=== PATIENT | male | born 1940 | race Native Hawaiian/Other Pacific Islander ===

== ENCOUNTER → 2020-02-16 10:03 | Outpatient (BNVA) | payer MEDICARE, SELFPAY | PROVIDERS: PCP Internal Medicine; Referring Provider Internal Medicine; Visit Provider Nurse Practitioner Gerontology | DX: E11.65 Type 2 diabetes mellitus with hyperglycemia (principal); E11.319 Type 2 diabetes mellitus with unspecified diabetic retinopathy without macular edema; E78.5 Hyperlipidemia, unspecified; I10 Essential (primary) hypertension; Z79.4 Long term (current) use of insulin | CPT/HCPCS: 82947; 95250; 99213 ==

== ENCOUNTER 2020-02-27 09:19 | Outpatient (REF) | payer MEDICARE, SELFPAY ==
[2020-02-27 10:11] LABS: MANUAL DIFF FLAG NO
[2020-02-27 10:26] LABS: Basophils Absolute Auto 0.1 X10*3/uL (0.0-0.2); Basophils Percent Auto 0.9 % (0-2); Eosinophils Absolute Auto 0.3 X10*3/uL (0.0-0.4); Eosinophils Percent Auto 4.8 % (0-4); Imm Gran Abs Auto 0.01 X10*3/uL (0.00-0.03); Imm Gran Pct Auto 0.1 % (0.0-0.4); Lymphocytes Absolute Auto 1.5 X10*3/uL (1.2-4.9); Lymphocytes Percent Auto 21.3 % (20-40); Mean Corpuscular HGB Conc 33.3 g/dl (31.0-36.0); Mean Corpuscular Hemoglobin 29.2 pg (27.0-33.0); Mean Corpuscular Volume 87.6 fL (80-98); Mean Platelet Volume 10.9 fL (9.4-12.4); Monocytes Absolute Auto 0.5 X10*3/uL (0.1-1.2); Monocytes Percent Auto 7.5 % (2-11); Neutrophils Absolute Auto 4.6 X10*3/uL (2.0-8.3); Neutrophils Percent Auto 65.4 % (45-73); Platelet Count 141 X10*3/uL (160-400); Red Blood Count 4.45 X10*6/uL (4.60-5.80); Red Cell Distribution Width 12.5 % (11.0-16.0)
[2020-02-27 10:53] LABS: TSH reflex Free T4 2.33 mIU/mL (0.32-4.0)
[2020-02-27 11:26] LABS: Alanine Aminotransferase 16 U/L (0-40); Albumin Level 4.3 g/dL (3.5-5.0); Alkaline Phosphatase 77 U/L (39-117); Anion Gap 12 (12-20); Aspartate Amino Transferase 16 U/L (5-37); Bilirubin Total 1.3 mg/dL (0.0-1.0); Blood Urea Nitrogen 17 mg/dL (9-16); C Reactive Protein 0.08 mg/dL (< or = 0.50); Calcium 9.6 mg/dL (8.4-10.2); Carbon Dioxide 30 mmol/L (22-29); Chloride 102 mmol/L (96-108); Cholesterol 135 mg/dL; Estimated Glomerular Filt Rate > 60; Glucose Fasting 138 mg/dL (60-99); HDL Cholesterol 36 mg/dL; LDL Cholesterol Calculated 66 mg/dl; Potassium 4.3 mmol/l (3.3-5.1); Sodium 140 mmol/L (135-145); Total Protein 6.9 g/dL (6.5-8.0); Triglycerides 166 mg/dL
[2020-02-27 11:37] LABS: Erythrocyte Sedimentation Rate 9 MM/HR (0-15)
== END 2020-02-27 09:20 | disposition home or self-care (01) ==
LOC: HO.10HDL 09:19
PROVIDERS: Visit Provider Internal Medicine
DX: M35.3 Polymyalgia rheumatica (principal); E78.00 Pure hypercholesterolemia, unspecified; E11.8 Type 2 diabetes mellitus with unspecified complications; R53.82 Chronic fatigue, unspecified
CPT/HCPCS: 36415; 80053; 80061; 84443; 85025; 85652; 86140

== ENCOUNTER → 2020-03-01 10:55 | Outpatient (BNVA) | payer MEDICARE, SELFPAY | PROVIDERS: PCP Internal Medicine; Referring Provider Internal Medicine; Visit Provider Nurse Practitioner Gerontology | DX: E11.29 Type 2 diabetes mellitus with other diabetic kidney complication (principal); Z79.84 Long term (current) use of oral hypoglycemic drugs; E78.5 Hyperlipidemia, unspecified; I10 Essential (primary) hypertension; R80.9 Proteinuria, unspecified | CPT/HCPCS: 82947; 99214 ==

== ENCOUNTER → 2020-07-26 10:54 | Outpatient (BNVA) | payer MEDICARE, SELFPAY | PROVIDERS: PCP Internal Medicine; Visit Provider Nurse Practitioner Gerontology | DX: I10 Essential (primary) hypertension (principal); E11.29 Type 2 diabetes mellitus with other diabetic kidney complication; R80.9 Proteinuria, unspecified; E78.5 Hyperlipidemia, unspecified; Z79.84 Long term (current) use of oral hypoglycemic drugs; Z71.3 Dietary counseling and surveillance | CPT/HCPCS: 82947; 99212 ==

== ENCOUNTER → 2020-11-01 10:33 | Outpatient (BNVA) | payer MEDICARE, SELFPAY | PROVIDERS: PCP Internal Medicine; Visit Provider Nurse Practitioner Gerontology | DX: E11.29 Type 2 diabetes mellitus with other diabetic kidney complication (principal); E78.5 Hyperlipidemia, unspecified; I10 Essential (primary) hypertension; R80.9 Proteinuria, unspecified | CPT/HCPCS: 82947; 99212 ==

== ENCOUNTER 2021-01-27 08:25 | Outpatient (REF) | payer MEDICARE, SELFPAY ==
[2021-01-27 10:42] LABS: Alanine Aminotransferase 25 U/L (0-40); Albumin Level 4.3 g/dL (3.5-5.0); Alkaline Phosphatase 66 U/L (39-117); Anion Gap 12 (12-20); Aspartate Amino Transferase 21 U/L (5-37); Bilirubin Total 1.5 mg/dL (0.0-1.0); Blood Urea Nitrogen 26 mg/dL (9-16); Calcium 9.5 mg/dL (8.4-10.2); Carbon Dioxide 28 mmol/L (22-29); Chloride 104 mmol/L (96-108); Cholesterol 127 mg/dL; Estimated Glomerular Filt Rate > 60; Glucose Fasting 117 mg/dL (60-99); HDL Cholesterol 36 mg/dL; LDL Cholesterol Calculated 62 mg/dl; Potassium 4.4 mmol/L (3.3-5.1); Sodium 140 mmol/L (135-145); Total Protein 6.5 g/dL (6.5-8.0); Triglycerides 148 mg/dL
[2021-01-27 14:22] LABS: Creatinine Urine 122.17 mg/dL; Microalbum/Creatinine Ratio Ur 20.4 ug/mg cr
[2021-01-28 13:05] LABS: LDL Cholesterol Direct 66 mg/dL (<100)
== END 2021-01-27 08:26 | disposition home or self-care (01) ==
LOC: HO.10HDL 08:25
PROVIDERS: Visit Provider Nurse Practitioner Gerontology
DX: E11.65 Type 2 diabetes mellitus with hyperglycemia (principal)
CPT/HCPCS: 36415; 80053; 80061; 82043; 83721

== ENCOUNTER → 2021-02-01 11:22 | Outpatient (BNVA) | payer MEDICARE, SELFPAY | PROVIDERS: PCP Internal Medicine; Visit Provider Nurse Practitioner Gerontology | DX: E11.29 Type 2 diabetes mellitus with other diabetic kidney complication (principal); E78.5 Hyperlipidemia, unspecified; I10 Essential (primary) hypertension; R80.9 Proteinuria, unspecified | CPT/HCPCS: 82947; 83036; 99212 ==

== ENCOUNTER 2021-02-23 09:00 | Outpatient (REF) | payer MEDICARE, SELFPAY ==
[2021-02-23 10:44] LABS: Prostate Specific Antigen 0.45 ng/mL (<0.05-4.0)
== END 2021-02-23 09:01 | disposition home or self-care (01) ==
LOC: HO.10HDL 09:00
PROVIDERS: Visit Provider Urology
DX: Z12.5 Encounter for screening for malignant neoplasm of prostate (principal); C61 Malignant neoplasm of prostate
CPT/HCPCS: 36415; 84153

== ENCOUNTER 2021-02-25 11:13 | Outpatient (REF) | payer MEDICARE, SELFPAY | END 2021-02-25 11:14 | disposition home or self-care (01) | LOC: HO.10HDLNP 11:13 | PROVIDERS: Visit Provider Physician Assistant | DX: K21.9 Gastro-esophageal reflux disease without esophagitis (principal) | CPT/HCPCS: 87338 ==

== ENCOUNTER → 2021-04-18 14:45 | Outpatient (BNVA) | payer MEDICARE, SELFPAY | PROVIDERS: PCP Internal Medicine; Referring Provider Internal Medicine; Visit Provider Nurse Practitioner | DX: K59.04 Chronic idiopathic constipation (principal); K30 Functional dyspepsia; R17 Unspecified jaundice | CPT/HCPCS: 99202 ==

== ENCOUNTER → 2021-04-19 10:58 | Outpatient (BNVA) | payer MEDICARE, SELFPAY | PROVIDERS: PCP Internal Medicine; Referring Provider Internal Medicine; Visit Provider Internal Medicine | DX: I25.10 Atherosclerotic heart disease of native coronary artery without angina pectoris (principal); I10 Essential (primary) hypertension; E11.8 Type 2 diabetes mellitus with unspecified complications | CPT/HCPCS: 93005; 99212 ==

== ENCOUNTER 2021-04-20 07:59 | Outpatient (REF) | payer MEDICARE, SELFPAY ==
[2021-04-20 10:10] LABS: Estimated Average Glucose 174 mg/dL; Hemoglobin A1c % 7.7 %
[2021-04-20 10:29] LABS: Alanine Aminotransferase 14 U/L (0-40); Albumin Level 4.2 g/dL (3.5-5.0); Alkaline Phosphatase 71 U/L (39-117); Anion Gap 14 (12-20); Aspartate Amino Transferase 14 U/L (5-37); Bilirubin Direct 0.5 mg/dL (0.0-0.5); Bilirubin Total 1.3 mg/dL (0.0-1.0); Blood Urea Nitrogen 19 mg/dL (9-16); Calcium 10.3 mg/dL (8.4-10.2); Carbon Dioxide 30 mmol/L (22-29); Chloride 105 mmol/L (96-108); Cholesterol 129 mg/dL; Estimated Glomerular Filt Rate > 60; Glucose Fasting 148 mg/dL (60-99); HDL Cholesterol 40 mg/dL; LDL Cholesterol Calculated 68 mg/dl; Potassium 4.9 mmol/L (3.3-5.1); Sodium 144 mmol/L (135-145); Total Protein 6.7 g/dL (6.5-8.0); Triglycerides 105 mg/dL
[2021-04-20 10:31] LABS: Bilirubin Direct 0.5 mg/dL (0.0-0.5); Creatinine Urine 106.06 mg/dL; Microalbum/Creatinine Ratio Ur 27.3 ug/mg cr
[2021-04-20 10:51] LABS: TSH reflex Free T4 3.24 uIU/mL (0.32-4.0)
[2021-04-24 15:06] LABS: Vitamin D 25-OH, D2 <4 ng/mL; Vitamin D 25-OH, D3 43 ng/mL; Vitamin D 25-OH, Total 43 ng/mL (30-100)
== END 2021-04-20 08:00 | disposition home or self-care (01) ==
LOC: HO.10HDL 07:59
PROVIDERS: Absent Provider Nurse Practitioner Gerontology; PCP Internal Medicine; Referring Provider Internal Medicine Hypertension Specialist; Visit Provider Nurse Practitioner
DX: E11.29 Type 2 diabetes mellitus with other diabetic kidney complication (principal); I10 Essential (primary) hypertension; K59.04 Chronic idiopathic constipation; R17 Unspecified jaundice; R10.13 Epigastric pain; E55.9 Vitamin D deficiency, unspecified; R80.9 Proteinuria, unspecified
CPT/HCPCS: 36415; 80053; 80061; 80076; 82043; 82248; 82306; 83036; 84443

== ENCOUNTER 2021-06-03 08:10 | Outpatient (REF) | payer MEDICARE, SELFPAY ==
--- NOTE | ~2021-06-03 | US_ITS ---
EXAMINATION: US ABDOMEN COMPLETE CLINICAL INFORMATION: Chronic idiopathic constipation. COMPARISON: CT abdomen and pelvis 07/14/2017. Ultrasound abdomen complete 05/29/2017. X-ray abdomen 11/13/2014. TECHNIQUE: Real-time imaging of the abdominal viscera. Technically limited study secondary to bowel gas. FINDINGS: PANCREAS: The pancreas is obscured by gas. ABDOMINAL AORTA: The proximal, mid, and distal segments are normal in caliber. INFERIOR VENA CAVA: Visualized portions are normal. LIVER: The liver is normal in size. The liver contour is normal. There is increased liver echogenicity. No focal hepatic lesion. There is no intrahepatic biliary duct dilatation seen. GALLBLADDER: Normal. The gallbladder is physiologically distended without evidence of stones, sludge, polyps, wall thickening or pericholecystic fluid. COMMON BILE DUCT: Normal in caliber measuring 0.5 cm in diameter. RIGHT KIDNEY: There is an anechoic cyst in the lateral/mid pole measuring 1.8 x 1.3 x 1.4 cm. No hydronephrosis or renal calculi. The kidney measures 9.8 cm in maximum dimension. LEFT KIDNEY: There is an anechoic cyst in the mid pole measuring 2.1 x 2.4 x 2.1 cm. No hydronephrosis or renal calculi. The kidney measures 12.0 cm in maximum dimension. SPLEEN: Normal. The spleen measures 8.0 cm in maximum dimension. FREE FLUID: None. US/US abdomen complete IMPRESSION: Bilateral renal cysts. The rest of the abdominal ultrasound is unremarkable.
== END 2021-06-03 08:11 | disposition home or self-care (01) ==
LOC: HO.US 08:10
PROVIDERS: PCP Internal Medicine; Visit Provider Nurse Practitioner
DX: R10.13 Epigastric pain (principal); K59.04 Chronic idiopathic constipation; R17 Unspecified jaundice
CPT/HCPCS: 76700

== ENCOUNTER → 2021-06-10 12:20 | Outpatient (BNVA) | payer MEDICARE, SELFPAY | PROVIDERS: PCP Internal Medicine; Visit Provider Nurse Practitioner Gerontology | DX: E11.29 Type 2 diabetes mellitus with other diabetic kidney complication (principal); E78.5 Hyperlipidemia, unspecified; I10 Essential (primary) hypertension; Z79.84 Long term (current) use of oral hypoglycemic drugs | CPT/HCPCS: 82947; 99212 ==

== ENCOUNTER → 2021-09-06 12:37 | Outpatient (BNVA) | payer MEDICARE, SELFPAY | PROVIDERS: PCP Internal Medicine; Visit Provider Nurse Practitioner Gerontology | DX: E11.29 Type 2 diabetes mellitus with other diabetic kidney complication (principal); E11.42 Type 2 diabetes mellitus with diabetic polyneuropathy; E78.5 Hyperlipidemia, unspecified; I10 Essential (primary) hypertension; Z79.84 Long term (current) use of oral hypoglycemic drugs; Z79.899 Other long term (current) drug therapy | CPT/HCPCS: 82947; 83036; 99212 ==

== ENCOUNTER 2022-04-12 09:09 | Outpatient (REF) | payer MEDICARE, SELFPAY ==
[2022-04-12 10:53] LABS: Anion Gap 15 (12-20); Blood Urea Nitrogen 19 mg/dL (9-16); Calcium 9.8 mg/dL (8.4-10.2); Carbon Dioxide 30 mmol/L (22-29); Chloride 102 mmol/L (96-108); Estimated Glomerular Filt Rate > 60; Glucose Random 146 mg/dL (60-115); Potassium 4.3 mmol/L (3.3-5.1); Sodium 143 mmol/L (135-145)
[2022-04-12 11:08] LABS: Creatinine Urine 116.93 mg/dL; Protein/Creatinine Ratio, Ur 0.16 (<0.2); Total Protein Urine Random 19 mg/dL (<12)
== END 2022-04-12 09:10 | disposition home or self-care (01) ==
LOC: HO.10HDL 09:09
PROVIDERS: Visit Provider Internal Medicine Hypertension Specialist
DX: I10 Essential (primary) hypertension (principal)
CPT/HCPCS: 36415; 80048; 84156

== ENCOUNTER → 2022-04-13 12:28 | Outpatient (BNVA) | payer MEDICARE, SELFPAY | PROVIDERS: PCP Internal Medicine; Referring Provider Internal Medicine; Visit Provider Internal Medicine | DX: I25.10 Atherosclerotic heart disease of native coronary artery without angina pectoris (principal); I10 Essential (primary) hypertension; E11.8 Type 2 diabetes mellitus with unspecified complications | CPT/HCPCS: 93005; 99212 ==

== ENCOUNTER → 2022-08-02 08:14 | Outpatient (BNVA) | payer MEDICARE, SELFPAY | PROVIDERS: PCP Internal Medicine; Visit Provider Nurse Practitioner | DX: K59.04 Chronic idiopathic constipation (principal); R17 Unspecified jaundice; K21.9 Gastro-esophageal reflux disease without esophagitis | CPT/HCPCS: 99212 ==

== ENCOUNTER → 2022-08-23 08:31 | Outpatient (BNVA) | payer MEDICARE, SELFPAY | PROVIDERS: PCP Internal Medicine; Visit Provider Nurse Practitioner | DX: K59.04 Chronic idiopathic constipation (principal); K30 Functional dyspepsia | CPT/HCPCS: 99212 ==

== ENCOUNTER 2022-11-09 08:05 | Day surgery (SDC) | payer OTHER, SELFPAY ==
[2022-11-07 09:41] VITALS: BMI 23.9
--- NOTE | 2022-11-07 15:03 | P.CONAN_ITS ---
Documented by User: Flores Robison NP 11/07/22 15:05 HPI - Anesthesia Eval Consult details Narrative: 82yo M for Upper Endoscopy Stable/asymptomatic at yearly cardiology office visit 04/2022 [facility] Active Problems Active Problems: All Active Problems (Updated 11/07/22 @ 09:38 by Amanda Kan RN) Elevated bilirubin (Acute) Chronic idiopathic constipation (Acute) Epigastric pain (Acute) Delayed gastric emptying (Acute) Atherosclerotic cardiovascular disease (Acute) Type 2 diabetes mellitus with unspecified complications (Acute) Tremor (Acute) Hyperlipidemia LDL goal <70 (Acute) Type 2 diabetes mellitus with diabetic polyneuropathy (Acute) Malignant neoplasm of prostate (Acute) GERD (gastroesophageal reflux disease) (Acute) Type 2 diabetes mellitus with proteinuria (Acute) Type 2 diabetes mellitus with hyperglycemia (Acute) Essential hypertension (Acute) Allergic rhinitis (Acute) Stented coronary artery (Acute) Microalbuminuria (Acute) Insomnia (Acute) Past Medical History Medical History Allergic rhinitis Coronary artery disease Essential hypertension GERD (gastroesophageal reflux disease) History of Helicobacter infection History of prostate cancer Hyperlipidemia LDL goal <100 Insomnia Malignant neoplasm of prostate Microalbuminuria Type 2 diabetes mellitus with diabetic polyneuropathy Type 2 diabetes mellitus with hyperglycemia Type 2 diabetes mellitus with proteinuria Vitamin D deficiency Family History Family History Father Medical history unknown Mother Medical history unknown Sister Diabetes Daughter Breast cancer Surgical History Surgical History History of cardiac cath Hx of colonoscopy Hx of esophagogastroduodenoscopy Hx of prostate biopsy Stented coronary artery Social History Social History Household Members: None Housing: Apartment Housing Other:: [employer] Alcohol intake: never Patient Tobacco Use Status: Former Tobacco user Quit Date: > 10 yrs ago Tobacco use type: Cigarette e-Cigarette/Vaping Use: Never Used Second Hand Smoke Exposure: No Use of substances other than those prescribed or required for medical reasons: No Are you DNR?: No Advance Directives: No Advance Directives Information Provided: Yes service: No Current occupational status: retired Cognitive needs: Yes Hearing needs: No Vision needs: Yes Meds Allergies Allergy/AdvReac Type Severity Reaction Status Date / Time No Known Allergies Allergy Verified 11/09/22 08:49 [No Known Allergies*] Home Medications Medication Instructions Recorded Confirmed Last Taken Type docusate sodium 100 mg capsule 100 mg PO DAILY PRN Constipation 02/14/20 11/09/22 Unknown History (Colace) furosemide 20 mg tablet 20 mg PO DAILY PRN leg swelling 02/14/20 11/09/22 Unknown History nitroglycerin 0.4 mg sublingual 0.4 mg sublingual Q5M PRN Chest 02/14/20 11/09/22 Unknown History tablet Pain blood-glucose meter #1 ea 04/01/20 11/09/22 Unknown History lancets 28 gauge #100 ea 04/01/20 11/09/22 Unknown History glucose 4 gram chewable tablet 4 g PO ONCE PRN Hypoglycemia 07/26/20 11/09/22 Unknown History plecanatide 3 mg tablet (Trulance) 3 mg PO DAILY PRN Abdominal Pain 11/09/22 11/09/22 Unknown History sennosides 8.6 mg capsule (senna) 17.2 mg PO BEDTIME PRN Constipation 11/09/22 11/09/22 Unknown History Exam Exam Date and Time: November 07, 2022 1503 Height,Weight and Vital Signs: Height 5 ft 3 in Weight 61.235 kg Pertinent Lab Results Pertinent Lab Results: Laboratory Tests 04/12/22 08:30 Sodium 143 Potassium 4.3 Chloride 102 Carbon Dioxide 30 H BUN 19 H Creatinine 0.92 Narrative Narrative: EKG 04/2022 sinus rhythm, sinus arrhythmia versus PACs.? Rightward axis.? Normal AK and cor rected QT. Assessment and Plan Assessment Anesthesia Assessment: Chart Reviewed Documented by User: Cecily Yoo MD 11/09/22 09:10 PMFSH Past Medical History Medical History Allergic rhinitis Coronary artery disease Essential hypertension GERD (gastroesophageal reflux disease) History of Helicobacter infection History of prostate cancer Hyperlipidemia LDL goal <100 Insomnia Malignant neoplasm of prostate Microalbuminuria Type 2 diabetes mellitus with diabetic polyneuropathy Type 2 diabetes mellitus with hyperglycemia Type 2 diabetes mellitus with proteinuria Vitamin D deficiency Family History Family History Father Medical history unknown Mother Medical history unknown Sister Diabetes Daughter Breast cancer Family history of problems with anesthesia: No Surgical History Surgical History History of cardiac cath Hx of colonoscopy Hx of esophagogastroduodenoscopy Hx of prostate biopsy Stented coronary artery History of Problems with Anesthesia: No Social History Social History Household Members: None Housing: Apartment Housing Other:: [employer] Alcohol intake: never Patient Tobacco Use Status: Former Tobacco user Quit Date: > 10 yrs ago Tobacco use type: Cigarette e-Cigarette/Vaping Use: Never Used Second Hand Smoke Exposure: No Use of substances other than those prescribed or required for medical reasons: No Are you DNR?: No Advance Directives: No Advance Directives Information Provided: Yes service: No Current occupational status: retired Cognitive needs: Yes Hearing needs: No Vision needs: Yes Meds Allergies Allergy/AdvReac Type Severity Reaction Status Date / Time No Known Allergies Allergy Verified 11/09/22 08:49 [No Known Allergies*] Home Medications Medication Instructions Recorded Confirmed Last Taken Type docusate sodium 100 mg capsule 100 mg PO DAILY PRN Constipation 02/14/20 11/09/22 Unknown History (Colace) furosemide 20 mg tablet 20 mg PO DAILY PRN leg swelling 02/14/20 11/09/22 Unknown History nitroglycerin 0.4 mg sublingual 0.4 mg sublingual Q5M PRN Chest 02/14/20 11/09/22 Unknown History tablet Pain blood-glucose meter #1 ea 04/01/20 11/09/22 Unknown History lancets 28 gauge #100 ea 04/01/20 11/09/22 Unknown History glucose 4 gram chewable tablet 4 g PO ONCE PRN Hypoglycemia 07/26/20 11/09/22 Unknown History plecanatide 3 mg tablet (Trulance) 3 mg PO DAILY PRN Abdominal Pain 11/09/22 11/09/22 Unknown History sennosides 8.6 mg capsule (senna) 17.2 mg PO BEDTIME PRN Constipation 11/09/22 11/09/22 Unknown History Exam Airway Mallampati Class: II TM Dist: >3cm Neck ROM: Full Partial: Upper and Lower Heart: rrr Lungs: cta Assessment and Plan Assessment Anesthesia Assessment: Anesthesia Plan Discussed Final Anesthetic Review Family History of Problems with Anesthesia: No History of Problems with Anesthesia: No NPO: Yes ASA Class: III Final Preanesthetic Review: No Changes in Pt Med Stat, Meds/Allgs Chart Reviewed, Consent Obtained/Reviewed and Anes Risks/Benef Reviewed Patient Risk: Low Procedure Risk: Low Anesthetic Plan Anesthetic Plan: MAC: Disposition: Standard PACU
[2022-11-09] MEDS: Lactated Ringers 1,000 ML 100 ML IVCONT (08:48)
[2022-11-09 09:13] LABS: Glucose, Whole Blood 134 mg/dL (60-115)
--- NOTE | 2022-11-09 09:20 | MHC.SHP ---
Pre-Procedural Eval Section A Date of Service: 11/09/22 Section B Chief Complaint: Functional dyspepsia,epigastric pain, Relevant Family History (Specify if Yes): No Relevant Social History: None Present Medications: see Short Stay Collaborative assessment Medical History: Significant History (Allergic rhinitis Colon cancer Coronary artery disease Essential hypertension GERD (gastroesophageal reflux disease) History of Helicobacter infection History of prostate cancer Hyperlipidemia LDL goal <100 Insomnia Malignant neoplasm of prostate Microalbuminuria Type 2 diabetes mellitus with diabet) History of Previous Operations: Relevant previous surgery/procedure and date(s) (History of cardiac cath Hx of colonoscopy Hx of esophagogastroduodenoscopy Hx of prostate biopsy Stented coronary artery) Allergies: Allergies Allergy/AdvReac Type Severity Reaction Status Date / Time No Known Allergies Allergy Verified 11/09/22 08:49 [No Known Allergies*] Review of Systems Sugical H&P ROS: Negative: Constitution, Cardiovascular, Respiratory, Neurological, Psychiatric, Hem-Onc, Allergic/Immunologic, Gastrointestinal, Genitourinary, Musculoskeletal, Integumentary, Endocrine and Eyes/Ears/Nose/Throat Exam Surgical H&P Exam: Normal: HEENT, Normal: Heart, Normal: Lungs, Normal: Extremities, Normal: Abdomen, Normal: Skin and Normal: Neurological Plan Diagnosis/Plan: Unchanged I have reviewed the history and physical and performed a pertinent physical examination on my patient. No changes have occurred unless specified. Time Spent With Patient Time: Total time managing care of this patient today ____ minutes.
--- NOTE | 2022-11-09 09:34 | W.PM.OPN ---
Operative Note Operative Note Date of Service: 11/09/22 Narrative: Procedure Description: EGD Indication: epigastric pain Anesthesia: MAC FLEXIBLE TRANSORAL UPPER GASTROINTESTINAL ENDOSCOPY UPPER ENDOSCOPY Consent: Indications for the procedure and potential complications of bleeding, perforation, reaction to medications and missed diagnosis were discussed with the patient and informed consent was obtained. Instrument: Olympus GIF H 190 J mid size upper endoscope Monitoring: Vital signs and clinical assessment, continuous EKG monitoring, Pulse oximetry, Carbon Dioxide monitoring and blood pressure monitoring were done throughout the procedure. Procedure: The patient was placed in the left lateral decubitis position and pre-procedure medications were administered and a bite block was placed. The endoscope was inserted into the mouth and advanced under direct vision to the third part of duodenum. A careful inspection was made as the upper endoscope was withdrawn including a retroflexed examination of the proximal stomach; Findings and interventions are described below. Findings: Larynx:normal Esophagus: GE junction at 34 cm, diaphragm hiatus at 36 cm, consistent with 2 cm sliding hiatal hernia, mild esophagitis, bx taken Stomach: Patchy gastric erythema with atrophy. Biopsies were obtained. Grade 2 flap valve on retroflexed examination of the cardia. Duodenum: Normal bulb and descending duodenum, bx taken Intervention: Biopsies as noted above Impression/Findings: atrophic gastritis esophagitis PLAN: check complaince with PPI, can give trial of carafate if h pylori pos then treat
[2022-11-09 09:40] VITALS: BP 152/77; PULSE 99; RESP 16; TEMP 36.7; O2SAT 98
[2022-11-09 09:55] VITALS: BP 171/78; PULSE 98; RESP 16; TEMP 36.7; O2SAT 99
== END 2022-11-09 10:09 | disposition home or self-care (01) ==
PROVIDERS: PCP Internal Medicine; Visit Provider Internal Medicine Gastroenterology
PROC: 0DJ08ZZ Inspection of Upper Intestinal Tract, Via Natural or Artificial Opening Endoscopic (ICD-10-PCS; CPT 43235; principal; 2022-11-09 08:10)
DX: R10.13 Epigastric pain (principal); K30 Functional dyspepsia; K29.40 Chronic atrophic gastritis without bleeding; K21.00 Gastro-esophageal reflux disease with esophagitis, without bleeding; K44.9 Diaphragmatic hernia without obstruction or gangrene; I10 Essential (primary) hypertension; E11.9 Type 2 diabetes mellitus without complications
CPT/HCPCS: 43239; 82947; 88305; 88342

== ENCOUNTER 2022-11-15 09:02 | Outpatient (REF) | payer OTHER, SELFPAY | END 2022-11-15 09:03 | disposition home or self-care (01) | LOC: HO.XRAY 09:02 | PROVIDERS: PCP Internal Medicine; Visit Provider Nurse Practitioner | DX: R10.13 Epigastric pain (principal) | CPT/HCPCS: 74220 ==

== ENCOUNTER 2022-11-21 08:52 | Outpatient (AMB) | payer MEDICARE, SELFPAY ==
--- NOTE | 2022-11-21 09:06 | A.OFFVIS_ITS ---
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 He has had help with the epigastric pain and the acid brash with the reglan w/o s/e. He is also using the simethicone. However, he still will have CIC, but the Trulance gives him diarrhea. We will stop this and try senna - may need to buy OTC. He still has pain in the xyphoid area with laying down, touching it and bending to tie his shoes. Will get EGD and bariums swallow, unsure if this is pain from the distal esophagus or some other internal organ whether this is musculoskeletal.? The examination is quite mix with pain also pressing on (gently) the lower ribs and xiphoid area.? She also, the pain is not worsened with eating or swallowing so it is puzzling. Next avail for eval of senna (2) Chronic idiopathic constipation: ?Code(s): K59.04 - Chronic idiopathic constipation (3) Delayed gastric emptying: ?Code(s): K30 - Functional dyspepsia ? ? ? Orders: Orders FL barium swallowA Today R10.13 - Epigastri c pain ? Medications: New sennosides (senna) 17.2 mg (2 x 8.6 m g) PO BEDTIME 30 d ays 60 caps 3RF co nstipation K59.04 - Chronic i diopathic constipa tion ?Patient Instructions: Bassam Kurtz Please stop the Trulance and start a medicine called senna for his constipation as needed. I have tried sending this to the pharmacy, but you may need to buy this over the counter ? it should be inexpensive. Store brands are okay! Continue the metoclopramide and the simethicone. I? also am ordering and upper endoscopy and a barium swallow for him, we will be calling to schedule this. I want to see him in a few weeks to see how the senna is working. BARIUM SWALLOW 11/15/22 FINDINGS: Following intravenous administration of thick barium and barium-coated turkey in upright view there is normal? propagation of bolus from the oral cavity through the esophagus into stomach without any obstruction, narrowing or stricture. There is normal oral mastication of turkey with normal propagation of bolus from the oral cavity through the pharynx, esophagus into stomach. On placing patient prone lying, an oral administration thin barium, there is good distention of the entire esophagus without any evidence of obstruction, narrowing or stricture. In supine view, there is a small hiatal hernia but no reflux visualized. There are tertiary peristalsis visualized in the distal esophagus in supine view. FL/FL barium swallow IMPRESSION: 1. No obstructive or constrictive lesion seen in the esophagus. ? 2. There is a small hiatal hernia without reflux. ? 3. Tertiary peristalsis seen in the distal esophagus in supine lying view. ? EGD 11/09/22 Findings: Larynx:normal Esophagus: GE junction at 34? cm, diaphragm hiatus at 36 cm, consistent with 2 cm sliding hiatal hernia, mild esophagitis, bx taken Stomach: Patchy gastric erythema with atrophy. Biopsies were obtained. Grade 2 flap valve on retroflexed examination of the cardia. Duodenum: Normal bulb and descending duodenum, bx taken Intervention: Biopsies as noted above Impression/Findings: atrophic gastritis esophagitis PLAN: check complaince with PPI, can give trial of carafate if h pylori pos then treat Received: 11/09/22 Diagnosis A.? Duodenum, biopsy:? Duodenal mucosa with preserved villi and no specific change. B.? Stomach, biopsy:? Gastric body mucosa with mild reactive changes and minimal chronic inactive gastritis; no atrophy seen; negative for intestinal metaplasia and dysplasia (see comment).? C.? Gastroesophageal junction, biopsy:? Squamocolumnar mucosa with mild to moderate chronic inactive inflammation; negative for intestinal metaplasia and dysplasia. D.? Esophagus, distal, biopsy:? Squamocolumnar mucosa with minimal chronic inactive inflammation; negative for intestinal metaplasia and dysplasia.? Comment:? (B):? Immunostain for H. pylori is pending; addendum to follow. Addendum #1 (B): Immunostain for H. pylori is negative with appropriate control. Electronically Signed By: Adela Barroso ? 11/16/22 [id number] TODAY'S VISIT [place] #Nneka Wang HE is here today with his daughter who is supportive. He tolerated the procedure well. He had one episode of sudden onset of vomiting Sunday, he can not ID any medications changed or other sx accompanying this. He did not have this sx prior to this. He has not seen any improvement with the sucralfate and it is constipating him so we will stop this and try advancing the omeprazole to lansoprazole. HE continues his Trulance, senna, reglan 5mg qidachs and simethicone. ROV 4 weeks. [facility] Medical History Allergic rhinitis Coronary artery disease Essential hypertension GERD (gastroesophageal reflux disease) History of Helicobacter infection History of prostate cancer Hyperlipidemia LDL goal <100 Insomnia Malignant neoplasm of prostate Microalbuminuria Type 2 diabetes mellitus with diabetic polyneuropathy Type 2 diabetes mellitus with hyperglycemia Type 2 diabetes mellitus with proteinuria Vitamin D deficiency Surgical History History of cardiac cath Hx of colonoscopy Hx of esophagogastroduodenoscopy Hx of prostate biopsy Stented coronary artery Family History Father Medical history unknown Mother Medical history unknown Sister Diabetes Daughter Breast cancer Social History Household Members: None Housing: Apartment Housing Other:: [employer] Alcohol intake: never Patient Tobacco Use Status: Former Tobacco user Quit Date: > 10 yrs ago Tobacco use type: Cigarette e-Cigarette/Vaping Use: Never Used Second Hand Smoke Exposure: No service: No Current occupational status: retired Cognitive needs: Yes Hearing needs: No Vision needs: Yes Review of Systems Const Denies fatigue, Denies fever(s), Denies night sweats, Denies poor appetite and Denies weight loss Eyes Details: glasses Reports requires corrective lenses ENT Reports Normal hearing present, Denies dental pain, Denies dysphagia, Denies hearing loss, Denies mouth pain, Denies odynophagia, Denies throat swelling, Denies tongue swelling and Reports other (Dentition adequate) Card Reports no additional complaints Resp Reports no additional complaints GI Denies abdominal pain, Denies melena, Denies bloating, Denies hematochezia, Reports constipation, Denies GI cramping, Denies dysphagia, Denies excessive flatus, Denies early satiety, Reports heartburn, Denies diarrhea, Reports nausea, Denies odynophagia, Reports vomiting and Denies hematemesis Skin/Breast Denies pruritus, Denies lesions, Denies rash and Denies jaundice Neuro Reports Normal hearing present and Denies Abnormal speech present Endo Denies fatigue Aller/Immun Denies throat swelling and Denies tongue swelling Physical Exam Vital Signs: Last Vital Signs Pulse 78 11/21/22 09:08 BP 138/76 11/21/22 09:08 BMI result Body Mass Index 23.7 Const General: cooperative, no acute distress, well developed and well groomed Nutritional Appearance: average body habitus and well nourished Orientation/consciousness: oriented to person, oriented to place and oriented to time Limitations: language barrier HEENT Head: Yes normocephalic and Yes atraumatic Eyes General: appearance normal, both eyes and all related structures Pupils: Equal, round and reactive pupils present Neck Neck: Yes normal visual inspection and Yes no lymphadenopathy Thyroid: Thyroid normal Resp Effort & Inspection: normal respiratory effort and able to speak in complete sentences Auscultation: clear to auscultation bilaterally Cardio Rate: regular rate Rhythm: regular rhythm Heart sounds: Normal, physiologic split S2 sound present Peripheral pulses: radial pulses present and posterior tibial pulses present GI Inspection: No distended and No Abdominal panniculus present Palpation (GI): Soft to palpation, Tenderness to palpation present (GI) in the epigastrum, no guarding, not rigid and No hepatosplenomegaly present Percussion: Yes normal to percussion Auscultation: normal bowel sounds Rectal Exam - Male: Yes deferred Skin General skin exam: no rashes or lesions noted, turgor normal, skin not dry, no jaundice, No spider nevi and no striae Rashes: no rashes Nails: normal Neuro General: oriented to person, oriented to place and oriented to time Cranial nerves: Yes Equal, round and reactive pupils present and Yes Normal hearing present Speech: No Abnormal speech present Extrem General: Yes normal to inspection, No clubbing, No cyanosis and No edema Psych Appearance: grossly normal and well kempt Mental Status: mental status grossly normal Speech and movement: Normal speech and movement present Affect: normal affect Attitude: cooperative Thought process: Normal thought process present and not confabulating Thought content: Normal thought content present Insight: Limited insight present (Psych) Judgement: Limited judgement present (Psych) Assessment & Plan Assessment & Plan (1) Epigastric pain: Code(s): R10.13 - Epigastric pain Plan: .[place] #Nneka Live HE is here today with his daughter who is supportive. He tolerated the procedure well. He had one episode of sudden onset of vomiting Sunday, he can not ID any medications changed or other sx accompanying this. He did not have this sx prior to this. He has not seen any improvement with the sucralfate and it is constipating him so we will stop this and try advancing the omeprazole to lansoprazole. HE continues his Trulance, senna, reglan 5mg qidachs and simethicone. ROV 4 weeks. (2) GERD (gastroesophageal reflux disease): Code(s): K21.9 - Gastro-esophageal reflux disease without esophagitis Qualifiers: Esophagitis presence: esophagitis presence not specified Qualified Code(s): K21.9 - Gastro-esophageal reflux disease without esophagitis (3) Chronic idiopathic constipation: Code(s): K59.04 - Chronic idiopathic constipation (4) Delayed gastric emptying: Code(s): K30 - Functional dyspepsia Medications: New lansoprazole 30 mg PO .qamac 30 caps 6RF R10.13 - Epigastric pain, K21.9 - Gastro-esophageal reflux disease without esophagitis Discontinued omeprazole needs an appointment for refills Discontinued Reason: Doctor's Order 40 mg PO DAILY 30 caps 6RF K21.9 - Gastro-esophageal reflux disease without esophagitis plecanatide 3 mg PO DAILY 30 days 30 tabs 6RF K59.04 - Chronic idiopathic constipation sennosides 17.2 mg (2 x 8.6 mg) PO BEDTIME 30 days 60 caps 3RF constipation K59.04 - Chronic idiopathic constipation On Hold sucralfate (Carafate) Hold Comment: Doctor's Order 10 mL PO BID 400 mL 2RF Coding Level of Care Code Est Pt Level 3 (84136) Diagnoses Epigastric pain R10.13 GERD (gastroesophageal reflux disease) K21.9 Esophagitis presence: esophagitis presence not specified Chronic idiopathic constipation K59.04 Delayed gastric emptying K30
[2022-11-21 09:08] VITALS: BP 138/76; PULSE 78; BMI 23.7
== END 2022-11-21 09:49 | disposition home or self-care (01) ==
PROVIDERS: Visit Provider Nurse Practitioner
DX: R10.13 Epigastric pain (principal); K21.9 Gastro-esophageal reflux disease without esophagitis; K59.04 Chronic idiopathic constipation; K30 Functional dyspepsia
CPT/HCPCS: 99213

== ENCOUNTER → 2022-11-21 08:52 | Outpatient (BNVA) | payer MEDICARE, SELFPAY | PROVIDERS: Visit Provider Nurse Practitioner | DX: R10.13 Epigastric pain (principal); K21.9 Gastro-esophageal reflux disease without esophagitis; K59.04 Chronic idiopathic constipation | CPT/HCPCS: 99212 ==

== ENCOUNTER 2022-12-05 08:50 | Outpatient (REF) | payer MEDICARE, SELFPAY ==
[2022-12-05 11:05] LABS: Alanine Aminotransferase 14 U/L (0-40); Albumin Level 4.2 g/dL (3.5-5.0); Alkaline Phosphatase 73 U/L (39-117); Anion Gap 13 (12-20); Aspartate Amino Transferase 14 U/L (5-37); Bilirubin Total 0.9 mg/dL (0.0-1.0); Blood Urea Nitrogen 24 mg/dL (9-16); Calcium 10.3 mg/dL (8.4-10.2); Carbon Dioxide 29 mmol/L (22-29); Chloride 103 mmol/L (96-108); Cholesterol 137 mg/dL; Estimated Glomerular Filt Rate > 60; Glucose Fasting 120 mg/dL (60-99); HDL Cholesterol 32 mg/dL; LDL Cholesterol Calculated 69 mg/dl; Potassium 4.5 mmol/L (3.3-5.1); Sodium 140 mmol/L (135-145); Total Protein 7.2 g/dL (6.5-8.0); Triglycerides 182 mg/dL
[2022-12-05 11:17] LABS: Estimated Average Glucose 146 mg/dL; Hemoglobin A1c % 6.7 %
[2022-12-05 11:38] LABS: Creatinine Urine 175.91 mg/dL; Microalbum/Creatinine Ratio Ur 48.8 ug/mg cr
== END 2022-12-05 08:51 | disposition home or self-care (01) ==
LOC: HO.10HDL 08:50
PROVIDERS: Visit Provider Internal Medicine
DX: E78.5 Hyperlipidemia, unspecified (principal); E11.40 Type 2 diabetes mellitus with diabetic neuropathy, unspecified
CPT/HCPCS: 36415; 80053; 80061; 82043; 83036

== ENCOUNTER 2022-12-07 10:44 | Outpatient (AMB) | payer MEDICARE, SELFPAY ==
--- NOTE | 2022-12-07 10:45 | A.OFFPC_ITS ---
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 Accompanied by: Daughter Allergies No Known Allergies [No Known Allergies*] Allergy (Verified 12/07/22 10:58) Medication List - Last Reconciled 12/07/22 by Margaret Mcguire MD amlodipine 5 mg PO DAILY 30 days aspirin (Enteric Coated Aspirin) 81 mg PO DAILY 3 months atorvastatin 40 mg PO DAILY blood pressure monitor (Blood Pressure Kit) As directed blood sugar diagnostic (FreeStyle Lite Strips) 1 strip miscellaneous TID blood-glucose meter As directed carvedilol 12.5 mg PO BID cholecalciferol (vitamin D3) 25 mcg PO DAILY 3 months docusate sodium (Colace) 100 mg PO DAILY PRN dulaglutide (Trulicity) 1.5 mg (0.5 mL) subcut QWEEK 90 days fluticasone propionate 50 mcg/actuation (Allergy Relief (fluticasone)) 1 spray intranasal DAILY 30 days furosemide 20 mg PO DAILY PRN gabapentin 100 mg PO TID 30 days glucose 4 grams PO ONCE PRN lancets As directed lansoprazole 30 mg PO .qamac losartan 100 mg PO DAILY metformin 1,000 mg PO BID 90 days metoclopramide HCl (Reglan) 5 mg PO QIDACHS 30 days mometasone 0.1% 1 appl topical DAILY 30 days mupirocin 2% 1 appl topical BID 30 days nitroglycerin 0.4 mg sublingual Q5M PRN plecanatide (Trulance) 3 mg PO DAILY PRN repaglinide 0.5 mg PO DAILY sennosides (senna) 17.2 mg PO BEDTIME PRN simethicone 180 mg PO QID 30 days sucralfate (Carafate) 10 mL PO BID temazepam 30 mg PO BEDTIME PRN 30 days Tobacco use date assessed: 07/31/22 Fall risk assessment: No Falls in past year Last assessed Fall Risk: 12/07/22 Dental Screening Dental Screen Date: 12/07/22 Did you have a dental visit in the last 12 months?: No Did you have a dental problem in the last 6 months where you did not have access to dental care?: No Was dental information given to patient?: Patient has dentist HPI HPI Comments History of Present Illness Details This is an 82-year-old male with diabetes mellitus type 2, hypertension, hyperlipidemia and GERD that comes today accompanied by daughter for follow-up on his conditions. A1c within goal. Blood pressure stable. LDL within goal. GERD still present and this is follow by Gastroenterology. He does complains abdominal discomfort for and frequent nausea and vomiting. He has been using Trulicity for about 2 years and these symptoms were present before. I also told him that metformin also can cause abdominal discomfort for. Denies any chest pain or shortness of breath. No fever or cough. [facility] Medical History (Updated 12/07/22 @ 11:09 by Margaret Mcguire MD) Allergic rhinitis Coronary artery disease Essential hypertension GERD (gastroesophageal reflux disease) History of Helicobacter infection History of prostate cancer Hyperlipidemia LDL goal <100 Insomnia Malignant neoplasm of prostate Microalbuminuria Type 2 diabetes mellitus with diabetic polyneuropathy Type 2 diabetes mellitus with hyperglycemia Type 2 diabetes mellitus with proteinuria Vitamin D deficiency Surgical History History of cardiac cath Hx of colonoscopy Hx of esophagogastroduodenoscopy Hx of prostate biopsy Stented coronary artery Family History Father Medical history unknown Mother Medical history unknown Sister Diabetes Daughter Breast cancer Social History Household Members: None Housing: Apartment Housing Other:: [employer] Alcohol intake: never Patient Tobacco Use Status: Former Tobacco user Quit Date: > 10 yrs ago Tobacco use type: Cigarette e-Cigarette/Vaping Use: Never Used Second Hand Smoke Exposure: No service: No Current occupational status: retired Cognitive needs: Yes Hearing needs: No Vision needs: Yes Questionnaire Thrive Questionnaire Date Thrive assessed: 07/31/22 KULWINDER-7 AMB Questionnaire KULWINDER-7 Date KULWINDER - 7 assessed: 07/31/22 Source: Developed by Drs. Sammy Ellis, Pippa Orellana, Bebeto Gagnon and colleagues, with an educational vipin from [employer] Review of Systems Const All systems reviewed & are unremarkable except as noted in HPI and below Eyes Reports no additional complaints, Denies change in vision and Denies other visual disturbances Card Denies chest pain at rest, Denies chest pain with activity, Denies edema, Denies irregular heart rhythm, Denies claudication, Denies dyspnea, Denies dyspnea on exertion, Denies orthopnea, Denies paroxysmal nocturnal dyspnea and Denies slow heart rate Resp Denies cough, Denies dyspnea and Denies dyspnea on exertion GI Reports abdominal pain, Denies change in bowel habits, Denies excessive flatus, Reports heartburn, Reports nausea and Reports vomiting Denies urinary hesitancy, Denies urinary incontinence and Denies urinary urgency Musc Denies abnormal gait, Denies atrophy, Denies deformity and Denies limited range of motion Skin/Breast Denies bleeding lesions, Denies changing lesions and Denies rash Neuro Denies abnormal gait and Denies lack of coordination Physical exam (Primary Care) Vital Signs: Last Vital Signs BP 118/70 12/07/22 10:46 BMI result Body Mass Index 23.2 Tobacco/Smoking Status: Tobacco use Status Tobacco use date assessed 07/31/22 12/07/22 10:54 Patient Tobacco Use Status Former Tobacco user 12/07/22 10:54 Tobacco use type Cigarette 12/07/22 10:54 e-Cigarette/Vaping Use Never Used 12/07/22 10:54 Thrive Assessment: Date of Thrive Assessment Date Thrive assessed 07/31/22 12/07/22 10:54 Eyes General: appearance normal, both eyes and all related structures Eyelids: Yes eyelids normal Conjunctivae: conjunctivae normal Neck Neck: Yes normal visual inspection and Yes supple Resp Effort & Inspection: normal respiratory effort Auscultation: clear to auscultation bilaterally Cardio Jugular venous distension: no JVD Rate: regular rate Rhythm: regular rhythm Heart sounds: S1 normal heart sound present and S2 normal heart sound present Extrem General: Yes full ROM Assessment and Plan Assessment & Plan (1) Type 2 diabetes mellitus with unspecified complications: Code(s): E11.8 - Type 2 diabetes mellitus with unspecified complications Plan: Continue metformin and Trulicity. A1c goal is equal or less than 7%. (2) Hyperlipidemia LDL goal <70: Code(s): E78.5 - Hyperlipidemia, unspecified Plan: Continue statins. LDL goal is less than 70. (3) GERD (gastroesophageal reflux disease): Code(s): K21.9 - Gastro-esophageal reflux disease without esophagitis Qualifiers: Esophagitis presence: esophagitis presence not specified Qualified Code(s): K21.9 - Gastro-esophageal reflux disease without esophagitis Plan: Continue PPIs. Follow up with Gastroenterology. (4) Essential hypertension: Code(s): I10 - Essential (primary) hypertension Plan: Continue losartan. Blood pressure goal is equal or less than 130/80. Orders: Orders XR knee LT 2V Today M25.562 - Pain in left knee XR knee RT 2V Today M25.561 - Pain in right knee Comprehensive [place]. Panel Fast 4 Months E11.42 - Type 2 diabetes mellitus with diabetic polyneuropathy Lipid Panel 4 Months E78.5 - Hyperlipidemia, unspecified Microalbumin, Random (w Creat) 4 Months E11.9 - Type 2 diabetes mellitus without complications Referrals Orthopedics Referral M25.561 - Pain in right knee, M25.562 - Pain in left knee Medications: Discontinued plecanatide 3 mg PO DAILY 30 days 30 tabs 6RF K59.04 - Chronic idiopathic constipation sennosides 17.2 mg (2 x 8.6 mg) PO BEDTIME 30 days 60 caps 3RF constipation K59.04 - Chronic idiopathic constipation Coding Level of Care Code Est Pt Level 4 (75662) Diagnoses Type 2 diabetes mellitus with unspecified complications E11.8 Hyperlipidemia LDL goal <70 E78.5 GERD (gastroesophageal reflux disease) K21.9 Esophagitis presence: esophagitis presence not specified Essential hypertension I10 Time Spent (min) 22
[2022-12-07 10:46] VITALS: BP 118/70; BMI 23.2
== END 2022-12-07 11:09 | disposition home or self-care (01) ==
PROVIDERS: Visit Provider Internal Medicine
DX: E11.8 Type 2 diabetes mellitus with unspecified complications (principal); E78.5 Hyperlipidemia, unspecified; K21.9 Gastro-esophageal reflux disease without esophagitis; I10 Essential (primary) hypertension
CPT/HCPCS: 99214

== ENCOUNTER 2022-12-07 11:18 | Outpatient (REF) | payer OTHER, SELFPAY ==
--- NOTE | ~2022-12-07 | XR_ITS ---
EXAMINATION: XR KNEE, LEFT XR KNEE, RIGHT CLINICAL INFORMATION: Pain. COMPARISON: 11/12/2014 of the left knee. TECHNIQUE: AP and lateral views of each knee. FINDINGS: RIGHT KNEE: There is no evidence of acute fracture or dislocation of the right knee. Right knee joint spaces are maintained. No right knee effusion is seen. Prominent vascular calcifications are noted. LEFT KNEE: There is no evidence of acute fracture or dislocation of the left knee. No left knee effusion is seen. There is minimal spurring of the patellofemoral joint. Prominent vascular calcifications are present. XR/XR knee LT 2V IMPRESSION: No significant bony abnormality or effusions of the right or left knee. Mild patellofemoral degenerative change of the left knee.
--- NOTE | ~2022-12-07 | XR_ITS ---
EXAMINATION: XR KNEE, LEFT XR KNEE, RIGHT CLINICAL INFORMATION: Pain. COMPARISON: 11/12/2014 of the left knee. TECHNIQUE: AP and lateral views of each knee. FINDINGS: RIGHT KNEE: There is no evidence of acute fracture or dislocation of the right knee. Right knee joint spaces are maintained. No right knee effusion is seen. Prominent vascular calcifications are noted. LEFT KNEE: There is no evidence of acute fracture or dislocation of the left knee. No left knee effusion is seen. There is minimal spurring of the patellofemoral joint. Prominent vascular calcifications are present. XR/XR knee RT 2V IMPRESSION: No significant bony abnormality or effusions of the right or left knee. Mild patellofemoral degenerative change of the left knee.
== END 2022-12-07 11:19 | disposition home or self-care (01) ==
LOC: HO.XRAY 11:18
PROVIDERS: PCP Internal Medicine; Visit Provider Internal Medicine
DX: M25.561 Pain in right knee (principal); M25.562 Pain in left knee
CPT/HCPCS: 73560

== ENCOUNTER 2022-12-19 09:08 | Outpatient (AMB) | payer MEDICARE, SELFPAY ==
--- NOTE | 2022-12-19 09:13 | MHC.OFFVIS ---
Intake Vital Signs 12/19/22 09:14 Height 5 ft 3 in Weight 128 lb 11.999 oz BMI 22.8 BP 142/59 H Blood Pressure Location Rt brachial Position Sitting Pulse 95 Intake Visit Reasons: 4 week follow up Intake Note: Patient presents to in office visit today in follow up of diarrhea. CC: Patient c/o diarrhea for about 5 days, bloating, abdominal pain, burning sensation, and reports 2 episodes of black vomit . Patient's daughter reports that she feels omeprazole worked better for PT than lansoprazole. Denies other GI symptoms. 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 Accompanied by: Daughter Allergies No Known Allergies [No Known Allergies*] Allergy (Verified 12/19/22 09:18) Medication List - Last Reconciled 12/19/22 by CLARA Jenkins amlodipine 5 mg PO DAILY 30 days aspirin (Enteric Coated Aspirin) 81 mg PO DAILY 3 months atorvastatin 40 mg PO DAILY blood pressure monitor (Blood Pressure Kit) As directed blood sugar diagnostic (FreeStyle Lite Strips) 1 strip miscellaneous TID blood-glucose meter As directed carvedilol 12.5 mg PO BID cholecalciferol (vitamin D3) 25 mcg PO DAILY 3 months docusate sodium (Colace) 100 mg PO DAILY PRN dulaglutide (Trulicity) 1.5 mg (0.5 mL) subcut QWEEK 90 days fluticasone propionate 50 mcg/actuation (Allergy Relief (fluticasone)) 1 spray intranasal DAILY 30 days furosemide 20 mg PO DAILY PRN gabapentin 100 mg PO TID 30 days glucose 4 grams PO ONCE PRN lancets As directed lansoprazole 30 mg PO .qamac losartan 100 mg PO DAILY metformin 1,000 mg PO BID 90 days metoclopramide HCl (Reglan) 10 mg PO QIDACHS mometasone 0.1% 1 appl topical DAILY 30 days mupirocin 2% 1 appl topical BID 30 days nitroglycerin 0.4 mg sublingual Q5M PRN plecanatide (Trulance) 3 mg PO DAILY PRN repaglinide 0.5 mg PO DAILY sennosides (senna) 17.2 mg PO BEDTIME PRN simethicone 180 mg PO QID 30 days sucralfate (Carafate) 10 mL PO BID temazepam 30 mg PO BEDTIME PRN 30 days HPI 4 week follow up HPI Details Assessment & Plan (1) Epigastric pain: ?Code(s): R10.13 - Epigastric pain ?Plan: .[place] [employer] HE is here today with his daughter who is supportive. He tolerated the procedure well. He had one episode of sudden onset of vomiting Sunday, he can not ID any medications changed or other sx accompanying this. He did not have this sx prior to this. He has not seen any improvement with the sucralfate and it is constipating him so we will stop this and try advancing the omeprazole to lansoprazole. HE continues his Trulance, senna, reglan 5mg qidachs and simethicone. ROV 4 weeks. (2) GERD (gastroesophageal reflux disease): ?Code(s): K21.9 - Gastro-esophageal reflux disease without esophagitis ?Qualifiers: ?Esophagitis presence:?esophagitis presence not specified? Qualified Code(s):?K21.9 - Gastro-esophageal reflux disease without esophagitis (3) Chronic idiopathic constipation: ?Code(s): K59.04 - Chronic idiopathic constipation (4) Delayed gastric emptying: ?Code(s): K30 - Functional dyspepsia ? ? ? Medications: New lansoprazole 30 mg PO .qamac 30 caps 6RF R10.13 - Epigastri c pain, K21.9 - Ga stro-esophageal re flux disease witho ut esophagitis ? Discontinued omeprazole ?? need s an appointment f or refills ?? Disc ontinued Reason:? Doctor's Order 40 mg? PO DAILY 30 caps 6RF K21.9 - Gastro-eso phageal reflux dis ease without esoph agitis ? plecanatide 3 mg? PO DAILY 30 days 30 tabs 6RF K59.04 - Chronic i diopathic constipa tion ? sennosides 17.2 mg (2 x 8.6 m g) PO BEDTIME 30 d ays 60 caps 3RF co nstipation K59.04 - Chronic i diopathic constipa tion ? On Hold sucralfate (Carafa te) ?? Hold Commen t:? Doctor's Order 10 mL? PO BID 400 mL 2RF ? ? TODAY'S VISIT [place] # [employer]a Live He has had a few days of diarrhea. His dtr thinks it may be a GI virus as other family members have been ill with similar sx. We will hold the Trulance and senna until his stooling stabilizes. His dtr comments he is losing weight. He was 134 in November and is down to 128. He is still having frequent nausea and early satiety, and is on Trulicity, so I will increase the reglan to 10mg qidachs. ROV 2 weeks and consider stool samples if not improved. . He continues on lansoprazole once a day. [facility] Medical History Allergic rhinitis Coronary artery disease Essential hypertension GERD (gastroesophageal reflux disease) History of Helicobacter infection History of prostate cancer Hyperlipidemia LDL goal <100 Insomnia Malignant neoplasm of prostate Microalbuminuria Type 2 diabetes mellitus with diabetic polyneuropathy Type 2 diabetes mellitus with hyperglycemia Type 2 diabetes mellitus with proteinuria Vitamin D deficiency Surgical History History of cardiac cath Hx of colonoscopy Hx of esophagogastroduodenoscopy Hx of prostate biopsy Stented coronary artery Family History Father Medical history unknown Mother Medical history unknown Sister Diabetes Daughter Breast cancer Social History Household Members: None Housing: Apartment Housing Other:: [employer] 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 About 8 lb since November) Eyes Details: glasses Reports requires corrective lenses ENT Reports Normal hearing present, Denies dental pain, Denies dysphagia, Denies hearing loss, Denies mouth pain, Denies odynophagia, Denies throat swelling, Denies tongue swelling and Reports other (Dentition adequate) Card Reports no additional complaints Resp Reports no additional complaints GI Denies abdominal pain, Denies melena, Reports bloating, Denies hematochezia, Denies constipation, Denies GI cramping, Denies dysphagia, Denies excessive flatus, Reports early satiety, Reports heartburn, Reports diarrhea, Reports nausea, Denies odynophagia, Reports vomiting and Denies hematemesis Skin/Breast Denies pruritus, Denies lesions, Denies rash and Denies jaundice Neuro Reports Normal hearing present and Denies Abnormal speech present Endo Denies fatigue Aller/Immun Denies throat swelling and Denies tongue swelling Physical Exam Vital Signs: Last Vital Signs Pulse 95 12/19/22 09:14 BP 142/59 H 12/19/22 09:14 BMI result Body Mass Index 22.8 Const General: cooperative, no acute distress, well developed and well groomed Nutritional Appearance: average body habitus and well nourished Orientation/consciousness: oriented to person, oriented to place and oriented to time Limitations: language barrier HEENT Head: Yes normocephalic and Yes atraumatic Eyes General: appearance normal, both eyes and all related structures Pupils: Equal, round and reactive pupils present Neck Neck: Yes normal visual inspection and Yes no lymphadenopathy Thyroid: Thyroid normal Resp Effort & Inspection: normal respiratory effort and able to speak in complete sentences Auscultation: clear to auscultation bilaterally Cardio Rate: regular rate Rhythm: regular rhythm Heart sounds: Normal, physiologic split S2 sound present Peripheral pulses: radial pulses present and posterior tibial pulses present GI Inspection: Yes distended and No Abdominal panniculus present Palpation (GI): Soft to palpation, nontender, no guarding, not rigid and No hepatosplenomegaly present Percussion: Yes normal to percussion Auscultation: Hyperactive bowel sounds present Rectal Exam - Male: Yes deferred Skin General skin exam: no rashes or lesions noted, turgor normal, skin not dry, no jaundice, No spider nevi and no striae Rashes: no rashes Nails: normal Neuro General: oriented to person, oriented to place and oriented to time Cranial nerves: Yes Equal, round and reactive pupils present and Yes Normal hearing present Speech: No Abnormal speech present Extrem General: Yes normal to inspection, No clubbing, No cyanosis and No edema Psych Appearance: grossly normal and well kempt Mental Status: mental status grossly normal Speech and movement: Normal speech and movement present Affect: normal affect Attitude: cooperative Thought process: Normal thought process present and not confabulating Thought content: Normal thought content present Insight: Fair insight present (Psych) Judgement: Fair judgement present (Psych) Assessment & Plan Assessment & Plan (1) Acute diarrhea: Code(s): R19.7 - Diarrhea, unspecified Plan: [place] # [employer]a [employer] He has had a few days of diarrhea. His dtr thinks it may be a GI virus as other family members have been ill with similar sx. We will hold the Trulance and senna until his stooling stabilizes. His dtr comments he is losing weight. He was 134 in November and is down to 128. He is still having frequent nausea and early satiety, and is on Trulicity, so I will increase the reglan to 10mg qidachs. ROV 2 weeks and consider stool samples if not improved. . He continues on lansoprazole once a day. (2) Delayed gastric emptying: Code(s): K30 - Functional dyspepsia (3) Weight loss, unintentional: Code(s): R63.4 - Abnormal weight loss (4) Chronic idiopathic constipation: Code(s): K59.04 - Chronic idiopathic constipation Medications: New metoclopramide HCl (Reglan) 10 mg PO QIDACHS 120 tabs 6RF K30 - Functional dyspepsia, R19.7 - Diarrhea, unspecified Discontinued metoclopramide HCl (Reglan) Discontinued Reason: Doctor's Order 5 mg PO QIDACHS 30 days 120 tabs 6RF K30 - Functional dyspepsia plecanatide 3 mg PO DAILY 30 days 30 tabs 6RF K59.04 - Chronic idiopathic constipation sennosides 17.2 mg (2 x 8.6 mg) PO BEDTIME 30 days 60 caps 3RF constipation K59.04 - Chronic idiopathic constipation Coding Level of Care Code Est Pt Level 4 (47324) Diagnoses Acute diarrhea R19.7 Delayed gastric emptying K30 Weight loss, unintentional R63.4 Chronic idiopathic constipation K59.04
[2022-12-19 09:14] VITALS: BP 142/59; PULSE 95; BMI 22.8
== END 2022-12-19 09:42 | disposition home or self-care (01) ==
PROVIDERS: PCP Internal Medicine; Visit Provider Nurse Practitioner
DX: R19.7 Diarrhea, unspecified (principal); K30 Functional dyspepsia; R63.4 Abnormal weight loss; K59.04 Chronic idiopathic constipation
CPT/HCPCS: 99214

== ENCOUNTER → 2022-12-19 09:08 | Outpatient (BNVA) | payer MEDICARE, SELFPAY | PROVIDERS: PCP Internal Medicine; Visit Provider Nurse Practitioner | DX: K30 Functional dyspepsia (principal); K21.9 Gastro-esophageal reflux disease without esophagitis; K59.04 Chronic idiopathic constipation; R63.4 Abnormal weight loss; R19.7 Diarrhea, unspecified | CPT/HCPCS: 99212 ==

== ENCOUNTER 2022-12-20 15:52 | Emergency (ER) | payer MEDICARE, SELFPAY ==
--- NOTE | ~2022-12-20 | CT_ITS ---
EXAMINATION: CT ABDOMEN AND PELVIS WITHOUT CONTRAST CLINICAL INFORMATION: Colitis COMPARISON: 07/14/2017 TECHNIQUE: Multidetector volumetric imaging was performed from the superior aspect of the liver through the pubic symphysis. Sagittal and coronal reformatted images were obtained on the technologist's workstation. This CT examination was performed using dose optimization techniques as appropriate, variously including the following: *Automated exposure control *Adjustment of mA and/or kV according to patient size (this includes techniques or standardized protocols for targeted exams where dose is matched to indication/reason for exam; i.e. extremities or head) *Use of iterative reconstruction technique DLP: 348 mGy-cm FINDINGS: LUNG BASES: The lung bases are clear. Coronary artery calcifications with dense mitral annular calcification. LIVER, GALLBLADDER, AND BILIARY TREE: The liver is normal in size, shape, and attenuation. No focal hepatic lesion or biliary ductal dilatation is present. The gallbladder is unremarkable with no evidence of radiopaque gallstones, gallbladder wall thickening, or obvious pericholecystic inflammatory changes. PANCREAS: Unremarkable. SPLEEN: Unremarkable. ADRENAL GLANDS: Mild bilateral adrenal gland thickening with no discrete nodule. KIDNEYS AND URETERS: The kidneys are normal in size, shape, and attenuation. No hydronephrosis, hydroureter, or calculi seen. Symmetric perinephric stranding. Simple left parapelvic cyst. No specific follow-up recommended. BLADDER: Unremarkable. GASTROINTESTINAL TRACT: The stomach is unremarkable. Normal caliber of the small bowel. No obstruction. Normal appendix. Colonic diverticulosis is present. There is no diverticulitis. There is no colonic wall thickening or surrounding inflammatory change. No free air or free fluid. ABDOMINAL WALL: Fat-containing right inguinal hernia. LYMPH NODES: Normal. VASCULAR: Normal caliber of the aorta with severe atherosclerotic calcifications. PELVIC VISCERA: Radiopaque seeds in the prostate. The seminal vesicles are unremarkable. OSSEOUS STRUCTURES: No acute or suspicious osseous abnormality. Degenerative changes are seen throughout the spine. Mild degenerative change of both hips. CT/CT abdomen pelvis wo IV con IMPRESSION: No acute findings in the abdomen or pelvis. No inflammatory changes. Colonic diverticulosis without diverticulitis. Fleischner guidelines were followed.
--- NOTE | ~2022-12-20 | XR_ITS ---
EXAMINATION: XR CHEST CLINICAL INFORMATION: Pain with breathing. COMPARISON: 12/07/2016 chest radiographs. TECHNIQUE: 2 views of the chest were obtained. FINDINGS: No significant abnormality is noted involving the heart, lungs, mediastinum, bony thorax or soft tissues. XR/XR chest 2V IMPRESSION: No acute cardiopulmonary process.
[2022-12-20 16:27] VITALS: BP 157/76; PULSE 85; RESP 18; TEMP 36.8; O2SAT 98; BMI 22.3
--- NOTE | 2022-12-20 16:27 | ED_ITS ---
HPI - Abdominal Pain General Chief Complaint: Abdominal Pain Stated Complaint: abd pain/has 2 veins that are clogged/v/d/n Time Seen by Provider: 12/20/22 17:58 Source: patient and family Mode of arrival: ambulatory Limitations: no limitations History of Present Illness HPI narrative: Patient with History of diabetes hypertension been having nausea and diarrhea for the last 24 hours diarrhea about 20 times and vomited about 2 times no significant abdominal pain no fever no chills has not taken antibiotics lately no recent travel no chest pain or palpitation or shortness of breath Related Data Home Medications Medication Instructions Recorded Confirmed docusate sodium 100 mg capsule 100 mg PO DAILY PRN Constipation 02/14/20 12/07/22 (Colace) furosemide 20 mg tablet 20 mg PO DAILY PRN leg swelling 02/14/20 12/07/22 nitroglycerin 0.4 mg sublingual 0.4 mg sublingual Q5M PRN Chest 02/14/20 12/07/22 tablet Pain blood-glucose meter #1 ea 04/01/20 12/07/22 lancets 28 gauge #100 ea 04/01/20 12/07/22 glucose 4 gram chewable tablet 4 g PO ONCE PRN Hypoglycemia 07/26/20 12/07/22 plecanatide 3 mg tablet (Trulance) 3 mg PO DAILY PRN Abdominal Pain 11/09/22 12/07/22 sennosides 8.6 mg capsule (senna) 17.2 mg PO BEDTIME PRN Constipation 11/09/22 12/07/22 Previous Rx's Medication Instructions Recorded blood pressure monitor (Blood #1 ea 03/01/20 Pressure Kit) aspirin 81 mg tablet,delayed 81 mg PO DAILY 3 months #90 tabs 05/31/20 release (Enteric Coated Aspirin) gabapentin 100 mg capsule 100 mg PO TID 30 days #90 caps 01/12/21 fluticasone propionate 50 1 spray intranasal DAILY 30 days 02/17/21 mcg/actuation nasal #9.9 mL spray,suspension (Allergy Relief (fluticasone)) cholecalciferol (vitamin D3) 25 25 mcg PO DAILY 3 months #90 caps 02/22/21 mcg (1,000 unit) capsule blood sugar diagnostic (FreeStyle 1 strip miscellaneous TID #300 04/27/21 Lite Strips) strips repaglinide 0.5 mg tablet 0.5 mg PO DAILY #30 tabs 08/10/21 mometasone 0.1 % topical cream 1 appl topical DAILY 30 days #45 07/31/22 grams mupirocin 2 % topical ointment 1 appl topical BID 30 days #22 07/31/22 grams simethicone 180 mg capsule 180 mg PO QID 30 days #120 caps 08/02/22 atorvastatin 40 mg tablet 40 mg PO DAILY #90 tabs 09/24/22 amlodipine 5 mg tablet 5 mg PO DAILY 30 days #90 tabs 10/26/22 losartan 100 mg tablet 100 mg PO DAILY #90 tabs 11/07/22 sucralfate 100 mg/mL oral 10 ml PO BID #400 mL 11/09/22 suspension (Carafate) lansoprazole 30 mg capsule,delayed 30 mg PO .qamac #30 caps 11/21/22 release temazepam 30 mg capsule 30 mg PO BEDTIME PRN sleep 30 days 11/27/22 #30 caps dulaglutide 1.5 mg/0.5 mL 1.5 mg (0.5 mL) subcut QWEEK 90 11/29/22 subcutaneous pen injector days #6.5 mL (Trulicity) carvedilol 12.5 mg tablet 12.5 mg PO BID #180 tabs 12/17/22 metformin 1,000 mg tablet 1,000 mg PO BID 90 days #180 tabs 12/17/22 metoclopramide HCl 10 mg tablet 10 mg PO QIDACHS #120 tabs 12/19/22 (Reglan) loperamide 2 mg tablet 2 mg PO Q6H PRN loose stool #7 tabs 12/20/22 (Anti-Diarrheal (loperamide)) Allergies Allergy/AdvReac Type Severity Reaction Status Date / Time No Known Allergies Allergy Verified 12/19/22 09:18 [No Known Allergies*] Review of Systems Review of Systems Yes all other systems are reviewed and are negative [facility] Past Medical History Medical History Allergic rhinitis Coronary artery disease Essential hypertension GERD (gastroesophageal reflux disease) History of Helicobacter infection History of prostate cancer Hyperlipidemia LDL goal <100 Insomnia Malignant neoplasm of prostate Microalbuminuria Type 2 diabetes mellitus with diabetic polyneuropathy Type 2 diabetes mellitus with hyperglycemia Type 2 diabetes mellitus with proteinuria Vitamin D deficiency Surgical History History of cardiac cath Hx of colonoscopy Hx of esophagogastroduodenoscopy Hx of prostate biopsy Stented coronary artery Family History Family History Father Medical history unknown Mother Medical history unknown Sister Diabetes Daughter Breast cancer Social History Social History Household Members: None Housing: Apartment Housing Other:: [employer] Alcohol intake: never Patient Tobacco Use Status: Former Tobacco user Quit Date: > 10 yrs ago Tobacco use type: Cigarette e-Cigarette/Vaping Use: Never Used Second Hand Smoke Exposure: No Use of substances other than those prescribed or required for medical reasons: No Advance Directives: No Advance Directives Information Provided: No service: No Current occupational status: retired Cognitive needs: Yes Hearing needs: No Vision needs: Yes Physical Exam ED Vital Signs: Vital Signs - 24 hr 12/20/22 16:27 12/20/22 19:14 12/20/22 20:12 Temperature 98.3 F 97.3 F 98.2 F Pulse Rate 85 70 71 Respiratory Rate 18 12 18 Blood Pressure 157/76 H 167/68 H 170/60 H Pulse Oximetry 98 97 98 Oxygen Delivery Method Room Air Room Air Room Air 12/20/22 22:00 Temperature 97.6 F Pulse Rate 72 Respiratory Rate 16 Blood Pressure 162/67 H Pulse Oximetry 97 Oxygen Delivery Method Room Air BMI result Body Mass Index 22.3 Appearance: Alert. Oriented X3. No acute distress. Eyes: PERRLA, No Nystagmus ENT: Pharynx normal. Oral Mucosa moist Neck: Normal inspection. Neck supple. CVS: Normal heart rate and rhythm. Pulses normal. Respiratory: No respiratory distress. Equal air entry bilateral, no wheezing/rales/rhonchi Abdomen: Soft and nontender. Bowel sounds are present, no mass palpable, no CVA tenderness Skin: Skin warm and dry. Normal skin color. Normal skin turgor. Extremities: No lower extremity edema. No calf tenderness Neuro: Oriented X 3. No motor deficit. No sensory deficit.No cerebellar signs , cranial nerves II-XII intact Course Course Course Narrative: RME - 82 yo male with history of DM2, constipation, GERD, HTN, who presents to the ER for evaluation of 2 weeks of middle and lower abdominal pain associated with N/V/D, unable to eat. Reports fevers for the last week. Family reports clogged veins in his heart found in [place]. No current chest pains. 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 Abd soft in triage but has some mild periumbilical tenderness. Seen in GI office yesterday. Reporting black vomitus, he is on a PPI. Plan: lab workup to start, consider CT scan pending results Medical Decision Making Medical Decision Making [facility] Narrative: Patient with acute enteritis with diarrhea CT scan negative for any acute inflammation labs were stable will discharge patient home [place] Differential Diagnosis Differential Diagnoses: The differential diagnosis associated with the presentation includes Gastroenteritis/colitis/C diff colitis/diverticulitis Lab Data [facility] Lab Attestation statement: I reviewed the patient's lab results. 12/20/22 16:43 12/20/22 16:43 Labs: Lab Results 12/20/22 12/20/22 12/20/22 Range/Units 16:43 16:43 16:43 WBC 8.6 (4.8-10.8) X10*3/uL RBC 4.33 L (4.60-5.80) X10*6/uL Hgb 11.9 L (14.0-18.0) g/dl Hct 37.5 L (42.0-52.0) % MCV 86.6 (80.0-98.0) fL MCH 27.5 (27.0-33.0) pg MCHC 31.7 (31.0-36.0) g/dl RDW 13.3 (11.0-16.0) % Plt Count 160 (160-400) X10*3/uL MPV 9.7 (9.4-12.4) fL Immature Gran % (Auto) 0.3 (0.0-0.4) % Neut % (Auto) 71.2 (45-73) % Lymph % (Auto) 15.6 L (20-40) % [place] % (Auto) 10.8 (2-11) % Eos % (Auto) 1.5 (0-4) % Baso % (Auto) 0.6 (0-2) % Lymph # (Auto) 1.4 (1.2-4.9) X10*3/uL [place] # (Auto) 0.9 (0.1-1.2) X10*3/uL Eos # (Auto) 0.1 (0.0-0.4) X10*3/uL Baso # (Auto) 0.1 (0.0-0.2) X10*3/uL Abs Immat Gran (auto) 0.03 (0.00-0.03) X10*3/uL Absolute Neuts (auto) 6.1 (2.0-8.3) x10*3/uL Absolute Nucleated RBC 0.000 (0.0-0.012) X10*3/uL Nucleated RBC % (auto) 0.0 (0.0-0.2) /100WBC PT 13.0 (11.1-13.3) SEC INR 1.1 (0.9-1.1) APTT 31.7 (26.0-36.4) SEC Sodium 145 (135-145) mmol/L Potassium 4.2 (3.3-5.1) mmol/L Chloride 110 H (96-108) mmol/L Carbon Dioxide 24 (22-29) mmol/L Anion Gap 15 (12-20) BUN 29 H (9-16) mg/dL Creatinine 1.31 (0.5-1.4) mg/dL Estim Creat Clear Calc 36.1 Estimated GFR 53 Random Glucose 90 (60-115) mg/dL Calcium 10.8 H (8.4-10.2) mg/dL Magnesium 1.4 L* (1.6-2.6) mg/dL Total Bilirubin 1.0 (0.0-1.0) mg/dL Direct Bilirubin 0.4 (0.0-0.5) mg/dL AST 12 (5-37) U/L ALT 9 (0-40) U/L Alkaline Phosphatase 89 (39-117) U/L Troponin I High Sens (<3.5-35.0) ng/L Total Protein 7.6 (6.5-8.0) g/dL Albumin 4.3 (3.5-5.0) g/dL Lipase 29 (8-78) U/L Urine Color Urine Appearance Urine pH (5.0-9.0) Ur Specific Irene (1.005-1.025) Urine Protein (Neg-Trace) mg/dL Urine Glucose (UA) (Negative) mg/dL Urine Ketones (Negative) mg/dL Urine Blood (Negative) Urine Nitrite (Negative) Ur Leukocyte Esterase (Negative) Urine RBC (0-2) /HPF Urine WBC (0-5) /HPF Ur Squamous Epith Cells (0-2) /HPF Urine Bacteria (None Seen) Hyaline Casts (0-2) /LPF 12/20/22 12/20/22 Range/Units 16:43 19:52 WBC (4.8-10.8) X10*3/uL RBC (4.60-5.80) X10*6/uL Hgb (14.0-18.0) g/dl Hct (42.0-52.0) % MCV (80.0-98.0) fL MCH (27.0-33.0) pg MCHC (31.0-36.0) g/dl RDW (11.0-16.0) % Plt Count (160-400) X10*3/uL MPV (9.4-12.4) fL Immature Gran % (Auto) (0.0-0.4) % Neut % (Auto) (45-73) % Lymph % (Auto) (20-40) % [place] % (Auto) (2-11) % Eos % (Auto) (0-4) % Baso % (Auto) (0-2) % Lymph # (Auto) (1.2-4.9) X10*3/uL [place] # (Auto) (0.1-1.2) X10*3/uL Eos # (Auto) (0.0-0.4) X10*3/uL Baso # (Auto) (0.0-0.2) X10*3/uL Abs Immat Gran (auto) (0.00-0.03) X10*3/uL Absolute Neuts (auto) (2.0-8.3) x10*3/uL Absolute Nucleated RBC (0.0-0.012) X10*3/uL Nucleated RBC % (auto) (0.0-0.2) /100WBC PT (11.1-13.3) SEC INR (0.9-1.1) APTT (26.0-36.4) SEC Sodium (135-145) mmol/L Potassium (3.3-5.1) mmol/L Chloride (96-108) mmol/L Carbon Dioxide (22-29) mmol/L Anion Gap (12-20) BUN (9-16) mg/dL Creatinine (0.5-1.4) mg/dL Estim Creat Clear Calc Estimated GFR Random Glucose (60-115) mg/dL Calcium (8.4-10.2) mg/dL Magnesium (1.6-2.6) mg/dL Total Bilirubin (0.0-1.0) mg/dL Direct Bilirubin (0.0-0.5) mg/dL AST (5-37) U/L ALT (0-40) U/L Alkaline Phosphatase (39-117) U/L Troponin I High Sens < 2.7 (<3.5-35.0) ng/L Total Protein (6.5-8.0) g/dL Albumin (3.5-5.0) g/dL Lipase (8-78) U/L Urine Color Yellow Urine Appearance Clear Urine pH 5.5 (5.0-9.0) Ur Specific Irene 1.020 (1.005-1.025) Urine Protein 30 (1+) H (Neg-Trace) mg/dL Urine Glucose (UA) Negative (Negative) mg/dL Urine Ketones 15 (Negative) mg/dL Urine Blood Negative (Negative) Urine Nitrite Negative (Negative) Ur Leukocyte Esterase Negative (Negative) Urine RBC 0-2 (0-2) /HPF Urine WBC 0-5 (0-5) /HPF Ur Squamous Epith Cells 0-2 (0-2) /HPF Urine Bacteria None Seen (None Seen) Hyaline Casts 11-20 (0-2) /LPF Independent Interpretation I performed an independent interpretation of an: CT Scan Interpretation: CT/CT abdomen pelvis wo IV con IMPRESSION: No acute findings in the abdomen or pelvis. No inflammatory changes. Colonic diverticulosis without diverticulitis. Medications Administered Discontinued Medications Generic Name Dose Route Start Last Admin Trade Name Freq PRN Reason Stop Dose Admin Sodium Chloride 1,000 mls @ 999 mls/hr 12/20/22 18:19 08/09/23 21:15 Ns IV 12/20/22 19:19 Infused .Q1H1M ONE Infusion Magnesium Sulfate 2 gm in 50 mls @ 100 mls/hr 12/20/22 20:24 12/20/22 21:15 Magnesium Sulfate/H2o IV 12/20/22 20:53 100 mls/hr ONCE ONE Administration Loperamide HCl 2 mg 12/20/22 18:21 12/20/22 19:10 Loperamide Hcl 2 Mg Capsule PO 12/20/22 18:22 2 mg ONCE ONE Administration Discharge Plan Discharge Clinical Impression: Acute gastroenteritis Patient Disposition: Home, Self-Care Instructions: Gastroenteritis (ED) Additional Instructions: Drink plenty of fluids Take Imodium if you have severe diarrhea maximum 4 tablets a day Prescriptions: New loperamide [Anti-Diarrheal (loperamide)] 2 mg tablet 2 mg PO Q6H PRN (Reason: loose stool) Qty: 7 0RF No Action gabapentin 100 mg capsule 100 mg PO TID 30 Days Qty: 90 2RF fluticasone propionate [Allergy Relief (fluticasone)] 50 mcg/actuation spray,suspension 1 spray intranasal DAILY 30 Days Qty: 9.9 11RF Rx Instructions: administer into each nostril FreeStyle Lite Strips Strip 1 strip miscellaneous TID Qty: 300 11RF repaglinide 0.5 mg tablet 0.5 mg PO DAILY Qty: 30 4RF Rx Instructions: administer 15 minutes before lunch atorvastatin 40 mg tablet 40 mg PO DAILY Qty: 90 2RF amlodipine 5 mg tablet 5 mg PO DAILY 30 Days Qty: 90 1RF losartan 100 mg tablet 100 mg PO DAILY Qty: 90 2RF temazepam 30 mg capsule 30 mg PO BEDTIME PRN (Reason: sleep) 30 Days Qty: 30 0RF Trulicity 1.5 mg/0.5 mL pen injector 1.5 mg subcut QWEEK 90 Days Qty: 6.5 1RF metformin 1,000 mg tablet 1,000 mg PO BID 90 Days Qty: 180 0RF carvedilol 12.5 mg tablet 12.5 mg PO BID Qty: 180 0RF senna 8.6 mg capsule 17.2 mg PO BEDTIME PRN (Reason: Constipation) Trulance 3 mg tablet 3 mg PO DAILY PRN (Reason: Abdominal Pain) sucralfate [Carafate] 100 mg/mL suspension 10 ml PO BID Qty: 400 2RF Hold Instructions: Doctor's Order aspirin [Enteric Coated Aspirin] 81 mg tablet,delayed release (DR/EC) 81 mg PO DAILY 90 Days Qty: 90 0RF cholecalciferol (vitamin D3) 25 mcg (1,000 unit) capsule 25 mcg PO DAILY 90 Days Qty: 90 0RF mometasone 0.1 % cream 1 appl topical DAILY 30 Days Qty: 45 1RF mupirocin 2 % ointment 1 appl topical BID 30 Days Qty: 22 0RF (DME) lancets 28 gauge misc See Rx Instructions topical BID Qty: 100 Rx Instructions: As directed (DME) blood-glucose meter Kit See Rx Instructions .ROUTE .MEDSUPPLY Qty: 1 Rx Instructions: As directed glucose 4 gram tablet,chewable 4 g PO ONCE PRN (Reason: Hypoglycemia) furosemide 20 mg tablet 20 mg PO DAILY PRN (Reason: leg swelling) docusate sodium [Colace] 100 mg capsule 100 mg PO DAILY PRN (Reason: Constipation) nitroglycerin 0.4 mg tablet, sublingual 0.4 mg sublingual Q5M PRN (Reason: Chest Pain) Rx Instructions: do not exceed 3 doses per episode (DME) blood pressure monitor [Blood Pressure Kit] Kit See Rx Instructions .ROUTE .MEDSUPPLY Qty: 1 0RF Rx Instructions: As directed simethicone 180 mg capsule 180 mg PO QID 30 Days Qty: 120 3RF Rx Instructions: after meals lansoprazole 30 mg capsule,delayed release(DR/EC) 30 mg PO .qamac Qty: 30 6RF metoclopramide HCl [Reglan] 10 mg tablet 10 mg PO QIDACHS Qty: 120 6RF
--- NOTE | 2022-12-20 16:32 | ECG_ITS ---
Test Reason : NAUSEA Blood Pressure : / mmHG Vent. Rate : 069 BPM Atrial Rate : 069 BPM P-R Int : 136 ms QRS Dur : 088 ms QT Int : 396 ms P-R-T Axes : 052 059 070 degrees QTc Int : 424 ms Sinus rhythm with marked sinus arrhythmia Nonspecific ST abnormality Abnormal ECG When compared with ECG of 14-JUL-2017 14:09, No significant change was found Referred By: Negrita Pink Electronically Signed By:Eris Delgado
[2022-12-20 16:49] LABS: Basophils Absolute Auto 0.1 X10*3/uL (0.0-0.2); Basophils Percent Auto 0.6 % (0-2); Eosinophils Absolute Auto 0.1 X10*3/uL (0.0-0.4); Eosinophils Percent Auto 1.5 % (0-4); Hematocrit 37.5 % (42.0-52.0); Hemoglobin 11.9 g/dl (14.0-18.0); Imm Gran Abs Auto 0.03 X10*3/uL (0.00-0.03); Imm Gran Pct Auto 0.3 % (0.0-0.4); Lymphocytes Absolute Auto 1.4 X10*3/uL (1.2-4.9); Lymphocytes Percent Auto 15.6 % (20-40); MANUAL DIFF FLAG NO; Mean Corpuscular HGB Conc 31.7 g/dl (31.0-36.0); Mean Corpuscular Hemoglobin 27.5 pg (27.0-33.0); Mean Corpuscular Volume 86.6 fL (80.0-98.0); Mean Platelet Volume 9.7 fL (9.4-12.4); Monocytes Absolute Auto 0.9 X10*3/uL (0.1-1.2); Monocytes Percent Auto 10.8 % (2-11); Neutrophils Absolute Auto 6.1 x10*3/uL (2.0-8.3); Neutrophils Percent Auto 71.2 % (45-73); Platelet Count 160 X10*3/uL (160-400); Red Blood Count 4.33 X10*6/uL (4.60-5.80); Red Cell Distribution Width 13.3 % (11.0-16.0); White Blood Count 8.6 X10*3/uL (4.8-10.8)
[2022-12-20 16:56] LABS: INTERNATIONAL NORM RATIO 1.1 (0.9-1.1)
[2022-12-20 16:59] LABS: Partial Thromboplastin Time 31.7 SEC (26.0-36.4)
[2022-12-20 17:14] LABS: Troponin-I High Sensitivity < 2.7 ng/L (<3.5-35.0)
[2022-12-20 17:23] LABS: Alanine Aminotransferase 9 U/L (0-40); Albumin Level 4.3 g/dL (3.5-5.0); Alkaline Phosphatase 89 U/L (39-117); Anion Gap 15 (12-20); Aspartate Amino Transferase 12 U/L (5-37); Bilirubin Direct 0.4 mg/dL (0.0-0.5); Blood Urea Nitrogen 29 mg/dL (9-16); Calcium 10.8 mg/dL (8.4-10.2); Carbon Dioxide 24 mmol/L (22-29); Chloride 110 mmol/L (96-108); Creatinine Clr Calc Pharmacy 36.1; Estimated Glomerular Filt Rate 53; Glucose Random 90 mg/dL (60-115); Lipase 29 U/L (8-78); Magnesium 1.4 mg/dL (1.6-2.6); Potassium 4.2 mmol/L (3.3-5.1); Sodium 145 mmol/L (135-145); Total Protein 7.6 g/dL (6.5-8.0)
[2022-12-20] MEDS: Loperamide HCl 2 MG CAPSULE PO (19:10)
[2022-12-20] MEDS: 0.9 % Sodium Chloride 1,000 ML 999 ML IV (19:10)
[2022-12-20 19:14] VITALS: BP 167/68; PULSE 70; RESP 12; TEMP 36.3; O2SAT 97
--- NOTE | 2022-12-20 19:24 | PC.NURSE ---
Pt aox4 resting with family at the bedside. 20G IV line placed on the L AC. Medicated as ordered. Pt tolerated well. Pt notified to provide urine and stool sample for testing. Urine cup and hat provided. Will continue to monitor.
[2022-12-20 20:06] LABS: Appearance Urine Clear; Color Urine Yellow; Glucose Urine UA Negative (Negative); Leukocyte Esterase Urine Negative (Negative); Nitrite Urine Negative (Negative); PH 5.5 (5.0-9.0); UMIC TRIGGER UACC YES; Urine Blood Negative (Negative); Urine Ketones 15 mg/dL (Negative); Urine Protein 30 (1+) mg/dL (Neg-Trace)
[2022-12-20 20:12] VITALS: BP 170/60; PULSE 71; RESP 18; TEMP 36.8; O2SAT 98
[2022-12-20 21:08] LABS: Bacteria Urine None Seen (None Seen); RBC Urine 0-2 /HPF (0-2); Squamous Epithelial Cell Urine 0-2 /HPF (0-2); WBC Urine 0-5 /HPF (0-5)
[2022-12-20] MEDS: Magnesium Sulfate/H2O 2 GM/50 ML PIGGYBACK IV (21:15)
[2022-12-20 22:00] VITALS: BP 162/67; PULSE 72; RESP 16; TEMP 36.4; O2SAT 97
== END 2022-12-20 23:07 | disposition home or self-care (01) ==
PROVIDERS: Physician Assistant; Emergency Provider Internal Medicine; PCP Internal Medicine
DX: K52.9 Noninfective gastroenteritis and colitis, unspecified (principal); R07.89 Other chest pain; R11.2 Nausea with vomiting, unspecified; Z79.899 Other long term (current) drug therapy
CPT/HCPCS: 36415; 71046; 74176; 80048; 80076; 81001; 81003; 83690; 83735; 84484; 85025; 85610; 85730; 93005; 96361; 96365; 99284; 99285; J3475

== ENCOUNTER → 2022-12-20 16:32 | Outpatient (BNV) | payer MEDICARE, SELFPAY | PROVIDERS: Emergency Provider Internal Medicine; PCP Internal Medicine; Visit Provider Internal Medicine Cardiovascular Disease | DX: R94.31 Abnormal electrocardiogram [ECG] [EKG] (principal) | CPT/HCPCS: 93010 ==

== ENCOUNTER 2022-12-28 08:39 | Outpatient (AMB) | payer MEDICARE, SELFPAY ==
--- NOTE | 2022-12-28 08:41 | MHC.OFFVIS ---
Intake Vital Signs 12/28/22 08:43 Height 5 ft 3 in Weight 120 lb 13.013 oz BMI 21.4 BP 142/67 H Blood Pressure Location Rt brachial Position Sitting Pulse 59 Intake Visit Reasons: f/u ER/diarrhea Intake Note: Patient presents to in office visit today in follow up of diarrhea. CC: Patient seen in the ER last week on 12/20/22 with diarrhea and advised to follow up with GI. Patient reports having diarrhea al day. He was given IV magnesium because it was very low. Patient not eating because everything comes out. He describes diarrea as water with sand . Patient feeling very weak and having unbalance. Learning Center Coordinator Required: No Accompanied by: Daughter Allergies No Known Allergies [No Known Allergies*] Allergy (Verified 12/28/22 08:50) Medication List - Last Reconciled 12/28/22 by CLARA Jenkins amlodipine 5 mg PO DAILY 30 days aspirin (Enteric Coated Aspirin) 81 mg PO DAILY 3 months atorvastatin 40 mg PO DAILY blood pressure monitor (Blood Pressure Kit) As directed blood sugar diagnostic (FreeStyle Lite Strips) 1 strip miscellaneous TID blood-glucose meter As directed carvedilol 12.5 mg PO BID cholecalciferol (vitamin D3) 25 mcg PO DAILY 3 months docusate sodium (Colace) 100 mg PO DAILY PRN dulaglutide (Trulicity) 1.5 mg (0.5 mL) subcut QWEEK 90 days fluticasone propionate 50 mcg/actuation (Allergy Relief (fluticasone)) 1 spray intranasal DAILY 30 days furosemide 20 mg PO DAILY PRN gabapentin 100 mg PO TID 30 days glucose 4 grams PO ONCE PRN lancets As directed lansoprazole 30 mg PO .qamac loperamide (Anti-Diarrheal (loperamide)) 2 mg PO Q6H PRN losartan 100 mg PO DAILY metformin 1,000 mg PO BID 90 days metoclopramide HCl (Reglan) 10 mg PO QIDACHS mometasone 0.1% 1 appl topical DAILY 30 days mupirocin 2% 1 appl topical BID 30 days nitroglycerin 0.4 mg sublingual Q5M PRN repaglinide 0.5 mg PO DAILY sennosides (senna) 17.2 mg PO BEDTIME PRN simethicone 180 mg PO QID 30 days sucralfate (Carafate) 10 mL PO BID temazepam 30 mg PO BEDTIME PRN 30 days HPI f/u ER/diarrhea HPI Details Assessment & Plan (1) Epigastric pain: ?Code(s): R10.13 - Epigastric pain ?Plan: .[place]ian #[place] Live HE is here today with his daughter who is supportive. He tolerated the procedure well. He had one episode of sudden onset of vomiting Sunday, he can not ID any medications changed or other sx accompanying this. He did not have this sx prior to this. He has not seen any improvement with the sucralfate and it is constipating him so we will stop this and try advancing the omeprazole to lansoprazole. HE continues his Trulance, senna, reglan 5mg qidachs and simethicone. ROV 4 weeks. (2) GERD (gastroesophageal reflux disease): ?Code(s): K21.9 - Gastro-esophageal reflux disease without esophagitis ?Qualifiers: ?Esophagitis presence:?esophagitis presence not specified? Qualified Code(s):?K21.9 - Gastro-esophageal reflux disease without esophagitis (3) Chronic idiopathic constipation: ?Code(s): K59.04 - Chronic idiopathic constipation (4) Delayed gastric emptying: ?Code(s): K30 - Functional dyspepsia ? ? ? Medications: New lansoprazole 30 mg PO .qamac 30 caps 6RF R10.13 - Epigastri c pain, K21.9 - Ga stro-esophageal re flux disease witho ut esophagitis ? Discontinued omeprazole ?? need s an appointment f or refills ?? Disc ontinued Reason:? Doctor's Order 40 mg? PO DAILY 30 caps 6RF K21.9 - Gastro-eso phageal reflux dis ease without esoph agitis ? plecanatide 3 mg? PO DAILY 30 days 30 tabs 6RF K59.04 - Chronic i diopathic constipa tion ? sennosides 17.2 mg (2 x 8.6 m g) PO BEDTIME 30 d ays 60 caps 3RF co nstipation K59.04 - Chronic i diopathic constipa tion ? On Hold sucralfate (Carafa te) ?? Hold Commen t:? Doctor's Order 10 mL? PO BID 400 mL 2RF ? ? LABS: Laboratory Tests 12/20/22 12/20/22 12/20/22 16:43 16:43 16:43 WBC 8.6 Hgb 11.9 L Hct 37.5 L MCV 86.6 MCH 27.5 Plt Count 160 Estimated GFR 53 Magnesium 1.4 L* Total Bilirubin 1.0 Direct Bilirubin 0.4 AST 12 ALT 9 Alkaline Phosphata se 89 Troponin I High Se ns < 2.[address] ABDOMEN AND PELVIS 12/20/22 MPRESSION: No acute findings in the abdomen or pelvis. No inflammatory changes. Colonic diverticulosis without diverticulitis. ? Fleischner guidelines were followed. TODAY'S VISIT Georgian #V Live He is here with his daughter who is supportive. He continues to have watery diarrhea and even presented to the ER 12/20. This despite holding the Trulance and the senna. He did not have any success with the carafate. They were unable to collect samples of stool in the ER but he does continue to have copious diarrhea today. He has some nausea but the vomiting has stopped. He is not having any success either with the loperamide prescribed by the ER. At this point we really need to get stool samples since this is a big swaying from his baseline of chronic constipation. I am fearful that there is an infection such as C diff that is causing his ongoing symptoms. He did receive the lansoprazole and this may have been a little bit helpful with the vomiting at any rate. REVIEW OF THE ER RECORDS SHOW LOW MAGNESIUM BUT THEY did replete him with 2 g of IV magnesium when he was in the ER. I want see him next week and hopefully will have stool results by then. [facility] Medical History Allergic rhinitis Coronary artery disease Essential hypertension GERD (gastroesophageal reflux disease) History of Helicobacter infection History of prostate cancer Hyperlipidemia LDL goal <100 Insomnia Malignant neoplasm of prostate Microalbuminuria Type 2 diabetes mellitus with diabetic polyneuropathy Type 2 diabetes mellitus with hyperglycemia Type 2 diabetes mellitus with proteinuria Vitamin D deficiency Surgical History History of cardiac cath Hx of colonoscopy Hx of esophagogastroduodenoscopy Hx of prostate biopsy Stented coronary artery Family History Father Medical history unknown Mother Medical history unknown Sister Diabetes Daughter Breast cancer Social History Household Members: None Housing: Apartment Housing Other:: [employer] Services Alcohol intake: never Patient Tobacco Use Status: Former Tobacco user Quit Date: > 10 yrs ago Tobacco use type: Cigarette e-Cigarette/Vaping Use: Never Used Second Hand Smoke Exposure: No service: No Current occupational status: retired Cognitive needs: Yes Hearing needs: No Vision needs: Yes Review of Systems Const Denies fatigue, Denies fever(s), Denies night sweats, Denies poor appetite and Denies weight loss ENT Reports Normal hearing present, Denies dental pain, Denies dysphagia, Denies hearing loss, Denies mouth pain, Denies odynophagia, Denies throat swelling, Denies tongue swelling and Reports other (Dentition adequate) Card Reports no additional complaints Resp Reports no additional complaints GI Denies abdominal pain, Denies melena, Denies bloating, Denies hematochezia, Denies constipation, Reports GI cramping, Denies dysphagia, Denies excessive flatus, Denies early satiety, Reports heartburn, Reports diarrhea, Reports nausea, Denies odynophagia, Denies vomiting and Denies hematemesis Skin/Breast Denies pruritus, Denies lesions, Denies rash and Denies jaundice Neuro Reports Normal hearing present and Denies Abnormal speech present Endo Denies fatigue Aller/Immun Denies throat swelling and Denies tongue swelling Physical Exam Vital Signs: Last Vital Signs Pulse 59 12/28/22 08:43 BP 142/67 H 12/28/22 08:43 BMI result Body Mass Index 21.4 Const General: cooperative, no acute distress, well developed and well groomed Nutritional Appearance: average body habitus and well nourished Orientation/consciousness: oriented to person, oriented to place and oriented to time Limitations: language barrier HEENT Head: Yes normocephalic and Yes atraumatic Eyes General: appearance normal, both eyes and all related structures Pupils: Equal, round and reactive pupils present Neck Neck: Yes normal visual inspection and Yes no lymphadenopathy Thyroid: Thyroid normal Resp Effort & Inspection: normal respiratory effort and able to speak in complete sentences Auscultation: clear to auscultation bilaterally Cardio Rate: regular rate Rhythm: regular rhythm Heart sounds: Normal, physiologic split S2 sound present Peripheral pulses: radial pulses present and posterior tibial pulses present GI Inspection: No distended and No Abdominal panniculus present Palpation (GI): Soft to palpation, nontender, no guarding, not rigid and No hepatosplenomegaly present Percussion: Yes normal to percussion Auscultation: Hyperactive bowel sounds present Rectal Exam - Male: Yes deferred Skin General skin exam: no rashes or lesions noted, turgor normal, skin not dry, no jaundice, No spider nevi and no striae Rashes: no rashes Nails: normal Neuro General: oriented to person, oriented to place and oriented to time Cranial nerves: Yes Equal, round and reactive pupils present and Yes Normal hearing present Speech: No Abnormal speech present Extrem General: Yes normal to inspection, No clubbing, No cyanosis and No edema Psych Appearance: grossly normal and well kempt Mental Status: mental status grossly normal Speech and movement: Normal speech and movement present Affect: normal affect Attitude: cooperative Thought process: Normal thought process present and not confabulating Thought content: Normal thought content present Insight: Limited insight present (Psych) Judgement: Limited judgement present (Psych) Results Reviewed Results Reviewed: Laboratory Tests 12/20/22 12/20/22 12/20/22 16:43 16:43 16:43 WBC 8.6 Hgb 11.9 L Hct 37.5 L MCV 86.6 MCH 27.5 Plt Count 160 Estimated GFR 53 Magnesium 1.4 L* Total Bilirubin 1.0 Direct Bilirubin 0.4 AST 12 ALT 9 Alkaline Phosphatase 89 Troponin I High Sens < 2.[address] ABDOMEN AND PELVIS 12/20/22 MPRESSION: No acute findings in the abdomen or pelvis. No inflammatory changes. Colonic diverticulosis without diverticulitis. ? Fleischner guidelines were followed. Assessment & Plan Assessment & Plan (1) Acute diarrhea: Code(s): R19.7 - Diarrhea, unspecified Plan: Georgian #V Live He is here with his daughter who is supportive. He continues to have watery diarrhea and even presented to the ER 12/20. This despite holding the Trulance and the senna. He did not have any success with the carafate. They were unable to collect samples of stool in the ER but he does continue to have copious diarrhea today. He has some nausea but the vomiting has stopped. He is not having any success either with the loperamide prescribed by the ER. At this point we really need to get stool samples since this is a big swaying from his baseline of chronic constipation. I am fearful that there is an infection such as C diff that is causing his ongoing symptoms. He did receive the lansoprazole and this may have been a little bit helpful with the vomiting at any rate. REVIEW OF THE ER RECORDS SHOW LOW MAGNESIUM BUT THEY did replete him with 2 g of IV magnesium when he was in the ER. I want see him next week and hopefully will have stool results by then. (2) Chronic idiopathic constipation: Code(s): K59.04 - Chronic idiopathic constipation (3) Epigastric pain: Code(s): R10.13 - Epigastric pain (4) Delayed gastric emptying: Code(s): K30 - Functional dyspepsia (5) GERD (gastroesophageal reflux disease): Code(s): K21.9 - Gastro-esophageal reflux disease without esophagitis Qualifiers: Esophagitis presence: esophagitis presence not specified Qualified Code(s): K21.9 - Gastro-esophageal reflux disease without esophagitis Orders: Orders C Reactive Protein Today R19.7 - Diarrhea, unspecified CDiff Gene PCR Today R19.7 - Diarrhea, unspecified GI Panel Today R19.7 - Diarrhea, unspecified Medications: Discontinued plecanatide 3 mg PO DAILY 30 days 30 tabs 6RF K59.04 - Chronic idiopathic constipation sennosides 17.2 mg (2 x 8.6 mg) PO BEDTIME 30 days 60 caps 3RF constipation K59.04 - Chronic idiopathic constipation Coding Level of Care Code Est Pt Level 3 (07774) Diagnoses Acute diarrhea R19.7 Chronic idiopathic constipation K59.04 Epigastric pain R10.13 Delayed gastric emptying K30 GERD (gastroesophageal reflux disease) K21.9 Esophagitis presence: esophagitis presence not specified
[2022-12-28 08:43] VITALS: BP 142/67; PULSE 59; BMI 21.4
== END 2022-12-28 09:37 | disposition home or self-care (01) ==
PROVIDERS: PCP Internal Medicine; Visit Provider Nurse Practitioner
DX: R19.7 Diarrhea, unspecified (principal); K59.04 Chronic idiopathic constipation; K30 Functional dyspepsia; K21.9 Gastro-esophageal reflux disease without esophagitis
CPT/HCPCS: 99213

== ENCOUNTER → 2022-12-28 08:39 | Outpatient (BNVA) | payer MEDICARE, SELFPAY | PROVIDERS: PCP Internal Medicine; Visit Provider Nurse Practitioner | DX: K59.04 Chronic idiopathic constipation (principal); K30 Functional dyspepsia; K21.9 Gastro-esophageal reflux disease without esophagitis; R19.7 Diarrhea, unspecified; R10.13 Epigastric pain | CPT/HCPCS: 99212 ==

== ENCOUNTER 2022-12-29 17:56 | Outpatient (REF) | payer MEDICARE, SELFPAY ==
[2022-12-29 23:36] LABS: CDiff Gene PCR NEGATIVE (Negative)
[2022-12-30 11:57] LABS: Adenovirus F 40/41 Not Detected (Not Detect.); Astrovirus Not Detected (Not Detect.); Campylobacter Not Detected (Not Detect.); Cryptosporidium Not Detected (Not Detect.); Cyclospora cayetanensis Not Detected (Not Detect.); E. coli EAEC Not Detected (Not Detect.); E. coli EPEC Not Detected (Not Detect.); E. coli ETEC Not Detected (Not Detect.); E. coli STEC Not Detected (Not Detect.); Entamoeba histolytica Not Detected (Not Detect.); Giardia lamblia Not Detected (Not Detect.); Norovirus GI/GII Not Detected (Not Detect.); Plesiomonas shigelloides Not Detected (Not Detect.); Rotavirus A Not Detected (Not Detect.); Salmonella Not Detected (Not Detect.); Sapovirus Not Detected (Not Detect.); Shigella sp./EIEC Not Detected (Not Detect.); Vibrio Not Detected (Not Detect.); Vibrio Cholerae Not Detected (Not Detect.); Yersinia enterocolitica Not Detected (Not Detect.)
== END 2022-12-29 17:57 | disposition home or self-care (01) ==
LOC: HO.LNP 17:56
PROVIDERS: Visit Provider Nurse Practitioner
DX: R19.7 Diarrhea, unspecified (principal)
CPT/HCPCS: 87493; 87507

== ENCOUNTER 2023-01-01 11:45 | Inpatient (IN) | payer OTHER, SELFPAY ==
[2023-01-01 12:14] VITALS: BP 150/76; PULSE 80; RESP 16; TEMP 36.4; O2SAT 96; BMI 21.3
--- NOTE | 2023-01-01 12:14 | ED.ABDPAIN ---
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 Has seen GI on 12/28 - trulance and senna held. He comes back today with c/o persistent diarrhea up to 10 a day that is just yellowy clear water. He isn't eating due to fear of eating. He is not improving despite trying immodium. He has a dry mouth. No fevers no pain. They blame the diarrhea start on trulance no travel, food exposures or antibiotic use MD elicited complaint: other (diarrhea) Pertinent past history: constipation Onset (ago): month(s) (1) Location: none Severity: mild Radiation: none Migration to: no migration Exacerbating factors: eating Relieving factors: nothing Context: history of similar episodes Associated symptoms: diarrhea and other (weakness, fatigue) Related Data Home Medications Medication Instructions Recorded Confirmed docusate sodium 100 mg capsule 100 mg PO DAILY PRN Constipation 02/14/20 12/07/22 (Colace) furosemide 20 mg tablet 20 mg PO DAILY PRN leg swelling 02/14/20 12/07/22 nitroglycerin 0.4 mg sublingual 0.4 mg sublingual Q5M PRN Chest 02/14/20 12/07/22 tablet Pain blood-glucose meter #1 ea 04/01/20 12/07/22 lancets 28 gauge #100 ea 04/01/20 12/07/22 glucose 4 gram chewable tablet 4 g PO ONCE PRN Hypoglycemia 07/26/20 12/07/22 sennosides 8.6 mg capsule (senna) 17.2 mg PO BEDTIME PRN Constipation 11/09/22 12/07/22 Previous Rx's Medication Instructions Recorded blood pressure monitor (Blood #1 ea 03/01/20 Pressure Kit) aspirin 81 mg tablet,delayed 81 mg PO DAILY 3 months #90 tabs 05/31/20 release (Enteric Coated Aspirin) gabapentin 100 mg capsule 100 mg PO TID 30 days #90 caps 01/12/21 fluticasone propionate 50 1 spray intranasal DAILY 30 days 02/17/21 mcg/actuation nasal #9.9 mL spray,suspension (Allergy Relief (fluticasone)) cholecalciferol (vitamin D3) 25 25 mcg PO DAILY 3 months #90 caps 02/22/21 mcg (1,000 unit) capsule blood sugar diagnostic (FreeStyle 1 strip miscellaneous TID #300 04/27/21 Lite Strips) strips repaglinide 0.5 mg tablet 0.5 mg PO DAILY #30 tabs 08/10/21 mometasone 0.1 % topical cream 1 appl topical DAILY 30 days #45 07/31/22 grams mupirocin 2 % topical ointment 1 appl topical BID 30 days #22 07/31/22 grams simethicone 180 mg capsule 180 mg PO QID 30 days #120 caps 08/02/22 amlodipine 5 mg tablet 5 mg PO DAILY 30 days #90 tabs 10/26/22 losartan 100 mg tablet 100 mg PO DAILY #90 tabs 11/07/22 sucralfate 100 mg/mL oral 10 ml PO BID #400 mL 11/09/22 suspension (Carafate) lansoprazole 30 mg capsule,delayed 30 mg PO .qamac #30 caps 11/21/22 release dulaglutide 1.5 mg/0.5 mL 1.5 mg (0.5 mL) subcut QWEEK 90 11/29/22 subcutaneous pen injector days #6.5 mL (Trulicity) carvedilol 12.5 mg tablet 12.5 mg PO BID #180 tabs 12/17/22 metformin 1,000 mg tablet 1,000 mg PO BID 90 days #180 tabs 12/17/22 metoclopramide HCl 10 mg tablet 10 mg PO QIDACHS #120 tabs 12/19/22 (Reglan) loperamide 2 mg tablet 2 mg PO Q6H PRN loose stool #7 tabs 12/20/22 (Anti-Diarrheal (loperamide)) atorvastatin 40 mg tablet 40 mg PO DAILY #90 tabs 12/26/22 temazepam 30 mg capsule 30 mg PO BEDTIME PRN sleep 30 days 12/26/22 #30 caps Allergies Allergy/AdvReac Type Severity Reaction Status Date / Time No Known Allergies Allergy Verified 12/28/22 08:50 [No Known Allergies*] Review of Systems Review of Systems Constitutional : No Weight loss, No Fever, No Chills, pos fatigue, pos malaise ENT/Mouth : No sore throat, No Rhinorrhea Eyes: No Swelling, No Redness Cardiovascular : No Chest Pain, No SOB, NoEdema Respiratory : No Cough, No Sputum, No Wheezing Gastrointestinal : Positive Nausea, no Vomiting, positive Diarrhea, no abdominal Pain, No Hematochezia, No Melena Genitourinary : No Dysuria, No Urinary Frequency, No Hematuria, No Urgency Musculoskeletal : No joint pain, No Myalgias, No Joint Swelling Skin : No Skin Lesions, No rash Neuro : No Weakness, No Numbness, No Dizziness, No Headache Psych : No Anxiety/Panic, No Depression Heme/Lymph: No Bruising, No Lymphadenopathy Endocrine : No Polyuria, No Polydipsia All other systems reviewed and are negative. [facility] Past Medical History Attestation statement: The following information was validated with the patient. Medical History Allergic rhinitis Coronary artery disease Essential hypertension GERD (gastroesophageal reflux disease) History of Helicobacter infection History of prostate cancer Hyperlipidemia LDL goal <100 Insomnia Malignant neoplasm of prostate Microalbuminuria Type 2 diabetes mellitus with diabetic polyneuropathy Type 2 diabetes mellitus with hyperglycemia Type 2 diabetes mellitus with proteinuria Vitamin D deficiency Surgical History History of cardiac cath Hx of colonoscopy Hx of esophagogastroduodenoscopy Hx of prostate biopsy Stented coronary artery Family History Family History Father Medical history unknown Mother Medical history unknown Sister Diabetes Daughter Breast cancer Social History Social History Household Members: None Housing: Apartment Housing Other:: [employer] Alcohol intake: never Patient Tobacco Use Status: Former Tobacco user Quit Date: > 10 yrs ago Tobacco use type: Cigarette e-Cigarette/Vaping Use: Never Used Second Hand Smoke Exposure: No Advance Directives: No Advance Directives Information Provided: No service: No Current occupational status: retired Cognitive needs: Yes Hearing needs: No Vision needs: Yes Physical Exam ED Vital Signs: Vital Signs - 24 hr 01/01/23 12:14 Temperature 97.6 F Pulse Rate 80 Respiratory Rate 16 Blood Pressure 150/76 H Pulse Oximetry 96 Oxygen Delivery Method Room Air BMI result Body Mass Index 21.3 Appearance: Alert. Oriented X3. No acute distress. Eyes: Pupils equal, round and reactive to light. ENT: Pharynx dry MM Neck: Normal inspection. Neck supple. CVS: Normal heart rate and rhythm. Pulses normal. Respiratory: No respiratory distress. Breath sounds normal. Abdomen: Soft and nontender. Skin: Skin warm and dry. Normal skin color. poor skin turgor. Extremities: No lower extremity edema. No calf ttp Neuro: Oriented X 3. No motor deficit. No sensory deficit. Course Course Course Narrative: This is an RME: Additional HPI, ROS, PE not included below will be deferred to primary provider. This is a 82 year old male, with a history of diabetes mellitus type 2, hypertension, hyperlipidemia and GERD, presenting to the ER with complaints of diarrhea x 1 month. He has had 7-8 episodes of diarrhea per day. Admits to having some black stool. No nausea, vomiting, admits to having abdominal pain. He reports decreased appetite due to symptoms. Followed up with GI specialist and was advised to give stool sample but was only able to do one of these testings - does not have the results back. He was seen here last month due to gastroenteritis, had a CT abdomen which was unremarkable. Abdomen today is soft, nontender, nondistended. Plan: Basic labs, point of care, defer imaging until seen by me in providing for further evaluation and history. Reevaluation(s) Reevaluation #1: bladder scan only 107 Medical Decision Making Medical Decision Making MDM Narrative: 82 yo male with hx of CAD, DM, HLD, GERD, prostate cancer, HTN, chronic constipation here with c/o 10+ diarrhea episodes a day that is fluctuating but not improving since the start of the month. No travel, food exposurse, antibiotic use. He has no abdominal pain. it is so bad he is not eating. He has not had any black or bloody stools recently. He blames the start of everything on trulance. He was just tested negative with CT scan 12/20 and 12/29 GI panel and C diff negative at this time will obtain basic labs, given IVF and resend c diff. Differential Diagnosis Differential Diagnoses: The differential diagnosis associated with the presentation includes dehydration, adverse med reaction, IBS, c diff, TRISTIN Admission/Observation Consideration of admission/observation: Escalation of care including admission/observation considered admit for Tristin and fluids Consult Healthcare Provider Management of the patient was discussed with: Hospitalist will admit Lab Data MDM Lab Attestation statement: I reviewed the patient's lab results. new TRISTIN 01/01/23 12:59 01/01/23 12:59 Labs: Lab Results 01/01/23 01/01/23 Range/Units 12:59 12:59 WBC 9.9 (4.8-10.8) X10*3/uL RBC 4.43 L (4.60-5.80) X10*6/uL Hgb 12.3 L (14.0-18.0) g/dl Hct 38.1 L (42.0-52.0) % MCV 86.0 (80.0-98.0) fL MCH 27.8 (27.0-33.0) pg MCHC 32.3 (31.0-36.0) g/dl RDW 14.3 (11.0-16.0) % Plt Count 135 L (160-400) X10*3/uL MPV 10.1 (9.4-12.4) fL Immature Gran % (Auto) 0.3 (0.0-0.4) % Neut % (Auto) 79.6 H (45-73) % Lymph % (Auto) 11.5 L (20-40) % [place] % (Auto) 6.8 (2-11) % Eos % (Auto) 1.1 (0-4) % Baso % (Auto) 0.7 (0-2) % Lymph # (Auto) 1.1 L (1.2-4.9) X10*3/uL [place] # (Auto) 0.7 (0.1-1.2) X10*3/uL Eos # (Auto) 0.1 (0.0-0.4) X10*3/uL Baso # (Auto) 0.1 (0.0-0.2) X10*3/uL Abs Immat Gran (auto) 0.03 (0.00-0.03) X10*3/uL Absolute Neuts (auto) 7.9 (2.0-8.3) x10*3/uL Absolute Nucleated RBC 0.000 (0.0-0.012) X10*3/uL Nucleated RBC % (auto) 0.0 (0.0-0.2) /100WBC Sodium 145 (135-145) mmol/L Potassium 4.6 (3.3-5.1) mmol/L Chloride 116 H (96-108) mmol/L Carbon Dioxide 17 L (22-29) mmol/L Anion Gap 17 (12-20) BUN 50 H (9-16) mg/dL Creatinine 2.76 H (0.5-1.4) mg/dL Estim Creat Clear Calc 16.4 Estimated GFR 22 Random Glucose 123 H (60-115) mg/dL Calcium 10.5 H (8.4-10.2) mg/dL Magnesium 1.6 (1.6-2.6) mg/dL Total Bilirubin 0.7 (0.0-1.0) mg/dL Direct Bilirubin 0.3 (0.0-0.5) mg/dL AST 10 (5-37) U/L ALT 8 (0-40) U/L Alkaline Phosphatase 90 (39-117) U/L Total Protein 7.4 (6.5-8.0) g/dL Albumin 4.1 (3.5-5.0) g/dL Lipase 24 (8-78) U/L Independent Historian Clinical information obtained from an independent historian. History obtained from or confirmed by: Other (daughter) External Record Review External record reviewed: Inpatient record, Office record and Prior outpatient labs Medications Administered Discontinued Medications Generic Name Dose Route Start Last Admin Trade Name Freq PRN Reason Stop Dose Admin Sodium Chloride 1,000 mls @ 999 mls/hr 01/01/23 12:45 01/01/23 13:03 Ns IV 01/01/23 13:45 999 mls/hr .Q1H1M EARNESTINE Administration Discharge Plan Discharge Clinical Impression: TRISTIN (acute kidney injury), Acute dehydration Diarrhea Qualifiers: Diarrhea type: unspecified type Qualified Code(s): R19.7 - Diarrhea, unspecified Patient Disposition: Admitted As Inpatient
[2023-01-01] MEDS: 0.9 % Sodium Chloride 1,000 ML 999 ML IV (13:03)
[2023-01-01 13:05] LABS: MANUAL DIFF FLAG NO
[2023-01-01 13:10] LABS: Basophils Absolute Auto 0.1 X10*3/uL (0.0-0.2); Basophils Percent Auto 0.7 % (0-2); Eosinophils Absolute Auto 0.1 X10*3/uL (0.0-0.4); Eosinophils Percent Auto 1.1 % (0-4); Hematocrit 38.1 % (42.0-52.0); Hemoglobin 12.3 g/dl (14.0-18.0); Imm Gran Abs Auto 0.03 X10*3/uL (0.00-0.03); Imm Gran Pct Auto 0.3 % (0.0-0.4); Lymphocytes Absolute Auto 1.1 X10*3/uL (1.2-4.9); Lymphocytes Percent Auto 11.5 % (20-40); Mean Corpuscular HGB Conc 32.3 g/dl (31.0-36.0); Mean Corpuscular Hemoglobin 27.8 pg (27.0-33.0); Mean Platelet Volume 10.1 fL (9.4-12.4); Monocytes Absolute Auto 0.7 X10*3/uL (0.1-1.2); Monocytes Percent Auto 6.8 % (2-11); Neutrophils Absolute Auto 7.9 x10*3/uL (2.0-8.3); Neutrophils Percent Auto 79.6 % (45-73); Platelet Count 135 X10*3/uL (160-400); Red Blood Count 4.43 X10*6/uL (4.60-5.80); Red Cell Distribution Width 14.3 % (11.0-16.0); White Blood Count 9.9 X10*3/uL (4.8-10.8)
[2023-01-01 13:32] LABS: Alanine Aminotransferase 8 U/L (0-40); Albumin Level 4.1 g/dL (3.5-5.0); Alkaline Phosphatase 90 U/L (39-117); Anion Gap 17 (12-20); Aspartate Amino Transferase 10 U/L (5-37); Bilirubin Direct 0.3 mg/dL (0.0-0.5); Bilirubin Total 0.7 mg/dL (0.0-1.0); Blood Urea Nitrogen 50 mg/dL (9-16); Calcium 10.5 mg/dL (8.4-10.2); Carbon Dioxide 17 mmol/L (22-29); Chloride 116 mmol/L (96-108); Creatinine Clr Calc Pharmacy 16.4; Estimated Glomerular Filt Rate 22; Glucose Random 123 mg/dL (60-115); Lipase 24 U/L (8-78); Magnesium 1.6 mg/dL (1.6-2.6); Potassium 4.6 mmol/L (3.3-5.1); Sodium 145 mmol/L (135-145); Total Protein 7.4 g/dL (6.5-8.0)
--- NOTE | 2023-01-01 13:35 | PC.NURSE ---
pt a&ox3, vss, reporting diarrhea x 1 month after chronic constipation, abd pain, pt feels warm but afebrile. 20G IV placed right AC, labs drawn, 1L NS running. resting quietly, daughter at bedside. frisian speaking.
[2023-01-01] MEDS: 0.9 % Sodium Chloride 1,000 ML 125 ML IVCONT (14:14)
--- NOTE | 2023-01-01 14:51 | PHA.MEDREC ---
Pharmacy Consult ? Medication Reconciliation Pharmacy has completed the medication reconciliation. PT HAS STOPPED TRULANCE, OMEPRAZOLE, DOCUSATE AND SENNA STANISLAV
[2023-01-01 15:16] VITALS: BP 156/71; PULSE 81; RESP 16; TEMP 36.4; O2SAT 98
--- NOTE | 2023-01-01 15:21 | P.HPHOSP_ITS ---
History of Present Illness Date of Service: 01/01/23 Attending physician on admission: [facility] Chief Complaint: diarrhea 82-year-old male with history of hypertension, coronary artery disease s/p stent to proximal RCA, history of prostate cancer, hyperlipidemia, [id number] nt type 2 diabetes, GERD, chronic constipation, and insomnia presented to the ED earlier today for evaluation of watery diarrhea ongoing for about a month. He states at times he is experiencing 10+ episodes of watery diarrhea in a day. States symptoms started after being started on Trulance. He was seen by Gastroenterology on 12/28 who discontinued the Trulance and ordered C diff and GI panel both of which were negative. Despite this, continues to experience persistent diarrhea associated with anorexia, weakness, dry mouth. He states he also is not eating out of fear of having diarrhea. He has been trying to take Imodium without effect. He denies any fevers or chills. No blood in the stool. No nausea or vomiting. He does report diffuse abdominal pain that improved somewhat following bowel movement but otherwise constant. He denies any recent travel, antibiotic use, or bad food exposures. No one at home with similar symptoms. On arrival, vital stable. No leukocytosis. Stable normocytic anemia. Creatinine 2.76, BUN 50 (baseline creatinine 1.31, BUN 29. Sodium 145, chloride 116, potassium 4.6, CO2 17. VBG pending. Hepatic function normal. CT abdomen/pelvis from 12/20 negative for any acute findings in the abdomen or pelvis. No acute inflammatory changes. Colonic diverticulosis noted without diverticulitis. There have been no changes in coli or severity of symptoms since this CT scan. In ED given 1 L IV NS bolus now on IV NS at 125 mL an hour. Review of Systems Review of Systems: General: No fevers, malaise, unintentional weight loss. +general weakness Cardiovascular: No chest pain, palpitations, or leg edema Respiratory: No shortness of breath, wheezing, cough GI: +abd pain, +diarrhea. No nausea, vomiting, constipation, melena, hematochezia : No dysuria, hematuria, increased urinary frequency, decreased urinary output MSK: No myalgia, back pain Neuro: No headaches, weakness, paresthesias Skin: No rashes or lesions PMFSH Medical History Allergic rhinitis Coronary artery disease Essential hypertension GERD (gastroesophageal reflux disease) History of Helicobacter infection History of prostate cancer Hyperlipidemia LDL goal <100 Insomnia Malignant neoplasm of prostate Microalbuminuria Type 2 diabetes mellitus with diabetic polyneuropathy Type 2 diabetes mellitus with hyperglycemia Type 2 diabetes mellitus with proteinuria Vitamin D deficiency Family History Father Medical history unknown Mother Medical history unknown Sister Diabetes Daughter Breast cancer Surgical History History of cardiac cath Hx of colonoscopy Hx of esophagogastroduodenoscopy Hx of prostate biopsy Stented coronary artery Social History Household Members: None Housing: Apartment Housing Other:: [employer] Alcohol intake: never Patient Tobacco Use Status: Former Tobacco user Quit Date: > 10 yrs ago Tobacco use type: Cigarette e-Cigarette/Vaping Use: Never Used Second Hand Smoke Exposure: No Use of substances other than those prescribed or required for medical reasons: No Advance Directives: No Advance Directives Information Provided: No service: No Current occupational status: retired Cognitive needs: Yes Hearing needs: No Vision needs: Yes Meds Allergies Allergy/AdvReac Type Severity Reaction Status Date / Time No Known Allergies Allergy Verified 12/28/22 08:50 [No Known Allergies*] Active Medications: Current Medications Acetaminophen (Acetaminophen 325 Mg Tablet) 650 mg PO Q6H PRN PRN Reason: Pain, Mild (Pain Scale 1-3) Docusate Sodium (Docusate Sodium 100 Mg Capsule) 100 mg PO DAILY PRN PRN Reason: Constipation Enoxaparin Sodium (Enoxaparin Sodium 40 Mg/0.4 Ml Syringe) 40 mg SUBCUT Q24H EARNESTINE Heparin Sodium (Porcine) (Heparin Sodium,Porcine 5,000 Unit/Ml Vial) 5,000 unit SUBCUT Q12H EARNESTINE Sodium Chloride (Ns) 1,000 mls @ 125 mls/hr IVCONT .Q8H EARNESTINE Last Admin: 01/01/23 14:14 Dose: 125 mls/hr Ondansetron HCl (Ondansetron Hcl 4 Mg/2 Ml Vial) 4 mg IVPUSH Q8H PRN PRN Reason: Nausea and Vomiting Sodium Chloride (0.9 % Sodium Chloride Flush 3 Ml Syringe) 3 ml IVFLUSH QSHIFT [facility] Home Medications Medication Instructions Recorded Confirmed Last Taken Type nitroglycerin 0.4 mg sublingual 0.4 mg sublingual Q5M PRN Chest 02/14/20 01/01/23 Unknown History tablet Pain blood-glucose meter #1 ea 04/01/20 12/07/22 Unknown History lancets 28 gauge #100 ea 04/01/20 12/07/22 Unknown History glucose 4 gram chewable tablet 4 g PO ONCE PRN Hypoglycemia 07/26/20 01/01/23 Unknown History atorvastatin 40 mg tablet 40 mg PO BEDTIME 01/01/23 01/01/23 12/31/22 History dulaglutide 1.5 mg/0.5 mL 1.5 mg subcut FR 01/01/23 01/01/23 12/29/22 [facility] lansoprazole 30 mg capsule,delayed 30 mg PO DAILY 01/01/23 01/01/23 12/31/22 History release simethicone 180 mg capsule 180 mg PO QID PRN Gastric Reflux 01/01/23 01/01/23 Unknown History Physical Exam Vital Signs and Narrative: Vital Signs: Last Vital Signs Temp 97.6 F 01/01/23 15:16 Pulse 81 01/01/23 15:16 Resp 16 01/01/23 15:16 BP 156/71 H 01/01/23 15:16 Pulse Ox 98 01/01/23 15:16 O2 Del Method Room Air 01/01/23 15:16 BMI result Body Mass Index 21.3 Constitutional - Awake and Alert, No apparent distress Eyes - PERRLA, EOMI Cardiovascular - S1S2, RRR, No edema Respiratory - Normal lung expansion, Normal respiratory effort, No respiratory distress, CTA bilaterally Gastrointestinal - mild diffuse ttp without guarding or rebound. ND; +BS Extremities - no calf tenderness bilaterally, no swelling Skin - Warm/Dry Neurological - Alert & oriented x3, Psychological - Appropriate affect Results Labs 01/01/23 12:59 01/01/23 12:59 Labs: Laboratory Results - last 24 hr 01/01/23 01/01/23 12:59 12:59 MCV 86.0 MCH 27.8 MCHC 32.3 RDW 14.3 Plt Count 135 L MPV 10.1 Immature Gran % (Auto) 0.3 Neut % (Auto) 79.6 H Lymph % (Auto) 11.5 L [place] % (Auto) 6.8 Eos % (Auto) 1.1 Baso % (Auto) 0.7 Lymph # (Auto) 1.1 L [place] # (Auto) 0.7 Eos # (Auto) 0.1 Baso # (Auto) 0.1 Abs Immat Gran (auto) 0.03 Absolute Neuts (auto) 7.9 Absolute Nucleated RBC 0.000 Nucleated RBC % (auto) 0.0 Anion Gap 17 Estim Creat Clear Calc 16.4 Estimated GFR 22 Random Glucose 123 H Calcium 10.5 H Magnesium 1.6 Total Bilirubin 0.7 Direct Bilirubin 0.3 AST 10 ALT 8 Alkaline Phosphatase 90 Total Protein 7.4 Albumin 4.1 Lipase 24 Assessment and Plan (1) TRISTIN (acute kidney injury): Status: Acute (2) Acute dehydration: Status: Acute (3) Diarrhea: Qualifiers: Diarrhea type: unspecified type Qualified Code(s): R19.7 - Diarrhea, unspecified Status: Acute Plan 82-year-old male with history of hypertension, coronary artery disease s/p stent to proximal RCA, history of prostate cancer, hyperlipidemia, [id number] type 2 diabetes, GERD, chronic constipation, and insomnia admitted for Acute kidney injury with intractable diarrhea. #Acute kidney injury- likely prerenal due to hypovolemia due to GI losses -Creat 2.76, baseline 1.31. BUN 29 -Given 1L IV NS bolus in ED. Continue IV NS @100ml/hr (no hx CHF) -Avoid nephrotoxins -Follow BMP #Acute intractable diarrhea -ongoing since 2 nights initiation which has since been discontinued -C diff PCR and GI panel negative on 12/29 -repeat C diff PCR in GI panel given ongoing significant symptoms -CT abdomen/pelvis on 12/20 negative for any acute intra abdominal abnormality. Will hold on repeat imaging as symptoms have not changed and abdominal exam is benign -Imodium p.r.n. -consider GI input if no improvements -diabetic bland diet with high fiber # hypertension -continue carvedilol, amlodipine. Hold losartan in the setting of TRISTIN # GERD -continue lansoprazole # avh-tepdino-twumglchr type 2 diabetes without hyperglycemia -POC glucose -diabetic diet as above -Humalog on sliding scale -hold metformin and Trulicity DVT prophylaxis-heparin Full code Patient requires inpatient stay at least 2 midnights for management of acute kidney injury secondary to GI losses with intractable diarrhea requiring IV fluid resuscitation, close monitoring of renal function and electrolyte levels and possible expert consultation. Time Spent With Patient Time: Total time managing care of this patient today ____ minutes. Quality Stroke Does the patient have a stroke diagnosis?: No VTE Prior VTE?: No VTE Risk Level:: Medical - moderate - high VTE Device Contraindication: Treatment Not Indicated VTE Drug Contraindication: N/A - Med Ordered
[2023-01-01] MEDS: 0.9 % Sodium Chloride Flush 3 ML SYRINGE IVFLUSH ×2 (15:57→20:39)
[2023-01-01] MEDS: Heparin Sodium,Porcine 5,000 UNIT/ML VIAL 5000 UNIT SUBCUT (15:57)
[2023-01-01 15:59] LABS: VBG Base Excess -11.9 mmol/L; VBG HCO3 14 mmol/L (22-26); VBG pCO2 35 mmHg; VBG pH 7.22 (7.32-7.43); VBG pO2 60 mmHg
[2023-01-01 16:03] LABS: Venous Blood Gas Refer to POC result
--- NOTE | 2023-01-01 16:43 | PC.NURSE ---
Report given to OCTAVIO Chowdary on I[facility], awaiting transport at this time
--- NOTE | 2023-01-01 17:15 | PC.NURSE ---
holding off on insulin until dinner arrives, patient unsure if he wants to eat dinner or not
[2023-01-01 17:26] LABS: Appearance Urine Clear; Color Urine Yellow; Glucose Urine UA Negative (Negative); Leukocyte Esterase Urine Negative (Negative); Nitrite Urine Negative (Negative); PH 5.5 (5.0-9.0); Urine Blood Negative (Negative); Urine Ketones Trace mg/dL (Negative); Urine Protein Trace mg/dL (Neg-Trace)
[2023-01-01 18:00] VITALS: BP 164/72; PULSE 72; RESP 18; TEMP 36.7; O2SAT 97
[2023-01-01 18:01] LABS: Glucose, Whole Blood 97 mg/dL (60-115)
--- NOTE | 2023-01-01 18:01 | PC.NURSE ---
no insulin coverage needed, patient picking at dinner at this time
[2023-01-01 18:36] VITALS: BMI 21.3
[2023-01-01 19:41] LABS: Glucose, Whole Blood 186 mg/dL (60-115)
[2023-01-01] MEDS: Insulin Lispro 100 UNIT/ML 3 ML VIAL SUBCUT (20:38)
[2023-01-01] MEDS: Atorvastatin Calcium 40 MG TABLET PO (20:39)
[2023-01-01] MEDS: carvediloL 12.5 MG TABLET PO (20:39)
[2023-01-01] MEDS: Temazepam 15 MG CAPSULE 30 MG PO (20:39)
[2023-01-02] MEDS: 0.9 % Sodium Chloride 1,000 ML 100 ML IVCONT ×2 (02:22→12:00)
[2023-01-02 03:30] VITALS: BP 140/67; PULSE 61; RESP 1; TEMP 36.1; O2SAT 98
[2023-01-02] MEDS: Heparin Sodium,Porcine 5,000 UNIT/ML VIAL 5000 UNIT SUBCUT (03:44)
[2023-01-02] MEDS: Omeprazole 20 MG CAPSULE.DR PO (05:42)
[2023-01-02 07:05] LABS: MANUAL DIFF FLAG NO
[2023-01-02 07:09] LABS: Basophils Absolute Auto 0.1 X10*3/uL (0.0-0.2); Basophils Percent Auto 0.9 % (0-2); Eosinophils Absolute Auto 0.2 X10*3/uL (0.0-0.4); Eosinophils Percent Auto 1.9 % (0-4); Hematocrit 34.8 % (42.0-52.0); Hemoglobin 11.2 g/dl (14.0-18.0); Imm Gran Abs Auto 0.02 X10*3/uL (0.00-0.03); Imm Gran Pct Auto 0.3 % (0.0-0.4); Lymphocytes Absolute Auto 1.1 X10*3/uL (1.2-4.9); Mean Corpuscular HGB Conc 32.2 g/dl (31.0-36.0); Mean Corpuscular Hemoglobin 27.7 pg (27.0-33.0); Mean Corpuscular Volume 86.1 fL (80.0-98.0); Mean Platelet Volume 10.4 fL (9.4-12.4); Monocytes Absolute Auto 0.7 X10*3/uL (0.1-1.2); Monocytes Percent Auto 8.6 % (2-11); Neutrophils Percent Auto 74.3 % (45-73); Platelet Count 133 X10*3/uL (160-400); Red Blood Count 4.04 X10*6/uL (4.60-5.80); Red Cell Distribution Width 13.9 % (11.0-16.0)
[2023-01-02 07:20] VITALS: BP 131/67; PULSE 64; RESP 18; TEMP 36.3; O2SAT 97
[2023-01-02 07:29] LABS: Anion Gap 13 (12-20); Blood Urea Nitrogen 36 mg/dL (9-16); Calcium 9.6 mg/dL (8.4-10.2); Carbon Dioxide 19 mmol/L (22-29); Chloride 117 mmol/L (96-108); Creatinine Clr Calc Pharmacy 27.3; Estimated Glomerular Filt Rate 40; Glucose Random 86 mg/dL (60-115); Potassium 4.1 mmol/L (3.3-5.1); Sodium 145 mmol/L (135-145)
[2023-01-02 07:31] LABS: Glucose, Whole Blood 87 mg/dL (60-115)
[2023-01-02 08:56] VITALS: BP 131/67; PULSE 64; O2SAT 97
--- NOTE | 2023-01-02 09:17 | MHC.CM.PN ---
IMM 01/02/23, EMR REVIEWED PT ADMITTED W/TRISTIN,PO INTOLERANCE & DIARRHEA, CM MET W/PT VIA ANALOG IC DESIGN ENGINEER, PT REPORTS HE LIVES ALONE, HAS ASSISTANCE FORM DTR/GSON WHO ARE PT'S EXPERIMENTAL PHYSICIST'S, PT HAS A CANE AND DIABETIC SUPPLIES FOR DME. PT REPORTS GOAL OF D/C IS HOME W/RESUMP OF SERVICES. PT VERIFIES PCP IS DOROTHY MOURA. COVID VACC X2 AND HCP IS DT LU[facility], CM WILL CONTACT PT'S DTR LUIS TO REQUEST COPY OF HCP. DCP: HOME W/RESUMP OF EXPERIMENTAL PHYSICIST AND NEW HOME PT ([facility]) AND FAMILY FOR TRANSPORT
[2023-01-02] MEDS: 0.9 % Sodium Chloride Flush 3 ML SYRINGE IVFLUSH (09:21)
[2023-01-02] MEDS: amLODIPine Besylate 5 MG TABLET PO (09:22)
[2023-01-02] MEDS: Cholecalciferol (Vitamin D3) 25 MCG TABLET PO (09:22)
[2023-01-02] MEDS: carvediloL 12.5 MG TABLET PO (09:22)
[2023-01-02] MEDS: Aspirin Enteric Coated 81 MG TABLET.DR PO (09:22)
[2023-01-02 11:44] LABS: Glucose, Whole Blood 290 mg/dL (60-115)
[2023-01-02] MEDS: Insulin Lispro 100 UNIT/ML 3 ML VIAL SUBCUT (12:00)
--- NOTE | 2023-01-02 12:14 | PM.DS ---
DS: Providers Provider Date of Service: 01/02/23 Date of admission: 01/01/23 15:16 Primary care physician: Margaret Mcguire MD DS: Diagnosis Discharge Diagnosis (1) TRISTIN (acute kidney injury): Status: Acute (2) Acute dehydration: Status: Acute (3) Diarrhea: Status: Acute DS: Summary Hospital Course Hospital Course: Admission note HPI 82-year-old male with history of hypertension, coronary artery disease s/p stent to proximal RCA, history of prostate cancer, hyperlipidemia, [id number] type 2 diabetes, GERD, chronic constipation, and insomnia presented to the ED earlier today for evaluation of watery diarrhea ongoing for about a month.? He states at times he is experiencing 10+ episodes of watery diarrhea in a day.? States symptoms started after being started on Trulance.? He was seen by Gastroenterology on 12/28 who discontinued the Trulance and ordered C diff and GI panel both of which were negative.? Despite this, continues to experience persistent diarrhea associated with anorexia, weakness, dry mouth.? He states he also is not eating out of fear of having diarrhea.? He has been trying to take Imodium without effect.? He denies any fevers or chills.? No blood in the stool.? No nausea or vomiting.? He does report diffuse abdominal pain that improved somewhat following bowel movement but otherwise constant.? He denies any recent travel, antibiotic use, or bad food exposures.? No one at home with similar symptoms.? On arrival, vital stable.? No leukocytosis.? Stable normocytic anemia.? Creatinine 2.76, BUN 50 (baseline creatinine 1.31, BUN 29.? Sodium 145, chloride 116, potassium 4.6, CO2 17. VBG pending.? Hepatic function normal.? CT abdomen/pelvis from 12/20 negative for any acute findings in the abdomen or pelvis.? No acute inflammatory changes.? Colonic diverticulosis noted without diverticulitis.? There have been no changes in coli or severity of symptoms since this CT scan.? In ED given 1 L IV NS bolus now on IV NS at 125 mL an hour. Hospital course The patient was admitted for evidence of acute kidney injury as a result on ongoing diarrhea and dehydration with creatinine of 2.76 at time of presetation from baseline of 1.3 earlier this month. improved with IV fluids close to his baseline again Cr of 1.6 with resolving metabolic acidosis. He was able to tolerate diet as diarrhea resolved with reported last diarrhea episode on 12/31 evening. Able to ambulate with PT who recommended home PT on DC. The patient make quicker than expected recovery. will be discharged home to follow with PCP as outpatient. does not need 2 nights inpatient. Encourage oral intake and more fluids Hold Losartan for now, restart by Follow up with PCP for repeat blood result as outpatient Time Spent with Patient Time attestation: Total time managing care of this patient today ____ minutes. Discharge coordination time: Greater than 30 minutes Quality: Safe Use of Opioids Does Pt have an Active Cancer Diagnosis on the Problem List?: No Quality: Stroke Does the patient have a stroke diagnosis?: No Physical Exam Vital Signs: Vital Signs: Last Vital Signs Temp 97.4 F 01/02/23 07:20 Pulse 64 01/02/23 08:56 Resp 18 01/02/23 07:20 BP 131/67 01/02/23 08:56 Pulse Ox 97 01/02/23 08:56 O2 Del Method Room Air 01/02/23 07:20 BMI result Body Mass Index 21.3 Const: Other: Constitutional : Awake, interactive, not in distress Neck : Normal inspection, Supple Cardiovascular : RRR, no JVP, no lower extremity edema Respiratory : good bilateral air entry, no crackles, wheezes or rhonchi Gastrointestinal: soft, lax, Normal bowel sounds, Non tender Skin : Warm, Dry Neurological : Alert & oriented x3, No focal deficit DS: Data Data Completed and Pending Labs on day of discharge: Laboratory Results - last 24 hr 01/01/23 01/01/23 01/01/23 12:59 12:59 15:53 WBC 9.9 RBC 4.43 L Hgb 12.3 L Hct 38.1 L MCV 86.0 MCH 27.8 MCHC 32.3 RDW 14.3 Plt Count 135 L MPV 10.1 Immature Gran % (Auto) 0.3 Neut % (Auto) 79.6 H Lymph % (Auto) 11.5 L [place] % (Auto) 6.8 Eos % (Auto) 1.1 Baso % (Auto) 0.7 Lymph # (Auto) 1.1 L [place] # (Auto) 0.7 Eos # (Auto) 0.1 Baso # (Auto) 0.1 Abs Immat Gran (auto) 0.03 Absolute Neuts (auto) 7.9 Absolute Nucleated RBC 0.000 Nucleated RBC % (auto) 0.0 VBG pH 7.22 L VBG pCO2 35 VBG pO2 60 VBG HCO3 14 L VBG O2 Saturation 81.0 VBG Base Excess -11.9 Sodium 145 Potassium 4.6 Chloride 116 H Carbon Dioxide 17 L Anion Gap 17 BUN 50 H Creatinine 2.76 H Estim Creat Clear Calc 16.4 Estimated GFR 22 POC Glucose Random Glucose 123 H Calcium 10.5 H Magnesium 1.6 Total Bilirubin 0.7 Direct Bilirubin 0.3 AST 10 ALT 8 Alkaline Phosphatase 90 Total Protein 7.4 Albumin 4.1 Lipase 24 Urine Color Urine Appearance Urine pH Ur Specific [place] Urine Protein Urine Glucose (UA) Urine Ketones Urine Blood Urine Nitrite Ur Leukocyte Esterase 01/01/23 01/01/23 01/01/23 17:13 17:57 19:37 WBC RBC Hgb Hct MCV MCH MCHC RDW Plt Count MPV Immature Gran % (Auto) Neut % (Auto) Lymph % (Auto) [place] % (Auto) Eos % (Auto) Baso % (Auto) Lymph # (Auto) [place] # (Auto) Eos # (Auto) Baso # (Auto) Abs Immat Gran (auto) Absolute Neuts (auto) Absolute Nucleated RBC Nucleated RBC % (auto) VBG pH VBG pCO2 VBG pO2 VBG HCO3 VBG O2 Saturation VBG Base Excess Sodium Potassium Chloride Carbon Dioxide Anion Gap BUN Creatinine Estim Creat Clear Calc Estimated GFR POC Glucose 97 186 H Random Glucose Calcium Magnesium Total Bilirubin Direct Bilirubin AST ALT Alkaline Phosphatase Total Protein Albumin Lipase Urine Color Yellow Urine Appearance Clear Urine pH 5.5 Ur Specific [place] 1.010 Urine Protein Trace Urine Glucose (UA) Negative Urine Ketones Trace Urine Blood Negative Urine Nitrite Negative Ur Leukocyte Esterase Negative 01/02/23 01/02/23 01/02/23 06:27 06:27 07:28 WBC 8.0 RBC 4.04 L Hgb 11.2 L Hct 34.8 L MCV 86.1 MCH 27.7 MCHC 32.2 RDW 13.9 Plt Count 133 L MPV 10.4 Immature Gran % (Auto) 0.3 Neut % (Auto) 74.3 H Lymph % (Auto) 14.0 L [place] % (Auto) 8.6 Eos % (Auto) 1.9 Baso % (Auto) 0.9 Lymph # (Auto) 1.1 L [place] # (Auto) 0.7 Eos # (Auto) 0.2 Baso # (Auto) 0.1 Abs Immat Gran (auto) 0.02 Absolute Neuts (auto) 6.0 Absolute Nucleated RBC 0.000 Nucleated RBC % (auto) 0.0 VBG pH VBG pCO2 VBG pO2 VBG HCO3 VBG O2 Saturation VBG Base Excess Sodium 145 Potassium 4.1 Chloride 117 H Carbon Dioxide 19 L Anion Gap 13 BUN 36 H Creatinine 1.66 H Estim Creat Clear Calc 27.3 Estimated GFR 40 POC Glucose 87 Random Glucose 86 Calcium 9.6 D Magnesium Total Bilirubin Direct Bilirubin AST ALT Alkaline Phosphatase Total Protein Albumin Lipase Urine Color Urine Appearance Urine pH Ur Specific [place] Urine Protein Urine Glucose (UA) Urine Ketones Urine Blood Urine Nitrite Ur Leukocyte Esterase 01/02/23 11:40 WBC RBC Hgb Hct MCV MCH MCHC RDW Plt Count MPV Immature Gran % (Auto) Neut % (Auto) Lymph % (Auto) [place] % (Auto) Eos % (Auto) Baso % (Auto) Lymph # (Auto) [place] # (Auto) Eos # (Auto) Baso # (Auto) Abs Immat Gran (auto) Absolute Neuts (auto) Absolute Nucleated RBC Nucleated RBC % (auto) VBG pH VBG pCO2 VBG pO2 VBG HCO3 VBG O2 Saturation VBG Base Excess Sodium Potassium Chloride Carbon Dioxide Anion Gap BUN Creatinine Estim Creat Clear Calc Estimated GFR POC Glucose 290 H Random Glucose Calcium Magnesium Total Bilirubin Direct Bilirubin AST ALT Alkaline Phosphatase Total Protein Albumin Lipase Urine Color Urine Appearance Urine pH Ur Specific [place] Urine Protein Urine Glucose (UA) Urine Ketones Urine Blood Urine Nitrite Ur Leukocyte Esterase Discharge Plan Discharge Anticipated Discharge Date/Time: 01/02/23 12:10 Patient Disposition: Home Health Service Discharge Diagnosis: Acute kidney injury Diarrhea Referrals: Margaret Harper MD [Primary Care Provider] - 1 Week Discharge Medications: Continued repaglinide 0.5 mg tablet 0.5 mg PO DAILY Qty: 30 4RF Rx Instructions: administer 15 minutes before lunch amlodipine 5 mg tablet 5 mg PO DAILY 30 Days Qty: 90 1RF metformin 1,000 mg tablet 1,000 mg PO BID 90 Days Qty: 180 0RF carvedilol 12.5 mg tablet 12.5 mg PO BID Qty: 180 0RF temazepam 30 mg capsule 30 mg PO BEDTIME PRN (Reason: sleep) 30 Days Qty: 30 0RF atorvastatin 40 mg tablet 40 mg PO BEDTIME lansoprazole 30 mg capsule,delayed release(DR/EC) 30 mg PO DAILY Trulicity 1.5 mg/0.5 mL pen injector 1.5 mg subcut FR simethicone 180 mg capsule 180 mg PO QID PRN (Reason: Gastric Reflux) Rx Instructions: after meals aspirin [Enteric Coated Aspirin] 81 mg tablet,delayed release (DR/EC) 81 mg PO DAILY 90 Days Qty: 90 0RF cholecalciferol (vitamin D3) 25 mcg (1,000 unit) capsule 25 mcg PO DAILY 90 Days Qty: 90 0RF (DME) lancets 28 gauge misc See Rx Instructions topical BID Qty: 100 Rx Instructions: As directed (DME) blood-glucose meter Kit See Rx Instructions .ROUTE .MEDSUPPLY Qty: 1 Rx Instructions: As directed glucose 4 gram tablet,chewable 4 g PO ONCE PRN (Reason: Hypoglycemia) nitroglycerin 0.4 mg tablet, sublingual 0.4 mg sublingual Q5M PRN (Reason: Chest Pain) Rx Instructions: do not exceed 3 doses per episode (DME) blood pressure monitor [Blood Pressure Kit] Kit See Rx Instructions .ROUTE .MEDSUPPLY Qty: 1 0RF Rx Instructions: As directed metoclopramide HCl [Reglan] 10 mg tablet 10 mg PO QIDACHS Qty: 120 6RF Held losartan 100 mg tablet 100 mg PO DAILY Qty: 90 2RF Hold Instructions: Resume on 01/04/23. Discharge Orders: Discharge Order (Routine); Ordered 01/02/23 Ordered By: Yoly Arrieta Diet: Advance to usual diet Activity on Discharge: As tolerated Stand Alone Forms: Patient Portal Discharge page Other Ambulatory Orders: Basic Metabolic Panel (Routine) Timeframe: 3 Days Facility: [facility] - Location: Laboratory Ordered By: Yoly Arrieta Care Plan Goals: Read below Health Concerns: Read below Plan of Treatment: Read below Assessment: Admitted to the hospital for recurrent diarrhea with assocaited weakness. found to have acute kidney injury which was treated with IV fluids with good response as kidney function improved close by to your baseline. Encourage oral intake and more fluids Hold Losartan for now, restart by Follow up with PCP for repeat blood result as outpatient High fiber diet; Metamucil Patient Instructions: Acute Kidney Injury (DC), Acute Diarrhea (GEN)
--- NOTE | 2023-01-02 12:29 | W.MHC.F2F ---
Service Date Service Date: 01/02/23 Encounter Date of encounter: 01/02/23 Reasons for Services Signs and symptoms assessed: Physical deconditioning Reason for physical therapy: home safety and mobility and therapeutic exercises Homebound: Leaving the home is medically contraindicated at this time without the asist of a device and/or another person due th the listed conditions above and below. Reason homebound: unsteady gait / fall risk Certification: Based on the above findings, I certify that this patient is confined to the home and needs intermittent long term care, physical therapy and/or speech therapy, or continues to need occupational therapy. The patient is under my care, and I have initiated the establishment of the plan of care. The patient will be followed by a physician who will periodically review the plan of care. Time Spent With Patient Time: Total time managing care of this patient today ____ minutes.
[2023-01-02 13:10] LABS: Anion Gap 12 (12-20); Blood Urea Nitrogen 35 mg/dL (9-16); Calcium 9.4 mg/dL (8.4-10.2); Carbon Dioxide 20 mmol/L (22-29); Chloride 115 mmol/L (96-108); Creatinine Clr Calc Pharmacy 27.8; Estimated Glomerular Filt Rate 41; Glucose Random 287 mg/dL (60-115); Potassium 3.7 mmol/L (3.3-5.1); Sodium 143 mmol/L (135-145)
--- NOTE | 2023-01-02 13:21 | MHC.CM.PN ---
PT AND FAMILY DECLINING HOME PT OR ANY ADDITIONAL HOME SERVICES AT THIS TIME. PT DISCHARGING HOME TODAY W/RESUMP OF SHEL[employer]ED WORK[employer] AND FAMILY FOR TRANSPORT.
== END 2023-01-02 15:23 | disposition home health service (06) | DRG 684 ==
LOC: HO.ED 13:38 → HO.EDOVER 15:25 → HO.IMC 16:21
PROVIDERS: Internal Medicine; Physician Assistant Medical; Admitting Provider Physician Assistant; Emergency Provider Emergency Medicine; PCP Internal Medicine; Visit Provider Student in an Organized Health Care Education/Training Program
DX: N17.9 Acute kidney failure, unspecified (principal); I25.10 Atherosclerotic heart disease of native coronary artery without angina pectoris; E11.42 Type 2 diabetes mellitus with diabetic polyneuropathy; E86.0 Dehydration; E78.5 Hyperlipidemia, unspecified; R19.7 Diarrhea, unspecified; Z85.46 Personal history of malignant neoplasm of prostate; Z87.891 Personal history of nicotine dependence; Z79.82 Long term (current) use of aspirin; Z79.84 Long term (current) use of oral hypoglycemic drugs; Z79.85 Long-term (current) use of injectable non-insulin antidiabetic drugs; Z79.899 Other long term (current) drug therapy
CPT/HCPCS: 36415; 80048; 80076; 81003; 82803; 82947; 83690; 83735; 85025; 97162; 99285; J1643

== ENCOUNTER → 2023-01-01 15:16 | Outpatient (BNV) | payer OTHER, SELFPAY | PROVIDERS: Admitting Provider Physician Assistant; Emergency Provider Emergency Medicine; PCP Internal Medicine; Visit Provider Student in an Organized Health Care Education/Training Program | DX: N17.9 Acute kidney failure, unspecified (principal); E86.0 Dehydration; R19.7 Diarrhea, unspecified | CPT/HCPCS: 99223; 99239; G0180 ==

== ENCOUNTER 2023-04-13 09:58 | Outpatient (REF) | payer OTHER, SELFPAY ==
[2023-04-13 11:03] LABS: Anion Gap 15 (12-20); Blood Urea Nitrogen 17 mg/dL (9-16); Calcium 9.8 mg/dL (8.4-10.2); Carbon Dioxide 27 mmol/L (22-29); Chloride 105 mmol/L (96-108); Estimated Glomerular Filt Rate > 60; Glucose Random 193 mg/dL (60-115); Potassium 4.1 mmol/L (3.3-5.1); Sodium 143 mmol/L (135-145)
[2023-04-13 11:11] LABS: Creatinine Urine 84.67 mg/dL; Total Protein Urine Random 25 mg/dL (<12)
== END 2023-04-13 09:59 | disposition home or self-care (01) ==
LOC: HO.LAB 09:58
PROVIDERS: PCP Internal Medicine; Visit Provider Internal Medicine Hypertension Specialist
DX: E11.22 Type 2 diabetes mellitus with diabetic chronic kidney disease (principal); N18.9 Chronic kidney disease, unspecified
CPT/HCPCS: 36415; 80048; 82570; 84156

== ENCOUNTER 2023-04-16 15:15 | Outpatient (AMB) | payer MEDICARE, SELFPAY ==
--- NOTE | 2023-04-16 15:24 | MHC.PC.OV ---
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 Required: No Accompanied by: Daughter Allergies No Known Allergies [No Known Allergies*] Allergy (Verified 04/16/23 15:43) Medication List - Last Reconciled 04/16/23 by Margaret Mcguire MD amlodipine 5 mg PO DAILY 30 days aspirin (Enteric Coated Aspirin) 81 mg PO DAILY 3 months atorvastatin 40 mg PO BEDTIME blood pressure monitor (Blood Pressure Kit) As directed blood-glucose meter As directed carvedilol 12.5 mg PO BID cholecalciferol (vitamin D3) 25 mcg PO DAILY 3 months dulaglutide (Trulicity) 1.5 mg (0.5 mL) subcut FR 30 days glucose 4 grams PO ONCE PRN lancets As directed lansoprazole 30 mg PO DAILY 90 days losartan 100 mg PO DAILY metformin 1,000 mg PO BID 90 days metoclopramide HCl (Reglan) 10 mg PO QIDACHS nitroglycerin 0.4 mg sublingual Q5M PRN repaglinide 0.5 mg PO DAILY simethicone 180 mg PO QID PRN 30 days temazepam 30 mg PO BEDTIME PRN 30 days Tobacco use date assessed: 07/31/22 Fall risk assessment: No Falls in past year Last assessed Fall Risk: 04/16/23 Dental Screening Dental Screen Date: 04/16/23 Did you have a dental visit in the last 12 months?: No Did you have a dental problem in the last 6 months where you did not have access to dental care?: No Was dental information given to patient?: Patient declined HPI HPI Comments History of Present Illness Details This is an 83-year-old male with diabetes mellitus type 2, hypertension, hyperlipidemia and insomnia comes accompanied by daughter for follow-up on his conditions. A1c has improved but still elevated. He was out of Trulicity for over 2 weeks. Blood pressure stable. LDL within goal. Insomnia stable with temazepam as needed and he is aware can cause addiction and sedation. No chest pain or shortness of breath. 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 Allergic rhinitis Microalbuminuria Insomnia History of Helicobacter infection GERD (gastroesophageal reflux disease) History of prostate cancer Coronary artery disease Vitamin D deficiency Hyperlipidemia LDL goal <100 Essential hypertension Type 2 diabetes mellitus with hyperglycemia Surgical History Stented coronary artery History of cardiac cath Hx of esophagogastroduodenoscopy Hx of prostate biopsy Hx of colonoscopy Family History Father Medical history unknown Mother Medical history unknown Sister Diabetes Daughter Breast cancer Social History Household Members: None Housing: Apartment 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 Sammy Ellis, Pippa Orellana, Bebeto Gagnon and colleagues, with an educational vipin from [employer]. Review of Systems Const All systems reviewed & are unremarkable except as noted in HPI and below Eyes Reports no additional complaints, Denies change in vision and Denies other visual disturbances Card Denies chest pain at rest, Denies chest pain with activity, Denies edema, Denies irregular heart rhythm, Denies claudication, Denies dyspnea, Denies dyspnea on exertion, Denies orthopnea, Denies paroxysmal nocturnal dyspnea and Denies slow heart rate Resp Denies cough, Denies dyspnea and Denies dyspnea on exertion GI Denies abdominal pain, Denies change in bowel habits, Denies excessive flatus, Denies nausea and Denies vomiting Denies urinary hesitancy, Denies urinary incontinence and Denies urinary urgency Musc Denies abnormal gait, Denies atrophy, Denies deformity and Denies limited range of motion Skin/Breast Denies bleeding lesions, Denies changing lesions and Denies rash Neuro Denies abnormal gait and Denies lack of coordination Physical exam (Primary Care) Vital Signs: Last Vital Signs Pulse 91 04/16/23 15:25 BP 130/70 04/16/23 15:25 Pulse Ox 97 04/16/23 15:25 Oxygen Delivery Method Room Air 04/16/23 15:25 BMI result Body Mass Index 22.1 Tobacco/Smoking Status: Tobacco use Status Tobacco use date assessed 07/31/22 04/16/23 15:28 Patient Tobacco Use Status Former Tobacco user 04/16/23 15:28 Tobacco use type Cigarette 04/16/23 15:28 e-Cigarette/Vaping Use Never Used 04/16/23 15:28 Thrive Assessment: Date of Thrive Assessment Date Thrive assessed 01/02/23 04/16/23 15:28 Eyes General: appearance normal, both eyes and all related structures Eyelids: Yes eyelids normal Conjunctivae: conjunctivae normal Neck Neck: Yes normal visual inspection and Yes supple Resp Effort & Inspection: normal respiratory effort Auscultation: clear to auscultation bilaterally Cardio Jugular venous distension: no JVD Rate: regular rate Rhythm: regular rhythm Heart sounds: S1 normal heart sound present and S2 normal heart sound present Extrem General: Yes full ROM Office Procedures Flu Questionnaire Does the patient have a severe egg allergy?: No Does the patient have severe life threatening allergies?: No Does the patient have a fever or illness today?: No Has the patient ever had Guillain-Maurepas Syndrome?: No Has the patient ever had any past reaction to a flu shot?: No Results AMB Hemoglobin A1c AMB Hemoglobin A1c 7.4 % Last Edit by KANE Taylor on 04/16/23 15:31 Immunizations flu vacc [id number] 6mos up(PF) 60 mcg(15 mcgx4)/0.5 mL IM syringe Performing Provider: Margaret Mcguire MD [facility] Administered by: KANE Taylor on 04/16/23 16:01 Dose Route Admin Location Dispensed Lot Number Expiration Date NDC Soaking Pits Supervisor 0.5 mL IM Left Deltoid 0.5 mL [id number] 11/11/23 26263-108-17 Protalex VIS Given Date VIS Provided VIS Publication Date 04/16/23 Single Vaccine 20 Eligibility Eligibility Date Funding Source Not [facility] Eligible 04/16/23 Private Results Reviewed Results Reviewed: Laboratory Last Values Hgb A1c (Clinic) 7.4 % (4.0-6.0) H 04/16/23 15:29 Assessment and Plan Assessment & Plan (1) Type 2 diabetes mellitus with unspecified complications: Code(s): E11.8 - Type 2 diabetes mellitus with unspecified complications Plan: Continue Trulicity, metformin and repaglinide. A1c goal is equal or less than 7%. (2) Hyperlipidemia LDL goal <70: Code(s): E78.5 - Hyperlipidemia, unspecified Plan: Continue statins. LDL goal is less than 70. (3) Essential hypertension: Code(s): I10 - Essential (primary) hypertension Plan: Continue amlodipine and losartan. Blood pressure goal is equal or less than 130/80. (4) Insomnia: Code(s): G47.00 - Insomnia, unspecified Plan: Continue temazepam. Orders: Orders AMB Hemoglobin A1c Today E11.8 - Type 2 diabetes mellitus with unspecified complications Influenza [id number] Immunization Today Z23 - Encounter for immunization Lipid Panel 4 Months E78.5 - Hyperlipidemia, unspecified Microalbumin, Random (w Creat) 4 Months E11.9 - Type 2 diabetes mellitus without complications Vitamin D 25-OH Total 4 Months E55.9 - Vitamin D deficiency, unspecified Comprehensive [place]. Panel Fast 4 Months E11.8 - Type 2 diabetes mellitus with unspecified complications Coding Level of Care Code Est Pt Level 4 (41292) Diagnoses Type 2 diabetes mellitus with unspecified complications E11.8 Hyperlipidemia LDL goal <70 E78.5 Essential hypertension I10 Insomnia G47.00 Time Spent (min) 23
[2023-04-16 15:25] VITALS: BP 130/70; PULSE 91; O2SAT 97; BMI 22.1
== END 2023-04-16 15:52 | disposition home or self-care (01) ==
PROVIDERS: PCP Internal Medicine; Visit Provider Internal Medicine
DX: E11.8 Type 2 diabetes mellitus with unspecified complications (principal); E78.5 Hyperlipidemia, unspecified; I10 Essential (primary) hypertension; G47.00 Insomnia, unspecified; Z23 Encounter for immunization
CPT/HCPCS: 83036; 90471; 90686; 99214

== ENCOUNTER 2023-08-23 09:48 | Outpatient (AMB) | payer OTHER, SELFPAY ==
[2023-08-23 09:58] VITALS: BP 118/72; BMI 20.8
--- NOTE | 2023-08-23 09:58 | MHC.PC.OV ---
Vital Signs 08/23/23 09:58 Height 5 ft 5 in Weight 125 lb BMI 20.8 BP 118/72 Blood Pressure Location Lt brachial Position Sitting Intake Visit Reasons: 4 month f/u Intake Note: Patient here for a 4 month follow up DM Docketing Specialist Required: No Accompanied by: son in law Allergies No Known Allergies [No Known Allergies*] Allergy (Verified 08/23/23 10:08) Medication List - Last Reconciled 08/23/23 by Margaret Mcguire MD amlodipine 5 mg PO DAILY 30 days aspirin (Enteric Coated Aspirin) 81 mg PO DAILY 3 months atorvastatin 40 mg PO BEDTIME blood pressure monitor (Blood Pressure Kit) As directed blood-glucose meter As directed carvedilol 12.5 mg PO BID cholecalciferol (vitamin D3) 25 mcg PO DAILY 3 months dulaglutide (Trulicity) 3 mg (0.5 mL) subcut QWEEK 28 days glucose 4 grams PO ONCE PRN lancets As directed lansoprazole 30 mg PO DAILY 90 days losartan 100 mg PO DAILY metformin 1,000 mg PO BID 90 days metoclopramide HCl (Reglan) 10 mg PO QIDACHS nitroglycerin 0.4 mg sublingual Q5M PRN repaglinide 0.5 mg PO DAILY simethicone 180 mg PO QID PRN 30 days temazepam 30 mg PO BEDTIME PRN 30 days Tobacco use date assessed: 08/23/23 Fall risk assessment: No Falls in past year Last assessed Fall Risk: 08/23/23 Dental Screening Dental Screen Date: 08/23/23 Did you have a dental visit in the last 12 months?: No Did you have a dental problem in the last 6 months where you did not have access to dental care?: No Was dental information given to patient?: No HPI HPI Comments History of Present Illness Details This is an 83-year-old male with diabetes mellitus type 2 with hyperglycemia, hypertension, hyperlipidemia and delayed gastric emptying that comes today accompanied by son-in-law for follow-up on his conditions. A1c slightly elevated and I will add Jardiance. Blood pressure stable. Lipid panel was order and his LDL goal should be less than 70. 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 Denies any chest pain or shortness of breath. No diarrhea or constipation. 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 Allergic rhinitis Microalbuminuria Insomnia History of Helicobacter infection GERD (gastroesophageal reflux disease) History of prostate cancer Coronary artery disease Vitamin D deficiency Hyperlipidemia LDL goal <100 Essential hypertension Type 2 diabetes mellitus with hyperglycemia Surgical History Stented coronary artery History of cardiac cath Hx of esophagogastroduodenoscopy Hx of prostate biopsy Hx of colonoscopy Family History Father Medical history unknown Mother Medical history unknown Sister Diabetes Daughter Breast cancer Social History Household Members: None Housing: Apartment 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 1. Little interest or pleasure in doing things: not at all 2. Feeling down, depressed, or hopeless: not at all 3. Trouble falling or staying asleep, or sleeping too much: not at all 4. Feeling tired or having little energy: not at all 5. Poor appetite or overeating: not at all 6. Feeling bad about yourself - or that you are a failure or have let yourself or your family down: not at all 7. Trouble concentrating on things, such as reading the newspaper or watching television: not at all 8. Moving or speaking so slowly that other people could have noticed. Or the opposite - being so fidgety or restless that you have been moving around a lot more than usual: not at all 9. Thoughts that you would be better off or of hurting yourself in some way: not at all Total score: 0 Depression Screening Interpretation: Negative Depression Screening Done: Yes 28761 - PHQ-9 Billing: Yes Source: Developed by Drs. Sammy Ellis, Pippa Orellana, Bebeto Gagnon and colleagues, with an educational vipin from [employer]. Thrive Questionnaire Date Thrive assessed: 08/23/23 I am a: Patient What is your living situation today?: I have a steady place to live Within the past 12 months, did the food you bought not last and you didn't have the money to get more?: Never true Within the past 12 months, did you worry whether your food would run out before you got money to buy more?: Never true Do you have trouble paying for medicines?: No Do you have trouble getting transportation to medical appointments?: No Do you have trouble paying your heating and electricity bill?: No Do you have trouble taking care of your child, family member or friend?: No Do you have trouble with day-to-day activities such as bathing, preparing meals, shopping, managing finances, etc.?: Yes Are you currently unemployed and looking for a job?: No Are you interested in more education?: No Please select the resources that you would like help with: None Currently or been in a relationship where the following occur: no concerns reported THRIVE Score: 0 AUDIT C Alcohol Use Questionnaire (AUDIT-C) 1. How often do you have a drink containing alcohol?: Never Total Score: 0 KULWINDER-7 AMB Questionnaire KULWINDER-7 Date KULWINDER - 7 assessed: 08/23/23 Feeling nervous, anxious, or on edge: 0 = Not at all Not being able to stop or control worryin = Not at all Worrying too much about different things: 0 = Not at all Trouble relaxin = Not at all Being so restless that it is hard to sit still: 0 = Not at all Becoming easily annoyed or irritable: 0 = Not at all Feeling afraid as if something awful might happen: 0 = Not at all Total KULWINDER-7 score (0-4 normal; 5-9 mild; 10-14 moderate; 15-21 severe): 0 Source: Developed by Drs. Sammy Ellis, Bebeto Red and colleagues, with an educational vipin from [employer]. KULWINDER-7 Assessment Billing KULWINDER-7 Assessment Tool: KULWINDER-7 Assessment 60083 Review of Systems Const All systems reviewed & are unremarkable except as noted in HPI and below Eyes Reports no additional complaints, Denies change in vision and Denies other visual disturbances Card Denies chest pain at rest, Denies chest pain with activity, Denies edema, Denies irregular heart rhythm, Denies claudication, Denies dyspnea, Denies dyspnea on exertion, Denies orthopnea, Denies paroxysmal nocturnal dyspnea and Denies slow heart rate Resp Denies cough, Denies dyspnea and Denies dyspnea on exertion Physical exam (Primary Care) Vital Signs: Last Vital Signs BP 118/72 08/23/23 09:58 BMI result Body Mass Index 20.8 Tobacco/Smoking Status: Tobacco use Status Tobacco use date assessed 08/23/23 08/23/23 10:06 Patient Tobacco Use Status Former Tobacco user 08/23/23 10:06 Tobacco use type Cigarette 08/23/23 10:06 e-Cigarette/Vaping Use Never Used 08/23/23 10:06 PHQ-9: PHQ-9 Score PHQ-9: Total score 0 08/23/23 10:06 Depression Screening Interpretation: Negative Thrive Assessment: Date of Thrive Assessment Date Thrive assessed 08/23/23 08/23/23 10:06 Currently or been in a relationship where the following occur: no concerns reported Resp Effort & Inspection: normal respiratory effort Auscultation: clear to auscultation bilaterally Cardio Jugular venous distension: no JVD Rate: regular rate Rhythm: regular rhythm Heart sounds: S1 normal heart sound present and S2 normal heart sound present Extrem General: Yes full ROM Results AMB Hemoglobin A1c AMB Hemoglobin A1c 7.3 % Last Edit by KANE Taylor on 08/23/23 10:09 Assessment and Plan Assessment & Plan (1) Type 2 diabetes mellitus with hyperglycemia: Code(s): E11.65 - Type 2 diabetes mellitus with hyperglycemia Qualifiers: Diabetes mellitus residential insulin use: unspecified watermelon inspector insulin use status Qualified Code(s): E11.65 - Type 2 diabetes mellitus with hyperglycemia Plan: Continue metformin, Trulicity and repaglinide. Start Jardiance. A1c goal is less than 7%. (2) Essential hypertension: Code(s): I10 - Essential (primary) hypertension Plan: Continue losartan and amlodipine. Blood pressure goal is equal or less than 130/80. (3) Delayed gastric emptying: Code(s): K30 - Functional dyspepsia Plan: Continue metoclopramide. (4) Hyperlipidemia LDL goal <70: Code(s): E78.5 - Hyperlipidemia, unspecified Plan: Continue statins. Repeat lipid panel. Advised to follow a low-cholesterol diet. LDL goal is less than 70. Orders: Orders Lipid Panel Today E78.5 - Hyperlipidemia, unspecified Complete Blood Count Auto Diff Today D64.9 - Anemia, unspecified IRON PROFILE Today D64.9 - Anemia, unspecified Vitamin D 25-OH Total Today E55.9 - Vitamin D deficiency, unspecified AMB Hemoglobin A1c Today E11.8 - Type 2 diabetes mellitus with unspecified complications Microalbumin, Random (w Creat) Today E11.9 - Type 2 diabetes mellitus without complications Comprehensive [place]. Panel Fast Today E11.8 - Type 2 diabetes mellitus with unspecified complications Medications: New empagliflozin (Jardiance) 10 mg PO DAILY 90 days 90 tabs 1RF Refilled temazepam 30 mg PO BEDTIME 30 days PRN 30 caps 0RF sleep Coding Level of Care Code Est Pt Level 4 (52948) Diagnoses Type 2 diabetes mellitus with hyperglycemia, unspecified whether watermelon inspector insulin use E11.65 Diabetes mellitus residential insulin use: unspecified residential insulin use status Essential hypertension I10 Delayed gastric emptying K30 Hyperlipidemia LDL goal <70 E78.5 Additional Codes KULWINDER-7 Assessment Billing - KULWINDER-7 Assessment Tool: KULWINDER-7 Assessment [id number] ([id number]) Time Spent (min) 23
== END 2023-08-23 10:30 | disposition home or self-care (01) ==
PROVIDERS: PCP Internal Medicine; Visit Provider Internal Medicine
DX: E11.65 Type 2 diabetes mellitus with hyperglycemia (principal); I10 Essential (primary) hypertension; K30 Functional dyspepsia; E78.5 Hyperlipidemia, unspecified; E11.8 Type 2 diabetes mellitus with unspecified complications
CPT/HCPCS: 83036; 99214

== ENCOUNTER 2023-10-30 15:42 | Emergency (ER) | payer OTHER, SELFPAY ==
--- NOTE | ~2023-10-30 | CT_ITS ---
EXAMINATION: CT ANGIOGRAM HEAD CT ANGIOGRAM NECK CLINICAL INFORMATION: Increased right-sided ptosis. COMPARISON: None available. TECHNIQUE: Initial noncontrast shellfish manager imaging of the head and neck was performed. Noncontrast head CT was also performed. Test bolus sequences followed by intravenous administration 70 mL of Omnipaque 350. Helical imaging was performed in the axial plane from the aortic arch to the skull vertex. Delayed postcontrast imaging of the head was also performed. The data was processed at the fish technologist's workstation for generation of MIP sequences. Angled MIPs and volume rendered reformatted images were also generated at an offline 3D workstation. Stenoses are assessed in accordance with NASCET criteria unless otherwise indicated. This CT examination was performed using dose optimization techniques as appropriate, variously including the following: *Automated exposure control. *Adjustment of mA and/or kV according to patient size (this includes techniques or standardized protocols for targeted exams where dose is matched to indication/reason for exam; i.e. extremities or head). *Use of iterative reconstruction technique. DLP: 2142 mGy-cm FINDINGS: CT Head: There is no evidence of acute intracranial hemorrhage or edematous territorial infarction. Fabian-white matter differentiation is preserved. Scattered and partially confluent hypoattenuation in the periventricular and deep white matter are consistent with moderate microangiopathy. Proportional prominence of the ventricles and sulcal spaces without evidence of obstructive hydrocephalus. The suprasellar cistern remains widely patent. Normal positioning of the cerebellar tonsils. No abnormal mass effect or midline shift. No extra-axial fluid collections. No pathologic intra-axial enhancement or regional oligemia. No acute soft tissue or osseous abnormalities. Mild mucosal thickening of the paranasal sinuses. The mastoid air cells and middle ear cavities are clear. Multifocal odontogenic enamel erosions. Periapical lucency associated with the maxillary left premolars. CT Neck: There is a 1.2 cm hypoattenuating nodule in the left thyroid lobe (no follow-up imaging recommended based on current guidelines at the time of examination). The remaining cervical soft tissues are within normal limits. Straightening of the normal cervical lordosis. Moderate to advanced degenerative disc disease from C3-C6. Facet and uncovertebral joint arthropathy leads to osseous encroachment on the neural foramina from C3-C7. CT Upper Chest: The visualized lung apices and upper mediastinum are within normal limits. Neck CTA: Aortic Arch: Normal contour and caliber with moderate calcific atherosclerotic disease. Classic 3 vessel branching pattern of the aortic arch. Great Vessel Origins: No significant stenosis of the branch origins. Right Common Carotid Artery: No focal stenosis or occlusion. Cervical Right Internal Carotid Artery: Calcific atherosclerotic disease of the carotid bulb and proximal internal carotid artery causing less than 50% stenosis. Left Common Carotid Artery: No focal stenosis or occlusion. Cervical Left Internal Carotid Artery: Calcific atherosclerotic disease of the carotid bulb and proximal internal carotid artery causing less than 50% stenosis. Cervical Right Vertebral Artery: Co-dominant. Calcific atherosclerotic disease causes moderate stenosis of the origin. No additional focal stenosis or occlusion. Cervical Left Vertebral Artery: Co-dominant. Calcific atherosclerotic disease causes mild stenosis of the origin. No additional focal stenosis or occlusion. Brain CTA: Intracranial Internal Carotid Arteries: Calcific atherosclerotic disease of the intracranial internal carotid arteries without occlusion or flow-limiting stenosis. There are 0.2 cm infundibuli at the origins of the posterior communicating arteries bilaterally. Right Anterior Cerebral Artery: Normal A1 segment. Normal opacification of the distal RAIN segments. Left Anterior Cerebral Artery: Normal A1 segment. Normal opacification of the distal RAIN segments. Anterior Communicating Artery: Azygos continuation. Otherwise, normal. Right Middle Cerebral Artery: Normal M1 segment of the MCA without focal stenosis or occlusion. Normal arborization of the distal segments. Left Middle Cerebral Artery: Normal M1 segment of the MCA without focal stenosis or occlusion. Normal arborization of the distal segments. Right Vertebral Artery: Normal V4 segment. Normal opacification of the proximal segments of the posterior inferior cerebellar artery. Left Vertebral Artery: Normal V4 segment. Normal opacification of the proximal segments of the posterior inferior cerebellar artery. Basilar Artery: Normal without focal stenosis or occlusion. Normal appearance of the proximal superior cerebellar arteries. Right Posterior Cerebral Artery: Normal P1 segment. Normal opacification of the distal MAMMOGRAPHY TECH segments. Left Posterior Cerebral Artery: Normal P1 segment. Normal opacification of the distal MAMMOGRAPHY TECH segments. Normal opacification of the superior sagittal, straight, transverse, and sigmoid sinuses. CT/CT angio head neck IMPRESSION: 1. No evidence of acute intracranial hemorrhage or edematous territorial infarction. Moderate underlying microangiopathy and generalized cerebral volume loss. 2. CTA of the head and neck without proximal occlusion. Atherosclerotic disease causes moderate stenosis of the origin of the right vertebral artery. No additional flow-limiting stenosis. 3. Moderate multilevel degenerative spondyloarthropathy of the cervical spine.
[2023-10-30 16:14] VITALS: BP 174/61; PULSE 64; RESP 16; TEMP 36.7; O2SAT 99; BMI 22.8
--- NOTE | 2023-10-30 16:21 | ED_ITS ---
HPI - General Adult General Chief complaint: Stroke Stated complaint: droopy eyelid - sent from optometry Time Seen by Provider: 10/30/23 16:59 Source: patient and bench examiner Mode of arrival: ambulatory History of Present Illness ED Provider: Dr Dick HPI narrative: 83-year-old male with history hypertension and diabetes is referred in from his entry processor for an increase in chronic eyelid droop from the right eye, however patient did return to the entry processor stating that he had worsening vision in the right eye, patient is scheduled to undergo cataract surgery in bilateral eyes, family who was also at bedside states that sometimes his eye complaints are confusing in they were not entirely sure which side the patient was having difficulty with. The patient otherwise denies any difficulty with speech which family confirms the patient denies any unilateral numbness/tingling/weakness which the family can firms. Related Data Home Medications ?Medication ?Instructions ?Recorded ?Confirmed nitroglycerin 0.4 mg sublingual 0.4 mg sublingual Q5M PRN Chest 02/14/20 08/23/23 tablet Pain blood-glucose meter #1 ea 04/01/20 08/23/23 lancets 28 gauge #100 ea 04/01/20 08/23/23 glucose 4 gram chewable tablet 4 g PO ONCE PRN Hypoglycemia 07/26/20 08/23/23 Previous Rx's ?Medication ?Instructions ?Recorded blood pressure monitor (Blood #1 ea 03/01/20 Pressure Kit) aspirin 81 mg tablet,delayed 81 mg PO DAILY 3 months #90 tabs 05/31/20 release (Enteric Coated Aspirin) cholecalciferol (vitamin D3) 25 25 mcg PO DAILY 3 months #90 caps 02/22/21 mcg (1,000 unit) capsule repaglinide 0.5 mg tablet 0.5 mg PO DAILY #30 tabs 08/10/21 metoclopramide HCl 10 mg tablet 10 mg PO QIDACHS #120 tabs 12/19/22 (Reglan) simethicone 180 mg capsule 180 mg PO QID PRN Gastric Reflux 02/22/23 30 days #120 caps amlodipine 5 mg tablet 5 mg PO DAILY 30 days #90 tabs 05/18/23 losartan 100 mg tablet 100 mg PO DAILY #90 tabs 05/18/23 lansoprazole 30 mg capsule,delayed 30 mg PO DAILY 90 days #90 caps 08/20/23 release empagliflozin 10 mg tablet 10 mg PO DAILY 90 days #90 tabs 08/23/23 (Jardiance) atorvastatin 40 mg tablet 40 mg PO BEDTIME 90 days #90 tabs 09/11/23 metformin 1,000 mg tablet 1,000 mg PO BID 90 days #180 tabs 09/17/23 carvedilol 12.5 mg tablet 12.5 mg PO BID #180 tabs 10/10/23 dulaglutide 3 mg/0.5 mL 3 mg (0.5 mL) subcut QWEEK 28 days 10/22/23 subcutaneous pen injector #2 mL (Trulicity) temazepam 30 mg capsule 30 mg PO BEDTIME PRN sleep 30 days 10/22/23 #30 caps Allergies Allergy/AdvReac Type Severity Reaction Status Date / Time No Known Allergies Allergy Verified 10/30/23 16:16 [No Known Allergies*] [facility] Past Medical History Medical History 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 Allergic rhinitis Microalbuminuria Insomnia History of Helicobacter infection GERD (gastroesophageal reflux disease) History of prostate cancer Coronary artery disease Vitamin D deficiency Hyperlipidemia LDL goal <100 Essential hypertension Type 2 diabetes mellitus with hyperglycemia Surgical History Stented coronary artery History of cardiac cath Hx of esophagogastroduodenoscopy Hx of prostate biopsy Hx of colonoscopy Family History Family History Father Medical history unknown Mother Medical history unknown Sister Diabetes Daughter Breast cancer Social History Social History Household Members: None Housing: Apartment Housing Other:: [employer] Do you presently have visiting nurse or other home services: Yes Alcohol intake: never Patient Tobacco Use Status: Former Tobacco user Tobacco use type: Cigarette Smoked in Last 30 Days: No e-Cigarette/Vaping Use: Never Used Second Hand Smoke Exposure: No Advance Directives: No Advance Directives Information Provided: No Do you have a plan to hurt others: No Plan service: No Current occupational status: retired Cognitive needs: Yes Hearing needs: No Vision needs: Yes Physical Exam ED Vital Signs: Vital Signs - 24 hr 10/30/23 16:14 10/30/23 16:58 10/30/23 18:12 Temperature 98.0 F 98.4 F 98.3 F Pulse Rate 64 64 66 Respiratory Rate 16 18 16 Blood Pressure 174/61 H 198/75 H 179/65 H Pulse Oximetry 99 98 Oxygen Delivery Method Room Air Room Air Room Air 10/30/23 19:51 Temperature 98.2 F Pulse Rate 63 Respiratory Rate 16 Blood Pressure 168/58 H Pulse Oximetry 96 Oxygen Delivery Method Room Air BMI result Body Mass Index 22.8 NIH Stroke Scale Internal: Initial- Upon Arrival Level of Consciousness: Alert Level of Consciousness Questions: Answers both questions correctly Level of Consciousness Commands: Performs both tasks correctly Best Gaze: Normal Visual: No visual loss Facial Palsy: Minor paralyis (Maybe right mouth corner is lower than the left) Motor Arm (Right): No drift Motor Arm (Left): No drift Motor Leg (Right): No drift Motor Leg (Left): No drift Limb Ataxia: Absent Sensory: Normal Best Language: No aphasia Dysarthia: Normal Extinction and Inattention: No abnormality Score: 1 Course Course Course Narrative: RME: done by RAJSEH Maxwell. 83-year-old male sent from lithographers printer to rule out stroke due to right eye drooping. According to note possibility cranial nerve palsy but states patient should be ruled out for stroke. Patient having symptoms for a week. Patient admits to an unable to lift right eyelid. Patient denies any other stroke-like symptoms. Presently NIH score is 0. Patient brought immediately to the ED Medications Administered Discontinued Medications Generic Name Dose Route Start Last Admin Trade Name Freq PRN Reason Stop Dose Admin Iohexol 100 ml 10/30/23 18:03 10/30/23 18:05 Iohexol 350 Mg/Ml 100 Ml Infus..Btl IV 10/30/23 18:04 70 ml ONCE ONE Administration Medical Decision Making Medical Decision Making MDM Narrative: 83-year-old male with history and clinical presentation of change in vision for 3 days, unclear from patient/family/entry processor which side is worse for cataracts, there are no observed gaze palsies, no evidence to suggest Quiroga's palsy, patient has chronic ptosis of the right eyelid and as I have no point of reference I am unsure if this is more progressive than previously and family is also unsure. Patient is otherwise nonfocal but blood pressure is noted to be elevated, will obtain basic lab work and CT imaging. I reviewed all investigations and patient's hematologic indices are chronically stable without leukocytosis and a stable normocytic anemia with chronic thrombocytopenia. Chemistries indices are negative for TRISTIN and there is a slight elevation in sodium, informed patient and family that he should increase water intake but otherwise there are no liver enzyme derangements. CT of the head is negative for intracranial hemorrhage or mass effect and CT angio does not demonstrate any significant or critical stenoses to better explain patient's symptoms. My findings are such that I do not think that patient's presentation is consistent with stroke-like symptoms or TIA like symptoms and instead feel that this is associated with his known and current cataracts, possibly a component of diabetic retinopathy. My interpretation is that patient has eye findings are consistent with known/chronic and ongoing I condition and feel that patient is medically optimized for further ophthalmologic evaluation and management. Differential Diagnosis Differential Diagnoses: The differential diagnosis associated with the presentation includes Please see the discussion above Admission/Observation Consideration of admission/observation: Escalation of care including admission/observation considered Please see the discussion above Lab Data MDM Lab Attestation statement: I reviewed the patient's lab results. Please see the discussion above 10/30/23 17:10 10/30/23 17:10 Labs: Lab Results 10/30/23 10/30/23 Range/Units 17:10 17:15 WBC 9.2 (4.8-10.8) X10*3/uL RBC 4.04 L (4.60-5.80) X10*6/uL Hgb 10.8 L (14.0-18.0) g/dl Hct 33.6 L (42.0-52.0) % MCV 83.2 (80.0-98.0) fL MCH 26.7 L (27.0-33.0) pg MCHC 32.1 (31.0-36.0) g/dl RDW 15.3 (11.0-16.0) % Plt Count 120 L (160-400) X10*3/uL MPV 9.8 (9.4-12.4) fL Immature Gran % (Auto) 0.4 (0.0-0.4) % Neut % (Auto) 71.9 (45-73) % Lymph % (Auto) 16.1 L (20-40) % Pierce % (Auto) 8.2 (2-11) % Eos % (Auto) 2.6 (0-4) % Baso % (Auto) 0.8 (0-2) % Lymph # (Auto) 1.5 (1.2-4.9) X10*3/uL Pierce # (Auto) 0.8 (0.1-1.2) X10*3/uL Eos # (Auto) 0.2 (0.0-0.4) X10*3/uL Baso # (Auto) 0.1 (0.0-0.2) X10*3/uL Abs Immat Gran (auto) 0.04 H (0.00-0.03) X10*3/uL Absolute Neuts (auto) 6.6 (2.0-8.3) x10*3/uL Absolute Nucleated RBC 0.000 (0.0-0.012) X10*3/uL Nucleated RBC % (auto) 0.0 (0.0-0.2) /100WBC Sodium 147 H (135-145) mmol/L Potassium 4.5 (3.3-5.1) mmol/L Chloride 108 (96-108) mmol/L Carbon Dioxide 29 (22-29) mmol/L Anion Gap 15 (12-20) BUN 22 H (9-16) mg/dL Creatinine 1.11 (0.5-1.4) mg/dL Estim Creat Clear Calc 42.0 Estimated GFR > 60 POC Glucose 122 H (60-115) mg/dL Random Glucose 122 H (60-115) mg/dL Calcium 10.3 H (8.4-10.2) mg/dL Total Bilirubin 0.9 (0.0-1.0) mg/dL AST 14 (5-37) U/L ALT 13 (0-40) U/L Alkaline Phosphatase 59 (39-117) U/L Total Protein 7.3 (6.5-8.0) g/dL Albumin 4.4 (3.5-5.0) g/dL Radiology Impression Discussion of test interpretation with radiology: I have reviewed the radiologist's reading. Radiologist Impression: Please see the discussion above External Record Review External record reviewed: Outpatient record, Prior outpatient labs and Prior outpatient radiology Chronic Conditions Patient?s care impacted by: Diabetes and Hypertension Critical Care Time Critical Care Time Critical Care Time: Yes Total Critical Care Time: 60 Attestation: I personally attest to this time spent taking care of the patient. Discharge Plan Discharge Clinical Impression: Ptosis, Cataracts, bilateral Patient Disposition: Home, Self-Care Instructions: Cataracts (ED), Ptosis (ED) Additional Instructions: 1. Resume all home medications as prescribed. 2. Please follow-up with your eye doctor and your primary care doctor. Return to the ER for any worsening symptoms. Prescriptions: No Action repaglinide 0.5 mg tablet 0.5 mg PO DAILY Qty: 30 4RF Rx Instructions: administer 15 minutes before lunch simethicone 180 mg capsule 180 mg PO QID PRN (Reason: Gastric Reflux) 30 Days Qty: 120 1RF Rx Instructions: after meals amlodipine 5 mg tablet 5 mg PO DAILY 30 Days Qty: 90 1RF losartan 100 mg tablet 100 mg PO DAILY Qty: 90 2RF Hold Instructions: Resume on 01/04/23. lansoprazole 30 mg capsule,delayed release(DR/EC) 30 mg PO DAILY 90 Days Qty: 90 1RF atorvastatin 40 mg tablet 40 mg PO BEDTIME 90 Days Qty: 90 1RF metformin 1,000 mg tablet 1,000 mg PO BID 90 Days Qty: 180 0RF carvedilol 12.5 mg tablet 12.5 mg PO BID Qty: 180 0RF Trulicity 3 mg/0.5 mL pen injector 3 mg subcut QWEEK 28 Days Qty: 2 0RF temazepam 30 mg capsule 30 mg PO BEDTIME PRN (Reason: sleep) 30 Days Qty: 30 0RF aspirin [Enteric Coated Aspirin] 81 mg tablet,delayed release (DR/EC) 81 mg PO DAILY 90 Days Qty: 90 0RF cholecalciferol (vitamin D3) 25 mcg (1,000 unit) capsule 25 mcg PO DAILY 90 Days Qty: 90 0RF Jardiance 10 mg tablet 10 mg PO DAILY 90 Days Qty: 90 1RF (DME) lancets 28 gauge misc See Rx Instructions topical BID Qty: 100 Rx Instructions: As directed (DME) blood-glucose meter Kit See Rx Instructions .ROUTE .MEDSUPPLY Qty: 1 Rx Instructions: As directed glucose 4 gram tablet,chewable 4 g PO ONCE PRN (Reason: Hypoglycemia) nitroglycerin 0.4 mg tablet, sublingual 0.4 mg sublingual Q5M PRN (Reason: Chest Pain) Rx Instructions: do not exceed 3 doses per episode (DME) blood pressure monitor [Blood Pressure Kit] Kit See Rx Instructions .ROUTE .MEDSUPPLY Qty: 1 0RF Rx Instructions: As directed metoclopramide HCl [Reglan] 10 mg tablet 10 mg PO QIDACHS Qty: 120 6RF Referrals: Margaret Harper MD [Primary Care Provider] - Interventions: ED Discharge Assessment Last Done: 10/30/23 19:51 Discharge Date/Time: 10/30/23 20:00 Print Language: Guinean
[2023-10-30 16:58] VITALS: BP 198/75; PULSE 64; RESP 18; TEMP 36.9
[2023-10-30 17:16] LABS: MANUAL DIFF FLAG NO
[2023-10-30 17:18] LABS: Glucose, Whole Blood 122 mg/dL (60-115)
[2023-10-30 17:23] LABS: Basophils Absolute Auto 0.1 X10*3/uL (0.0-0.2); Basophils Percent Auto 0.8 % (0-2); Eosinophils Absolute Auto 0.2 X10*3/uL (0.0-0.4); Eosinophils Percent Auto 2.6 % (0-4); Hematocrit 33.6 % (42.0-52.0); Hemoglobin 10.8 g/dl (14.0-18.0); Imm Gran Abs Auto 0.04 X10*3/uL (0.00-0.03); Imm Gran Pct Auto 0.4 % (0.0-0.4); Lymphocytes Absolute Auto 1.5 X10*3/uL (1.2-4.9); Lymphocytes Percent Auto 16.1 % (20-40); Mean Corpuscular HGB Conc 32.1 g/dl (31.0-36.0); Mean Corpuscular Hemoglobin 26.7 pg (27.0-33.0); Mean Corpuscular Volume 83.2 fL (80.0-98.0); Mean Platelet Volume 9.8 fL (9.4-12.4); Monocytes Absolute Auto 0.8 X10*3/uL (0.1-1.2); Monocytes Percent Auto 8.2 % (2-11); Neutrophils Absolute Auto 6.6 x10*3/uL (2.0-8.3); Neutrophils Percent Auto 71.9 % (45-73); Platelet Count 120 X10*3/uL (160-400); Red Blood Count 4.04 X10*6/uL (4.60-5.80); Red Cell Distribution Width 15.3 % (11.0-16.0); White Blood Count 9.2 X10*3/uL (4.8-10.8)
[2023-10-30 17:30] LABS: Alanine Aminotransferase 13 U/L (0-40); Albumin Level 4.4 g/dL (3.5-5.0); Alkaline Phosphatase 59 U/L (39-117); Anion Gap 15 (12-20); Aspartate Amino Transferase 14 U/L (5-37); Bilirubin Total 0.9 mg/dL (0.0-1.0); Blood Urea Nitrogen 22 mg/dL (9-16); Calcium 10.3 mg/dL (8.4-10.2); Carbon Dioxide 29 mmol/L (22-29); Chloride 108 mmol/L (96-108); Estimated Glomerular Filt Rate > 60; Glucose Random 122 mg/dL (60-115); Potassium 4.5 mmol/L (3.3-5.1); Sodium 147 mmol/L (135-145); Total Protein 7.3 g/dL (6.5-8.0)
[2023-10-30] MEDS: iohexoL 350 MG/ML 100 ML INFUS..BTL IV (18:05)
[2023-10-30 18:12] VITALS: BP 179/65; PULSE 66; RESP 16; TEMP 36.8; O2SAT 98
[2023-10-30 19:51] VITALS: BP 168/58; PULSE 63; RESP 16; TEMP 36.8; O2SAT 96
--- NOTE | 2023-10-31 07:57 | ECG_ITS ---
Test Reason : STROKE Blood Pressure : / mmHG Vent. Rate : 064 BPM Atrial Rate : 064 BPM P-R Int : 138 ms QRS Dur : 108 ms QT Int : 420 ms P-R-T Axes : 049 -21 010 degrees QTc Int : 433 ms Artifact in tracing Sinus rhythm with Premature atrial complexes Minimal voltage criteria for LVH, may be normal variant ( Sokolow-De Oliveira ) Abnormal ECG When compared with ECG of 20-DEC-2022 16:39, Premature atrial complexes are now Present Referred By: Generic ED Physician Electronically Signed By:Eris Delgado
== END 2023-10-30 20:00 | disposition home or self-care (01) ==
PROVIDERS: Emergency Provider Student in an Organized Health Care Education/Training Program; PCP Internal Medicine
DX: H02.401 Unspecified ptosis of right eyelid (principal); H26.9 Unspecified cataract; R29.701 NIHSS score 1; E11.9 Type 2 diabetes mellitus without complications; I10 Essential (primary) hypertension; E78.5 Hyperlipidemia, unspecified; Z79.85 Long-term (current) use of injectable non-insulin antidiabetic drugs; Z79.84 Long term (current) use of oral hypoglycemic drugs; Z79.02 Long term (current) use of antithrombotics/antiplatelets; Z79.899 Other long term (current) drug therapy; Z87.891 Personal history of nicotine dependence
CPT/HCPCS: 36415; 70496; 70498; 80053; 82947; 85025; 93005; 99284; Q9967

== ENCOUNTER → 2023-10-31 07:57 | Outpatient (BNV) | payer OTHER, SELFPAY | PROVIDERS: Emergency Provider Student in an Organized Health Care Education/Training Program; PCP Internal Medicine; Visit Provider Internal Medicine Cardiovascular Disease | DX: R94.31 Abnormal electrocardiogram [ECG] [EKG] (principal); I49.1 Atrial premature depolarization | CPT/HCPCS: 93010 ==

== ENCOUNTER 2023-11-27 12:55 | Outpatient (AMB) | payer OTHER, SELFPAY ==
[2023-11-27 13:10] VITALS: BP 128/60; BMI 22.5
--- NOTE | 2023-11-27 13:10 | MHC.PC.OV ---
Vital Signs 11/27/23 13:10 Height 5 ft 3 in Weight 127 lb BMI 22.5 BP 128/60 Blood Pressure Location Lt brachial Position Sitting Intake Visit Reasons: [facility] RT eye Intake Note: Patient here for pre-op [facility] right eye 12/13/23 Shield Cleaner Required: No Accompanied by: Family/Other Allergies No Known Allergies [No Known Allergies*] Allergy (Verified 11/27/23 13:35) Medication List - Last Reconciled 11/27/23 by Margaret Mcguire MD amlodipine 5 mg PO DAILY 30 days aspirin (Enteric Coated Aspirin) 81 mg PO DAILY 3 months atorvastatin 40 mg PO BEDTIME 90 days blood pressure monitor (Blood Pressure Kit) As directed blood-glucose meter As directed carvedilol 12.5 mg PO BID cholecalciferol (vitamin D3) 25 mcg PO DAILY 3 months dulaglutide (Trulicity) 3 mg (0.5 mL) subcut QWEEK 28 days empagliflozin (Jardiance) 10 mg PO DAILY 90 days glucose 4 grams PO ONCE PRN lancets As directed lansoprazole 30 mg PO DAILY 90 days losartan 100 mg PO DAILY metformin 1,000 mg PO BID 90 days metoclopramide HCl (Reglan) 10 mg PO QIDACHS nitroglycerin 0.4 mg sublingual Q5M PRN repaglinide 0.5 mg PO DAILY simethicone 180 mg PO QID PRN 30 days temazepam 30 mg PO BEDTIME PRN 30 days Tobacco use date assessed: 08/23/23 Fall risk assessment: No Falls in past year Last assessed Fall Risk: 11/27/23 Dental Screening Dental Screen Date: 08/23/23 HPI HPI Comments History of Present Illness Details This is an 83-year-old male with hypertension, diabetes mellitus type 2 with hyperglycemia, hyperlipidemia and GERD that comes today accompanied by son-in-law for preop evaluation of cataract extraction and intraocular lens implant scheduled for next month. Blood pressure stable. A1c is close to goal. LDL within goal. GERD stable with PPIs. Has 4-5 Mets of ADLs. Going to a low risk surgery. By RCRI he is Class II with 0.9% risk of cardiac complications. Patient is medically clear for surgery. 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 Allergic rhinitis Microalbuminuria Insomnia History of Helicobacter infection GERD (gastroesophageal reflux disease) History of prostate cancer Coronary artery disease Vitamin D deficiency Hyperlipidemia LDL goal <100 Essential hypertension Type 2 diabetes mellitus with hyperglycemia Surgical History Stented coronary artery History of cardiac cath Hx of esophagogastroduodenoscopy Hx of prostate biopsy Hx of colonoscopy Family History (Updated 11/27/23 @ 13:40 by Margaret Mcguire MD) Father Medical history unknown Mother Medical history unknown Sister Diabetes Daughter Breast cancer Social History Household Members: None Housing: Apartment Housing Other:: [employer] Services Do you presently have visiting nurse or other home services: Yes Alcohol intake: never Patient Tobacco Use Status: Former Tobacco user Tobacco use type: Cigarette e-Cigarette/Vaping Use: Never Used Second Hand Smoke Exposure: No service: No Current occupational status: retired Cognitive needs: Yes Hearing needs: No Vision needs: Yes Questionnaire Thrive Questionnaire Date Thrive assessed: 08/23/23 KULWINDER-7 AMB Questionnaire KULWINDER-7 Date KULWINDER - 7 assessed: 08/23/23 Source: Developed by Drs. Sammy Ellis, Pippa Orellana, Bebeto Gagnon and colleagues, with an educational vipin from [employer]. Review of Systems Const All systems reviewed & are unremarkable except as noted in HPI and below Card Denies chest pain at rest, Denies chest pain with activity, Denies edema, Denies irregular heart rhythm, Denies claudication, Denies orthopnea, Denies paroxysmal nocturnal dyspnea and Denies slow heart rate Physical exam (Primary Care) Vital Signs: Last Vital Signs BP 128/60 11/27/23 13:10 BMI result Body Mass Index 22.5 Tobacco/Smoking Status: Tobacco use Status Tobacco use date assessed 08/23/23 11/27/23 13:15 Patient Tobacco Use Status Former Tobacco user 11/27/23 13:15 Tobacco use type Cigarette 11/27/23 13:15 e-Cigarette/Vaping Use Never Used 11/27/23 13:15 Thrive Assessment: Date of Thrive Assessment Date Thrive assessed 08/23/23 11/27/23 13:15 Resp Effort & Inspection: normal respiratory effort Auscultation: clear to auscultation bilaterally Cardio Jugular venous distension: no JVD Rate: regular rate Rhythm: regular rhythm Heart sounds: S1 normal heart sound present and S2 normal heart sound present GI Inspection: Yes normal to inspection Palpation (GI): Soft to palpation and nontender Auscultation: normal bowel sounds Extrem General: Yes full ROM Results AMB Hemoglobin A1c AMB Hemoglobin A1c 7.7 % Last Edit by KANE Taylor on 11/27/23 13:17 Results Reviewed Results Reviewed: Laboratory Last Values Hgb A1c (Clinic) 7.7 % (4.0-6.0) H 11/27/23 13:15 Assessment and Plan Assessment & Plan (1) Pre-op evaluation: Code(s): Z01.818 - Encounter for other preprocedural examination Plan: Patient is medically clear for surgery. (2) Type 2 diabetes mellitus with hyperglycemia: Code(s): E11.65 - Type 2 diabetes mellitus with hyperglycemia Qualifiers: Diabetes mellitus medical terminologist insulin use: unspecified medical terminologist insulin use status Qualified Code(s): E11.65 - Type 2 diabetes mellitus with hyperglycemia Plan: Continue Trulicity, metformin and repaglinide. A1c goal is equal or less than 7%. Continue Jardiance. (3) Essential hypertension: Code(s): I10 - Essential (primary) hypertension Plan: Continue amlodipine and losartan. Blood pressure goal is equal or less than 130/80. (4) Hyperlipidemia LDL goal <70: Code(s): E78.5 - Hyperlipidemia, unspecified Plan: Continue statins. LDL goal is less than 70. (5) GERD (gastroesophageal reflux disease): Code(s): K21.9 - Gastro-esophageal reflux disease without esophagitis Qualifiers: Esophagitis presence: esophagitis presence not specified Qualified Code(s): K21.9 - Gastro-esophageal reflux disease without esophagitis Plan: Continue PPIs. Orders: Orders IRON PROFILE Today D64.9 - Anemia, unspecified Vitamin B12 and Folate Today E53.8 - Deficiency of other specified B group vitamins AMB Hemoglobin A1c Today E11.8 - Type 2 diabetes mellitus with unspecified complications Complete Blood Count Auto Diff Today D64.9 - Anemia, unspecified Coding Level of Care Code Est Pt Level 4 (29932) Complex EM visit Add On G2211 Diagnoses Pre-op evaluation Z01.818 Type 2 diabetes mellitus with hyperglycemia, unspecified whether medical terminologist insulin use E11.65 Diabetes mellitus medical terminologist insulin use: unspecified medical terminologist insulin use status Essential hypertension I10 Hyperlipidemia LDL goal <70 E78.5 Gastroesophageal reflux disease, unspecified whether esophagitis present K21.9 Esophagitis presence: esophagitis presence not specified Time Spent (min) 23
== END 2023-11-27 13:45 | disposition home or self-care (01) ==
PROVIDERS: PCP Internal Medicine; Visit Provider Internal Medicine
DX: Z01.818 Encounter for other preprocedural examination (principal); E11.65 Type 2 diabetes mellitus with hyperglycemia; I10 Essential (primary) hypertension; E78.5 Hyperlipidemia, unspecified; K21.9 Gastro-esophageal reflux disease without esophagitis; E11.8 Type 2 diabetes mellitus with unspecified complications
CPT/HCPCS: 83036; 99214; G2211

== ENCOUNTER 2024-01-10 10:55 | Outpatient (AMB) | payer OTHER, SELFPAY ==
--- NOTE | 2024-01-10 11:01 | MHC.PC.OV ---
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 Required: No Accompanied by: Family/Other Allergies No Known Allergies [No Known Allergies*] Allergy (Verified 01/10/24 11:11) Medication List - Last Reconciled 01/10/24 by Margaret Mcguire MD amlodipine 5 mg PO DAILY 30 days aspirin (Enteric Coated Aspirin) 81 mg PO DAILY 3 months atorvastatin 40 mg PO BEDTIME 90 days blood pressure monitor (Blood Pressure Kit) As directed blood-glucose meter As directed carvedilol 12.5 mg PO BID 90 days cholecalciferol (vitamin D3) 25 mcg PO DAILY 3 months dulaglutide (Trulicity) 3 mg (0.5 mL) subcut QWEEK 28 days empagliflozin (Jardiance) 10 mg PO DAILY 90 days glucose 4 grams PO ONCE PRN lancets As directed lansoprazole 30 mg PO DAILY 90 days losartan 100 mg PO DAILY metformin 1,000 mg PO BID 90 days metoclopramide HCl (Reglan) 10 mg PO QIDACHS nitroglycerin 0.4 mg sublingual Q5M PRN repaglinide 0.5 mg PO DAILY simethicone 180 mg PO QID PRN 30 days temazepam 30 mg PO BEDTIME PRN 30 days Tobacco use date assessed: 08/23/23 Fall risk assessment: No Falls in past year Last assessed Fall Risk: 01/10/24 Dental Screening Dental Screen Date: 01/10/24 Did you have a dental visit in the last 12 months?: No Was dental information given to patient?: Patient has dentist HPI HPI Comments History of Present Illness Details This is an 84-year-old male with diabetes mellitus type 2 that comes accompanied by son-in-law for his physical exam. Last A1c was elevated but he said that his blood glucose has been on the lower 100s at home. Diabetic eye exam was less than a year ago. Complains of a skin lesion that is pruritic in arms. 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 Allergic rhinitis Microalbuminuria Insomnia History of Helicobacter infection GERD (gastroesophageal reflux disease) History of prostate cancer Coronary artery disease Vitamin D deficiency Hyperlipidemia LDL goal <100 Essential hypertension Type 2 diabetes mellitus with hyperglycemia Surgical History Stented coronary artery History of cardiac cath Hx of esophagogastroduodenoscopy Hx of prostate biopsy Hx of colonoscopy Family History Father Medical history unknown Mother Medical history unknown Sister Diabetes Daughter Breast cancer Social History Household Members: None Housing: Apartment Housing Other:: [employer] Services Do you presently have visiting nurse or other home services: Yes Alcohol intake: never Patient Tobacco Use Status: Former Tobacco user Tobacco use type: Cigarette e-Cigarette/Vaping Use: Never Used Second Hand Smoke Exposure: No service: No Current occupational status: retired Cognitive needs: Yes Hearing needs: No Vision needs: Yes Questionnaire PHQ-9 Over the last 2 weeks, how often have you been bothered by any of the following problems? 1. Little interest or pleasure in doing things: not at all 2. Feeling down, depressed, or hopeless: not at all 3. Trouble falling or staying asleep, or sleeping too much: not at all 4. Feeling tired or having little energy: not at all 5. Poor appetite or overeating: not at all 6. Feeling bad about yourself - or that you are a failure or have let yourself or your family down: not at all 7. Trouble concentrating on things, such as reading the newspaper or watching television: not at all 8. Moving or speaking so slowly that other people could have noticed. Or the opposite - being so fidgety or restless that you have been moving around a lot more than usual: not at all 9. Thoughts that you would be better off or of hurting yourself in some way: not at all Total score: 0 Depression Screening Interpretation: Negative Depression Screening Done: Yes 44904 - PHQ-9 Billing: Yes Source: Developed by Drs. Sammy Ellis, Pippa Orellana, Bebeto Gagnon and colleagues, with an educational vipin from [employer]. Thrive Questionnaire Date Thrive assessed: 08/23/23 I am a: Parent/Caregiver What is your living situation today?: I have a steady place to live Within the past 12 months, did the food you bought not last and you didn't have the money to get more?: Sometimes True Within the past 12 months, did you worry whether your food would run out before you got money to buy more?: Sometimes True Do you have trouble paying for medicines?: No Do you have trouble getting transportation to medical appointments?: No Do you have trouble paying your heating and electricity bill?: No Do you have trouble taking care of your child, family member or friend?: No Do you have trouble with day-to-day activities such as bathing, preparing meals, shopping, managing finances, etc.?: I choose not to answer this question Are you currently unemployed and looking for a job?: I choose not to answer this question Are you interested in more education?: No Please select the resources that you would like help with: None Currently or been in a relationship where the following occur: I choose not to answer THRIVE Score: 2 AUDIT C Alcohol Use Questionnaire (AUDIT-C) 1. How often do you have a drink containing alcohol?: Never Total Score: 0 Score Reviewed/Action Taken: No KULWINDER-7 AMB Questionnaire KUWLINDER-7 Date KULWINDER - 7 assessed: 08/23/23 Feeling nervous, anxious, or on edge: 3 = Nearly every day Not being able to stop or control worryin = More than half the days Worrying too much about different things: 2 = More than half the days Trouble relaxin = More than half the days Being so restless that it is hard to sit still: 2 = More than half the days Becoming easily annoyed or irritable: 1 = Several days Feeling afraid as if something awful might happen: 2 = More than half the days Total KULWINDER-7 score (0-4 normal; 5-9 mild; 10-14 moderate; 15-21 severe): 14 Source: Developed by Drs. Sammy Ellis, Pippa Orellana, Bebeto Gagnon and colleagues, with an educational vipin from [employer] KULWINDER-7 Assessment Billing KULWINDER-7 Assessment Tool: KULWINDER-7 Assessment 08113 Review of Systems Const All systems reviewed & are unremarkable except as noted in HPI and below Card Denies chest pain at rest, Denies chest pain with activity, Denies edema, Denies irregular heart rhythm, Denies claudication, Denies dyspnea, Denies dyspnea on exertion, Denies orthopnea, Denies paroxysmal nocturnal dyspnea and Denies slow heart rate Resp Denies cough, Denies dyspnea and Denies dyspnea on exertion GI Denies abdominal pain, Denies change in bowel habits, Denies excessive flatus, Denies nausea and Denies vomiting Denies urinary hesitancy, Denies urinary incontinence and Denies urinary urgency Musc Denies atrophy, Denies deformity and Denies limited range of motion Skin/Breast Denies bleeding lesions, Denies changing lesions, Reports lesions and Denies rash Physical exam (Primary Care) Vital Signs: Last Vital Signs BP 120/68 01/10/24 11:03 BMI result Body Mass Index 22.5 Tobacco/Smoking Status: Tobacco use Status Tobacco use date assessed 08/23/23 01/10/24 11:02 Patient Tobacco Use Status Former Tobacco user 01/10/24 11:02 Tobacco use type Cigarette 01/10/24 11:02 e-Cigarette/Vaping Use Never Used 01/10/24 11:02 PHQ-9: PHQ-9 Score PHQ-9: Total score 0 01/10/24 11:09 Depression Screening Interpretation: Negative Thrive Assessment: Date of Thrive Assessment Date Thrive assessed 08/23/23 01/10/24 11:02 Currently or been in a relationship where the following occur: I choose not to answer [facility] Head: Yes normal to inspection, Yes normocephalic and Yes atraumatic Ears: external ears normal Eyes General: appearance normal, both eyes and all related structures Eyelids: Yes eyelids normal Conjunctivae: conjunctivae normal Neck Neck: Yes normal visual inspection and Yes supple Resp Effort & Inspection: normal respiratory effort Auscultation: clear to auscultation bilaterally Cardio Jugular venous distension: no JVD Rate: regular rate Rhythm: regular rhythm Heart sounds: S1 normal heart sound present and S2 normal heart sound present GI Inspection: Yes normal to inspection Palpation (GI): Soft to palpation and nontender Auscultation: normal bowel sounds Skin Rashes: rashes noted (forearm) bilateral Neuro General: no focal motor deficits Extrem General: Yes full ROM Psych Appearance: grossly normal Assessment and Plan Assessment & Plan (1) Physical exam: Code(s): Z00.00 - Encounter for general adult medical examination without abnormal findings Plan: Repeat in a year. (2) Type 2 diabetes mellitus with hyperglycemia: Code(s): E11.65 - Type 2 diabetes mellitus with hyperglycemia Qualifiers: Diabetes mellitus alf insulin use: unspecified alf insulin use status Qualified Code(s): E11.65 - Type 2 diabetes mellitus with hyperglycemia Plan: Continue metformin and Trulicity. A1c goal is equal or less than 7%. (3) Skin lesion: Code(s): L98.9 - Disorder of the skin and subcutaneous tissue, unspecified Plan: Start cream as needed. Referred to Dermatology. Orders: Orders Lipid Panel Today E78.5 - Hyperlipidemia, unspecified IRON PROFILE Today D64.9 - Anemia, unspecified Microalbumin, Random (w Creat) Today E11.9 - Type 2 diabetes mellitus without complications Comprehensive [place]. Panel Fast Today E11.8 - Type 2 diabetes mellitus with unspecified complications Complete Blood Count Auto Diff Today D64.9 - Anemia, unspecified Vitamin B12 and Folate Today E53.8 - Deficiency of other specified B group vitamins Referrals Dermatology Referral L98.9 - Disorder of the skin and subcutaneous tissue, unspecified Medications: New clotrimazole 1% 1 appl topical BID 2 weeks 15 grams 0RF Coding Level of Care Code Est Pt Level 3 (58774) Est Pt Prev Care >65y(47836) Diagnoses Physical exam Z00.00 Type 2 diabetes mellitus with hyperglycemia, unspecified whether terminal system operator insulin use E11.65 Diabetes mellitus alf insulin use: unspecified terminal system operator insulin use status Skin lesion L98.9 Additional Codes KULWINDER-7 Assessment Billing - KULWINDER-7 Assessment Tool: KULWINDER-7 Assessment [id number] ([id number]) Time Spent (min) 35
[2024-01-10 11:03] VITALS: BP 120/68; BMI 22.5
== END 2024-01-10 11:28 | disposition home or self-care (01) ==
PROVIDERS: PCP Internal Medicine; Visit Provider Internal Medicine
DX: Z00.00 Encounter for general adult medical examination without abnormal findings (principal); E11.65 Type 2 diabetes mellitus with hyperglycemia; L98.9 Disorder of the skin and subcutaneous tissue, unspecified
CPT/HCPCS: 99213; 99397

== ENCOUNTER 2024-05-01 12:38 | Outpatient (AMB) | payer OTHER, SELFPAY ==
[2024-05-01 12:42] VITALS: BP 150/62; BMI 22.5
--- NOTE | 2024-05-01 12:42 | MHC.PC.OV ---
Vital Signs 05/01/24 12:42 Height 5 ft 3 in Weight 127 lb BMI 22.5 BP 150/62 H Blood Pressure Location Lt brachial Position Sitting Intake Visit Reasons: 4 Month Follow up Intake Note: Patient here for a 4 month follow up Career Coordinator Required: No Accompanied by: Self / Same As Patient Allergies No Known Allergies [No Known Allergies*] Allergy (Verified 05/01/24 13:08) Medication List - Last Reconciled 05/01/24 by Margaret Mcguire MD amlodipine 5 mg PO DAILY 30 days aspirin (Enteric Coated Aspirin) 81 mg PO DAILY 3 months atorvastatin 40 mg PO BEDTIME 90 days blood pressure monitor (Blood Pressure Kit) As directed blood-glucose meter As directed carvedilol 12.5 mg PO BID 90 days cholecalciferol (vitamin D3) 25 mcg PO DAILY 3 months clotrimazole 1% 1 appl topical BID 2 weeks dulaglutide (Trulicity) 3 mg (0.5 mL) subcut QWEEK 28 days empagliflozin (Jardiance) 10 mg PO DAILY 90 days glucose 4 grams PO ONCE PRN lancets As directed lansoprazole 30 mg PO DAILY 90 days losartan 100 mg PO DAILY metformin 1,000 mg PO BID 90 days metoclopramide HCl (Reglan) 10 mg PO QIDACHS nitroglycerin 0.4 mg sublingual Q5M PRN repaglinide 0.5 mg PO DAILY simethicone 180 mg PO QID PRN 30 days temazepam 30 mg PO BEDTIME PRN 30 days Tobacco use date assessed: 08/23/23 Fall risk assessment: No Falls in past year Last assessed Fall Risk: 05/01/24 Dental Screening Dental Screen Date: 01/10/24 HPI HPI Comments History of Present Illness Details The patient is an 84-year-old male presenting with hypertension. Blood pressure has been observed to be consistently elevated, prompting medication management discussions. The patient's current regimen includes Losartan at 100 mg, which is at the maximum dose, and Amlodipine at 5 mg, which previously resulted in leg swelling. Metformin at 1000 mg twice daily and Jardiance 10 mg are part of his diabetes management. He also reports taking Trulicity 1.5 mg weekly. The patient has not experienced chest pain or dyspnea, but sleep patterns involve the use of Temazepam, acknowledged to be risky for sedation in patients over 65 years. Has hyperlipidemia well controlled with statins. Also has GERD stable with PPIs. 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 Allergic rhinitis Microalbuminuria Insomnia History of Helicobacter infection GERD (gastroesophageal reflux disease) History of prostate cancer Coronary artery disease Vitamin D deficiency Hyperlipidemia LDL goal <100 Essential hypertension Type 2 diabetes mellitus with hyperglycemia Surgical History Stented coronary artery History of cardiac cath Hx of esophagogastroduodenoscopy Hx of prostate biopsy Hx of colonoscopy Family History Father Medical history unknown Mother Medical history unknown Sister Diabetes Daughter Breast cancer Social History Household Members: None Housing: Apartment 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 Services Do you presently have visiting nurse or other home services: Yes Alcohol intake: never Patient Tobacco Use Status: Former Tobacco user Tobacco use type: Cigarette e-Cigarette/Vaping Use: Never Used Second Hand Smoke Exposure: No service: No Current occupational status: retired Cognitive needs: Yes Hearing needs: No Vision needs: Yes Questionnaire Thrive Questionnaire Date Thrive assessed: 01/10/24 I am a: Parent/Caregiver What is your living situation today?: I have a steady place to live Within the past 12 months, did the food you bought not last and you didn't have the money to get more?: Sometimes True Within the past 12 months, did you worry whether your food would run out before you got money to buy more?: Sometimes True Do you have trouble paying for medicines?: No Do you have trouble getting transportation to medical appointments?: No Do you have trouble paying your heating and electricity bill?: No Do you have trouble taking care of your child, family member or friend?: No Do you have trouble with day-to-day activities such as bathing, preparing meals, shopping, managing finances, etc.?: I choose not to answer this question Are you currently unemployed and looking for a job?: I choose not to answer this question Are you interested in more education?: No Please select the resources that you would like help with: None Currently or been in a relationship where the following occur: I choose not to answer THRIVE Score: 2 KULWINDER-7 AMB Questionnaire KULWINDER-7 Date KULWINDER - 7 assessed: 08/23/23 Source: Developed by Drs. Sammy Ellis, Pippa Orellana, Bebeto Gagnon and colleagues, with an educational vipin from [employer]. Review of Systems Const All systems reviewed & are unremarkable except as noted in HPI and below Card Denies chest pain at rest, Denies chest pain with activity, Denies edema, Denies irregular heart rhythm, Denies claudication, Denies dyspnea, Denies dyspnea on exertion, Denies orthopnea, Denies paroxysmal nocturnal dyspnea and Denies slow heart rate Resp Denies cough, Denies dyspnea and Denies dyspnea on exertion GI Denies abdominal pain, Denies change in bowel habits, Denies excessive flatus, Denies nausea and Denies vomiting Physical exam (Primary Care) Vital Signs: Last Vital Signs BP 150/62 H 05/01/24 12:42 BMI result Body Mass Index 22.5 Tobacco/Smoking Status: Tobacco use Status Tobacco use date assessed 08/23/23 05/01/24 12:46 Patient Tobacco Use Status Former Tobacco user 05/01/24 12:46 Tobacco use type Cigarette 05/01/24 12:46 e-Cigarette/Vaping Use Never Used 05/01/24 12:46 Thrive Assessment: Date of Thrive Assessment Date Thrive assessed 01/10/24 05/01/24 12:46 Currently or been in a relationship where the following occur: I choose not to answer [facility] Head: Yes normal to inspection, Yes normocephalic and Yes atraumatic Ears: external ears normal Eyes General: appearance normal, both eyes and all related structures Eyelids: Yes eyelids normal Conjunctivae: conjunctivae normal Neck Neck: Yes normal visual inspection and Yes supple Resp Effort & Inspection: normal respiratory effort Auscultation: clear to auscultation bilaterally Cardio Jugular venous distension: no JVD Rate: regular rate Rhythm: regular rhythm Heart sounds: S1 normal heart sound present and S2 normal heart sound present GI Inspection: Yes normal to inspection Palpation (GI): Soft to palpation and nontender Auscultation: normal bowel sounds Skin General skin exam: no rashes or lesions noted Neuro General: no focal motor deficits Extrem General: Yes full ROM Psych Appearance: grossly normal Results AMB Hemoglobin A1c AMB Hemoglobin A1c 7.4 % Last Edit by KANE Taylor on 05/01/24 12:58 Results Reviewed Results Reviewed: Laboratory Last Values Hgb A1c (Clinic) 7.4 % (4.0-6.0) H 05/01/24 12:51 Coding Level of Care Code Est Pt Level 4 (03171) Complex EM visit Add On G2211 Diagnoses Type 2 diabetes mellitus with hyperglycemia, unspecified whether intermediate insulin use E11.65 Diabetes mellitus intermediate insulin use: unspecified intermediate insulin use status Essential hypertension I10 Hyperlipidemia LDL goal <70 E78.5 Gastroesophageal reflux disease, unspecified whether esophagitis present K21.9 Esophagitis presence: esophagitis presence not specified Insomnia G47.00 Time Spent (min) 22 Assessment & Plan Assessment & Plan (1) Type 2 diabetes mellitus with hyperglycemia: Code(s): E11.65 - Type 2 diabetes mellitus with hyperglycemia Category: Medical Qualifiers: 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: 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 insulin use status Qualified Code(s): E11.65 - Type 2 diabetes mellitus with hyperglycemia (2) Essential hypertension: Code(s): I10 - Essential (primary) hypertension Category: Medical (3) Hyperlipidemia LDL goal <70: Code(s): E78.5 - Hyperlipidemia, unspecified Category: Medical (4) GERD (gastroesophageal reflux disease): Code(s): K21.9 - Gastro-esophageal reflux disease without esophagitis Category: Medical Qualifiers: Esophagitis presence: esophagitis presence not specified Qualified Code(s): K21.9 - Gastro-esophageal reflux disease without esophagitis (5) Insomnia: Code(s): G47.00 - Insomnia, unspecified Category: Medical Plan - Consider increasing Jardiance to 25 mg for improved glycemic control. - Continue Losartan for hypertension management. - Consider adding Spironolactone to assist in managing hypertension and minimize edema. - Order new labs to assess current metabolic status. - Schedule an electrocardiogram to evaluate cardiac function. - Discuss non-pharmacologic management strategies and lifestyle adjustments to support blood pressure control. Patient was informed and verbally consented to the use of an ambient scribe for clinic note documentation during this visit. During the visit, we discussed the management plan for hypertension, including increasing Jardiance dosage to optimize diabetic control. The potential addition of Spironolactone was suggested to manage blood pressure and curb swelling while considering the side effects. We recognized the importance of managing medications cautiously given the patient's age, particularly Temazepam, emphasizing safe administration practices to minimize fall risk. The need for follow-up labs and an electrocardiogram was addressed, with the patient agreeing to undergo these evaluations. Next steps include preparing for the upcoming appointment in May to review these diagnostic results and adjust the treatment plan accordingly if needed. Orders: Orders Lipid Panel Today E78.5 - Hyperlipidemia, unspecified Comprehensive [place]. Panel Fast Today E78.5 - Hyperlipidemia, unspecified ECG 12 lead EKG Today I25.10 - Atherosclerotic heart disease of [place] coronary artery without angina pectoris AMB Hemoglobin A1c Today E11.65 - Type 2 diabetes mellitus with hyperglycemia Microalbumin, Random (w Creat) Today R80.9 - Proteinuria, unspecified Vitamin D 25-OH Total Today E55.9 - Vitamin D deficiency, unspecified Medications: New spironolactone 25 mg PO DAILY 90 tabs 1RF 90 days dulaglutide (Trulicity) 1.5 mg (0.5 mL) subcut QWEEK 2 mL 6RF 4 weeks empagliflozin (Jardiance) 25 mg PO DAILY 90 tabs 1RF 90 days Discontinued empagliflozin (Jardiance) Discontinued Reason: Order 10 mg PO DAILY 90 days 90 tabs 1RF dulaglutide (Trulicity) Discontinued Reason: Patient Completed Course 3 mg (0.5 mL) subcut QWEEK 28 days 2 mL 0RF
== END 2024-05-01 13:19 | disposition home or self-care (01) ==
PROVIDERS: PCP Internal Medicine; Visit Provider Internal Medicine
DX: E11.65 Type 2 diabetes mellitus with hyperglycemia (principal); I10 Essential (primary) hypertension; E78.5 Hyperlipidemia, unspecified; K21.9 Gastro-esophageal reflux disease without esophagitis; G47.00 Insomnia, unspecified

== ENCOUNTER → 2024-05-01 12:38 | Outpatient (BNVA) | payer OTHER, SELFPAY | PROVIDERS: PCP Internal Medicine; Visit Provider Internal Medicine | DX: I10 Essential (primary) hypertension (principal); E11.65 Type 2 diabetes mellitus with hyperglycemia; E78.5 Hyperlipidemia, unspecified; K21.9 Gastro-esophageal reflux disease without esophagitis; G47.00 Insomnia, unspecified; I25.10 Atherosclerotic heart disease of native coronary artery without angina pectoris; R80.9 Proteinuria, unspecified; E55.9 Vitamin D deficiency, unspecified; Z79.84 Long term (current) use of oral hypoglycemic drugs; Z87.891 Personal history of nicotine dependence; Z79.899 Other long term (current) drug therapy | CPT/HCPCS: 83036; 99212 ==

== ENCOUNTER 2024-05-10 08:46 | Outpatient (REF) | payer OTHER, SELFPAY ==
[2024-05-10 09:39] LABS: Alanine Aminotransferase 17 U/L (0-40); Albumin Level 4.1 g/dL (3.5-5.0); Alkaline Phosphatase 70 U/L (39-117); Anion Gap 16 (12-20); Aspartate Amino Transferase 16 U/L (5-37); Bilirubin Total 0.7 mg/dL (0.0-1.0); Blood Urea Nitrogen 24 mg/dL (9-16); Calcium 9.9 mg/dL (8.4-10.2); Carbon Dioxide 25 mmol/L (22-29); Chloride 108 mmol/L (96-108); Cholesterol 153 mg/dL (<200); Estimated Glomerular Filt Rate 41; Glucose Fasting 199 mg/dL (60-99); HDL Cholesterol 52 mg/dL (>40); LDL Cholesterol Calculated 78 mg/dL (<100); Potassium 4.7 mmol/L (3.3-5.1); Sodium 144 mmol/L (135-145); Total Protein 6.9 g/dL (6.5-8.0); Triglycerides 118 mg/dL (<150)
[2024-05-10 09:54] LABS: Vitamin D 25-OH Total 48.2 ng/mL (>30)
[2024-05-10 11:20] LABS: Microalbum/Creatinine Ratio Ur 166.6 ug/mg cr (<30)
== END 2024-05-10 08:47 | disposition home or self-care (01) ==
LOC: HO.LAB 08:46
PROVIDERS: PCP Internal Medicine; Visit Provider Internal Medicine
DX: E78.5 Hyperlipidemia, unspecified (principal); R80.9 Proteinuria, unspecified; E55.9 Vitamin D deficiency, unspecified
CPT/HCPCS: 36415; 80053; 80061; 82043; 82306; 82570

== ENCOUNTER 2024-05-20 10:05 | Outpatient (AMB) | payer OTHER, SELFPAY ==
--- NOTE | 2024-05-20 10:14 | A.OFFPC_ITS ---
Vital Signs 3 05/20/24 10:25 Height 5 ft 3 in Weight 126 lb 8 oz BMI 22.4 BP 142/60 H Blood Pressure Location Lt brachial Position Sitting Pulse 72 Pulse Source Pulse Oximeter Pulse Oximetry (%) 97 Oxygen Delivery Method Room Air Intake Visit Reasons: ANA CRISTINA appt Dr Anderson Wind Project Manager Required: No Accompanied by: Daughter Allergies No Known Allergies [No Known Allergies*] Allergy (Verified 05/20/24 10:41) Medication List - Last Reconciled 05/20/24 by Nando Hodges PA-C amlodipine 5 mg PO DAILY 30 days aspirin (Enteric Coated Aspirin) 81 mg PO DAILY 3 months atorvastatin 40 mg PO BEDTIME 90 days blood pressure monitor (Blood Pressure Kit) As directed blood-glucose meter As directed carvedilol 12.5 mg PO BID 90 days cholecalciferol (vitamin D3) 25 mcg PO DAILY 3 months clotrimazole 1% 1 appl topical BID 2 weeks dulaglutide (Trulicity) 1.5 mg (0.5 mL) subcut QWEEK 4 weeks empagliflozin (Jardiance) 25 mg PO DAILY 90 days erythromycin 0.5 inches ophthalmic (eye) BID 7 days glucose 4 grams PO ONCE PRN lancets As directed lansoprazole 30 mg PO DAILY 90 days losartan 100 mg PO DAILY metformin 1,000 mg PO BID 90 days metoclopramide HCl (Reglan) 10 mg PO QIDACHS nitroglycerin 0.4 mg sublingual Q5M PRN repaglinide 0.5 mg PO DAILY simethicone 180 mg PO QID PRN 30 days spironolactone 25 mg PO DAILY 90 days temazepam 30 mg PO BEDTIME PRN 30 days Tobacco use date assessed: 05/20/24 Dental Screening Dental Screen Date: 01/10/24 HPI ANA CRISTINA appt Dr Anderson 2 HPI0 Details Patient is an 84-year-old male here today for transfer of care visit. He is Albanian-speaking only. This is the 1st time I am meeting this 84-year-old male with a past medical history significant for hypertension, hyperlipidemia, type 2 diabetes, coronary artery disease. Concern--> The patient reports a long-standing lesion on the arm, described as itchy initially but now painful. Previous attempts at treatment with an unidentified cream, which did not provide relief, and a steroid cream, which was also ineffective, have been noted. The appearance of the lesion has raised concerns about potential malignancy. There has been prior sun exposure throughout the patient?s life. .. Hypertension: Most recent PCP office visit he was started on spironolactone for better blood pressure control and to help minimize lower extremity edema. Blood pressure still remains slightly elevated today in office and most recent kidney function has worsened. .. Type 2 diabetes: Seems to have been suboptimally controlled as most recent A1c above 7.0. .. Coronary artery disease: Did have coronary artery stents placed many years ago, most recent lipid panel showing excellent control of his total cholesterol and LDL. Goal LDL is to remain optimally below 70. Laboratory Tests 02/01/21 09/06/21 12/05/22 11:41 12:53 08:55 Hgb BUN Creatinine Fasting Glucose Hgb A1c (Clinic) 7.7 H 7.4 H LDL Cholesterol, C alc 25-OH Vitamin D To cassandra Urine Microalbumin 86.0 01/02/23 10/30/23 11/27/23 06:27 17:10 13:15 Hgb 11.2 L 10.8 L BUN Creatinine 1.11 Fasting Glucose Hgb A1c (Clinic) 7.7 H LDL Cholesterol, C alc 25-OH Vitamin D To cassandra Urine Microalbumin 05/01/24 05/10/24 05/10/24 12:51 08:59 09:00 Hgb BUN 24 H Creatinine 1.61 H Fasting Glucose 199 H Hgb A1c (Clinic) 7.4 H LDL Cholesterol, C alc 78 25-OH Vitamin D To cassandra 48.2 Urine Microalbumin 150.0 PFSH Medical History (Updated 05/20/24 @ 11:03 by Nando Hodges PA-C) Malignant neoplasm of prostate Type 2 diabetes mellitus with unspecified complications 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 Allergic rhinitis Microalbuminuria Insomnia History of Helicobacter infection GERD (gastroesophageal reflux disease) History of prostate cancer Coronary artery disease Vitamin D deficiency Hyperlipidemia LDL goal <100 Essential hypertension Type 2 diabetes mellitus with hyperglycemia Surgical History Stented coronary artery History of cardiac cath Hx of esophagogastroduodenoscopy Hx of prostate biopsy Hx of colonoscopy Family History Father Medical history unknown Mother Medical history unknown Sister Diabetes Daughter Breast cancer Social History Household Members: None Housing: Apartment 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 1. Little interest or pleasure in doing things: not at all 2. Feeling down, depressed, or hopeless: not at all 3. Trouble falling or staying asleep, or sleeping too much: not at all 4. Feeling tired or having little energy: not at all 5. Poor appetite or overeating: not at all 6. Feeling bad about yourself - or that you are a failure or have let yourself or your family down: not at all 7. Trouble concentrating on things, such as reading the newspaper or watching television: not at all 8. Moving or speaking so slowly that other people could have noticed. Or the opposite - being so fidgety or restless that you have been moving around a lot more than usual: not at all 9. Thoughts that you would be better off or of hurting yourself in some way: not at all Total score: 0 Depression Screening Interpretation: Negative Depression Screening Done: Yes 64200 - PHQ-9 Billing: Yes Source: Developed by Drs. Sammy Ellis, Pippa Orellana, Bebeto Gagnon and colleagues, with an educational vipin from [employer]. Thrive Questionnaire Date Thrive assessed: 05/20/24 I am a: Patient What is your living situation today?: I have a steady place to live Within the past 12 months, did the food you bought not last and you didn't have the money to get more?: Never true Within the past 12 months, did you worry whether your food would run out before you got money to buy more?: Never true Do you have trouble paying for medicines?: No Do you have trouble getting transportation to medical appointments?: No Do you have trouble paying your heating and electricity bill?: No Do you have trouble taking care of your child, family member or friend?: No Do you have trouble with day-to-day activities such as bathing, preparing meals, shopping, managing finances, etc.?: No Are you currently unemployed and looking for a job?: No Are you interested in more education?: No Please select the resources that you would like help with: None Currently or been in a relationship where the following occur: No concerns reported THRIVE Score: 0 AUDIT C Alcohol Use Questionnaire (AUDIT-C) 1. How often do you have a drink containing alcohol?: Never 3. How often do you have six or more drinks on one occasion?: Never Total Score: 0 KULWINDER-7 AMB Questionnaire KULWINDER-7 Date KULWINDER - 7 assessed: 05/20/24 Feeling nervous, anxious, or on edge: 0 = Not at all Not being able to stop or control worryin = Not at all Worrying too much about different things: 0 = Not at all Trouble relaxin = Not at all Being so restless that it is hard to sit still: 0 = Not at all Becoming easily annoyed or irritable: 0 = Not at all Feeling afraid as if something awful might happen: 0 = Not at all Total KULWINDER-7 score (0-4 normal; 5-9 mild; 10-14 moderate; 15-21 severe): 0 Source: Developed by Drs. Sammy Ellis, Pippa Orellana, Bebeto Gagnon and colleagues, with an educational vipin from [employer]. KULWINDER-7 Assessment Billing KULWINDER-7 Assessment Tool: KULWINDER-7 Assessment 97840 Review of Systems Const Denies headache(s) Eyes Denies loss of vision ENT Denies vertigo, Denies dizziness, Denies headache(s) and Denies sore throat Card Denies chest pain, Denies leg edema and Denies lightheadedness Resp Denies cough, Denies hemoptysis and Denies wheezing GI Denies abdominal pain, Denies melena, Denies constipation, Denies diarrhea and Denies vomiting Denies dysuria, Denies urinary frequency and Denies urinary urgency Musc Denies arthralgias, Denies joint swelling, Denies numbness and Denies tingling Neuro Denies Abnormal speech present, Denies behavioral changes, Denies vertigo, Denies dizziness, Denies headache(s), Denies loss of vision, Denies memory loss, Denies numbness and Denies tingling Psych Denies anxiety, Denies behavioral changes, Denies depression, Denies memory loss and Denies panic attacks Casey/Lymph Denies easy bleeding and Denies easy bruising Aller/Immun Denies wheezing Physical exam (Primary Care) Vital Signs: Last Vital Signs Pulse 72 05/20/24 10:25 BP 142/60 H 05/20/24 10:25 Pulse Ox 97 05/20/24 10:25 Oxygen Delivery Method Room Air 05/20/24 10:25 BMI result Body Mass Index 22.4 Tobacco/Smoking Status: Tobacco use Status Tobacco use date assessed 05/20/24 05/20/24 10:31 Patient Tobacco Use Status Former Tobacco user 05/20/24 10:14 Tobacco use type Cigarette 05/20/24 10:14 e-Cigarette/Vaping Use Never Used 05/20/24 10:14 PHQ-9: PHQ-9 Score PHQ-9: Total score 0 05/20/24 10:52 Depression Screening Interpretation: Negative Thrive Assessment: Date of Thrive Assessment Date Thrive assessed 05/20/24 05/20/24 10:14 Currently or been in a relationship where the following occur: No concerns reported Const General: healthy appearing, no acute distress, alert and awake Nutritional Appearance: well nourished Orientation/consciousness: oriented to person, oriented to place and oriented to time HENMT Ears: TM's normal bilaterally General nose exam: Normal nasal mucous membranes and turbinates present Eyes Conjunctivae: conjunctivae normal Sclerae: sclerae normal Pupils: Equal, round and reactive pupils present Neck Neck: Yes no lymphadenopathy and Yes no JVD Thyroid: Thyroid normal Carotids: no bruits Resp Effort & Inspection: normal respiratory effort and not tachypneic Auscultation: no crackles, no rales, no rhonchi and no wheezes Cardio Rate: regular rate Rhythm: regular rhythm Heart sounds: no murmurs and normal S1 and S2 GI Palpation (GI): Soft to palpation, nontender, no hepatomegaly and no splenomegaly Auscultation: normal bowel sounds Skin General skin exam: no rashes or lesions noted and dry skin Neuro General: oriented to person, oriented to place and oriented to time Cranial nerves: Yes Equal, round and reactive pupils present Speech: No Abnormal speech present Gait exam (Neuro): Normal gait present Motor exam (neuro): no tremor noted Extrem Other: Right upper extremity: full ROM Left upper extremity: full ROM Right lower extremity: full ROM; no edema Left lower extremity: full ROM; no edema Psych Mental Status: mental status grossly normal Speech and movement: Normal speech and movement present Affect: normal affect Attitude: cooperative Thought process: Normal thought process present Office Procedures Flu Questionnaire Does the patient have a severe egg allergy?: No Does the patient have severe life threatening allergies?: No Does the patient have a fever or illness today?: No Has the patient ever had Guillain-Clutier Syndrome?: No Has the patient ever had any past reaction to a flu shot?: No Immunizations Fluarix Triv 7301-4383 (PF) 45 mcg (15 mcg x 3)/0.5 mL IM syringe Performing Provider: Nando Hodges PA-C [facility] Administered by: DONNA Butt on 05/20/24 10:37 2 Dose Route Admin Location Dispensed Lot Number Expiration Date NDC E Learning Designer 0.5 mL IM Right Deltoid 0.5 mL [id number] 11/10/24 [id number] Kidos 2 VIS Given Date VIS Provided VIS Publication Date 05/20/24 Single Vaccine 20 Eligibility Eligibility Date Funding Source Not [facility] Eligible 05/20/24 Private Coding Level of Care Code Est Pt Level 4 (13915) Diagnoses Type 2 diabetes mellitus with hyperglycemia, unspecified whether extermination inspector insulin use E11.65 Diabetes mellitus extermination inspector insulin use: unspecified care home insulin use status Skin lesion L98.9 Hyperlipidemia LDL goal <70 E78.5 Essential hypertension I10 Stented coronary artery Z95.5 Malignant neoplasm of prostate C61 Primary insomnia F51.01 Insomnia type: primary Acute cough R05.1 Cough type: acute Additional Codes KULWINDER-7 Assessment Billing - KULWINDER-7 Assessment Tool: KULWINDER-7 Assessment 49506 ([id number]) PHQ-9 - 11924 - PHQ-9 Billing: Yes ([id number]) Assessment & Plan Assessment & Plan (1) Type 2 diabetes mellitus with hyperglycemia: Code(s): E11.65 - Type 2 diabetes mellitus with hyperglycemia Category: Medical Qualifiers: Diabetes mellitus care home insulin use: unspecified care home insulin use status Qualified Code(s): E11.65 - Type 2 diabetes mellitus with hyperglycemia Plan: Patient's type 2 diabetes suboptimally controlled with A1c slightly above 7.0. Will continue his current diabetic med regime and work diabetic diet. Goal A1c to be below 7.0. (2) Skin lesion: Code(s): L98.9 - Disorder of the skin and subcutaneous tissue, unspecified Category: Medical Plan: The patient reports a long-standing lesion on the arm, described as itchy initially but now painful. Previous attempts at treatment with an unidentified cream, which did not provide relief, and a steroid cream, which was also ineffective, have been noted. The appearance of the lesion has raised concerns about potential malignancy. There has been prior sun exposure throughout the patient?s life. (3) Hyperlipidemia LDL goal <70: Code(s): E78.5 - Hyperlipidemia, unspecified Category: Medical Plan: Patient most recent fasting lipid panel showing excellent control of his total cholesterol and LDL. Does have a history of coronary artery disease. Goal LDL is to be optimally below 70. (4) Essential hypertension: Code(s): I10 - Essential (primary) hypertension Category: Medical Plan: Patient's blood pressure slightly elevated today in office. Recent addition of spironolactone seems to help though seems to have worsened his kidney function which could be related to dehydration. Advised to stay well hydrated. Goal blood pressure to be below 140/90 (5) Stented coronary artery: Code(s): Z95.5 - Presence of coronary angioplasty implant and graft Category: Surgical Plan: Patient has no reports chest discomfort or shortness of breath. As above goal LDL to remain below 70. (6) Malignant neoplasm of prostate: Code(s): C61 - Malignant neoplasm of prostate Category: Medical Plan: Patient has a history prostate cancer did get biopsies with previous urologist. Has no further Urology follow up. Will check his PSA and refer to Urology (7) Insomnia: Code(s): G47.00 - Insomnia, unspecified Category: Medical Qualifiers: Insomnia type: primary Qualified Code(s): F51.01 - Primary insomnia Plan: Continue temazepam with consideration of potential dependency; possible introduction of melatonin discussed. (8) Cough: Code(s): R05.9 - Cough, unspecified Category: Medical Qualifiers: Cough type: acute Qualified Code(s): R05.1 - Acute cough Plan: Has noted cough and throat congestion over the last 12 hours. Appearance today is nontoxic. Will supply patient with cough suppressant tablets and if needed antibiotic just in case symptoms worsen Orders: Orders 2 Comprehensive [place]. Panel Fast Today I10 - Essential (primary) hypertension Complete Blood Count no Diff Today I10 - Essential (primary) hypertension Influenza [id number] Immunization Today Z23 - Encounter for immunization Prostate Specific Antigen Scr Today C61 - Malignant neoplasm of prostate, Z12.5 - Encounter for screening for malignant neoplasm of prostate Referrals 2 Dermatology Referral L98.9 - Disorder of the skin and subcutaneous tissue, unspecified Urology Referral C61 - Malignant neoplasm of prostate Medications: New 2 mupirocin 2% 1 appl topical BID 22 grams 0RF 15 days L98.9 - Disorder of the skin and subcutaneous tissue, unspecified benzonatate 200 mg PO TID 15 caps 0RF 5 days R05.9 - Cough, unspecified azithromycin For 250 mg dose pack: take 500 mg today (day 1), then 250 mg for 4 days (days 2-5) PO 6 tabs 0RF R05.9 - Cough, unspecified Refilled 2 temazepam 30 mg PO BEDTIME PRN 30 caps 3RF sleep 30 days F51.01 - Primary insomnia
[2024-05-20 10:25] VITALS: BP 142/60; PULSE 72; O2SAT 97; BMI 22.4
== END 2024-05-20 11:10 | disposition home or self-care (01) ==
PROVIDERS: PCP Internal Medicine; Visit Provider Physician Assistant
DX: E11.65 Type 2 diabetes mellitus with hyperglycemia (principal); C61 Malignant neoplasm of prostate; L98.9 Disorder of the skin and subcutaneous tissue, unspecified; E78.5 Hyperlipidemia, unspecified; I10 Essential (primary) hypertension; Z95.5 Presence of coronary angioplasty implant and graft; F51.01 Primary insomnia; R05.1 Acute cough; Z23 Encounter for immunization

== ENCOUNTER → 2024-05-20 10:05 | Outpatient (BNVA) | payer OTHER, SELFPAY | PROVIDERS: PCP Internal Medicine; Visit Provider Physician Assistant | DX: I10 Essential (primary) hypertension (principal); E78.00 Pure hypercholesterolemia, unspecified; I25.10 Atherosclerotic heart disease of native coronary artery without angina pectoris; E11.65 Type 2 diabetes mellitus with hyperglycemia; E78.5 Hyperlipidemia, unspecified; L98.9 Disorder of the skin and subcutaneous tissue, unspecified; C61 Malignant neoplasm of prostate; F51.01 Primary insomnia; R05.1 Acute cough; Z23 Encounter for immunization; Z95.5 Presence of coronary angioplasty implant and graft | CPT/HCPCS: 90471; 90656; 96127; 99212 ==

== ENCOUNTER 2024-08-18 08:55 | Outpatient (REF) | payer OTHER, SELFPAY ==
--- OUTSIDE RECORDS SUMMARY | 2024-08-18 09:46 | XMS_ITS | Clinical Summary ---
Author Organization [facility] Address [address] [address] Phone Care Team Providers Care Printing Supplies Sales Representative Name Role Phone Bryan Kumar MD Primary Care Provider [phone] Allergies No known active allergies Medications aspirin (ST PENELOPE) 81 MG EC tablet Take 1 tablet by mouth 1 (one) time each day Active atorvastatin (LIPITOR) 40 MG tablet Take 1 tablet by mouth 1 (one) time each day Active carvedilol (COREG) 12.5 MG tablet Take 1 tablet by mouth 2 (two) times a day Active cetirizine (ZyrTEC) 10 MG tablet Take 1 tablet by mouth 1 (one) time each day Active dexlansoprazole (Dexilant) [address] capsule Take 1 capsule by mouth 1 (one) time each day Active gabapentin (NEURONTIN) 100 MG capsule Take 1 capsule by mouth at bed time Active Insulin Lispro, 1 Unit Dial, 100 UNIT/ML solution pen-injector Inject as directed Duration: 30 Active metFORMIN (GLUCOPHAGE) 1000 MG tablet Take 1 tablet by mouth 2 (two) times a day Active nitroglycerin (NITROSTAT) 0.4 MG SL tablet Take 1 tablet by mouth 1 (one) time each day Active temazepam (RESTORIL) 30 MG capsule Take 1 capsule by mouth at bed time Active Trulicity 1.5 MG/0.5ML solution pen-injector ADMINISTER 1.5 MG UNDER THE SKIN EVERY WEEK 1 Active fluticasone (FLONASE) 50 MCG/ACT nasal spray SHAKE LIQUID AND USE 1 SPRAY IN EACH NOSTRIL DAILY 1 Active metFORMIN (GLUCOPHAGE) 500 MG tablet Take 500 mg by mouth 2 (two) times a day 1 Active pantoprazole (PROTONIX) 40 MG EC tablet Take 40 mg by mouth 1 (one) time each day 1 Active Cholecalciferol (Vitamin D3) 25 MCG (1000 UT) capsule 1 Active lactulose (CHRONULAC) 10 GM/15ML solution 1 Active losartan (COZAAR) 100 MG tablet 1 Active mupirocin (BACTROBAN) 2 % ointment 1 Active metoclopramide (REGLAN) 5 MG tablet 1 Active omeprazole (PriLOSEC) [address] capsule 1 Active repaglinide (PRANDIN) 0.5 MG tablet 1 Active amLODIPine (NORVASC) 5 MG tablet TAKE 1 TABLET(5 MG) BY MOUTH EVERY DAY 90 tablet 2 3 Active Active Problems Problem Noted Date Diagnosed Date Stage 3a chronic kidney disease 08/11/2024 Chronic kidney disease, stage 2 (mild) 3 Microalbuminuria 07/09/2020 Encounters Date Type Department Care Team Description 08/11/2024 1:30 PM EDT Office Visit [facility] [address] [place] [address] Bryan Kumar MD Stage 3a chronic kidney disease (HCC) (Primary Dx); Microalbuminuria from Last 3 Months Family History Relation Status Comments Father Mother Social History Tobacco Use Types Packs/Day Years Used Date Smoking Tobacco: Former Cigarettes Q uit: 12/08/2007 Smokeless Tobacco: Never Tobacco Cessation:Counseling Given: Not Answered Alcohol Use Standard Drinks/Week Comments Never 0 (1 standard drink = 0.6 oz pur e alcohol) Sex and Gender Information Value Date Recorded Sex Assigned at Not on file Legal Sex Male 4:57 PM EST Gender Identity Not on file Sexual Orientation Not on file Last Filed Vital Signs Vital Sign Reading Time Taken Comments Blood Pressure 138/70 08/11/2024 1:19 PM EDT Pulse 72 08/11/2024 1:19 PM EDT Temperature - - Respiratory Rate - - Oxygen Saturation 99% 08/11/2024 1:19 PM EDT Inhaled Oxygen Concentration - - Weight 13.7 kg (30 lb 3.2 oz) 08/11/2024 1:19 PM EDT Height - - Body Mass Index - - Plan of Treatment Upcoming Encounters Date Type Department Care Team (Late st Contact Info) Description 04/27/2025 1:15 PM EST Office Visit [facility] [address] [address] Bryan Kumar MD [address] [address] Health Maintenance Due Date Last Done Comments Pneumococcal Vaccine: 65+ Ye ars (1 of 2 - PCV) 01/10/1946 Influenza Vaccine (Season Ended) 2025 Hepatitis B Vaccine Aged Out No longe r eligible based on patient's age to complete this topic Insurance MCR ([id number]) RAJESH WILD [id number] [place] [address] MCR ([id number]) RAJESH WILD [id number] Care Teams Printing Supplies Sales Representative Relationship Specialty Start Date End Date Bryan Kumar MD [address] [id number] PCP - General Nephrology 04/16/23
--- OUTSIDE RECORDS SUMMARY | 2024-08-18 09:46 | XMS_ITS | Clinical Summary ---
Author Organization [facility] Address [address] [facility] [address] [place] [address] Care Team Providers Care Director Embalmer Name Role Phone Unavailable Primary Care Provider Unavailabl e Allergies No known active allergies Medications metFORMIN (Glucophage) 1000 MG tablet Take 1,000 mg by mouth with breakfast and with evening meal. Active dulaglutide (Trulicity) 1.5 MG/0.5ML solution pen-injector Inject 1.5 mg under the skin 1 (one) time per week. Active amLODIPine (Norvasc) 5 MG tablet 3 Active zolpidem (Ambien) 5 MG tablet 3 Active temazepam (Restoril) 30 MG capsule 3 Active sucralfate (Carafate) 1 GM/10ML suspension 3 Active Simethicone Ultra Strength 180 MG capsule 3 Active senna (Senokot) 8.6 MG tablet 3 Active Trulance tablet tablet 3 Active omeprazole (PriLOSEC) [address] capsule 3 Active losartan (Cozaar) 100 MG tablet 3 Active metoclopramide (Reglan) 5 MG tablet 3 Active lansoprazole (Prevacid) [address] capsule 3 Active carvedilol (Coreg) 12.5 MG tablet 3 Active atorvastatin (Lipitor) 40 MG tablet 3 Active Active Problems No known active problems Family History Medical History Relation Name Comments Diabetes Sister Relation Name Status Comments Sister Social History Tobacco Use Types Packs/Day Years Used Date Smoking Tobacco: Former Cigarettes Tobacco Cessation:Counseling Given: Not Answered Sex and Gender Information Value Date Recorded Sex Assigned at Male 03/13/2022 10:15 AM EDT Legal Sex Male 10:15 AM EDT Gender Identity Male 03/13/2022 10:15 AM EDT Sexual Orientation Straight 03/13/2022 10 :15 AM EDT Plan of Treatment Health Maintenance Due Date Last Done Comments Depression Screening 1942 Lipid Panel 1942 SDOH Screening 1942 Alcohol/Substance Use Screening 1954 Zoster Vaccines (2 of 3) 08/21/2016 06/26/2016 RSV Patients and Patients Aged 60 years or older (1 - 1-dose 75+ series) 2017 Tobacco Screening 12/09/2023 12/08/2022 COVID-19 Vaccine (2 - season) 2024 04/19/2021 Influenza Vaccine (#1) 2024 2, 04/19/2021, 03/01/2020, Additional history exists DTaP/Tdap/Td Vaccines (2 - Td or Tdap) 05/11/2027 05/11/2017 Pneumococcal Vaccine: 50+ Years Completed 09/05/2017, 06/26/2016, 03/15/2016 HIB Vaccines Aged Out No longer eligi ble based on patient's age to complete this topic HPV Vaccines Aged Out No longer eligi ble based on patient's age to complete this topic Hepatitis A Vaccines Aged Out No long er eligible based on patient's age to complete this topic Hepatitis B Vaccines Aged Out No long er eligible based on patient's age to complete this topic IPV Vaccines Aged Out No longer eligi ble based on patient's age to complete this topic Meningococcal Vaccine Aged Out No hubert jeffrey eligible based on patient's age to complete this topic RSV under 20 months Aged Out No longe r eligible based on patient's age to complete this topic Rotavirus Vaccines Aged Out No longer eligible based on patient's age to complete this topic Insurance [facility] [place]
[2024-08-18 10:15] LABS: Appearance Urine Clear; Color Urine Yellow; Glucose Urine UA Negative (Negative); Leukocyte Esterase Urine Negative (Negative); Nitrite Urine Negative (Negative); PH 5.5 (5.0-9.0); UMIC TRIGGER UA YES; Urine Blood Negative (Negative); Urine Ketones Trace mg/dL (Negative); Urine Protein 100 (2+) mg/dL (Neg-Trace)
[2024-08-18 10:25] LABS: Bacteria Urine None Seen (None Seen); Hyaline Casts Urine 0-2 /LPF (0-2); RBC Urine 0-2 /HPF (0-2); Squamous Epithelial Cell Urine 0-2 /HPF (0-2); WBC Urine 0-5 /HPF (0-5)
[2024-08-18 10:30] LABS: MANUAL DIFF FLAG NO
[2024-08-18 10:48] LABS: Basophils Absolute Auto 0.1 X10*3/uL (0.0-0.2); Basophils Percent Auto 1.8 % (0-2); Eosinophils Absolute Auto 0.3 X10*3/uL (0.0-0.4); Eosinophils Percent Auto 5.3 % (0-4); Hematocrit 30.8 % (42.0-52.0); Hemoglobin 9.6 g/dl (14.0-18.0); Imm Gran Abs Auto 0.02 X10*3/uL (0.00-0.03); Imm Gran Pct Auto 0.3 % (0.0-0.4); Lymphocytes Absolute Auto 1.2 X10*3/uL (1.2-4.9); Lymphocytes Percent Auto 20.4 % (20-40); Mean Corpuscular HGB Conc 31.2 g/dl (31.0-36.0); Mean Corpuscular Hemoglobin 24.4 pg (27.0-33.0); Mean Corpuscular Volume 78.4 fL (80.0-98.0); Mean Platelet Volume 10.8 fL (9.4-12.4); Monocytes Absolute Auto 0.5 X10*3/uL (0.1-1.2); Monocytes Percent Auto 8.8 % (2-11); Neutrophils Absolute Auto 3.8 x10*3/uL (2.0-8.3); Neutrophils Percent Auto 63.4 % (45-73); Platelet Count 155 X10*3/uL (160-400); Red Blood Count 3.93 X10*6/uL (4.60-5.80)
[2024-08-18 11:18] LABS: Creatinine Urine 101.89 mg/dL; Microalbum/Creatinine Ratio Ur 461.2 ug/mg cr (<30); Protein/Creatinine Ratio, Ur 0.73 (<0.2); Total Protein Urine Random 74 mg/dL (<12)
[2024-08-18 11:30] LABS: Albumin Level 4.3 g/dL (3.5-5.0); Anion Gap 12 (12-20); Blood Urea Nitrogen 24 mg/dL (9-16); Calcium 9.6 mg/dL (8.4-10.2); Carbon Dioxide 27 mmol/L (22-29); Chloride 106 mmol/L (96-108); Estimated Glomerular Filt Rate > 60; Magnesium 1.5 mg/dL (1.6-2.6); Potassium 4.4 mmol/L (3.3-5.1); Sodium 141 mmol/L (135-145)
[2024-08-18 11:45] LABS: Parathyroid Hormone Intact 104.4 pg/mL (8.7-77.1)
== END 2024-08-18 08:56 | disposition home or self-care (01) ==
LOC: HO.10HDL 08:55
PROVIDERS: Visit Provider Internal Medicine Nephrology
DX: E11.65 Type 2 diabetes mellitus with hyperglycemia (principal); E11.42 Type 2 diabetes mellitus with diabetic polyneuropathy; R80.9 Proteinuria, unspecified; E78.5 Hyperlipidemia, unspecified; I10 Essential (primary) hypertension; C61 Malignant neoplasm of prostate; N18.31 Chronic kidney disease, stage 3a; D64.9 Anemia, unspecified; F51.01 Primary insomnia; Z95.5 Presence of coronary angioplasty implant and graft
CPT/HCPCS: 36415; 80051; 81001; 82040; 82043; 82306; 82310; 82565; 82570; 83036; 83735; 83970; 84100; 84156; 84520; 85025; 99212

== ENCOUNTER 2024-08-18 10:48 | Outpatient (AMB) | payer OTHER, SELFPAY ==
--- NOTE | 2024-08-18 10:51 | A.OFFPC_ITS ---
Vital Signs 08/18/24 10:59 Height 5 ft 3 in Weight 129 lb 6 oz BMI 22.9 BP 160/64 H Blood Pressure Location Lt brachial Position Sitting Pulse 69 Pulse Source Pulse Oximeter Temp 96.9 F Temp Source Temporal Artery Scan Pulse Oximetry (%) 96 Oxygen Delivery Method Room Air Intake Visit Reasons: f/u DMII/ HTN Welfare Supervisor Required: Yes Welfare Supervisor Language: Fixed Wing Aircraft Flight Engineer Name: Pt refuse daughter interpret Accompanied by: Daughter Allergies No Known Allergies [No Known Allergies*] Allergy (Verified 08/18/24 11:07) Medication List - Last Reconciled 08/18/24 by Nando Hodges PA-C amlodipine 5 mg PO DAILY 30 days aspirin (Enteric Coated Aspirin) 81 mg PO DAILY 3 months atorvastatin 40 mg PO BEDTIME 90 days blood pressure monitor (Blood Pressure Kit) As directed blood-glucose meter As directed carvedilol 12.5 mg PO BID 90 days cholecalciferol (vitamin D3) 25 mcg PO DAILY 3 months clotrimazole 1% 1 appl topical BID 2 weeks dulaglutide (Trulicity) 1.5 mg (0.5 mL) subcut QWEEK 4 weeks empagliflozin (Jardiance) 25 mg PO DAILY 90 days glucose 4 grams PO ONCE PRN lancets As directed lansoprazole 30 mg PO DAILY 90 days losartan 100 mg PO DAILY metformin 1,000 mg PO BID 90 days metoclopramide HCl (Reglan) 10 mg PO QIDACHS mupirocin 2% 1 appl topical BID 15 days nitroglycerin 0.4 mg sublingual Q5M PRN repaglinide 0.5 mg PO DAILY simethicone 180 mg PO QID PRN 30 days spironolactone 25 mg PO DAILY 90 days temazepam 30 mg PO BEDTIME PRN 30 days Tobacco use date assessed: 05/20/24 Fall risk assessment: No Falls in past year Last assessed Fall Risk: 08/18/24 Dental Screening Dental Screen Date: 08/18/24 Did you have a dental visit in the last 12 months?: Yes Did you have a dental problem in the last 6 months where you did not have access to dental care?: No Was dental information given to patient?: Patient has dentist HPI f/u DMII/ HTN HPI Details Patient is an 84-year-old male here today for a follow-up visit.. He is Swiss-speaking only. This is the 2nd time I am meeting this 84-year-old male with a past medical history significant for hypertension, hyperlipidemia, type 2 diabetes, coronary artery disease. Concern--> Anemia: Have no longstanding anemia of chronic disease though most recent labs showing worsening hemoglobin and low MCV. .. Hypertension: Most recent PCP office visit he was started on spironolactone for better blood pressure control and to help minimize lower extremity edema. Blood pressure still remains slightly elevated today in office and most recent kidney function has worsened. .. Insomnia: Insomnia is managed with temazepam, though financial constraints hinder its consistent use due to poor insurance coverage. Consideration of clonazepam as an alternative to mitigate habit-forming risks and address coverage issues was discussed. .. Type 2 diabetes: Seems to have been suboptimally controlled. Today's A1c elevated at 8.1. He has been adherent to all of his diabetic medication PLAN: Will continue current antihyperglycemic medication and work on low carbohydrate diet. .. Coronary artery disease: Did have coronary artery stents placed many years ago, most recent lipid panel showing excellent control of his total cholesterol and LDL. Goal LDL is to remain optimally below 70. Labs reviewed with patient and family in noted worsening anemia and a low MCV. 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 Allergic rhinitis Microalbuminuria Insomnia History of Helicobacter infection GERD (gastroesophageal reflux disease) History of prostate cancer Coronary artery disease Vitamin D deficiency Hyperlipidemia LDL goal <100 Essential hypertension Type 2 diabetes mellitus with hyperglycemia Surgical History Stented coronary artery History of cardiac cath Hx of esophagogastroduodenoscopy Hx of prostate biopsy Hx of colonoscopy Family History Father Medical history unknown Mother Medical history unknown Sister Diabetes Daughter Breast cancer Social History Household Members: None Housing: Apartment Housing Other:: [employer] Services Do you presently have visiting nurse or other home services: Yes Alcohol intake: never Patient Tobacco Use Status: Former Tobacco user Tobacco use type: Cigarette e-Cigarette/Vaping Use: Never Used Second Hand Smoke Exposure: No service: No Current occupational status: retired Cognitive needs: Yes Hearing needs: No Vision needs: Yes Questionnaire Thrive Questionnaire Date Thrive assessed: 05/20/24 KULWINDER-7 AMB Questionnaire KULWINDER-7 Date KULWINDER - 7 assessed: 05/20/24 Source: Developed by Drs. Sammy Ellis, Pippa Orellana, Bebeto Gagnon and colleagues, with an educational vipin from [employer]. Review of Systems Const Denies headache(s) Eyes Denies loss of vision ENT Denies vertigo, Denies dizziness, Denies headache(s) and Denies sore throat Card Denies chest pain, Denies leg edema and Denies lightheadedness Resp Denies cough, Denies hemoptysis and Denies wheezing GI Denies abdominal pain, Denies melena, Denies constipation, Denies diarrhea and Denies vomiting Denies dysuria, Denies urinary frequency and Denies urinary urgency Musc Denies arthralgias, Denies joint swelling, Denies numbness and Denies tingling Neuro Denies Abnormal speech present, Denies behavioral changes, Denies vertigo, Denies dizziness, Denies headache(s), Denies loss of vision, Denies memory loss, Denies numbness and Denies tingling Psych Denies anxiety, Denies behavioral changes, Denies depression, Denies memory loss and Denies panic attacks Casey/Lymph Denies easy bleeding and Denies easy bruising Aller/Immun Denies wheezing Physical exam (Primary Care) Vital Signs: Last Vital Signs Temp 96.9 F 08/18/24 10:59 Pulse 69 08/18/24 10:59 BP 160/64 H 08/18/24 10:59 Pulse Ox 96 08/18/24 10:59 Oxygen Delivery Method Room Air 08/18/24 10:59 BMI result Body Mass Index 22.9 Tobacco/Smoking Status: Tobacco use Status Tobacco use date assessed 05/20/24 08/18/24 10:51 Patient Tobacco Use Status Former Tobacco user 08/18/24 10:51 Tobacco use type Cigarette 08/18/24 10:51 e-Cigarette/Vaping Use Never Used 08/18/24 10:51 Thrive Assessment: Date of Thrive Assessment Date Thrive assessed 05/20/24 08/18/24 10:51 Const General: healthy appearing, no acute distress, alert and awake Nutritional Appearance: well nourished Orientation/consciousness: oriented to person, oriented to place and oriented to time HENMT Ears: TM's normal bilaterally General nose exam: Normal nasal mucous membranes and turbinates present Eyes Conjunctivae: conjunctivae normal Sclerae: sclerae normal Pupils: Equal, round and reactive pupils present Neck Neck: Yes no lymphadenopathy and Yes no JVD Thyroid: Thyroid normal Carotids: no bruits Resp Effort & Inspection: normal respiratory effort and not tachypneic Auscultation: no crackles, no rales, no rhonchi and no wheezes Cardio Rate: regular rate Rhythm: regular rhythm Heart sounds: no murmurs and normal S1 and S2 GI Palpation (GI): Soft to palpation, nontender, no hepatomegaly and no splenomegaly Auscultation: normal bowel sounds Skin General skin exam: no rashes or lesions noted and dry skin Neuro General: oriented to person, oriented to place and oriented to time Cranial nerves: Yes Equal, round and reactive pupils present Speech: No Abnormal speech present Gait exam (Neuro): Normal gait present Motor exam (neuro): no tremor noted Extrem Right upper extremity: full ROM Left upper extremity: full ROM Right lower extremity: full ROM; no edema Left lower extremity: full ROM; no edema Psych Mental Status: mental status grossly normal Speech and movement: Normal speech and movement present Affect: normal affect Attitude: cooperative Thought process: Normal thought process present Results AMB Hemoglobin A1c AMB Hemoglobin A1c 8.1 % Last Edit by DONNA Butt on 08/18/24 11:18 Results Reviewed Results Reviewed: Laboratory Last Values Hgb A1c (Clinic) 8.1 % (4.0-6.0) H 08/18/24 10:57 Coding Level of Care Code Est Pt Level 4 (90041) Diagnoses Type 2 diabetes mellitus with hyperglycemia, unspecified whether alf insulin use E11.65 Diabetes mellitus intermission coordinator insulin use: unspecified intermission coordinator insulin use status Hyperlipidemia LDL goal <70 E78.5 Essential hypertension I10 Stented coronary artery Z95.5 Malignant neoplasm of prostate C61 Primary insomnia F51.01 Insomnia type: primary Iron deficiency anemia, unspecified iron deficiency anemia type D50.9 Anemia type: iron deficiency Iron deficiency anemia type: unspecified iron deficiency Assessment & Plan Assessment & Plan (1) Type 2 diabetes mellitus with hyperglycemia: Code(s): E11.65 - Type 2 diabetes mellitus with hyperglycemia Category: Medical Qualifiers: Diabetes mellitus alf insulin use: unspecified alf insulin use status Qualified Code(s): E11.65 - Type 2 diabetes mellitus with hyperglycemia Plan: Patient's type 2 diabetes suboptimally controlled with A1c at 8.1. Family does admit to dietary indiscretion. Will continue his current diabetic med regime and work diabetic diet. Goal A1c to be below 8.0 due to age and comorbidities Implement nutritional intervention with emphasis on refined carbohydrate reduction, aiming to maintain A1c targets and improve glycemic control. (2) Hyperlipidemia LDL goal <70: Code(s): E78.5 - Hyperlipidemia, unspecified Category: Medical Plan: Patient most recent fasting lipid panel showing excellent control of his total cholesterol and LDL. Does have a history of coronary artery disease. Goal LDL is to be optimally below 70. (3) Essential hypertension: Code(s): I10 - Essential (primary) hypertension Category: Medical Plan: Patient's blood pressure slightly elevated today in office. Continues to follow Nephrology , most recent urinalysis showing high-protein. Advised to stay well hydrated. Due to elevated blood pressure will change his losartan to combo agent losartan hydrochlorothiazide. Goal blood pressure to be below 140/90 (4) Stented coronary artery: Code(s): Z95.5 - Presence of coronary angioplasty implant and graft Category: Surgical Plan: Patient has no reports chest discomfort or shortness of breath. As above goal LDL to remain below 70. (5) Malignant neoplasm of prostate: Code(s): C61 - Malignant neoplasm of prostate Category: Medical Plan: Patient has a history prostate cancer did get biopsies with previous urologist. Has no further Urology follow up. Will check his PSA and refer to Urology (6) Insomnia: Code(s): G47.00 - Insomnia, unspecified Category: Medical Qualifiers: Insomnia type: primary Qualified Code(s): F51.01 - Primary insomnia Plan: Continue temazepam with consideration of potential dependency; possible introduction of melatonin discussed. Family does report having difficulty with insurance coverage at temazepam. Will transitioned to clonazepam in hopes that insurance will cover. Otherwise family does understand that patient has a benzodiazepine dependency (7) Anemia: Code(s): D64.9 - Anemia, unspecified Category: Medical Qualifiers: Anemia type: iron deficiency Iron deficiency anemia type: unspecified iron deficiency Qualified Code(s): D50.9 - Iron deficiency anemia, unspecified Plan: Patient was found to have low MCV and hemoglobin of 9.7. No overt signs of bleeding noted. Will start iron supplementation, did warm patient and family about side effects (constipation) of iron supplementation Initiate oral iron supplementation and schedule follow-up labs to monitor hemoglobin level improvements. Advised to get repeat labs in 8 weeks to evaluate his anemia. Orders: Orders AMB Hemoglobin A1c 08/18/24 E11.65 - Type 2 diabetes mellitus with hyperglycemia Complete Blood Count no Diff 8 Weeks D50.9 - Iron deficiency anemia, unspecified Comprehensive Met. Panel 8 Weeks D50.9 - Iron deficiency anemia, unspecified IRON PROFILE 8 Weeks D50.9 - Iron deficiency anemia, unspecified Medications: New losartan-hydrochlorothiazide 100-12.5 mg 1 tab PO DAILY 90 tabs 1RF I10 - Essential (primary) hypertension ferrous sulfate 325 mg PO DAILY 30 tabs 3RF D50.9 - Iron deficiency anemia, unspecified clonazepam administer 30 minutes before bedtime 0.5 mg PO BEDTIME 30 tabs 3RF 30 days F51.01 - Primary insomnia On Hold temazepam Hold Comment: Doctor's Order 30 mg PO BEDTIME 30 days PRN 30 caps 3RF sleep F51.01 - Primary insomnia losartan Hold Comment: Doctor's Order 100 mg PO DAILY 90 tabs 2RF
[2024-08-18 10:59] VITALS: BP 160/64; PULSE 69; TEMP 36.1; O2SAT 96; BMI 22.9
--- OUTSIDE RECORDS SUMMARY | 2024-08-18 12:52 | XMS_ITS | Clinical Summary ---
Author Organization [employer] Address [address] [place] [address] Care Team Providers Care Dictaphone Transcriber Name Role Phone Unavailable Primary Care Provider [...] patient's age to complete this topic Insurance [facility]
--- OUTSIDE RECORDS SUMMARY | 2024-08-18 12:52 | XMS_ITS | Clinical Summary ---
Author Organization [facility] Address [address] [address] Phone Care Team Providers Care Legal Billing Analyst Name Role Phone Bryan Kumar MD Primary Care Provider [phone] Allergies No known active allergies Medications aspirin [...] Visit [facility] [address] [place] [address] Bryan Kumar [...] Visit [facility] [address] [address] Bryan Kumar MD [address] [address] Health Maintenance Due Date Last Done Comments Pneumococcal Vaccine: 65+ Ye ars (1 of 2 - PCV) 01/10/1946 Influenza Vaccine (Season Ended) 2025 Hepatitis B Vaccine Aged Out No longe r eligible based on patient's age to complete this topic Procedures Procedure Name Priority Date/Time Associated Diagnosis Comments PTH, INTACT (HC) Routine 08/18/2024 10:2 7 AM EDT CREATININE, BLOOD Routine 08/18/2024 10: 27 AM EDT BUN Routine 08/18/2024 10:27 AM EDT ELECTROLYTE PANEL Routine 08/18/2024 10: 27 AM EDT CBC AND DIFFERENTIAL Routine 08/18/2024 10:27 AM EDT CALCIUM Routine 08/18/2024 10:27 AM EDT Stage 3a chronic kidney disease (HCC) Microalbuminuria ALBUMIN Routine 08/18/2024 10:27 AM EDT Stage 3a chronic kidney disease (HCC) Microalbuminuria MAGNESIUM Routine 08/18/2024 10:27 AM EDT Stage 3a chronic kidney disease (HCC) Microalbuminuria PHOSPHATE ( PHOSPHORUS) Routine 08/18/2024 10:27 AM EDT Stage 3a chronic kidney disease (HCC) Microalbuminuria VITAMIN D 25 HYDROXY Routine 08/18/2024 10:27 AM EDT Stage 3a chronic kidney disease (HCC) Microalbuminuria ALBUMIN, URINE, RANDOM Routine 08/18/2024 10:01 AM EDT PROTEIN / CREATININE RATIO, URINE Routine 08/18/2024 10:01 AM EDT Stage 3a chronic kidney disease (HCC) Microalbuminuria URINALYSIS WITH MICROSCOPIC Routine 08/18/2024 10:01 AM EDT Stage 3a chronic kidney disease (HCC) Microalbuminuria from Last 3 Months Results * Creatinine (08/18/2024 10:27 AM EDT) Creatinine Serum 0.97 0.5 - 1.4 mg/dL See order comments eGFR >60 See order comments Comment: Chronic Kidney Disease: ??Estimated GFR < 60 mL/min/1.73m2 Severe Kidney Disease: ??Estimated GFR < 15 mL/min/1.73m2 08/18/2024 10:2 7 AM EDT 08/18/2024 10:27 AM EDT us Bryan Kumar MD LAB BLOOD ORDERABLES Final Re sult Performing Organization Address City/[facility] Co de Phone Number [place] See order comments [place] [address] * (ABNORMAL) PTH, Intact (08/18/2024 10:27 AM EDT) Parathyroid Hormone, Intact 104.4(H) 8.7 - 77.1 pg/mL See order comments 08/18/2024 10:2 7 AM EDT 08/18/2024 10:27 AM EDT us Bryan Kumar MD LAB [id number] SOLICITED RESULTS Final Result Performing Organization Address [facility] Co de Phone Number [place] See order comments [place] [address] * Vitamin D 25 Hydroxy (08/18/2024 10:27 AM EDT) Vitamin D, 25-Hydroxy 49.0 >30 ng/mL See order comments Comment: Health Based Reference Values* < 20 ??ng/mL ??Deficient 20-30 ng/mL ??Insufficient > 30 ??ng/mL ??Sufficient *Chapin PUENTES. N Engl J Med. 2007;357:266-280 There is no well-established upper level of normal vitamin D levels. Some laboratories use 50 ng/mL as an upper limit of normal. However, toxicity is patient-dependent and may occur at any level. Careful correlation with the patient's presentation is necessary and, if there is concern for vitamin D toxicity, treatment should be considered irrespective of the serum level. Care must be taken in interpreting Vitamin D results from different laboratories and methodologies. ??Published data demonstrated that results from patients undergoing hemodialysis may show a negative bias when tested with various automated 25-OH vitamin D assays when compared to LC-MS/MS. When testing samples from patients whose predominant form of Vitamin D is Vitamin D2, such as patients receiving Vitamin D2 supplementation, results that are subtherapeutic should be confirmed with another method such as LC-MS/MS. Blood (Blood, Venous) 08/18/2024 10:27 AM EDT 08/18/2024 10:27 AM EDT us Bryan Kumar MD LAB BLOOD ORDERABLES Final Re sult [place] See order comments [place] [address] * (ABNORMAL) CBC and Differential (08/18/2024 10:27 AM EDT) WBC 6.0 4.8 - 10.8 X10*3/uL See order comments RBC 3.93(L) 4.60 - 5.80 X10*6/uL See order comments Hgb 9.6(L) 14.0 - 18.0 g/dl See order comments Hematocrit 30.8(L) 42.0 - 52.0 % See order comments MCV 78.4(L) 80.0 - 98.0 fL See order comments MCH 24.4(L) 27.0 - 33.0 pg See order comments MCHC 31.2 31.0 - 36.0 g/dl See order comments RDW 15.0 11.0 - 16.0 % See order comments Platelets 155(L) 160 - 400 X10*3/uL See order comments MPV 10.8 9.4 - 12.4 fL See order comments Neutrophils % Auto 63.4 45 - 73 % See order comments Immature Granulocytes 0.3 0.0 - 0.4 % See order comments Lymphocytes Relative 20.4 20 - 40 % See order comments Monocytes 8.8 2 - 11 % See order comments Eosinophils Relative 5.3(H) 0 - 4 % See order comments Basophils Relative 1.8 0 - 2 % See order comments nRBC Count 0.0 0.0 - 0.2 /100WBC See order comments Neutrophils Absolute 3.8 2.0 - 8.3 x10*3/uL See order comments Immature Grans (Absolute) 0.02 0.00 - 0.03 X10*3/uL See order comments Lymphocytes Absolute 1.2 1.2 - 4.9 X10*3/uL See order comments Monocytes Absolute 0.5 0.1 - 1.2 X10*3/uL See order comments Eosinophils Absolute 0.3 0.0 - 0.4 X10*3/uL See order comments Basophils Absolute 0.1 0.0 - 0.2 X10*3/uL See order comments NRBC Absolute 0.000 0.0 - 0.012 X10*3/uL See order comments 08/18/2024 10:2 7 AM EDT 08/18/2024 10:27 AM EDT Bryan Kumar MD LAB BLOOD ORDERABLES Final Re sult [place] See order comments [place] [address] * (ABNORMAL) BUN (08/18/2024 10:27 AM EDT) BUN 24(H) 9 - 16 mg/dL See order comments 08/18/2024 10:2 7 AM EDT 08/18/2024 10:27 AM EDT us Bryan Kumar MD LAB BLOOD ORDERABLES Final Re sult Performing Organization Address [facility] Phone Number [place] See order comments [place] [address] * Phosphorus (08/18/2024 10:27 AM EDT) Pathologist [facility] Phosphorus, Serum 3.0 2.7 - 4.5 mg/dL See order comments Blood (Blood, Venous) 08/18/2024 10:27 AM EDT 08/18/2024 10:27 AM EDT us Bryan Kumar MD LAB BLOOD ORDERABLES Final Re sult Performing Organization Address [facility] Phone Number [place] See order comments [place] [address] * (ABNORMAL) Magnesium (08/18/2024 10:27 AM EDT) Pathologist [facility] Magnesium 1.5(L) 1.6 - 2.6 mg/dL See order comments Blood (Blood, Venous) 08/18/2024 10:27 AM EDT 08/18/2024 10:27 AM EDT us Bryan Kumar MD LAB BLOOD ORDERABLES Final Re sult Performing Organization Address [facility] Phone Number [place] See order comments [place] [address] * Calcium (08/18/2024 10:27 AM EDT) Pathologist [facility] Calcium 9.6 8.4 - 10.2 mg/dL See order comments Blood (Blood, Venous) 08/18/2024 10:27 AM EDT 08/18/2024 10:27 AM EDT us Bryan Kumar MD LAB BLOOD ORDERABLES Final Re sult Performing Organization Address [facility] de Phone Number [place] See order comments [place] [address] * Albumin (08/18/2024 10:27 AM EDT) Pathologist [facility] Albumin 4.3 3.5 - 5.0 g/dL See order comments Blood (Blood, Venous) 08/18/2024 10:27 AM EDT 08/18/2024 10:27 AM EDT Bryan Kumar MD LAB BLOOD ORDERABLES Final Re sult [place] See order comments [place] [address] * Electrolyte panel (08/18/2024 10:27 AM EDT) Sodium 141 135 - 145 mmol/L See order comments Potassium 4.4 3.3 - 5.1 mmol/L See order comments Chloride 106 96 - 108 mmol/L See order comments Bicarbonate (CO2) 27 22 - 29 mmol/L See order comments Anion Gap 12 12 - 20 See order comments 08/18/2024 10:2 7 AM EDT 08/18/2024 10:27 AM EDT Bryan Kumar MD LAB BLOOD ORDERABLES Final Re sult Performing Organization Address [facility] Co de Phone Number [place] See order comments [place] [address] * (ABNORMAL) Protein, Total, Random Urine w/Creatinine (Protein/Creat Ratio) (08/18/2024 10:01 AM EDT) Protein Urine Random 74(H) <12 mg/dL See order comments Protein/Creati nine Ratio, Urine 0.73(H) <0.2 See order comments Comment: The spot urine protein:creatinine ratio may increase to 0.3 during normal . Urine (Urine, Clean Catch) 08/18/2024 10:01 AM EDT 08/18/2024 10:01 AM EDT Bryan Kumar MD LAB URINE ORDERABLES Final Re sult Performing Organization Address [facility] Co de Phone Number [place] See order comments [place] [address] * (ABNORMAL) Albumin, urine, random (08/18/2024 10:01 AM EDT) Creatinine, Urine 101.89 mg/dL Se e order comments Urine Microalbumin 470.0 mg/L See order comments Microalbumin/Crea tinine Ratio 461.2(H) <30 ug/mg cr See order comments Comment: ?Albumin/Creatinine Ratio Reference Ranges: ?Normal: < 30 ug/mg creatinine ?Microalbuminuria: ??30 - 300 ug/mg creatinine Clinical Albuminuria: ??> 300 ug/mg creatinine 08/18/2024 10:0 1 AM EDT 08/18/2024 10:01 AM EDT us Bryan Kumar MD LAB URINE ORDERABLES Final Re sult [place] See order comments [place] [address] * (ABNORMAL) Urinalysis with microscopic (08/18/2024 10:01 AM EDT) Color Urine Yellow See orde r comments Appearance Urine Clear See order comments pH Urine 5.5 5.0 - 9.0 See order comments Glucose Urine Negative Negative mg/dL See order comments Blood, Urine Negative Negative See ord er comments Specific [place] Urine 1.020 1.005 - 1.025 See order comments Protein Urine 100 (2+)(A) Neg-Trace mg/dL See order comments Ketones, Urine Trace Negative mg/dL See order comments Nitrite, Urine Negative Negative See o rder comments Leukocyte Esterase Urine Negative Negative See order comments RBC, Urine 0-2 0 - 2 /HPF See orde r comments WBC 0-5 0 - 5 /HPF See order comments Squamous Epithelial, Urine 0-2 0 - 2 /HPF See order comments Bacteria, Urine None Seen None Seen See order comments Hyaline Casts, Urine 0-2 0 - 2 /LPF See order comments Urine (Urine, Clean Catch) 08/18/2024 10:01 AM EDT 08/18/2024 10:01 AM EDT us Bryan Kumar MD LAB URINE ORDERABLES Final Re sult [place] See order comments [place] [address] from Last 3 Months Insurance ([id number]) ([id number]) Care Teams Legal Billing Analyst Relationship Specialty Start Date End Date Bryan Kumar MD [address] [phone] PCP - General Nephrology 04/16/23
== END 2024-08-18 11:29 | disposition home or self-care (01) ==
LOC: HO.HMCH 10:48
PROVIDERS: PCP Internal Medicine; Visit Provider Physician Assistant
DX: E11.65 Type 2 diabetes mellitus with hyperglycemia (principal)

== ENCOUNTER 2024-09-08 10:44 | Outpatient (AMB) | payer OTHER, SELFPAY ==
--- NOTE | 2024-09-08 10:55 | MHC.OFFVIS ---
Intake Visit Reasons: history of prostate cancer Intake Note: New patient presents today for initial visit for prostate cancer hx Urology Medication:none Blood Thinner:Aspirin Antibiotic Allergies:none Allergies No Known Allergies [No Known Allergies*] Allergy (Verified 09/08/24 11:00) HPI Comments Details: Vaishnavi is an 84 year old male, Tamazight speaking, here with his daughter who interprets for him. She states that he was diagnosed with prostate cancer about [address] Foley here at [place] and treated with radiation. He was last seen in 2019 that time was told that he was doing well. He denies any irritative voiding symptoms. He is unable to give a urine specimen bladder scan PVR is minimal. I have discussed PSA screening to reestablish baseline. 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 Allergic rhinitis Microalbuminuria Insomnia History of Helicobacter infection GERD (gastroesophageal reflux disease) History of prostate cancer Coronary artery disease Vitamin D deficiency Hyperlipidemia LDL goal <100 Essential hypertension Type 2 diabetes mellitus with hyperglycemia Surgical History Stented coronary artery History of cardiac cath Hx of esophagogastroduodenoscopy Hx of prostate biopsy Hx of colonoscopy Family History Father Medical history unknown Mother Medical history unknown Sister Diabetes Daughter Breast cancer Social History Household Members: None Housing: Apartment Housing 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 Services Do you presently have visiting nurse or other home services: Yes Alcohol intake: never Patient Tobacco Use Status: Former Tobacco user Tobacco use type: Cigarette e-Cigarette/Vaping Use: Never Used Second Hand Smoke Exposure: No service: No Current occupational status: retired Cognitive needs: Yes Hearing needs: No Vision needs: Yes Review of Systems Const All systems reviewed & are unremarkable except as noted in HPI and below Reports no additional complaints Eyes Reports no additional complaints ENT Reports no additional complaints Card Reports no additional complaints Resp Reports no additional complaints GI Reports no additional complaints Reports as per HPI Musc Reports no additional complaints Skin/Breast Reports system reviewed and no additional complaints, except as documented Neuro Reports no additional complaints Psych Reports no additional complaints Endo Reports no additional complaints Casey/Lymph Reports no additional complaints Aller/Immun Reports no additional complaints Physical Exam Const General: healthy appearing, no acute distress and well developed Orientation/consciousness: patient oriented x3 HEENT Head: Yes normocephalic and Yes atraumatic Eyes Conjunctivae: conjunctivae normal Neck Neck: Yes normal visual inspection Chest Chest palpation & inspection: normal inspection of the chest Resp Effort & Inspection: normal respiratory effort GI Inspection: Yes normal to inspection Palpation (GI): Soft to palpation Neuro General: patient oriented x3 Psych Appearance: grossly normal Affect: normal affect Assessment & Plan Assessment & Plan (1) History of prostate cancer: Code(s): Z85.46 - Personal history of malignant neoplasm of prostate Category: Medical Plan Check PSA Orders: Orders AMB Urinalysis Automated Today Lucia Wiggins MD Z13.9 - Encounter for screening, unspecified PSA,Total (Free>4and<10) Today Lucia Wiggins MD Z85.46 - Personal history of malignant neoplasm of prostate Medications: Discontinued clonazepam administer 30 minutes before bedtime Discontinued Reason: Doctor's Order 0.5 mg PO BEDTIME 30 days 30 tabs 3RF F51.01 - Primary insomnia Resumed temazepam 30 mg PO BEDTIME 30 days PRN 30 caps 3RF sleep Nando Hodges PA-C F51.01 - Primary insomnia temazepam 30 mg PO BEDTIME 30 days PRN 30 caps 3RF sleep Nando Hodges PA-C F51.01 - Primary insomnia Patient Instructions: The patient had an opportunity to ask questions regarding treatment plan. The patient expressed understanding and agreement with the above treatment plan. The patient is aware they should contact our office by phone for worsening of their current condition or the appearance of new symptoms. Compliance is encouraged with any medications and followup testing that is ordered. It is a privilege to be allowed the opportunity to participate in the urologic care of your patient. If you have any questions or concerns regarding treatment for the above conditions please do not hesitate to contact me. The office telephone contact is [phone]. This note is constructed in part using voice recognition software. While every effort has been made to ensure accuracy notching press operator errors may have been included. Yours sincerely, Lucia Wiggins MD Coding Level of Care Code New Pt Level 3 (10431) Diagnoses History of prostate cancer Z85.46
--- OUTSIDE RECORDS SUMMARY | 2024-09-08 12:47 | XMS_ITS | Clinical Summary ---
Author Organization [employer] Address [address] [place] [address] Care Team Providers Care Angle Shear Set Up Operator Name Role Phone Unavailable Primary Care Provider [...] patient's age to complete this topic Insurance [facility] PR[employer] OPTIONS (O D-SNP) RAJESH WILD [id number]
--- OUTSIDE RECORDS SUMMARY | 2024-09-08 12:47 | XMS_ITS | Clinical Summary ---
Author Organization [facility] Address [address] [address] Phone Care Team Providers Care Powder Core Tester Name Role Phone Bryan Kumar MD Primary Care Provider Allergies No known active allergies Medications aspirin [...] Visit [facility] the [address] [place] [address] Bryan Kumar [...] Visit [facility] [address] [address] Bryan Kumar MD [address] [address] Health Maintenance Due Date Last Done Comments Pneumococcal Vaccine: 50+ Ye ars (1 of 2 - PCV) 1959 Influenza Vaccine (Season Ended) 2025 Hepatitis B [...] ORDERABLES Final Re sult Performing Organization Address City/[facility] Co de Phone Number [place] See order comments [place] [address] * (ABNORMAL) PTH, Intact (08/18/2024 10:27 AM EDT) Parathyroid Hormone, Intact 104.4(H) 8.7 - 77.1 pg/mL See order comments 08/18/2024 10:2 7 AM EDT 08/18/2024 10:27 AM EDT us Bryan Kumar MD LAB [id number] SOLICITED RESULTS Final Result Performing Organization Address [facility] Co de Phone Number [place] See order comments [place] [address] * Vitamin D 25 Hydroxy (08/18/2024 10:27 [...] order comments [place] [address] * (ABNORMAL) CBC and Differential (08/18/2024 10:27 [...] order comments [place] [address] * (ABNORMAL) BUN (08/18/2024 10:27 AM EDT) BUN 24(H) 9 - 16 mg/dL See order comments 08/18/2024 10:2 7 AM EDT 08/18/2024 10:27 AM EDT us Bryan Kumar MD LAB BLOOD ORDERABLES Final Re sult Performing Organization Address [facility] Phone Number [place] See order comments [place] [address] * Phosphorus (08/18/2024 10:27 AM EDT) Pathologist [facility] Phosphorus, Serum 3.0 2.7 - 4.5 mg/dL See order comments Blood (Blood, Venous) 08/18/2024 10:27 AM EDT 08/18/2024 10:27 AM EDT us Bryan Kumar MD LAB BLOOD ORDERABLES Final Re sult Performing Organization Address [facility] Phone Number [place] See order comments [place] [address] * (ABNORMAL) Magnesium (08/18/2024 10:27 AM EDT) Pathologist [facility] Magnesium 1.5(L) 1.6 - 2.6 mg/dL See order comments Blood (Blood, Venous) 08/18/2024 10:27 AM EDT 08/18/2024 10:27 AM EDT us Bryan Kumar MD LAB BLOOD ORDERABLES Final Re sult Performing Organization Address [facility] Phone Number [place] See order comments [place] [address] * Calcium (08/18/2024 10:27 AM EDT) Pathologist [facility] Calcium 9.6 8.4 - 10.2 mg/dL See order comments Blood (Blood, Venous) 08/18/2024 10:27 AM EDT 08/18/2024 10:27 AM EDT us Bryan Kumar MD LAB BLOOD ORDERABLES Final Re sult Performing Organization Address [facility] de Phone Number [place] See order comments [place] [address] * Albumin (08/18/2024 10:27 AM EDT) Pathologist [facility] Albumin 4.3 3.5 - 5.0 g/dL See order comments Blood (Blood, Venous) 08/18/2024 10:27 AM EDT 08/18/2024 10:27 AM EDT Bryan Kumar MD LAB BLOOD ORDERABLES Final Re sult [place] See order comments [place] [address] * Electrolyte panel (08/18/2024 10:27 AM EDT) [...] ORDERABLES Final Re sult Performing Organization Address [facility] Co de Phone Number [place] See order comments [place] [address] * (ABNORMAL) Protein, Total, Random Urine w/Creatinine [...] ORDERABLES Final Re sult Performing Organization Address [facility] Co de Phone Number [place] See order comments [place] [address] * (ABNORMAL) Albumin, urine, random (08/18/2024 10:01 [...] order comments [place] [address] * (ABNORMAL) Urinalysis with microscopic (08/18/2024 10:01 AM EDT) Color Urine Yellow See orde r comments Appearance Urine Clear See order comments pH Urine 5.5 5.0 - 9.0 See order comments Glucose Urine Negative Negative mg/dL See order comments Blood, Urine Negative Negative See ord er comments Specific [place] Urine 1.020 1.005 - 1.025 See order [...] MD LAB URINE ORDERABLES Final Re sult [place] See order comments [place] [address] from Last 3 Months Insurance ([id number]) ([id number]) Care Teams Powder Core Tester Relationship Specialty Start Date End Date Bryan Kumar MD [address] [phone] PCP - General Nephrology 04/16/23
== END 2024-09-08 11:31 | disposition home or self-care (01) ==
LOC: HO.HUSH 10:45
PROVIDERS: PCP Internal Medicine; Visit Provider Urology
DX: Z85.46 Personal history of malignant neoplasm of prostate (principal)
CPT/HCPCS: 99203

== ENCOUNTER → 2024-09-08 10:44 | Outpatient (BNVA) | payer OTHER, SELFPAY | PROVIDERS: PCP Internal Medicine; Visit Provider Urology | DX: F51.01 Primary insomnia (principal); Z85.46 Personal history of malignant neoplasm of prostate | CPT/HCPCS: 99202 ==

== ENCOUNTER 2024-10-10 08:38 | Outpatient (REF) | payer OTHER, SELFPAY ==
--- OUTSIDE RECORDS SUMMARY | 2024-10-10 08:40 | XMS_ITS | Clinical Summary ---
Author Organization [employer] Address [address] [place] [address] [address] [place] [address] Care Team Providers Care Casing Machine Operator Name Role Phone Unavailable Primary Care [...] patient's age to complete this topic Meningococcal B Vaccine Aged Out No l onger eligible based on patient's age to complete this topic Meningococcal Vaccine Aged Out No hubert jeffrey eligible based on patient's age to complete this topic RSV under 20 months Aged Out No longe r eligible based on patient's age to complete this topic Rotavirus Vaccines Aged Out No longer eligible based on patient's age to complete this topic Insurance [facility] OPTIONS (O D-SNP) RAJESH WILD [id number]
[2024-10-10 11:54] LABS: PSA,Total (Free>4and<10) 0.36 ng/mL (0.00-4.00)
== END 2024-10-10 08:39 | disposition home or self-care (01) ==
LOC: HO.10HDL 08:38
PROVIDERS: Visit Provider Urology
DX: Z85.46 Personal history of malignant neoplasm of prostate (principal); Z12.5 Encounter for screening for malignant neoplasm of prostate
CPT/HCPCS: 36415; 84153

== ENCOUNTER 2024-11-17 10:45 | Outpatient (AMB) | payer OTHER, SELFPAY ==
--- NOTE | 2024-11-17 10:54 | MHC.PC.OV ---
Vital Signs 11/17/24 10:55 Height 5 ft 3 in Weight 127 lb 6 oz BMI 22.6 BP 132/52 L Blood Pressure Location Lt brachial Position Sitting Pulse 58 Pulse Source Pulse Oximeter Pulse Oximetry (%) 98 Intake Visit Reasons: f/u DMII/ HTN Accounts Specialist Required: No Accompanied by: Self / Same As Patient Allergies No Known Allergies (No Known Allergies*) Allergy (Verified 11/17/24 11:03) Medication List - Last Reconciled 11/17/24 by Nando Hodges PA-C amlodipine 5 mg PO DAILY 30 days aspirin (Enteric Coated Aspirin) 81 mg PO DAILY 3 months atorvastatin 40 mg PO BEDTIME 90 days blood pressure monitor (Blood Pressure Kit) As directed blood-glucose meter As directed carvedilol 12.5 mg PO BID 90 days cholecalciferol (vitamin D3) 25 mcg PO DAILY 3 months clonazepam 0.5 mg PO BEDTIME 30 days dulaglutide (Trulicity) 1.5 mg (0.5 mL) subcut QWEEK 4 weeks empagliflozin (Jardiance) 25 mg PO DAILY 90 days ferrous sulfate 325 mg PO DAILY glucose 4 grams PO ONCE PRN lancets As directed lansoprazole 30 mg PO DAILY 90 days losartan 100 mg PO DAILY Held on 08/18/24. Instructions: Doctor's Order losartan-hydrochlorothiazide 100-12.5 mg 1 tab PO DAILY losartan-hydrochlorothiazide 100-12.5 mg 1 tab PO DAILY metformin 1,000 mg PO BID 90 days metoclopramide HCl (Reglan) 10 mg PO QIDACHS nitroglycerin 0.4 mg sublingual Q5M PRN repaglinide 0.5 mg PO DAILY simethicone 180 mg PO QID PRN 30 days spironolactone 25 mg PO DAILY 90 days Tobacco use date assessed: 11/17/24 Fall risk assessment: No Falls in past year Last assessed Fall Risk: 11/17/24 Dental Screening Dental Screen Date: 11/17/24 Did you have a dental visit in the last 12 months?: No Did you have a dental problem in the last 6 months where you did not have access to dental care?: No Was dental information given to patient?: Yes HPI f/u DMII/ HTN HPI Details Patient is an 84-year-old male here today for a follow-up visit.. He is Czech-speaking only. Patient has a past medical history significant for hypertension, hyperlipidemia, type 2 diabetes, coronary artery disease. Concern--> patient's family reporting Mikel has been tired as of late. There was a mishap he slept throughout the day and forgot to take his medication. Unclear etiology at this time. Advised on getting fasting labs done TAYO Anemia: Have no longstanding anemia of chronic disease though most recent labs showing worsening hemoglobin and low MCV. .. Hypertension: Most recent PCP office visit he was started on spironolactone for better blood pressure control and to help minimize lower extremity edema. Blood pressure still remains slightly elevated today in office and most recent kidney function has worsened. .. Insomnia: Was previously on temazepam though did not have insurance coverage for this medication. Insomnia is managed with clonazepam at this time.. .. Type 2 diabetes: Seems to have been suboptimally controlled. Today's A1c elevated at 8.7 . Patient has been out of [facility] over the last month due to not being able to receive this medication from the pharmacy. PLAN: Will continue current antihyperglycemic medication and work on low carbohydrate diet. .. Coronary artery disease: Did have coronary artery stents placed many years ago, most recent lipid panel showing excellent control of his total cholesterol and LDL. Goal LDL is to remain optimally below 70. 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 Allergic rhinitis Microalbuminuria Insomnia History of Helicobacter infection GERD (gastroesophageal reflux disease) History of prostate cancer Coronary artery disease Vitamin D deficiency Hyperlipidemia LDL goal <100 Essential hypertension Type 2 diabetes mellitus with hyperglycemia Surgical History Stented coronary artery History of cardiac cath Hx of esophagogastroduodenoscopy Hx of prostate biopsy Hx of colonoscopy Family History Father Medical history unknown Mother Medical history unknown Sister Diabetes Daughter Breast cancer Social History Household Members: None Housing: Apartment Housing Other:: [employer] Do you presently have visiting nurse or other home services: Yes Alcohol intake: never Patient Tobacco Use Status: Former Tobacco user Tobacco use type: Cigarette e-Cigarette/Vaping Use: Never Used Second Hand Smoke Exposure: No service: No Current occupational status: retired Cognitive needs: Yes Hearing needs: No Vision needs: Yes Questionnaire PHQ-9 Over the last 2 weeks, how often have you been bothered by any of the following problems? 1. Little interest or pleasure in doing things: not at all 2. Feeling down, depressed, or hopeless: not at all 3. Trouble falling or staying asleep, or sleeping too much: not at all 4. Feeling tired or having little energy: more than half the days 5. Poor appetite or overeating: not at all 6. Feeling bad about yourself - or that you are a failure or have let yourself or your family down: not at all 7. Trouble concentrating on things, such as reading the newspaper or watching television: not at all 8. Moving or speaking so slowly that other people could have noticed. Or the opposite - being so fidgety or restless that you have been moving around a lot more than usual: not at all 9. Thoughts that you would be better off or of hurting yourself in some way: not at all Total score: 2 Depression Screening Interpretation: Negative Depression Screening Done: Yes 53944 - PHQ-9 Billing: Yes Source: Developed by Drs. Sammy Ellis, Pippa Orellana, Bebeto Gagnon and colleagues, with an educational vipin from [employer]. Thrive Questionnaire Date Thrive assessed: 11/17/24 I am a: Patient What is your living situation today?: I have a steady place to live Within the past 12 months, did the food you bought not last and you didn't have the money to get more?: Never true Within the past 12 months, did you worry whether your food would run out before you got money to buy more?: Sometimes True Do you have trouble paying for medicines?: No Do you have trouble getting transportation to medical appointments?: No Do you have trouble paying your heating and electricity bill?: No Do you have trouble taking care of your child, family member or friend?: No Do you have trouble with day-to-day activities such as bathing, preparing meals, shopping, managing finances, etc.?: No Are you currently unemployed and looking for a job?: No Are you interested in more education?: No Please select the resources that you would like help with: None Currently or been in a relationship where the following occur: No concerns reported THRIVE Score: 1 AUDIT C Alcohol Use Questionnaire (AUDIT-C) 1. How often do you have a drink containing alcohol?: Never Total Score: 0 KULWINDER-7 AMB Questionnaire KULWINDER-7 Date KULWINDER - 7 assessed: 11/17/24 Feeling nervous, anxious, or on edge: 0 = Not at all Not being able to stop or control worryin = Not at all Worrying too much about different things: 0 = Not at all Trouble relaxin = Not at all Being so restless that it is hard to sit still: 0 = Not at all Becoming easily annoyed or irritable: 0 = Not at all Feeling afraid as if something awful might happen: 0 = Not at all Total KULWINDER-7 score (0-4 normal; 5-9 mild; 10-14 moderate; 15-21 severe): 0 Source: Developed by Drs. Sammy Ellis, Pippa Orellana, Bebeto Gagnon and colleagues, with an educational vipin from [employer]. KULWINDER-7 Assessment Billing KULWINDER-7 Assessment Tool: KULWINDER-7 Assessment 28882 Review of Systems Const Reports fatigue and Denies headache(s) Eyes Denies loss of vision ENT Denies vertigo, Denies dizziness, Denies headache(s) and Denies sore throat Card Denies chest pain, Denies leg edema and Denies lightheadedness Resp Denies cough, Denies hemoptysis and Denies wheezing GI Denies abdominal pain, Denies melena, Denies constipation, Denies diarrhea and Denies vomiting Denies dysuria, Denies urinary frequency and Denies urinary urgency Musc Denies arthralgias, Denies joint swelling, Denies numbness and Denies tingling Neuro Denies Abnormal speech present, Denies behavioral changes, Denies vertigo, Denies dizziness, Denies headache(s), Denies loss of vision, Denies memory loss, Denies numbness and Denies tingling Psych Denies anxiety, Denies behavioral changes, Denies depression, Denies memory loss and Denies panic attacks Endo Reports fatigue Casey/Lymph Denies easy bleeding and Denies easy bruising Aller/Immun Denies wheezing Physical exam (Primary Care) Vital Signs: Last Vital Signs Pulse 58 11/17/24 10:55 BP 132/52 L 11/17/24 10:55 Pulse Ox 98 11/17/24 10:55 BMI result Body Mass Index 22.6 Tobacco/Smoking Status: Tobacco use Status Tobacco use date assessed 11/17/24 11/17/24 11:01 Patient Tobacco Use Status Former Tobacco user 11/17/24 11:01 Tobacco use type Cigarette 11/17/24 11:01 e-Cigarette/Vaping Use Never Used 11/17/24 11:01 PHQ-9: PHQ-9 Score PHQ-9: Total score 2 11/17/24 14:43 Depression Screening Interpretation: Negative Thrive Assessment: Date of Thrive Assessment Date Thrive assessed 11/17/24 11/17/24 11:01 Currently or been in a relationship where the following occur: No concerns reported Const General: healthy appearing, no acute distress, alert and awake Nutritional Appearance: well nourished Orientation/consciousness: oriented to person, oriented to place and oriented to time HENMT Ears: TM's normal bilaterally General nose exam: Normal nasal mucous membranes and turbinates present Eyes Conjunctivae: conjunctivae normal Sclerae: sclerae normal Pupils: Equal, round and reactive pupils present Neck Neck: Yes no lymphadenopathy and Yes no JVD Thyroid: Thyroid normal Carotids: no bruits Resp Effort & Inspection: normal respiratory effort and not tachypneic Auscultation: no crackles, no rales, no rhonchi and no wheezes Cardio Rate: regular rate Rhythm: regular rhythm Heart sounds: no murmurs and normal S1 and S2 GI Palpation (GI): Soft to palpation, nontender, no hepatomegaly and no splenomegaly Auscultation: normal bowel sounds Skin General skin exam: no rashes or lesions noted and dry skin Neuro General: oriented to person, oriented to place and oriented to time Cranial nerves: Yes Equal, round and reactive pupils present Speech: No Abnormal speech present Gait exam (Neuro): Normal gait present Motor exam (neuro): no tremor noted Extrem Right upper extremity: full ROM Left upper extremity: full ROM Right lower extremity: full ROM; no edema Left lower extremity: full ROM; no edema Psych Mental Status: mental status grossly normal Speech and movement: Normal speech and movement present Affect: normal affect Attitude: cooperative Thought process: Normal thought process present Results AMB Hemoglobin A1c AMB Hemoglobin A1c 8.7 % Last Edit by Bruna Cuellar MA on 11/17/24 11:56 Results Reviewed Results Reviewed: Laboratory Last Values Hgb A1c (Clinic) 8.7 % (4.0-6.0) H 11/17/24 11:22 Coding Level of Care Code Est Pt Level 4 (65237) Diagnoses Type 2 diabetes mellitus with hyperglycemia, unspecified whether terminal operator insulin use E11.65 Diabetes mellitus terminal operator insulin use: unspecified chcf insulin use status Hyperlipidemia LDL goal <70 E78.5 Essential hypertension I10 Stented coronary artery Z95.5 Malignant neoplasm of prostate C61 Primary insomnia F51.01 Insomnia type: primary Iron deficiency anemia, unspecified iron deficiency anemia type D50.9 Anemia type: iron deficiency Iron deficiency anemia type: unspecified iron deficiency Additional Codes KULWINDER-7 Assessment Billing - KULWINDER-7 Assessment Tool: KULWINDER-7 Assessment 38324 ([id number]) PHQ-9 - 25668 - PHQ-9 Billing: Yes ([id number]) Assessment & Plan Assessment & Plan (1) Type 2 diabetes mellitus with hyperglycemia: Code(s): E11.65 - Type 2 diabetes mellitus with hyperglycemia Category: Medical Qualifiers: Diabetes mellitus terminal operator insulin use: unspecified chcf insulin use status Qualified Code(s): E11.65 - Type 2 diabetes mellitus with hyperglycemia Plan: Patient's type 2 diabetes suboptimally controlled, has been out of Trulicity over the last month. He continues on Jardiance, max dose of metformin. Goal A1c is to be below 7.0 (2) Hyperlipidemia LDL goal <70: Code(s): E78.5 - Hyperlipidemia, unspecified Category: Medical Plan: Patient most recent fasting lipid panel showing excellent control of his total cholesterol and LDL. Does have a history of coronary artery disease. Goal LDL is to be optimally below 70. (3) Essential hypertension: Code(s): I10 - Essential (primary) hypertension Category: Medical Plan: Patient's blood pressure acceptable today in office. Continues to follow Nephrology , most recent urinalysis showing high-protein. Advised to stay well hydrated. Due to elevated blood pressure will change his losartan to combo agent losartan hydrochlorothiazide. Goal blood pressure to be below 140/90 (4) Stented coronary artery: Code(s): Z95.5 - Presence of coronary angioplasty implant and graft Category: Surgical Plan: Patient has no reports chest discomfort or shortness of breath. As above goal LDL to remain below 70. (5) Malignant neoplasm of prostate: Code(s): C61 - Malignant neoplasm of prostate Category: Medical Plan: Patient has a history prostate cancer did get biopsies with previous urologist. Now continues to follow [facility]. PSAs has been stable (6) Insomnia: Code(s): G47.00 - Insomnia, unspecified Category: Medical Qualifiers: Insomnia type: primary Qualified Code(s): F51.01 - Primary insomnia Plan: Patient continues on clonazepam nightly with good effect on sleep. (7) Anemia: Code(s): D64.9 - Anemia, unspecified Category: Medical Qualifiers: Anemia type: iron deficiency Iron deficiency anemia type: unspecified iron deficiency Qualified Code(s): D50.9 - Iron deficiency anemia, unspecified Plan: Family does report that patient has been complaining of fatigue.. Patient was found to have low MCV and hemoglobin of 9.7. No overt signs of bleeding noted. Advised on continue iron supplementation. Will recheck CBC to evaluate for worsening hemoglobin Orders: Orders Comprehensive [place]. Panel Fast 11/17/24 E11.65 - Type 2 diabetes mellitus with hyperglycemia Complete Blood Count no Diff 11/17/24 E11.65 - Type 2 diabetes mellitus with hyperglycemia IRON PROFILE 11/17/24 D50.9 - Iron deficiency anemia, unspecified Vitamin B12 and Folate 11/17/24 D50.9 - Iron deficiency anemia, unspecified, E53.8 - Deficiency of other specified B group vitamins Hemoglobin A1c 11/17/24 E11.65 - Type 2 diabetes mellitus with hyperglycemia Lipid Panel 11/17/24 E78.5 - Hyperlipidemia, unspecified AMB Hemoglobin A1c 11/17/24 E11.65 - Type 2 diabetes mellitus with hyperglycemia Medications: Refilled losartan-hydrochlorothiazide 100-12.5 mg 1 tab PO DAILY 90 tabs 1RF I10 - Essential (primary) hypertension dulaglutide (Trulicity) 1.5 mg (0.5 mL) subcut QWEEK 2 mL 3RF 4 weeks E11.65 - Type 2 diabetes mellitus with hyperglycemia
[2024-11-17 10:55] VITALS: BP 132/52; PULSE 58; O2SAT 98; BMI 22.6
--- OUTSIDE RECORDS SUMMARY | 2024-11-17 11:41 | XMS_ITS | Clinical Summary ---
Author Organization [employer] Address [address] [place] [address] [address] [place] [address] Care Team Providers Care School Psychology Specialist Name Role Phone Unavailable Primary Care Provider [...] - season) 2024 04/19/2021 Influenza Vaccine (#1) 2025 2, 04/19/2021, 03/01/2020, Additional history exists DTaP/Tdap/Td [...] age to complete this topic Insurance [facility] USP OPTIONS (O D-SNP) RAJESH WILD [id number]
--- OUTSIDE RECORDS SUMMARY | 2024-11-17 11:42 | XMS_ITS | Clinical Summary ---
Author Organization [facility] Address [address] [phone] Phone Care Team Providers Care Hander In Name Role Phone Bryan Kumar MD Primary Care Provider [phone] Allergies No known active allergies Medications aspirin [...] disease, stage 2 (mild) 3 Microalbuminuria 07/09/2020 Family History Relation Status Comments Father Mother [...] Visit [facility] [address] [place] [phone] Bryan Kumar MD [address] [place] [phone] Health Maintenance Due Date Last Done Comments Pneumococcal Vaccine: 50+ Ye ars (1 of 2 - PCV) 1959 Influenza Vaccine (#1) 2025 Hepatitis B Vaccine Aged Out No [...] - 1.4 mg/dL See order comments eGFR (Calc) >60 See orde r comments Comment: Chronic Kidney Disease: Estimated GFR < 60 mL/min/1.73m2 Severe Kidney Disease: Estimated GFR < 15 mL/min/1.73m2 08/18/2024 10:2 7 AM EDT 08/18/2024 10:27 AM EDT Bryan Kumar MD LAB BLOOD ORDERABLES Final Re sult Performing Organization Address [facility] Co de Phone Number [facility] See order comments [place] [address] * (ABNORMAL) PTH, Intact (08/18/2024 10:27 AM EDT) Parathyroid Hormone, Intact 104.4(H) 8.7 - 77.1 pg/mL See order comments 08/18/2024 10:2 7 AM EDT 08/18/2024 10:27 AM EDT Bryan Kumar MD LAB [id number]-[id number] SOLICITED RESULTS Final Result Performing Organization Address [facility] Co de Phone Number [place] See order comments [place] [address] * Vitamin D 25 Hydroxy (08/18/2024 10:27 AM EDT) Vitamin D, 25-Hydroxy 49.0 >30 ng/mL See order comments Comment: Health Based Reference Values* < 20 ng/mL Deficient 20-30 ng/mL Insufficient > 30 ng/mL Sufficient *Chapin PUENTES. N Engl J Med. 2007;357:266-280 [...] D results from different laboratories and methodologies. Published data demonstrated that results from patients undergoing hemodialysis may show a negative bias when tested with various automated 25-OH vitamin D assays when compared to LC-MS/MS. When testing samples from patients whose predominant form of Vitamin D is Vitamin D2, such as patients receiving Vitamin D2 supplementation, results that are subtherapeutic should be confirmed with another method such as LC-MS/MS. Blood specimen (specimen) Venous blood / Unknown 08/18/2024 10:27 AM EDT 08/18/2024 10:27 AM EDT us Bryan Kumar MD LAB BLOOD ORDERABLES Final Re sult [place] See order comments [place] [address] * (ABNORMAL) CBC and Differential (08/18/2024 10:27 [...] MD LAB BLOOD ORDERABLES Final Re sult [place] See order comments [place] [address] * (ABNORMAL) BUN (08/18/2024 10:27 AM EDT) BUN 24(H) 9 - 16 mg/dL See order comments 08/18/2024 10:2 7 AM EDT 08/18/2024 10:27 AM EDT Bryan Kumar MD LAB BLOOD ORDERABLES Final Re sult [place] See order comments [place] [address] * Phosphorus (08/18/2024 10:27 AM EDT) Phosphorus, Serum 3.0 2.7 - 4.5 mg/dL See order comments Blood specimen (specimen) Venous blood / Unknown 08/18/2024 10:27 AM EDT 08/18/2024 10:27 AM EDT us Bryan Kumar MD LAB BLOOD ORDERABLES Final Re sult Performing Organization Address [facility] de Phone Number [place] See order comments [place] [address] * (ABNORMAL) Magnesium (08/18/2024 10:27 AM EDT) Magnesium 1.5(L) 1.6 - 2.6 mg/dL See order comments Blood specimen (specimen) Venous blood / Unknown 08/18/2024 10:27 AM EDT 08/18/2024 10:27 AM EDT us Bryan Kumar MD LAB BLOOD ORDERABLES Final Re sult Performing Organization Address [facility] Phone Number [place] See order comments [place] [address] * Calcium (08/18/2024 10:27 AM EDT) Calcium 9.6 8.4 - 10.2 mg/dL See order comments Blood specimen (specimen) Venous blood / Unknown 08/18/2024 10:27 AM EDT 08/18/2024 10:27 AM EDT us Bryan Kumar MD LAB BLOOD ORDERABLES Final Re sult Performing Organization Address [facility] de Phone Number [place] See order comments [place] [address] * Albumin (08/18/2024 10:27 AM EDT) Albumin 4.3 3.5 - 5.0 g/dL See order comments Blood specimen (specimen) Venous blood / Unknown 08/18/2024 10:27 AM EDT 08/18/2024 10:27 AM EDT us Bryan Kumar MD LAB BLOOD ORDERABLES Final Re sult Performing Organization Address [facility] de Phone Number [place] See order comments [place] [address] * Electrolyte panel (08/18/2024 10:27 AM EDT) [...] Kumar MD LAB BLOOD ORDERABLES Final Re [facility] Performing Organization Address [facility] de Phone Number [place] See order comments [place] [address] * (ABNORMAL) Protein, Total, Random Urine w/Creatinine (Protein/Creat Ratio) (08/18/2024 10:01 AM EDT) Protein Urine Random 74(H) <12 mg/dL See order comments Protein/Creati nine Ratio, Urine 0.73(H) <0.2 See order comments Comment: The spot urine protein:creatinine ratio may increase to 0.3 during normal . Urine specimen (specimen) Urine specimen obtained by clean catch procedure / Unknown 08/18/2024 10:01 AM EDT 08/18/2024 10:01 AM EDT Bryan Kumar MD LAB URINE ORDERABLES Final Re [facility] Performing Organization Address [facility] de Phone Number [place] See order comments [place] [address] * (ABNORMAL) Albumin, urine, random (08/18/2024 10:01 AM EDT) Creatinine, Urine 101.89 mg/dL Se e order comments Urine Microalbumin 470.0 mg/L See order comments Microalbumin/Crea tinine Ratio 461.2(H) <30 ug/mg cr See order comments Comment: Albumin/Creatinine Ratio Reference Ranges: Normal: < 30 ug/mg creatinine Microalbuminuria: 30 - 300 ug/mg creatinine Clinical Albuminuria: > 300 ug/mg creatinine 08/18/2024 10:0 1 AM EDT 08/18/2024 10:01 AM EDT Bryan Kumar MD LAB URINE ORDERABLES Final Re sult Performing Organization Address [facility] Co de Phone Number [place] See order comments [place] [address] * (ABNORMAL) Urinalysis with microscopic (08/18/2024 10:01 AM EDT) Color Urine Yellow See orde r comments Appearance Urine Clear See order comments pH Urine 5.5 5.0 - 9.0 See order comments Glucose Urine Negative Negative mg/dL See order comments Blood, Urine Negative Negative See ord er comments Specific [place] Urine 1.020 1.005 - 1.025 See order [...] - 2 /LPF See order comments Urine specimen (specimen) Urine specimen obtained by clean catch procedure / Unknown 08/18/2024 10:01 AM EDT 08/18/2024 10:01 AM EDT Bryan Kumar MD LAB URINE ORDERABLES Final Re sult Performing Organization Address [facility] Co de Phone Number [place] See order comments [place] [address] from Last 3 Months Insurance [facility] MCR ([id number]) [facility] MCR ([id number]) Care Teams Hander In Relationship Specialty Start Date End Date Bryan Kumar MD [address] [phone] PCP - General Nephrology 04/16/23
--- OUTSIDE RECORDS SUMMARY | 2024-11-17 11:42 | XMS_ITS | Patient Health Record ---
Author Organization [facility] Address [address] [place] [address] Care Team Providers Care Weaver Apprentice Name Role Phone Maroi Blankenship Primary Care Provider Sammy Jorgensen [phone] Reason For Referral No Information Medications Medication SIG (Take, Route, Frequency, Duration) Notes Start Date End Date Status Temazepam 30 MG 1 capsule at bedtime as needed Orally Once a day Active Aspirin Adult Low Dose 81 MG 1 tablet Orally Once a day Active Chlorthalidone 25 MG 1 tablet in the morning with food Orally Once a day Active MiraLax (colon prep) 8.3 ounce ((238) grams mixed with Gatorade or Crystal Light orally begin at 5:00 p.m. the day before the procedure for 1 day 05/19/2017 Active Dulcolax (colon prep) 5 MG take at 3:00 p.m and 7:00p.m. Orally two tablets twice a day for one day for 1 day 05/19/2017 Active NovoLOG FlexPen 100 UNIT/ML INJECT 8 UNITS SQ QD AC Subcutaneous for 90 Active Dicyclomine HCl 10 MG 1-2 capsules Orall y Four times a day prn abdominal bloating/discomfort /cramps for 30 day(s) 05/15/2017 Active Lantus 100 UNIT/ML Subcutaneous Active Naproxen 500 MG 1 tablet with food or milk as needed Orally every 12 hrs only occasionally Active Carvedilol 12.5 MG Orally A ctive metFORMIN HCl 1000 MG 1 tablet with meal s Orally Twice a day Active Lisinopril 40 MG 1 tablet Orally Once a day Active Atorvastatin Calcium 40 MG 1 tablet Orally Once a day 05/15/2017 Active Flagyl 500 MG 1 tablet Orally every 8 hrs for 05 days 07/12/2017 Active Omeprazole 20 MG 1 capsule Orally Once a day for 30 day(s) 07/12/2017 Active Immunizations Vaccine Route Administration Date Status Comme nts Influenza Unknown 05/11/2017 Administered Social History Tobacco Use: Social History Observation Description Date Details (start date - stop date) Former Smoker NA - NA Tobacco Use/Smoking Question Answer Notes Patient is a former smoker When did you stop smoking? age 71 Alcohol Screen Question Answer Notes Did you have a drink containing alcohol in the p ast year? No Points 0 Interpretation Negative Section Notes: Nonsmoker since 71 years old ; no alcohol Problems Problem Type SNOMED Code ICD Code Onset Dates Problem Status W/U Status Risk Notes Problem 304820063 Encounter for screening for malignant neoplasm of colon (Z12.11) Active confirmed Problem 677279185 History of adenomatous polyp of colon (Z86.010) Active confirmed Problem 904363240 Bloating (R14.0) Active confirmed Problem 08405100 Constipation, unspecified constipation type (K59.00) Active confirmed Problem 542657431 Abdominal discomfort, epigastric (R10.13) Active confirmed Plan Of Treatment Pending Test Test Name Order Date CBC w DIFF 05/15/2017 CELIAC PANEL #10 05/15/2017 Future Test Test Name Order Date COLONOSCOPY 05/15/2017 Insurance Providers Payer Name Payer Address Payer Phone Subscriber Number Group Number Insured Name Patient Relationship to Insured Coverage Start Date Coverage End Date [facility] [address] [place] [phone] [id number] JOSÉ KURTZ Self - patient is the insured Medical (General) History Medical History History ICD Code Hypertension Tubular adenomas(ascending c olon and sigmoid colon 11/07/13--in [place]--told they were large polyps --has had 1 previous colonoscopy in [place] with reported similar results IDDM Prostate cancer 04/24/14 -tr eated with hormonal therapy initially by report-- Dr. Sahni--starting XRT on 05/31/17 [place]--coronary artery disease RCA stent placed September 2014 - Dr. King--no problems since then Nodule of right lung IBS Depression GERD Tremors Hyperlipidemia Denies CVA,Lung disease,renal disease
== END 2024-11-17 11:21 | disposition home or self-care (01) ==
LOC: HO.HMCH 10:46
PROVIDERS: PCP Physician Assistant; Visit Provider Physician Assistant
DX: E11.65 Type 2 diabetes mellitus with hyperglycemia (principal)

== ENCOUNTER → 2024-11-17 10:45 | Outpatient (BNVA) | payer OTHER, SELFPAY | PROVIDERS: PCP Physician Assistant; Visit Provider Physician Assistant | DX: E11.65 Type 2 diabetes mellitus with hyperglycemia (principal); I10 Essential (primary) hypertension; E78.5 Hyperlipidemia, unspecified; I25.10 Atherosclerotic heart disease of native coronary artery without angina pectoris; G47.00 Insomnia, unspecified; C61 Malignant neoplasm of prostate; F51.01 Primary insomnia; D50.9 Iron deficiency anemia, unspecified; Z95.5 Presence of coronary angioplasty implant and graft | CPT/HCPCS: 83036; 96127; 99212 ==

== ENCOUNTER 2024-12-12 15:45 | Outpatient (AMB) | payer OTHER, SELFPAY ==
--- NOTE | 2024-12-12 15:46 | MHC.OFFVIS ---
Intake Visit Reasons: PSA Follow up Intake Note: Patient presents today via telehealth for follow up/PSA 10/10 Total PSA:0.36 Urology Medication:none Blood Thinner:Aspirin Antibiotic Allergies:none Allergies No Known Allergies (No Known Allergies*) Allergy (Verified 01/26/25 12:01) Medication List - Last Reconciled 12/12/24 by Lucia Wiggins MD amlodipine 5 mg PO DAILY 30 days aspirin (Enteric Coated Aspirin) 81 mg PO DAILY 3 months atorvastatin 40 mg PO BEDTIME 90 days blood pressure monitor (Blood Pressure Kit) As directed blood-glucose meter As directed carvedilol 12.5 mg PO BID 90 days cholecalciferol (vitamin D3) 25 mcg PO DAILY 3 months clonazepam 0.5 mg PO BEDTIME 30 days dulaglutide (Trulicity) 1.5 mg (0.5 mL) subcut QWEEK 4 weeks empagliflozin (Jardiance) 25 mg PO DAILY 90 days ferrous sulfate 325 mg PO DAILY glucose 4 grams PO ONCE PRN lancets As directed lansoprazole 30 mg PO DAILY 90 days losartan 100 mg PO DAILY Held on 08/18/24. Instructions: Doctor's Order losartan-hydrochlorothiazide 100-12.5 mg 1 tab PO DAILY metformin 1,000 mg PO BID 90 days metoclopramide HCl (Reglan) 10 mg PO QIDACHS nitroglycerin 0.4 mg sublingual Q5M PRN repaglinide 0.5 mg PO DAILY simethicone 180 mg PO QID PRN 30 days spironolactone 25 mg PO DAILY 90 days HPI Comments Details: 12/12/24--Vec[age]ipu-45-gjdh-old male diagnosed with prostate cancer status post radiation therapy follow-up scheduled to review PSA. I have reviewed with the patient and his daughter PSA on 10/10/2024 was 0.36 ng/mL. We will continue to monitor. History of Present Illness - The patient is an 84-year-old male presenting with follow-up for prostate cancer and PSA monitoring. - Prostate cancer was diagnosed and treated with radiation therapy seven years ago. - The patient is currently not on any treatment for prostate cancer. - PSA level on 10/10/24 was 0.36 ng/mL, which is considered negligible. - No urinary symptoms reported. Results - PSA level on 10/10/24: 0.36 ng/mL Plan - Continue monitoring PSA levels with the next test scheduled in approximately nine months. - Arrange follow-up appointment and blood work prior to the visit. 09/08/24--Vaishnavi is an 84 year old male, Armenian speaking, here with his daughter who interprets for him. She states that he was diagnosed with prostate cancer about [address] Og michaud at [place] and treated with radiation. He was last seen in 2019 that time was told that he was doing well. He denies any irritative voiding symptoms. He is unable to give a urine specimen bladder scan PVR is minimal. I have discussed PSA screening to reestablish baseline. 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 Allergic rhinitis Microalbuminuria Insomnia History of Helicobacter infection GERD (gastroesophageal reflux disease) History of prostate cancer Coronary artery disease Vitamin D deficiency Hyperlipidemia LDL goal <100 Essential hypertension Type 2 diabetes mellitus with hyperglycemia Surgical History Stented coronary artery History of cardiac cath Hx of esophagogastroduodenoscopy Hx of prostate biopsy Hx of colonoscopy Family History Father Medical history unknown Mother Medical history unknown Sister Diabetes Daughter Breast cancer Social History Household Members: None Housing: Apartment Housing Other:: [employer] Services Do you presently have visiting nurse or other home services: Yes Alcohol intake: never Patient Tobacco Use Status: Former Tobacco user Tobacco use type: Cigarette e-Cigarette/Vaping Use: Never Used Second Hand Smoke Exposure: Yes service: No Current occupational status: retired Cognitive needs: Yes Hearing needs: No Vision needs: Yes Review of Systems Const All systems reviewed & are unremarkable except as noted in HPI and below Reports no additional complaints Eyes Reports no additional complaints ENT Reports no additional complaints Card Reports no additional complaints Resp Reports no additional complaints GI Reports no additional complaints Reports as per HPI Musc Reports no additional complaints Skin/Breast Reports system reviewed and no additional complaints, except as documented Neuro Reports no additional complaints Psych Reports no additional complaints Endo Reports no additional complaints Casey/Lymph Reports no additional complaints Aller/Immun Reports no additional complaints Telehealth Telehealth Telehealth Platform: [facility] Location of provider rendering services: practice address Location of patient: address on file Patient Identification confirmed using: Name, : Yes Telehealth method: voice only Patient verbally consented to treatment: Yes Patient verbally consented to billing insurance company: Yes Patient informed of any privacy concerns related to visit: Yes Minutes spent on Phone/Video with Pt.: 13 Assessment & Plan Assessment & Plan (1) History of prostate cancer: Code(s): Z85.46 - Personal history of malignant neoplasm of prostate Category: Medical Plan Plan - Continue monitoring PSA levels with the next test scheduled in approximately nine months. - Arrange follow-up appointment and blood work prior to the visit. Patient Instructions: The patient had an opportunity to ask questions regarding treatment plan. The patient expressed understanding and agreement with the above treatment plan. The patient is aware they should contact our office by phone for worsening of their current condition or the appearance of new symptoms. Compliance is encouraged with any medications and followup testing that is ordered. It is a privilege to be allowed the opportunity to participate in the urologic care of your patient. If you have any questions or concerns regarding treatment for the above conditions please do not hesitate to contact me. The office telephone contact is [phone]. This note is constructed in part using voice recognition software. While every effort has been made to ensure accuracy dry pan charger errors may have been included. Yours sincerely, Lucia Wiggins MD Scribe Plan - Not visible on output: Patient was informed and verbally consented to the use of an ambient scribe for clinic note documentation during this visit. Coding Level of Care Code Tele Est Pt Level 3 (70372) Complex EM visit Add On G2211 Diagnoses History of prostate cancer Z85.46
--- OUTSIDE RECORDS SUMMARY | 2024-12-12 15:48 | XMS_ITS | Clinical Summary ---
Author Organization [facility] Address [address] [address] Phone Care Team Providers Care Payroll And Benefits Assistant Name Role Phone Bryan Kumar MD Primary Care Provider [phone] Allergies No known active allergies Medications aspirin [...] Visit [facility] [address] [place] [phone] Bryan Kumar MD [address] [phone] Health Maintenance Due Date Last Done Comments Pneumococcal Vaccine: 50+ Ye ars (1 of 2 - PCV) 1959 Influenza Vaccine (#1) 2025 Hepatitis B Vaccine Aged Out No longe r eligible based on patient's age to complete this topic Insurance MCR ([id number]) [facility] ([id number]) Care Teams Payroll And Benefits Assistant Relationship Specialty Start Date End Date Bryan Kumar MD [address] [phone] PCP - General Nephrology 04/16/23
--- OUTSIDE RECORDS SUMMARY | 2024-12-12 15:48 | XMS_ITS | Patient Health Record ---
Author Organization [facility] Address [address] [place] [address] Care Team Providers Care Search Manager Name Role Phone Mario Blankenship Primary Care Provider Sammy Jorgensen [phone] Reason For Referral No Information Medications Medication [...] Problem Status W/U Status Risk Notes Problem [id number] Encounter for screening for malignant neoplasm of colon (Z12.11) Active confirmed Problem 763875767 History of adenomatous polyp of colon (Z86.010) Active confirmed Problem 121628930 Bloating (R14.0) Active confirmed Problem 08051186 Constipation, unspecified constipation type (K59.00) Active confirmed Problem 919698029 Abdominal discomfort, epigastric (R10.13) Active confirmed Plan Of Treatment Pending Test Test Name Order Date CBC w DIFF 05/15/2017 CELIAC PANEL #10 05/15/2017 Future Test Test Name Order Date COLONOSCOPY 05/15/2017 Insurance Providers Payer Name Payer Address Payer Phone Subscriber Number Group Number Insured Name Patient Relationship to Insured Coverage Start Date Coverage End Date [facility] [address] [facility] [place] [phone] [id number] JOSÉ KURTZ Self - patient is the insured Medical (General) History Medical History History ICD Code Hypertension Tubular adenomas(ascending c olon and sigmoid colon 11/07/13--in [place]--told they were large polyps --has had 1 previous colonoscopy in [place] with reported similar results IDDM Prostate cancer 04/24/14 -tr eated with hormonal therapy initially by report-- Dr. Sahni--starting XRT on 05/31/17 [place]--coronary artery disease RCA stent placed September 2014 - Dr. King--no problems since then Nodule of right lung IBS Depression GERD Tremors Hyperlipidemia Denies CVA,Lung disease,renal disease
--- OUTSIDE RECORDS SUMMARY | 2024-12-12 15:48 | XMS_ITS | Clinical Summary ---
Author Organization [employer] Address [address] [place] [address] [address] [place] [address] Care Team Providers Care Rewind Operator Name Role Phone Unavailable Primary Care [...] patient's age to complete this topic Insurance [facility] OPTIONS (O D-SNP) [place]JESH WILD [id number]
== END 2024-12-12 16:16 | disposition home or self-care (01) ==
LOC: HO.HUSH 15:45
PROVIDERS: PCP Physician Assistant; Visit Provider Urology
DX: Z85.46 Personal history of malignant neoplasm of prostate (principal)
CPT/HCPCS: 99213; G2211

== ENCOUNTER 2025-01-21 08:19 | Outpatient (REF) | payer OTHER, SELFPAY ==
--- OUTSIDE RECORDS SUMMARY | 2025-01-21 09:29 | XMS_ITS | Patient Health Record ---
Author Organization [facility] Address [address] [place] [address] Care Team Providers Care Field Hockey Coach Name Role Phone Mario Blankenship Primary Care Provider Sammy Jorgensen [phone] Reason For Referral No Information Medications Medication [...] Problem Status W/U Status Risk Notes Problem 741750104 Encounter for screening for malignant neoplasm of colon (Z12.11) Active confirmed Problem 769249862 History of adenomatous polyp of colon (Z86.010) Active confirmed Problem 987607403 Bloating (R14.0) Active confirmed Problem 68110717 Constipation, unspecified constipation type (K59.00) Active confirmed Problem 091261474 Abdominal discomfort, epigastric (R10.13) Active confirmed Plan Of Treatment Pending Test Test Name Order Date CBC w DIFF 05/15/2017 CELIAC PANEL #10 05/15/2017 Future Test Test Name Order Date COLONOSCOPY 05/15/2017 Insurance Providers Payer Name Payer Address Payer Phone Subscriber Number Group Number Insured Name Patient Relationship to Insured Coverage Start Date Coverage End Date [facility] [address] [facility] [place] [address] [id number] JOSÉ KURTZ Self - patient is the insured Medical (General) History Medical History History ICD Code Hypertension Tubular adenomas(ascending c olon and sigmoid colon 11/07/13--in [place]--told they were large polyps --has had 1 previous colonoscopy in [place] with reported similar results IDDM Prostate cancer 04/24/14 -tr eated with hormonal therapy initially by report-- Dr. Sahni--starting XRT on 05/31/17 [place]--coronary artery disease RCA stent placed September 2014 - Dr. King--no problems since then Nodule of right lung IBS Depression GERD Tremors Hyperlipidemia Denies CVA,Lung disease,renal disease
--- OUTSIDE RECORDS SUMMARY | 2025-01-21 09:29 | XMS_ITS | Clinical Summary ---
Author Organization [facility] Address [address] [phone] Phone Care Team Providers Care Amf Mechanic Name Role Phone Bryan Kumar MD Primary Care Provider [phone] Allergies No known active allergies Medications aspirin [...] Visit [facility] [address] [place] [phone] Bryan Kumar MD [address] [phone] Health Maintenance Due Date Last Done Comments Pneumococcal Vaccine: 50+ Ye ars (1 of 2 - PCV) 1959 Influenza Vaccine (#1) 2025 Hepatitis B Vaccine Aged Out No longe r eligible based on patient's age to complete this topic Insurance MCR ([id number]) [facility] ([id number]) Care Teams Amf Mechanic Relationship Specialty Start Date End Date Bryan Kumar MD [address] [phone] PCP - General Nephrology 04/16/23
--- OUTSIDE RECORDS SUMMARY | 2025-01-21 09:29 | XMS_ITS | Clinical Summary ---
Author Organization [employer] [facility] Address [address] [place] [address] [address] [place] [address] Care Team Providers Care Demurrage Worker Name Role Phone Unavailable Primary Care Provider [...] 12/09/2023 12/08/2022 COVID-19 Vaccine (2 - season) 2025 04/19/2021 Influenza Vaccine (#1) 2025 2, 04/19/2021, [...] patient's age to complete this topic Insurance [facility] OPTIONS (O D-SNP) [place] W[place] [id number]
[2025-01-21 10:50] LABS: Hemoglobin A1C 254.6148 umol/L; Total Hemoglobin (HGBA1C) 2868.9081 umol/L
[2025-01-21 10:55] LABS: Hematocrit 33.5 % (42.0-52.0); Hemoglobin 10.8 g/dl (14.0-18.0); Mean Corpuscular HGB Conc 32.2 g/dl (31.0-36.0); Mean Corpuscular Hemoglobin 25.3 pg (27.0-33.0); Mean Corpuscular Volume 78.5 fL (80.0-98.0); NRBC Abs Auto 0.000 X10*3/uL (0.0-0.012); NRBC Pct Auto 0.0 /100WBC (0.0-0.2); Red Blood Count 4.27 X10*6/uL (4.60-5.80); White Blood Count 6.9 X10*3/uL (4.8-10.8)
[2025-01-21 11:13] LABS: Alanine Aminotransferase 15 U/L (0-40); Albumin Level 4.5 g/dL (3.5-5.0); Alkaline Phosphatase 70 U/L (39-117); Anion Gap 15 (12-20); Aspartate Amino Transferase 20 U/L (5-37); Blood Urea Nitrogen 14 mg/dL (9-16); Calcium 9.4 mg/dL (8.4-10.2); Carbon Dioxide 27 mmol/L (22-29); Chloride 105 mmol/L (96-108); Cholesterol 150 mg/dL (<200); Estimated Glomerular Filt Rate > 60; HDL Cholesterol 52 mg/dL (>40); Iron 36 mcg/dL (45-160); Percent Iron Saturation 11 % (15-50); Potassium 4.2 mmol/L (3.3-5.1); Sodium 143 mmol/L (135-145); Total Iron Binding Capacity 339 mcg/dL (228-428); Total Protein 7.1 g/dL (6.5-8.0); Triglycerides 104 mg/dL (<150); Unsaturated Iron Binding 303 ug/dL
[2025-01-21 11:42] LABS: Folate 13.6 ng/mL (> or = 4.0); Vitamin B12 311 pg/mL (200-900)
[2025-01-21 12:13] LABS: Platelet Count 91 X10*3/uL (160-400)
== END 2025-01-21 08:20 | disposition home or self-care (01) ==
LOC: HO.10HDL 08:19
PROVIDERS: Visit Provider Physician Assistant
DX: E11.65 Type 2 diabetes mellitus with hyperglycemia (principal); E78.5 Hyperlipidemia, unspecified; D50.9 Iron deficiency anemia, unspecified; E53.8 Deficiency of other specified B group vitamins
CPT/HCPCS: 36415; 80053; 80061; 82607; 82746; 83036; 83540; 85027

== ENCOUNTER 2025-01-26 10:47 | Outpatient (AMB) | payer OTHER, SELFPAY ==
--- NOTE | 2025-01-26 11:27 | A.OFFPC_ITS ---
Vital Signs 01/26/25 11:28 Height 5 ft 3 in Weight 126 lb 8 oz BMI 22.4 BP 134/60 Blood Pressure Location Lt brachial Position Sitting Pulse 66 Pulse Source Pulse Oximeter Temp 97.1 F Temp Source Temporal Artery Scan Pulse Oximetry (%) 98 Oxygen Delivery Method Room Air Intake Visit Reasons: annual exam Intake Note: Patient is here today for a physical. Recreation Professor Required: Yes Recreation Professor Language: Contract Paralegal Name: Frieda (Daughter) Information Interpreted: non-clinical & clinical (Pt decline furnace caretaker service prefer daughter translate) Cloth Winding Supervisor: Present Accompanied by: Daughter Allergies No Known Allergies (No Known Allergies*) Allergy (Verified 01/26/25 12:01) Medication List - Last Reconciled 01/26/25 by Nando Hodges PA-C amlodipine 5 mg PO DAILY 30 days aspirin (Enteric Coated Aspirin) 81 mg PO DAILY 3 months atorvastatin 40 mg PO BEDTIME 90 days blood pressure monitor (Blood Pressure Kit) As directed blood-glucose meter As directed carvedilol 12.5 mg PO BID 90 days cholecalciferol (vitamin D3) 25 mcg PO DAILY 3 months clonazepam 0.5 mg PO BEDTIME 30 days dulaglutide (Trulicity) 1.5 mg (0.5 mL) subcut QWEEK 4 weeks empagliflozin (Jardiance) 25 mg PO DAILY 90 days ferrous sulfate 325 mg PO DAILY glucose 4 grams PO ONCE PRN lancets As directed lansoprazole 30 mg PO DAILY 90 days losartan 100 mg PO DAILY Held on 08/18/24. Instructions: Doctor's Order losartan-hydrochlorothiazide 100-12.5 mg 1 tab PO DAILY metformin 1,000 mg PO BID 90 days metoclopramide HCl (Reglan) 10 mg PO QIDACHS nitroglycerin 0.4 mg sublingual Q5M PRN repaglinide 0.5 mg PO DAILY simethicone 180 mg PO QID PRN 30 days spironolactone 25 mg PO DAILY 90 days Tobacco use date assessed: 01/26/25 Fall risk assessment: No Falls in past year Last assessed Fall Risk: 01/26/25 Dental Screening Dental Screen Date: 11/17/24 HPI annual exam HPI Details Patient is an 85-year-old male here today for an annual physical. He is Bermudian-speaking only. Patient has a past medical history significant for hypertension, hyperlipidemia, type 2 diabetes, coronary artery disease. Concern--> family reports an episode of patient having vomiting and diarrhea along with feeling very feverish with a temporal temp of a 104 degrees. At this time he is doing much better and has normal stools. Unclear if this was related to a virus or food poisoning. No reportable sick contacts Anemia: Have no longstanding anemia of chronic disease though most recent labs showing worsening hemoglobin and low MCV. .. Hypertension: Patient's blood pressure today acceptable. He continues on amlodipine, spironolactone , losartan hydrochlorothiazide and carvedilol with good effect on his blood pressure. .. Insomnia: Was previously on temazepam though did not have insurance coverage for this medication. Insomnia is managed with clonazepam at this time.. .. Type 2 diabetes: Seems to have been suboptimally controlled. Most recent A1c elevated at 10 from 8.7 . He has been using a lower dose of Trulicity due to pharmacy availability PLAN: Will increase his Trulicity to 3 mg weekly dose. .. Coronary artery disease: Did have coronary artery stents placed many years ago, most recent lipid panel showing excellent control of his total cholesterol and LDL. Goal LDL is to remain optimally below 70. Laboratory Tests 01/01/23 01/02/23 10/30/23 17:13 06:27 17:10 RBC Hgb 11.2 L 10.8 L MCV 83.2 Plt Count Creatinine Fasting Glucose Hgb A1c (Clinic) Hemoglobin A1c % Cholesterol LDL Cholesterol, C alc Total PSA Urine Protein Trace 08/18/24 10/10/24 11/17/24 09:10 08:42 11:22 RBC Hgb 9.6 L MCV 78.4 L Plt Count 155 L D Creatinine Fasting Glucose Hgb A1c (Clinic) 8.7 H Hemoglobin A1c % Cholesterol LDL Cholesterol, C alc Total PSA 0.36 Urine Protein 100 (2+) H 01/21/25 08:20 RBC 4.27 L Hgb 10.8 L MCV Plt Count Creatinine 0.98 Fasting Glucose 160 H Hgb A1c (Clinic) Hemoglobin A1c % 10.3 H Cholesterol 150 LDL Cholesterol, C alc 78 Total PSA Urine Protein [facility] Medical History Malignant neoplasm of prostate Type 2 diabetes mellitus with unspecified complications 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 Allergic rhinitis Microalbuminuria Insomnia History of Helicobacter infection GERD (gastroesophageal reflux disease) History of prostate cancer Coronary artery disease Vitamin D deficiency Hyperlipidemia LDL goal <100 Essential hypertension Type 2 diabetes mellitus with hyperglycemia Surgical History Stented coronary artery History of cardiac cath Hx of esophagogastroduodenoscopy Hx of prostate biopsy Hx of colonoscopy Family History Father Medical history unknown Mother Medical history unknown Sister Diabetes Daughter Breast cancer Social History Household Members: None Housing: Apartment Housing Other:: [employer] Do you presently have visiting nurse or other home services: Yes Alcohol intake: never Patient Tobacco Use Status: Former Tobacco user Tobacco use type: Cigarette e-Cigarette/Vaping Use: Never Used Second Hand Smoke Exposure: Yes service: No Current occupational status: retired Cognitive needs: Yes Hearing needs: No Vision needs: Yes Questionnaire Thrive Questionnaire Date Thrive assessed: 11/17/24 I am a: Patient What is your living situation today?: I have a steady place to live Within the past 12 months, did the food you bought not last and you didn't have the money to get more?: Never true Within the past 12 months, did you worry whether your food would run out before you got money to buy more?: Sometimes True Do you have trouble paying for medicines?: No Do you have trouble getting transportation to medical appointments?: No Do you have trouble paying your heating and electricity bill?: No Do you have trouble taking care of your child, family member or friend?: No Do you have trouble with day-to-day activities such as bathing, preparing meals, shopping, managing finances, etc.?: No Are you currently unemployed and looking for a job?: No Are you interested in more education?: No Please select the resources that you would like help with: None Currently or been in a relationship where the following occur: No concerns reported THRIVE Score: 1 KULWINDER-7 AMB Questionnaire KULWINDER-7 Date KULWINDER - 7 assessed: 11/17/24 Source: Developed by Drs. Sammy Ellis, Pippa Orellana, Bebeto Gagnon and colleagues, with an educational vipin from [employer]. Review of Systems Const Denies body aches, Denies chills, Denies excessive sweating, Denies fatigue, Denies fever(s) and Denies headache(s) Eyes Denies blurry vision ENT Denies dysphagia, Denies vertigo, Denies dizziness, Denies headache(s), Denies hearing loss and Denies tinnitus Card Denies chest pain, Denies chest pain with activity, Denies syncope, Denies irregular heart rhythm and Denies dyspnea Resp Denies chest congestion, Denies cough, Denies hemoptysis, Denies dyspnea and Denies wheezing GI Denies abdominal pain, Denies melena, Denies hematochezia, Denies coffee ground emesis, Denies dysphagia, Denies diarrhea, Denies nausea and Denies vomiting Denies difficulty urinating, Denies dysuria, Denies urinary frequency, Denies urinary hesitancy and Denies urinary urgency Musc Denies arthralgias, Denies limited range of motion, Denies muscle cramps and Denies muscle weakness Skin/Breast Denies rash and Denies skin ulcer Neuro Denies Abnormal speech present, Denies confusion, Denies vertigo, Denies dizziness, Denies syncope, Denies headache(s), Denies memory loss and Denies seizure-like activity Psych Denies anxiety, Denies confusion, Denies depression, Denies memory loss, Denies panic attacks and Denies paranoia Endo Denies excessive sweating, Denies fatigue, Denies flushing, Denies polydipsia and Denies polyuria Aller/Immun Denies wheezing Physical exam (Primary Care) Vital Signs: Last Vital Signs Temp 97.1 F 01/26/25 11:28 Pulse 66 01/26/25 11:28 BP 134/60 01/26/25 11:28 Pulse Ox 98 01/26/25 11:28 Oxygen Delivery Method Room Air 01/26/25 11:28 BMI result Body Mass Index 22.4 Tobacco/Smoking Status: Tobacco use Status Tobacco use date assessed 01/26/25 01/26/25 11:29 Patient Tobacco Use Status Former Tobacco user 01/26/25 11:27 Tobacco use type Cigarette 01/26/25 11:27 e-Cigarette/Vaping Use Never Used 01/26/25 11:27 Thrive Assessment: Date of Thrive Assessment Date Thrive assessed 11/17/24 01/26/25 11:27 Currently or been in a relationship where the following occur: No concerns reported Const General: cooperative, comfortable, no acute distress, alert and awake; No confusion Orientation/consciousness: oriented to person, oriented to place, patient oriented x3 and No confusion HENMT Head: Yes normocephalic Ears: external ears normal and TM's normal bilaterally Face and sinus: No sinus tenderness Mouth: Normal oral and palatal mucosa present and tongue normal Teeth and gingiva: dentition normal and gingiva normal Throat: Yes posterior oropharynx normal, Yes tonsils normal and Yes uvula midline Eyes Conjunctivae: conjunctivae normal Sclerae: sclerae normal Pupils: Equal, round and reactive pupils present EOM: EOMs intact bilaterally Direct Ophthalmoscopy: No no photophobia Neck Neck: Yes no lymphadenopathy, No tender and Yes no JVD Thyroid: Thyroid normal Carotids: no bruits Chest Chest palpation & inspection: no tenderness Resp Effort & Inspection: normal respiratory effort, no audible wheezes, not labored and no stridor Auscultation: no crackles, no rales, no rhonchi and no wheezes Cardio Jugular venous distension: no JVD Rate: regular rate, not bradycardic and not tachycardic Rhythm: regular rhythm Bruits: no carotid bruits Peripheral pulses: Peripheral pulses 2+ throughout GI Inspection: Yes normal to inspection, No abdominal wall ecchymosis and No visible herniation Palpation (GI): Soft to palpation, nontender, no guarding, not rigid and No hepatosplenomegaly present Auscultation: normoactive bowel sounds General: Yes no CVA tenderness Back/Spine/Pelvis Back: no CVA tenderness and No back tenderness Cervical Spine: cervical ROM normal Thoracic/Lumbar Spine: thoracic and lumbar spine normal to inspection, straight leg raise negative bilaterally, No thoraco-lumbar ROM limited and No lumbar spinal tenderness Skin Lesions: no lesions Rashes: no rashes Wounds: no wounds Neuro General: oriented to person, oriented to place, patient oriented x3, CN's II-XI intact bilaterally and No confusion Cranial nerves: Yes Equal, round and reactive pupils present and Yes Normal accommodation reflex present Cognition (Neuro): normal cognition Speech: No Abnormal speech present Gait exam (Neuro): Normal gait present Motor exam (neuro): 5/5 motor strength present throughout Extrem Right upper extremity: full ROM; no cyanosis Left upper extremity: full ROM; no cyanosis Right lower extremity: no edema Left lower extremity: no edema Psych Appearance: grossly normal Mental Status: mental status grossly normal Affect: normal affect Attitude: cooperative Thought process: Normal thought process present Coding Level of Care Code Est Pt Level 4 (39534) Diagnoses Annual physical exam Z00.00 Type 2 diabetes mellitus with hyperglycemia, unspecified whether marine oil terminal superintendent insulin use E11.65 Diabetes mellitus marine oil terminal superintendent insulin use: unspecified marine oil terminal superintendent insulin use status Hyperlipidemia LDL goal <70 E78.5 Essential hypertension I10 Stented coronary artery Z95.5 Malignant neoplasm of prostate C61 Primary insomnia F51.01 Insomnia type: primary Iron deficiency anemia, unspecified iron deficiency anemia type D50.9 Anemia type: iron deficiency Iron deficiency anemia type: unspecified iron deficiency Gastroenteritis K52.9 Assessment & Plan Assessment & Plan (1) Annual physical exam: Code(s): Z00.00 - Encounter for general adult medical examination without abnormal findings Category: Medical Plan: As per HPI (2) Type 2 diabetes mellitus with hyperglycemia: Code(s): E11.65 - Type 2 diabetes mellitus with hyperglycemia Category: Medical Qualifiers: Diabetes mellitus marine oil terminal superintendent insulin use: unspecified group home insulin use status Qualified Code(s): E11.65 - Type 2 diabetes mellitus with hyperglycemia Plan: Patient's type 2 diabetes suboptimally controlled, will increase his Trulicity dose to 3 mg weekly for better blood pressure control. He continues on Jardiance, max dose of metformin. Goal A1c is to be below 7.0 (3) Hyperlipidemia LDL goal <70: Code(s): E78.5 - Hyperlipidemia, unspecified Category: Medical Plan: Patient most recent fasting lipid panel showing excellent control of his total cholesterol and LDL. Does have a history of coronary artery disease. Goal LDL is to be optimally below 70. (4) Essential hypertension: Code(s): I10 - Essential (primary) hypertension Category: Medical Plan: Patient's blood pressure acceptable today in office. Continues to follow Nephrology , most recent urinalysis showing high-protein. Advised to stay well hydrated. Due to elevated blood pressure will change his losartan to combo agent losartan hydrochlorothiazide. Goal blood pressure to be below 140/90 (5) Stented coronary artery: Code(s): Z95.5 - Presence of coronary angioplasty implant and graft Category: Surgical Plan: Patient has no reports chest discomfort or shortness of breath. As above goal LDL to remain below 70. (6) Malignant neoplasm of prostate: Code(s): C61 - Malignant neoplasm of prostate Category: Medical Plan: Patient has a history prostate cancer did get biopsies with previous urologist. Now continues to follow [facility]. PSAs has been stable (7) Insomnia: Code(s): G47.00 - Insomnia, unspecified Category: Medical Qualifiers: Insomnia type: primary Qualified Code(s): F51.01 - Primary insomnia Plan: Patient continues on clonazepam nightly with good effect on sleep. (8) Anemia: Code(s): D64.9 - Anemia, unspecified Category: Medical Qualifiers: Anemia type: iron deficiency Iron deficiency anemia type: unspecified iron deficiency Qualified Code(s): D50.9 - Iron deficiency anemia, unspecified Plan: Family does report that patient has been complaining of fatigue.. Patient was found to have low MCV and hemoglobin of 9.7. No overt signs of bleeding noted. Advised on continue iron supplementation. Will recheck CBC to evaluate for worsening hemoglobin (9) Gastroenteritis: Code(s): K52.9 - Noninfective gastroenteritis and colitis, unspecified Category: Medical Plan: Patient's report symptoms consistent with a gastroenteritis. Recent labs without any leukocytosis Currently patient without any symptoms. Will hold off on further workup for now Medications: New blood-glucose sensor (FreeStyle Dorinda 3 Plus Sensor device) As directed 2 ea 3RF E11.65 - Type 2 diabetes mellitus with hyperglycemia blood-glucose,tierce filler,cont (FreeStyle Dorinda 3 [place]) As directed 1 ea 0RF E11.65 - Type 2 diabetes mellitus with hyperglycemia dulaglutide (Trulicity) 3 mg (0.5 mL) subcut QWEEK 2 mL 4RF 4 weeks E11.65 - Type 2 diabetes mellitus with hyperglycemia Refilled ferrous sulfate 325 mg PO DAILY 30 tabs 3RF D50.9 - Iron deficiency anemia, unspecified cholecalciferol (vitamin D3) 25 mcg PO DAILY 90 caps 1RF 3 months On Hold dulaglutide (Trulicity) Hold Comment: Doctor's Order 1.5 mg (0.5 mL) subcut QWEEK 4 weeks 2 mL 3RF E11.65 - Type 2 diabetes mellitus with hyperglycemia
[2025-01-26 11:28] VITALS: BP 134/60; PULSE 66; TEMP 36.2; O2SAT 98; BMI 22.4
--- OUTSIDE RECORDS SUMMARY | 2025-01-26 14:07 | XMS_ITS | Clinical Summary ---
Author Organization [facility] Address [address] [address] Phone Care Team Providers Care Tester Armature Or Fields Name Role Phone Bryan Kumar MD Primary Care Provider [phone] Allergies No known active allergies Medications aspirin [...] [facility] [address] [place] [phone] Bryan Kumar MD [address] [phone] Health Maintenance Due Date Last Done Comments Pneumococcal Vaccine: 50+ Ye ars (1 of 2 - PCV) 1959 Influenza Vaccine (#1) 2025 Hepatitis B Vaccine Aged Out No longe r eligible based on patient's age to complete this topic Insurance MCR ([id number]) [facility] ([id number]) Care Teams Tester Armature Or Fields Relationship Specialty Start Date End Date Bryan Kumar MD [address] [phone] PCP - General Nephrology 04/16/23
--- OUTSIDE RECORDS SUMMARY | 2025-01-26 14:07 | XMS_ITS | Patient Health Record ---
Author Organization [facility] Address [address] [place] [address] Care Team Providers Care Executive Director Name Role Phone Mario Blankenship Primary Care Provider Sammy Jorgensen [phone] Reason For Referral No Information Medications Medication [...] Problem Status W/U Status Risk Notes Problem [id number] Encounter for screening for malignant neoplasm of colon (Z12.11) Active confirmed Problem [id number] History of adenomatous polyp of colon (Z86.010) Active confirmed Problem 896730051 Bloating (R14.0) Active confirmed Problem [id number] Constipation, unspecified constipation type (K59.00) Active confirmed Problem [id number] Abdominal discomfort, epigastric (R10.13) Active confirmed Plan Of Treatment Pending Test Test Name Order Date CBC w DIFF 05/15/2017 CELIAC PANEL #10 05/15/2017 Future Test Test Name Order Date COLONOSCOPY 05/15/2017 Insurance Providers Payer Name Payer Address Payer Phone Subscriber Number Group Number Insured Name Patient Relationship to Insured Coverage Start Date Coverage End Date [facility] [address] [facility] [place] [address] [id number] JOSÉ KURTZ Self - patient is the insured Medical (General) History Medical History History ICD Code Hypertension Tubular adenomas(ascending c olon and sigmoid colon 11/07/13--in [place]--told they were large polyps --has had 1 previous colonoscopy in [place] with reported similar results IDDM Prostate cancer 04/24/14 -tr eated with hormonal therapy initially by report-- Dr. Sahni--starting XRT on 05/31/17 ID--coronary artery disease RCA stent placed September 2014 - Dr. King--no problems since then Nodule of right lung IBS Depression GERD Tremors Hyperlipidemia Denies CVA,Lung disease,renal disease
--- OUTSIDE RECORDS SUMMARY | 2025-01-26 14:07 | XMS_ITS | Clinical Summary ---
Author Organization [employer] Address [address] [place] [address] [address] [place] [address] Care Team Providers Care Cutter Operator Asbestos Shingle Name Role Phone Unavailable Primary Care Provider [...] to complete this topic Insurance [facility] [employer]CTION OPTIONS (O D-SNP) RAJESH WILD [id number]
== END 2025-01-26 12:26 | disposition home or self-care (01) ==
LOC: HO.HMCH 10:48
PROVIDERS: PCP Internal Medicine; Visit Provider Physician Assistant
DX: Z00.00 Encounter for general adult medical examination without abnormal findings (principal); E11.65 Type 2 diabetes mellitus with hyperglycemia; C61 Malignant neoplasm of prostate; E78.5 Hyperlipidemia, unspecified; I10 Essential (primary) hypertension; Z95.5 Presence of coronary angioplasty implant and graft; F51.01 Primary insomnia; D50.9 Iron deficiency anemia, unspecified; K52.9 Noninfective gastroenteritis and colitis, unspecified

== ENCOUNTER → 2025-01-26 10:47 | Outpatient (BNVA) | payer OTHER, SELFPAY | PROVIDERS: PCP Internal Medicine; Visit Provider Physician Assistant | DX: Z00.00 Encounter for general adult medical examination without abnormal findings (principal); E11.65 Type 2 diabetes mellitus with hyperglycemia; I10 Essential (primary) hypertension; E78.5 Hyperlipidemia, unspecified; I25.10 Atherosclerotic heart disease of native coronary artery without angina pectoris; D64.9 Anemia, unspecified; G47.00 Insomnia, unspecified; C61 Malignant neoplasm of prostate; D50.9 Iron deficiency anemia, unspecified; K52.9 Noninfective gastroenteritis and colitis, unspecified; F51.01 Primary insomnia; Z95.5 Presence of coronary angioplasty implant and graft | CPT/HCPCS: 99397 ==

== ENCOUNTER 2025-04-04 17:17 | Inpatient (IN) | payer OTHER, SELFPAY ==
--- NOTE | ~2025-04-04 | MR_ITS ---
CLINICAL HISTORY: choledocholithiasis? by CT scan . Pt was unable to follow breathing instruction. Best exam obtained MRCP without gadolinium Comparison: CT/REG/SR - CT ABDOMEN PELVIS W IV CON - 04/04/25 19:33 EST Findings: Trace bilateral pleural effusions are redemonstrated. There is reason striated dilation of the CBD measuring up to 1.3 cm distally with a 7 mm distal CBD stone and possible 2nd stone which appears to measure 6 mm at the level of the ampulla (series 4, image 17 and series 3 image 18). Mild intrahepatic ductal dilatation is present without intrahepatic stones identified. Additionally there is marked gallbladder wall thickening with surrounding edema and stones within the cystic duct measuring approximately 5 mm (series 6, image 22). Liver, spleen, pancreas and bilateral adrenal glands are within normal limits. Left parapelvic renal cyst again demonstrated, otherwise kidneys are within normal limits. Visualized bowel demonstrates a nonobstructive pattern. IMPRESSION: Choledocholithiasis with markedly dilated CBD measuring up to 1.3 cm with a distal CBD stone measuring 7 mm and probable additional stone at the ampulla measuring 6 mm. Cholecystitis with 5 mm cystic duct stone. This document has been electronically signed by: Daniele Husain MD on 04/05/2025 13:17:44
--- NOTE | ~2025-04-04 | XR_ITS ---
CLINICAL HISTORY: epigastric pain 1 view chest x-ray Comparison: CR/MA/SR - XR CHEST 2 VIEWS - 12/20/22 16:55 EDT Findings: The lungs are clear. Heart size is normal. No acute fracture. Moderate calcified atherosclerotic disease of the aortic arch. Mild osteopenia. IMPRESSION: 1. No acute findings. This document has been electronically signed by: Zack Bhakta MD on 04/04/2025 18:00:53
--- NOTE | ~2025-04-04 | XR_ITS ---
CLINICAL HISTORY: cough congestion 1 view chest x-ray Comparison: CR - XR CHEST 1V - 04/04/25 17:47 EST Findings: No pleural effusion. There is opacity of the right lung base. Heart size is normal. No acute fracture. IMPRESSION: Atelectasis/infiltrate of the right lung base. This document has been electronically signed by: Oumar Coles MD on 04/09/2025 09:14:05
--- NOTE | ~2025-04-04 | US_ITS ---
CLINICAL HISTORY: RUQ pain US abdomen limited Comparison: CT/REG/SR - CT ABDOMEN PELVIS WO IV CON - 12/20/22 18:37 EDT Findings: The visualized pancreas is normal. The aorta and inferior vena cava are normal caliber. The liver is normal in size and echotexture. There is no intrahepatic bile duct dilatation. The common duct is 6 mm in diameter. The gallbladder demonstrates a small amount of pericholecystic fluid, image number 39 of 63 series 1. Gallbladder wall 0.3 cm. There is no sonographic Shen sign. The main portal vein is antegrade. The right kidney is 10.3 cm in length. No ascites. IMPRESSION: Acute cholecystitis suspected. Consider CT of the abdomen and pelvis for confirmation. This document has been electronically signed by: Zack Bhakta MD on 04/04/2025 19:44:27
--- NOTE | ~2025-04-04 | FL_ITS ---
EXAMINATION: FLUOROSCOPY GUIDANCE FOR NEEDLE PLACEMENT CLINICAL INFORMATION: ercp COMPARISON: Previous abdominal ultrasound and CT of the abdomen and pelvis March 2020 07/03/2024 and MRCP April 05, 2025 TECHNIQUE: Fluoroscopy guidance provided for ERCP. 7 cine runs submitted. FINDINGS: There is intra and extrahepatic biliary duct dilatation. Filling defect in the distal common bile duct which when compared with prior exams likely corresponds to a stone. See procedure note for detailed findings. FLUOROSCOPY TIME: 4 minutes 12 seconds DOSE AREA PRODUCT: [id number] mGy-cm2 FL/FL guidance in OR IMPRESSION: Fluoroscopy guidance for ERCP. Electronically signed by: Bernice Chowdhury MD 04/07/2025 03:47 PM [facility]
--- NOTE | ~2025-04-04 | CT_ITS ---
CLINICAL HISTORY: upper abdominal pain CT abdomen and pelvis with contrast Comparison: CT/REG/SR - CT ABDOMEN PELVIS WO IV CON - 12/20/22 18:37 EDT Findings: Trace bilateral pleural effusions. Hiatal hernia. Partial mineralization of the mitral valve. Left interpolar region parapelvic renal cysts, 3 x 2.3 cm. The adrenals are within normal limits. The kidney demonstrates symmetric corticomedullary enhancement. The liver and spleen are homogeneous in attenuation. The pancreas is homogeneous in attenuation without main pancreatic ductal dilatation. Common bile duct 1 cm. Distal common bile duct intraluminal filling defect, 0.7 cm, coronal image number 42 of 86 series 6. There is diffuse fecal material seen throughout the colon. No bowel obstruction identified. Calcified coronary atherosclerotic disease. Moderate calcified atherosclerotic disease of the abdominal aorta. The appendix is within normal limits. Diverticulosis. The prostate is hypertrophic with prostatic seed implants present. Right inguinal hernia with adipose tissue in lumen, 2.5 x 2.1 x 9 cm. The bones are intact. IMPRESSION: 1. Dilated common bile duct, 1 cm, with choledocholithiasis. 2. Right inguinal hernia containing adipose tissue, measuring 2.5 x 2.1 x [address] evidence of incarceration or strangulation. 3. Left interpolar region parapelvic renal cysts, 3 x 2.3 cm. This document has been electronically signed by: Zack Bhakta MD on 04/04/2025 20:50:22
[2025-04-04 17:30] VITALS: BP 180/74; BP 189/78; PULSE 78; RESP 18; TEMP 36.9; O2SAT 96; O2SAT 99; BMI 22.4
--- NOTE | 2025-04-04 17:30 | ECG_ITS ---
Test Reason : EPIGASTRIC PAIN Blood Pressure : */* mmHG Vent. Rate : 74 BPM Atrial Rate : 74 BPM P-R Int : 122 ms QRS Dur : 92 ms QT Int : 390 ms P-R-T Axes : 2 59 70 degrees QTcB Int : 432 ms Normal sinus rhythm Possible Anterior infarct , age undetermined Abnormal ECG When compared with ECG of 30-Oct-2023 16:31, Premature atrial complexes are no longer Present Referred By: Dino Dumas Electronically Signed By: STEVE RODRIGUEZ
--- NOTE | 2025-04-04 17:37 | ED_ITS ---
HPI - Abdominal Pain General Chief Complaint: Abdominal Pain Stated Complaint: abd/epigastric pain since 2p Time Seen by Provider: 04/04/25 17:26 Source: patient and EMS Mode of arrival: EMS Limitations: no limitations History of Present Illness ED Provider: DR. Dumas HPI narrative: 85-year-old speaking male brought in by EMS for evaluation of epigastric pain that is started around 14:00 after had lunch, patient had this burning sensation in the epigastric area with radiation to the lower chest followed by vomiting with no relief of the pain pain still there with no relief or improvement, reported improvement of nausea and vomiting, no fever, no chills. intra-abdominal surgical history significant for prostate surgery. No dysuria, no frequency urination, no hematuria. Last bowel movement was this morning and was normal with no blood in the stool. Patient used to get both episode that is usually precipitated after eating certain food then relief after vomiting. Related Data Home Medications ?Medication ?Instructions ?Recorded ?Confirmed nitroglycerin 0.4 mg sublingual 0.4 mg sublingual Q5M PRN Chest 02/14/20 01/26/25 tablet Pain blood-glucose meter #1 ea 04/01/20 01/26/25 lancets 28 gauge #100 ea 04/01/20 01/26/25 glucose 4 gram chewable tablet 4 g PO ONCE PRN Hypogly cemia 07/26/20 01/26/25 Previous Rx's ?Medication ?Instructions ?Recorded blood pressure monitor (Blood #1 ea 03/01/20 Pressure Kit) aspirin 81 mg tablet,delayed 81 mg PO DAILY 3 months # 90 tabs 05/31/20 release (Enteric Coated Aspirin) repaglinide 0.5 mg tablet 0.5 mg PO DAILY #30 tabs metoclopramide HCl 10 mg tablet 10 mg PO QIDACHS #120 tabs 12/19/22 (Reglan) simethicone 180 mg capsule 180 mg PO QID PRN Gastric R eflux 02/22/23 30 days #120 caps empagliflozin 25 mg tablet 25 mg PO DAILY 90 days #90 tabs 08/09/24 (Jardiance) spironolactone 25 mg tablet 25 mg PO DAILY 90 days #90 tabs 08/09/24 losartan 100 mg tablet 100 mg PO DAILY #90 tabs 08/05 Held on 08/18/24. Instructions: Doctor's Order dulaglutide 1.5 mg/0.5 mL 1.5 mg (0.5 mL) subcut QWEEK 4 11/17/24 subcutaneous pen injector weeks #2 mL (Trulicity) Held on 01/26/25. Instructions: Doctor's Order atorvastatin 40 mg tablet 40 mg PO BEDTIME 90 days #90 tabs 01/03/25 carvedilol 12.5 mg tablet 12.5 mg PO BID 90 days #180 tabs 01/04/25 metformin 1,000 mg tablet 1,000 mg PO BID 90 days #180 tabs 01/23/25 blood-glucose sensor (FreeStyle #2 ea 01/26/25 Dorinda 3 Plus Sensor device) blood-glucose,steel division supervisor,cont #1 ea 01/26/25 (FreeStyle Dorinda 3 [place]en) cholecalciferol (vitamin D3) 25 25 mcg PO DAILY 3 carmela hs #90 caps 01/26/25 mcg (1,000 unit) capsule dulaglutide 3 mg/0.5 mL 3 mg (0.5 mL) subcut QWEEK 4 weeks 01/26/25 subcutaneous pen injector #2 mL (Trulicity) ferrous sulfate 325 mg (65 mg 325 mg PO DAILY #30 tabs 01/26/25 iron) tablet lansoprazole 30 mg capsule,delayed 30 mg PO DAILY 90 d ays #90 caps 02/09/25 release losartan 100 1 tab PO DAILY #90 tabs 10/0 525 mg-hydrochlorothiazide 12.5 mg tablet amlodipine 5 mg tablet 5 mg PO DAILY 30 days #90 ta bs 03/10/25 clonazepam 1 mg tablet (Klonopin) 1 mg PO BEDTIME 7 da ys #7 tabs 03/19/25 Allergies Allergy/AdvReac Type Severity Reaction Status Date / Time No Known Allergies (No Known Allergy Verified 04/04/25 17:33 Allergies*) Review of Systems Review of Systems All other systems are reviewed and are negative Constitutional: Reports as per HPI and Reports no additional constitutional complaints Eyes: Reports as per HPI and Reports no additional eye complaints Reports system reviewed and no additional complaints, except as documented Cardiovascular: Reports as per HPI and Reports no additional cardiovascular complaints Respiratory: Reports as per HPI and Reports no additional respiratory complaints Gastrointestinal: Reports as per HPI and Reports no additional gastrointestinal complaints Genitourinary: Reports no additional female genitourinary complaints Musculoskeletal: Reports no additional musculoskeletal complaints Skin/Breast: Reports system reviewed and no additional complaints, except as docu Psychiatric: Reports no additional psychiatric complaints Endocrine: Reports no additional endocrine complaints Hematologic/Lymphatic: Reports no additional hematologic/lymphatic complaints Allergic/Immunologic: Reports no additional allergic/immunologic complaints Reports system reviewed and no additional complaints, except as documented and Reports Abnormal speech present FOR[facility]LY [facility] Past Medical History Medical History Malignant neoplasm of prostate Type 2 diabetes mellitus with unspecified complications 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 Allergic rhinitis Microalbuminuria Insomnia History of Helicobacter infection GERD (gastroesophageal reflux disease) History of prostate cancer Coronary artery disease Vitamin D deficiency Hyperlipidemia LDL goal <100 Essential hypertension Type 2 diabetes mellitus with hyperglycemia Surgical History Stented coronary artery History of cardiac cath Hx of esophagogastroduodenoscopy Hx of prostate biopsy Hx of colonoscopy Family History Family History Father Medical history unknown Mother Medical history unknown Sister Diabetes Daughter Breast cancer Social History Social History Household Members: None Housing: Apartment Housing Other:: [employer] Do you presently have visiting nurse or other home services: Yes Alcohol intake: never Patient Tobacco Use Status: Former Tobacco user Tobacco use type: Cigarette Smoked in Last 30 Days: No e-Cigarette/Vaping Use: Never Used Second Hand Smoke Exposure: Yes Use of substances other than those prescribed or required for medical reasons: No Advance Directives: No Advance Directives Information Provided: No service: No Current occupational status: retired Cognitive needs: Yes Hearing needs: No Vision needs: Yes Physical Exam ED Vital Signs: Vital Signs - 24 hr 04/04/25 17:30 04/04/25 18:39 04/04/25 19:20 Temperature 98.4 F 98.4 F 98.2 F Pulse Rate 78 78 75 Respiratory Rate 18 18 18 Blood Pressure 189/78 H 165/67 H 148/46 H Pulse Oximetry 96 98 96 Oxygen Delivery Method Room Air Room Air Room Air BMI result Body Mass Index 22.4 Vital signs have been reviewed and appear to be correct. Blood pressure elevated. Heart rate normal. Respiratory rate normal. Temperature normal. Oxygen saturation normal. Appearance: Alert. Oriented X3. No acute distress. Head: Normal external exam. Normocephalic. Atraumatic. No Cardenas signs noted. No raccoon eyes noted Eyes: PERRLA. EOMI. Conjunctiva and sclera normal. Eyelids normal. ENT: TM's Normal. Pharynx normal. Uvula midline. Moist mucous membranes. No trismus noted. No drooling noted. No muffled voice noted. Neck: Normal inspection. Neck supple. FROM. No adenopathy. Thyroid Normal. No meningeal signs. No neck mass noted. CVS: Normal heart rate and rhythm. Heart sound normal. No murmurs noted. Pulses normal throughout. Respiratory: No respiratory distress. Painless inspiration. Breath sounds normal. No wheezes/rales/rhonchi noted. Chest nontender. No accessory muscle usage noted or decreased air movement noted. Abdomen: Soft , mild epigastric tenderness, no rebound tenderness, no guarding.No distention noted. No organomegaly noted. No visible injury noted. Back: No CVA tenderness. Full range of motion noted. Skin: Skin warm and dry. Normal skin color. Normal skin turgor. No rashes/lesions/lacerations noted. Extremities: No lower extremity edema. Extremities exhibit normal range of motion. Extremities nontender. Neuro: Oriented X 3. Cranial nerve exam: II-XII are grossly intact No motor deficit. No sensory deficit. Reflexes normal. Course Reevaluation(s) Reevaluation #1: Infection is suspected now , CT abdomen and pelvis is consistent with common bile duct dilatation and possible choledocholithiasis, however ultrasound is revealing acute cholecystitis with +Shen's sign, patient meet SIRS criteria will administer fluids and IV Zosyn with pain control,Case was discussed with Dr. Loya who will admit the patient to the surgical floor and get medicine consult as an inpatient. Time: 21:42 Reevaluation #2: Lactic acid is 4.3 patient meet criteria now for septic shock. Will upgrade fluids to 30 cc/kg total of 1,722 cc IV bolus. Time: 22:15 Reevaluation #3: FOCUSED EXAM: Was completed, patient feels much better with less pain, improvement of lactic acid after hydration. Time: 01:50 Medical Decision Making Differential Diagnosis Differential Diagnoses: The differential diagnosis associated with the presentation includes ( Acute cholecystitis, pancreatitis, cholelithiasis, colitis, diverticulitis, acute appendicitis, electrolyte derangement, severe anemia.) Admission/Observation Consideration of admission/observation: Escalation of care including admission/observation considered Consult Healthcare Provider Management of the patient was discussed with: Extension Agent ( Dr. Loya) Lab Data MDM Lab Attestation statement: I reviewed the patient's lab results. 04/04/25 17:43 04/04/25 17:43 Labs: Lab Results 04/04/25 04/04/25 04/04/25 Range/Units 17:43 19:19 21:28 WBC 13.3 H (4.8-10.8) X10*3/uL RBC 4.37 L (4.60-5.80) X10*6/uL Hgb 11.5 L (14.0-18.0) g/dl Hct 35.8 L (42.0-52.0) % MCV 81.9 (80.0-98.0) fL MCH 26.3 L (27.0-33.0) pg MCHC 32.1 (31.0-36.0) g/dl RDW 15.6 (11.0-16.0) % Plt Count 86 L (160-400) X10*3/uL MPV 10.1 (9.4-12.4) fL Immature Gran % (Auto) 0.7 H (0.0-0.4) % Neut % (Auto) 82.2 H (45-73) % Lymph % (Auto) 10.9 L (20-40) % [place] % (Auto) 4.4 (2-11) % Eos % (Auto) 1.2 (0-4) % Baso % (Auto) 0.6 (0-2) % Lymph # (Auto) 1.5 (1.2-4.9) X10*3/uL [place] # (Auto) 0.6 (0.1-1.2) X10*3/uL Eos # (Auto) 0.2 (0.0-0.4) X10*3/uL Baso # (Auto) 0.1 (0.0-0.2) X10*3/uL Abs Immat Gran (auto) 0.09 H (0.00-0.03) X10*3/uL Absolute Neuts (auto) 10.9 H (2.0-8.3) x10*3/uL Absolute Nucleated RBC 0.000 (0.0-0.012) X10*3/uL Nucleated RBC % (auto) 0.0 (0.0-0.2) /100WBC Sodium 143 (135-145) mmol/L Potassium 4.3 (3.3-5.1) mmol/L Chloride 104 (96-108) mmol/L Carbon Dioxide 26 (22-29) mmol/L Anion Gap 17 (12-20) BUN 18 H (9-16) mg/dL Creatinine 0.93 (0.5-1.4) mg/dL Estim Creat Clear Calc 48.4 Estimated GFR > 60 Random Glucose 195 H (60-115) mg/dL Lactic Acid 4.3 H* (0.5-2.0) mmol/L Calcium 9.8 (8.4-10.2) mg/dL Total Bilirubin 1.0 (0.0-1.0) mg/dL AST 20 (5-37) U/L ALT 11 (0-40) U/L Alkaline Phosphatase 71 (39-117) U/L Troponin I High Sens < 2.7 < 2.7 (<3.5-35.0) ng/L Total Protein 7.4 (6.5-8.0) g/dL Albumin 4.8 (3.5-5.0) g/dL Lipase 44 (8-78) U/L Urine Color Yellow Urine Appearance Clear Urine pH 7.5 (5.0-9.0) Ur Specific [place] 1.010 (1.005-1.025) Urine Protein 30 (1+) H (Neg-Trace) mg/dL Urine Glucose (UA) 250 H (Negative) mg/dL Urine Ketones 15 (Negative) mg/dL Urine Blood Trace H (Negative) Urine Nitrite Negative (Negative) Ur Leukocyte Esterase Negative (Negative) Urine RBC 3-5 H (0-2) /HPF Urine WBC 0-5 (0-5) /HPF Ur Squamous Epith Cells 0-2 (0-2) /HPF Urine Bacteria None Seen (None Seen) Hyaline Casts 0-2 (0-2) /LPF Independent Interpretation I performed an independent interpretation of an: Ultrasound ( Hepatobiliary:Acute cholecystitis suspected. Consider CT of the abdomen and pelvis for confirmation.) and CT Scan ( abdomen and pelvis:1. Dilated common bile duct, 1 cm, with choledocholithiasis. 2. Right inguinal hernia containing adipose tissue, measuring 2.5 x 2.1 x [address] evidence of incarceration or strangulation. 3. Left interpolar region parapelvic renal cysts, 3 x 2.3 cm.) Radiology Impression Discussion of test interpretation with radiology: I have reviewed the radiologist's reading. Medications Administered Generic Name Dose Route Start Last Admin Trade Name Freq PRN Reason Stop Dose Admin Lactated Ringer's 1,000 mls @ 100 mls/hr 04/04/25 22:30 04/04/25 23:01 Lr IVCONT 100 mls/hr .Q10H EARNESTINE Administration Piperacillin Sod/Tazobactam 50 mls @ 100 mls/hr 04/05/25 02:00 04/05/25 01:27 Sod 3.375 gm/ Sodium Chloride IV 100 mls/hr Q6H EARNESTINE Administration Insulin Human Lispro 0 unit 04/05/25 00:00 04/05/25 00:37 Insulin Lispro 100 Unit/Ml 3 Ml Vial SUBCUT 2 unit Q6H EARNESTINE Administration Protocol Morphine Sulfate 2 mg 04/04/25 22:28 04/05/25 00:38 Morphine Sulfate 4 Mg/Ml Cartridge IVPUSH 2 mg RQ4H PRN Administration Pain, Severe (Pain Scale 7-10) Protocol Sodium Chloride 3 ml 04/05/25 00:00 04/05/25 00:17 0.9 % Sodium Chloride Flush 3 Ml Syringe IVFLUSH Not Given QSHIFT EARNESTINE Discontinued Medications Generic Name Dose Route Start Last Admin Trade Name Freq PRN Reason Stop Dose Admin Al Hydroxide/Mg Hydroxide 30 ml 04/04/25 17:32 04/04/25 18:05 Magnesium Hydrox/Alum Hydrox 30 Ml Oral.Susp PO 04/04/25 17:33 30 ml ONCE ONE Administration Piperacillin Sod/Tazobactam 50 mls @ 100 mls/hr 04/04/25 21:03 04/04/25 22:10 Sod 3.375 gm/ Sodium Chloride IV 04/04/25 21:32 Infused ONCE ONE Infusion Lactated Ringer's 1,000 mls @ 999 mls/hr 04/04/25 21:15 04/04/25 22:56 Lr IV 04/04/25 22:15 Infused .Q1H1M EARNESTINE Infusion Sodium Chloride 1,722 mls @ 1,722 mls/hr 04/04/25 22:16 04/05/25 00:37 Ns 30 ml/kg infuse over 1 hr (1722 ml) 04/04/25 23:15 Infused IV Infusion .Q1H STA Acetaminophen 1,000 mg in 100 mls @ 400 mls/hr 04/05/25 00:42 04/05/25 01:26 Ofirmev IV 04/05/25 00:56 Infused ONCE ONE Infusion Iohexol 100 ml 04/04/25 19:34 04/04/25 19:34 Iohexol 350 Mg/Ml 100 Ml Infus..Btl IV 04/04/25 19:35 85 ml ONCE ONE Administration Morphine Sulfate 1 mg 04/04/25 21:43 04/04/25 21:53 Morphine Sulfate 4 Mg/Ml Cartridge IVPUSH 04/04/25 21:44 1 mg ONCE ONE Administration Protocol Ondansetron HCl 4 mg 04/04/25 17:32 04/04/25 18:05 Ondansetron Hcl 4 Mg/2 Ml Vial IVPUSH 04/04/25 17:33 4 mg ONCE ONE Administration Pantoprazole Sodium 40 mg 04/04/25 17:32 04/04/25 18:06 Pantoprazole Sodium 40 Mg/10 Ml Vial IVPUSH 04/04/25 17:33 40 mg ONCE ONE Administration Sucralfate 1 gm 04/04/25 17:32 04/04/25 18:05 Sucralfate Oral Suspension 1 Gm/10 Ml Oral.Susp PO 04/04/25 17:33 1 gm ONCE ONE Administration Critical Care Time Critical Care Time Critical Care Time: Yes Total Critical Care Time: 60 Attestation: The patient was critically ill with a high probability of imminent or life- threatening deterioration. I spent greater than 30 minutes of discontinuous time evaluating the patient, delivering critical care at the bedside, discussing evaluating data with consultants. Critical care time does not include time spent performing separately billable procedures or teaching. Time spent performing critical care was 60 minutes. Discharge Plan Discharge Clinical Impression: Acute cholecystitis, Choledocholithiasis with acute cholecystitis, Sepsis Patient Disposition: Admitted As Inpatient
[2025-04-04 17:47] LABS: MANUAL DIFF FLAG NO
[2025-04-04 17:53] LABS: Hematocrit 35.8 % (42.0-52.0); Hemoglobin 11.5 g/dl (14.0-18.0); Imm Gran Abs Auto 0.09 X10*3/uL (0.00-0.03); Imm Gran Pct Auto 0.7 % (0.0-0.4); Lymphocytes Absolute Auto 1.5 X10*3/uL (1.2-4.9); Mean Corpuscular HGB Conc 32.1 g/dl (31.0-36.0); Mean Corpuscular Hemoglobin 26.3 pg (27.0-33.0); Mean Corpuscular Volume 81.9 fL (80.0-98.0); NRBC Abs Auto 0.000 X10*3/uL (0.0-0.012); NRBC Pct Auto 0.0 /100WBC (0.0-0.2); Red Blood Count 4.37 X10*6/uL (4.60-5.80); White Blood Count 13.3 X10*3/uL (4.8-10.8)
[2025-04-04] MEDS: Magnesium Hydrox/Alum Hydrox 30 ML ORAL.SUSP PO (18:05)
[2025-04-04] MEDS: Sucralfate Oral Suspension 1 GM/10 ML ORAL.SUSP PO (18:05)
[2025-04-04 18:09] LABS: Alanine Aminotransferase 11 U/L (0-40); Albumin Level 4.8 g/dL (3.5-5.0); Alkaline Phosphatase 71 U/L (39-117); Anion Gap 17 (12-20); Aspartate Amino Transferase 20 U/L (5-37); Blood Urea Nitrogen 18 mg/dL (9-16); Calcium 9.8 mg/dL (8.4-10.2); Carbon Dioxide 26 mmol/L (22-29); Chloride 104 mmol/L (96-108); Creatinine Clr Calc Pharmacy 48.4; Estimated Glomerular Filt Rate > 60; Lipase 44 U/L (8-78); Potassium 4.3 mmol/L (3.3-5.1); Sodium 143 mmol/L (135-145); Total Protein 7.4 g/dL (6.5-8.0)
[2025-04-04 18:15] LABS: Platelet Count 86 X10*3/uL (160-400)
--- OUTSIDE RECORDS SUMMARY | 2025-04-04 18:16 | XMS_ITS | Clinical Summary ---
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 Active amLODIPine (Norvasc) 5 MG tablet 3 [...] atorvastatin (Lipitor) 40 MG tablet 3 Active clonazePAM (KlonoPIN) 0.5 MG tablet 5 Active losartan-hydroC HLOROthiazide (Hyzaar) 100-12.5 MG tablet 5 Active Trulicity 3 MG/0.5ML solution auto-injector 5 Active dulaglutide (Trulicity) 1.5 MG/0.5ML solution pen-injector Inject 1.5 mg under the skin 1 (one) time per week. 03/23/20 25 Discontinu ed(Therapy completed) Active Problems No known active problems Encounters Date Type Department Care Team Description 03/06/2025 2:30 PM EDT Office Visit [facility] [address] [place] [address] Myla Almeida, OD Moderate nonproliferative diabetic retinopathy of both eyes with macular edema associated with type 2 diabetes mellitus (HCC) (Primary Dx); Dermatochalasis of both upper eyelids; Pseudophakia of both eyes; Meibomian gland disease of both eyes, unspecified eyelid; Suspicious optic nerve cupping of both eyes; Presbyopia 03/06/2025 Travel from Last 3 Months Family History Medical History Relation Name Comments [...] 10 :15 AM EDT Plan of Treatment Upcoming Encounters Date Type Department Care Team (Late st Contact Info) Description 09/04/2025 10:00 AM EDT Office Visit [facility] [address] [place] [address] Myla Almeida, OD [address] [place] [address] Health Maintenance Due Date Last Done Comments Depression Screening 1942 Diabetes: Hemoglobin A1C 1942 Lipid Panel 1942 SDOH Screening 1942 Diabetes: Foot Exam 01/10/1952 Alcohol/Substance Use Screening 1954 Zoster Vaccines (2 of 3) 08/21/2016 06/26/2016 RSV Patients and Patients Aged 60 years or older (1 - 1-dose 75+ series) 2017 COVID-19 Vaccine ( - season) 2025 04/19/2021 Influenza Vaccine (#1) 2025 , 04/16/2023, 03/29/2022, Additional history exists Diabetes: Urine Protein Screening 08/18/2025 08/18/2024 Eye Exam 03/06/2026 03/06/2025, 02/12, 03/06/2025, Additional history exists Tobacco Screening 03/23/2026 03/23/2025 DTaP/Tdap/Td Vaccines (2 - Td or Tdap) [...] on patient's age to complete this topic Goals Goal Patient Goal Type Associated Problems Recent Progress Patient-Stated? Author Help patients manage their type 2 diabetes Care Plan Help patients manage their type 2 diabetes No Neto Almeidan, OD Weekly blood pressure task Care Plan Weekly blood pressure task No Juan PabloNeton, OD Help patients manage their type 2 diabetes Care Plan Help patients manage their type 2 diabetes No Neto Almeidan, OD Patient has diabetic eye disease Care Plan Patient has diabetic eye disease No Juan Pablo Myla, OD Help patients manage their type 2 diabetes Care Plan Help patients manage their type 2 diabetes No Neto Almeidan, OD Patient has chronic kidney disease Care Plan Patient has chronic kidney disease No Neto Almeidan, OD Weekly blood pressure task Care Plan Weekly blood pressure task No Neto Almeidan, OD Weekly blood pressure task Care Plan Weekly blood pressure task No Juan Pablo, Myla, OD Patient has diabetic eye disease Care Plan Patient has diabetic eye disease No Juan Pablo, Myla, OD Patient has diabetic eye disease Care Plan Patient has diabetic eye disease No Juan Pablo, Myla, OD Patient has chronic kidney disease Care Plan Patient has chronic kidney disease No Juan Pablo, Myla, OD Patient has chronic kidney disease Care Plan Patient has chronic kidney disease No Juan Pablo, Myla, OD Procedures Procedure Name Priority Date/Time Associated Diagnosis Comments OCT, RETINA - OU - BOTH EYES Routine 03/06/2025 2:30 PM EDT Moderate nonproliferative diabetic retinopathy of both eyes with macular edema associated with type 2 diabetes mellitus (HCC) from Last 3 Months Results * OCT, Retina - OU - Both Eyes (03/06/2025 2:30 PM EDT) Narrative Juan Pablo, Myla, OD - 03/20/2025 1:59 PM EST Images from the original result were not included. OCT [employer] Optical Coherence Tomography Interpretation Report Measurements: OD OS Macula Thickness 197 microns 233 microns Test findings: OD: Blunted foveal contour, cystoid macular edema inferotemporal to fovea, no retinal pigment epithelium disruption, no subretinal fluid OS: Distorted foveal contour with underlying cystoid macular edema, no retinal pigment epithelium disruption, no subretinal fluid Impression and Plan: The patient has mild non-proliferative diabetic retinopathy with macular edema in both eyes. Will refer to a retinal specialist for further evaluation. Will also monitor here in 6 months. Myla Juan Pablo OD OPHTH TOMOGRAPHY Final Result from Last 3 Months Additional Health Concerns Active Problems Noted Date Diagnosed Date Help patients manage their type 2 diabetes 03/27 Weekly blood pressure task 03/27/2025 Help patients manage their type 2 diabetes 03/27 Patient has diabetic eye disease 03/27/2025 Help patients manage their type 2 diabetes 03/27 Patient has chronic kidney disease 03/27/2025 Weekly blood pressure task 03/27/2025 Weekly blood pressure task 03/27/2025 Patient has diabetic eye disease 03/27/2025 Patient has diabetic eye disease 03/27/2025 Patient has chronic kidney disease 03/27/2025 Patient has chronic kidney disease 03/27/2025 Insurance [facility] [employer] TERM OPT[employer] (O D-SNP) RAJESH WILD [id number]
--- OUTSIDE RECORDS SUMMARY | 2025-04-04 18:16 | XMS_ITS | Encounter Summary ---
Author Organization [facility] Address [address] [place] [address] Encounters * CPT with [facility] at [facility] on 2025-04-04 { reasonForRequest : Patient has stomach pain and vomiting. , patientReport s : , denies :[ Sharp focal or diffuse abdominal pain , Vomiting blood/coffee ground material , Bloating, jaundice new onset with pain , Nausea and vomiting greater than 2 hours with abdominal pain , Tearing pain that radiates to back , Food Impaction ], chiefComplaints : Abdominal Pain, Nausea / Vomiting , pmh : Hypertension, Hyperlipidemia, Diabetes Mellitus Type 2 ,&q uot;allergies : No Known Drug Allergies , otherAllergies : ,&quo t;painAssessment : , visitOutcome : , additionalComments": 85 y.o male complains of Abdominal Pain, Nausea / Vomiting\n\nPatients daughter calling in to place a referral\nPatient who after eating developed upper abdominal pain, nausea and vomiting\nDenies hematemesis, no diarrhea\nAbdomen is soft, non tender, non distended, denies bloat\nDenies back pain\nDenies chest pain, no shortness of breath\nNo fever 97.4, +chills\nHe would like to be evaluated\n\nI provided information on the mobile health provider response time and advised the patient and/or caregiver to monitor reported signs and symptoms. I discussed the warning signs of when to seek emergency care. } Arrived at patients apartment. Patient laying on couch. Patient Romanian speaking only. Daughter on scene translated. Patient was eating food around 1400 which consisted of rice and sardines when he developed sudden epigastric pain radiating to left and right side and under his rib cage. Patient hadone episode of vomiting, but pain remained constant 8/10. Abdomen soft but tender to touch. VS as noted. HTN. 12 lead ???>sinus arrhythmia. Patient denies any chest pain. [facility] contacted advised to go to hospital for imaging. Patient agreeable. Call placed to 911. EMS activated. Care transferred to [place]. Transport to [place]. IV_(FLUIDS_AND/OR_MEDICATION), MEDICATION_IM, EKG, POC_BLOODWORK, URINE_DIPSTICK Written by Medical [facility] on 2025-04-04
--- OUTSIDE RECORDS SUMMARY | 2025-04-04 18:16 | XMS_ITS | Continuity of Care Document ---
Author Organization [facility] Address [address] [place] [phone] Care Team Providers Care Handkerchief Folder Name Role Phone HIM CCA OTHER Assessment No assessment recorded. Plan of Treatment Reminders Order Date Submit Date Provider Last Modified By Organization Details Last Modified Time Details Appointments Urgent Care 2024 04:30P Williams Cabezas MD Not available Not available Not available Lab None recorded. Referral None recorded. Procedures None recorded. Surgeries None recorded. Imaging electroca rdiogram 2024 025 [email or web address] [facility], [address] [place] [address], [phone] 04/04/2025 17:00:06 Medication Orders None recorded. Patient TargetsNo targets recorded. Patient InstructionsNo instructions recorded. Reason for Referral None Reported. Results Created Date Observation Date Name Description Value Unit Range Abnormal Flag Note LastModifiedBy Organization Detail LastModifiedTime 04/04/2004/04/2025 elect brooklynn diogr am No observ ation record ed. [facility] [address], [phone] 04/04/2025 17:07:35 Result Notes None recorded. Medical Equipment None Reported. Allergies No known drug allergies Vitals Date Recorded Body temperature Heart rate Oxygen saturation Respiratory rate Systolic And Diastolic Provider Name and Address Organization Details Last Updated DateTime 98.5 [degF] 77 /min 99 % 18 /min 185/79 mm[Hg] Not Available [facility] - production 16:33:52 Social History None recorded. Functional Status None recorded. Mental Status None recorded. Family History Nothing Reported. Medical History No medical history recorded. Past Encounters Encounter ID Performer Location Encounter Start Date Encounter Closed Date Diagnosis/Indication Diagnosis SNOMED-CT Code Diagnosis ICD10 Code Diagnosis IMO Codes Diagnosis Note [id number] Jerry Cabezas MD [facility] ED Medical [facility] [address] [place] [address] 04/04/2025 16:30:50 04/04/2025 17:00:23 Epigastric pain 57231987 R10.13 [id number] 01/21 acute onset epigastric pain in the setting of hypertensi on, tenderness on palpation. No diarrhea. EKG with no acute ST-T wave changes. Does have vomiting today. Given concern for gallbladde r pathology, advised to go to the ED. Patient in agreement. Health Concerns Section Related Observation LastModified by Organization Detai ls LastModified Time None Recorded Concern Status LastModified by Organization Details LastModified Time None Recorded Payers Encounter Date Sequence Insurance Name Policy Number Policy Wyatt Covered Member ID Wyatt Member ID Guarantor Name 04/04/2025 1 [facility] - DOS ON OR AFTER 2022 - DUAL ELIGIBLE - USP OPTIONS AND ONE CARE (MEDICARE REPLACEMENT/AD VANTAGE - HMO) Vaishnavi Madsen [id number] Vaishnavi Madsen Notes Date Note Type Note Provider Name and Address Organization Details Recorded Time 04/04/2025 text/html ROS as noted in the [facility] CRC Nurse Triage Notes (Negrita Galindo): Reason For Request: Patient has stomach pain and vomiting. Denies: Sharp focal or diffuse abdominal pain Vomiting blood/coffee ground material Bloating, jaundice new onset with pain Nausea and vomiting greater than 2 hours with abdominal pain Tearing pain that radiates to back Food Impaction Chief Complaints: Abdominal Pain, Nausea / Vomiting PMH: Hypertension, Hyperlipidemia, Diabetes Mellitus Type 2 PMH Reviewed at 04/04/2025 - 15:58 (ET) Allergies Reviewed at 04/04/2025 - 15:58 (ET) Comments: 85 y.o male complains of Abdominal Pain, Nausea / Vomiting Patients daughter calling in to place a referral Patient who after eating developed upper abdominal pain, nausea and vomiting Denies hematemesis, no diarrhea Abdomen is soft, non tender, non distended, denies bloat Denies back pain Denies chest pain, no shortness of breath No fever 97.4, +chills He would like to be evaluated I provided information on the [facility] provider response time and advised the patient and/or caregiver to monitor reported signs and symptoms. I discussed the warning signs of when to seek emergency care. Jerry Cabezas MD [address] [facility],[address], [place], [address], [employer] 04/04/2025 17:00:21
--- OUTSIDE RECORDS SUMMARY | 2025-04-04 18:16 | XMS_ITS | Data Portability ---
Author Organization [facility] Address [address] [place] [phone] Care Team Providers Care Wire Setter Name Role Phone HIM CCA OTHER Assessment No assessment recorded. Plan of Treatment Reminders Order Date Submit Date Provider Last Modified By Organization Details Last Modified Time Details Appointments Urgent Care 2024 04:30P Williams Cabezas MD Not available Not available Not available Lab None recorded. Referral None recorded. Procedures None recorded. Surgeries None recorded. Imaging electroca rdiogram 2024 025 [email or web address] [facility], [address] [place] [address], [phone] 04/04/2025 17:00:06 Medication Orders None recorded. Patient TargetsNo targets recorded. Patient InstructionsNo instructions recorded. Reason for Referral None Reported. Results Created Date Observation Date Name Description Value Unit Range Abnormal Flag Note LastModifiedBy Organization Detail LastModifiedTime 04/04/2004/04/2025 elect brooklynn diogr am No observ ation record ed. [facility] [address], [phone] 04/04/2025 17:07:35 Result Notes None recorded. Medical [...] ICD10 Code Diagnosis IMO Codes Diagnosis Note [id number] Jerry Cabezas MD [facility] ED Medical [address] [address] 04/04/2025 16:30:50 04/04/2025 17:00:23 Epigastric pain [id number] R10.13 [id number] 01/21 acute onset epigastric pain in the [...] by Organization Details LastModified Time None Recorded Advance Directives Directive None Recorded Payers Insurance Date Sequence Insurance Name Policy Number Policy Wyatt Covered Member ID Wyatt Member ID Guarantor Name 04/04/2025 1 [facility] - DOS ON OR AFTER 2022 - DUAL ELIGIBLE - SKILLED NURSING OPTIONS AND ONE CARE (MEDICARE REPLACEMENT/AD VANTAGE - HMO) Vaishnavi Madsen [id number] Vaishnavi Madsen Notes Date Note Type Note Provider Name and Address Organization Details Recorded Time 04/04/2025 text/html ROS as noted in the [facility] Nurse Triage Notes (Negrita Galindo): [...] be evaluated I provided information on the mobile health provider response time and advised the patient and/or caregiver to monitor reported signs and symptoms. I discussed the warning signs of when to seek emergency care. Jerry Cabezas MD [address] [place] [address],[address], [place], [address], [employer] 04/04/2025 17:00:21
--- OUTSIDE RECORDS SUMMARY | 2025-04-04 18:16 | XMS_ITS | Continuity of Care Document ---
Author Name [facility] Address [address] [place] [id number] Organization Unknown Address [address] [place] [address] Medications No known medications Problems No known problems
--- OUTSIDE RECORDS SUMMARY | 2025-04-04 18:16 | XMS_ITS | Patient Health Record ---
Author Organization [facility] Address [address] [place] [address] Care Team Providers Care Fireman Name Role Phone Mario Blankenship Primary Care Provider Sammy Jorgensen [phone] Reason For Referral No Information Medications Medication SIG (Take, Route, Frequency, Duration) Notes Start Date End Date Status Temazepam 30 MG Capsule 1 capsule at bedtime as needed Orally Once a day Active Aspirin Adult Low Dose 81 MG Tablet Delayed Release 1 tablet Orally Once a day Active Chlorthalidone 25 MG Tablet 1 tablet in the morning with food Orally Once a day Active MiraLax (colon prep) 8.3 ounce (238) grams mixed with Gatorade or Crystal Light orally begin at 5:00 p.m. the day before the procedure; Duration: 1 day 05/19/2017 Active Dulcolax (colon prep) 5 MG Tablet Delayed Release take at 3:00 p.m and 7:00p.m. Orally two tablets twice a day for one day; Duration: 1 day 05/19/2017 Active NovoLOG FlexPen 100 UNIT/ML Solution Pen-injector INJECT 8 UNITS SQ QD AC Subcutaneous; Duration: 90 Active Dicyclomine HCl 10 MG Capsule 1-2 capsules Orally Four times a day prn abdominal bloating/discomfort /cramps; Duration: 30 day(s) 05/15/2017 Active Lantus 100 UNIT/ML Solution Subcutaneous Active Naproxen 500 MG Tablet 1 tablet with food or milk as needed Orally every 12 hrs only occasionally Active Carvedilol 12.5 MG Tablet Orally Active metFORMIN HCl 1000 MG Tablet 1 tablet with meals Orally Twice a day Active Lisinopril 40 MG Tablet 1 tablet Orally Once a day Active Atorvastatin Calcium 40 MG Tablet 1 tablet Orally Once a day 05/15/2017 Active Flagyl 500 MG Tablet 1 tablet Orally every 8 hrs; Duration: 05 days 07/12/2017 Active Omeprazole 20 MG Capsule Delayed Release 1 capsule Orally Once a day; Duration: 30 day(s) 07/12/2017 Active Immunizations Vaccine Route Administration Date Status Comme nts Influenza Unknown 05/11/2017 Administered Social History Tobacco Use: Social History Observation Description Date Details (start date - stop date) Former Smoker NA - NA Social History Drugs/Alcohol: Social Info Question Answer Notes Alcohol Screen Did you have a drink containing alcohol in the past year? No Points 0 Interpretation Negative Tobacco Use: Social Info Question Answer Notes Tobacco Use/Smoking Patient is a former smoker When did you stop smoking? age 71 Additional Details Category Social Info Options Details Miscellaneous: Marital status: Occupation: retired Section Notes: Nonsmoker since 71 years old ; no alcohol Problems Problem Type SNOMED Code ICD Code Onset Dates Problem Status W/U Status Risk Notes Problem Screening for malignant neoplasm of colon (426632315) Encounter for screening for malignant neoplasm of colon (Z12.11) Active confirmed Problem History of adenomatous polyp of colon (927392662) History of adenomatous polyp of colon (Z86.010) Active confirmed Problem Flatulence, eructation and gas pain (397386911) Bloating (R14.0) Active confirmed Problem Constipation (85897374) Constipation, unspecified constipation type (K59.00) Active confirmed Problem Epigastric pain (51787554) Abdominal discomfort, epigastric (R10.13) Active confirmed Plan Of Treatment Pending Test Test Name Order Date CBC w DIFF 05/15/2017 CELIAC PANEL #10 05/15/2017 Future Test Test Name Order Date COLONOSCOPY 05/15/2017 Insurance Providers Payer Name Payer Address Payer Phone Subscriber Number Group Number Insured Name Patient Relationship to Insured Coverage Start Date Coverage End Date [facility] [address] [place] [address] [id number] JOSÉ KURTZ Self - patient is the insured Medical (General) History Medical History History ICD Code Hypertension Tubular adenomas(ascending c olon and sigmoid colon 11/07/13--in [place]--told they were large polyps --has had 1 previous colonoscopy in [place] with reported similar results IDDM Prostate cancer 04/24/14 -tr eated with hormonal therapy initially by report-- Dr. Sahni--starting XRT on 05/31/17 [place]--coronary artery disease RCA stent placed September 2014 - Dr. King--no problems since then Nodule of right lung IBS Depression GERD Tremors Hyperlipidemia Denies CVA,Lung disease,renal disease
[2025-04-04 18:19] LABS: Troponin-I High Sensitivity < 2.7 ng/L (<3.5-35.0)
[2025-04-04 18:39] VITALS: BP 165/67; PULSE 78; RESP 18; TEMP 36.9; O2SAT 98
[2025-04-04 19:20] VITALS: BP 148/46; PULSE 75; RESP 18; TEMP 36.8; O2SAT 96
[2025-04-04 19:29] LABS: Appearance Urine Clear; Glucose Urine UA 250 mg/dL (Negative); PH 7.5 (5.0-9.0); Specific Gravity - Urine 1.010 (1.005-1.025); UMIC TRIGGER UACC YES
[2025-04-04] MEDS: iohexoL 350 MG/ML 100 ML INFUS..BTL IV (19:34)
[2025-04-04 19:50] LABS: Troponin-I High Sensitivity < 2.7 ng/L (<3.5-35.0)
[2025-04-04] MEDS: Lactated Ringers 1,000 ML 999 ML IV (21:18)
[2025-04-04] MEDS: Lactated Ringers 1,000 ML 100 ML IVCONT (23:01)
[2025-04-04 23:07] VITALS: BP 153/72; PULSE 112; RESP 20; TEMP 37.2; O2SAT 95
--- NOTE | 2025-04-04 23:19 | P.CONHOSP_ITS ---
History of Present Illness Data of Consult Service Date: 04/04/25 Requesting physician: Jeanne Loya Primary Care Provider: Nando Hodges PA-C HPI Reason for consult: medical management Patient is an 85-year-old Greenlandic-speaking male with a past medical history significant for hypertension, hyperlipidemia, type 2 diabetes, insomnia, prostate cancer and CAD, admitted by general surgery for severe sepsis secondary to acute cholecystitis with choledocholithiasis and suspected cholangitis. Hospitalist consult was placed for medical management. Medical history and medications were reviewed with the patient. He reports epigastric pain starting around 14:00 after he had lunch. He described his pain as a burning sensation with radiation to the lower chest followed by vomiting. He has had no relief of pain but does report improvement of nausea and vomiting. No fever or chills. He denies any urinary symptoms including frequency, urgency or dysuria. Last bowel movement was this morning, no hematemesis or melena. Patient reports a history of similar symptoms with eating certain foods but does usually have relief after vomiting. His pain has been persistent. Review of Systems 2 Constitutional: Constitutional: Denies chills, Denies fatigue, Denies fever(s) and Denies headache(s) Eyes: Eyes: Denies change in vision ENT: Denies headache(s), Denies nasal congestion, Denies nasal discharge and Denies sore throat Cardiovascular: Cardiovascular: Reports chest pain, Denies rapid heart rate, Denies leg edema, Denies lightheadedness and Denies dyspnea Respiratory: Respiratory: Denies chest congestion, Denies cough, Denies dyspnea and Denies wheezing Gastrointestinal: Gastrointestinal: Reports as per HPI Genitourinary: Genitourinary: Denies dysuria, Denies urinary frequency and Denies urinary urgency Musculoskeletal: Musculoskeletal: Denies myalgias Integumentary/Breasts: Skin/Breast: Denies rash Neurologic: Denies confusion and Denies headache(s) Psychiatric: Psychiatric: Denies confusion Endocrine: Endocrine: Denies fatigue Hematologic/Lymphatic: Hematologic/Lymphatic: Denies easy bleeding Allergic/Immunologic: Allergic/Immunologic: Denies wheezing COUNTS INCLUDE 234 BEDS AT THE [facility] Medical History Malignant neoplasm of prostate Type 2 diabetes mellitus with unspecified complications 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 Allergic rhinitis Microalbuminuria Insomnia History of Helicobacter infection GERD (gastroesophageal reflux disease) History of prostate cancer Coronary artery disease Vitamin D deficiency Hyperlipidemia LDL goal <100 Essential hypertension Type 2 diabetes mellitus with hyperglycemia Functional capacity: independent ambulation Family History Father Medical history unknown Mother Medical history unknown Sister Diabetes Daughter Breast cancer Surgical History Stented coronary artery History of cardiac cath Hx of esophagogastroduodenoscopy Hx of prostate biopsy Hx of colonoscopy Social History Household Members: None Housing: Apartment Housing Other:: [employer] Do you presently have visiting nurse or other home services: Yes Alcohol intake: never Patient Tobacco Use Status: Former Tobacco user Tobacco use type: Cigarette Smoked in Last 30 Days: No e-Cigarette/Vaping Use: Never Used Second Hand Smoke Exposure: Yes Use of substances other than those prescribed or required for medical reasons: No Advance Directives: No Advance Directives Information Provided: No service: No Current occupational status: retired Cognitive needs: Yes Hearing needs: No Vision needs: Yes Meds Allergies Allergy/AdvReac Type Severity Reaction Status Date / Time No Known Allergies (No Known Allergy Verified 04/04/25 17:33 Allergies*) Active Medications: Current Medications Acetaminophen (Acetaminophen 325 Mg Tablet) 650 mg PO Q6H PRN PRN Reason: Pain, Mild 1-3,fever,headache Dextrose (Dextrose 50 % 25 Gm/50 Ml Syringe) 25 gm IVPUSH Q15M PRN; Protocol PRN Reason: per Hypoglycemia Standing Ord. Enoxaparin Sodium (Enoxaparin Sodium 30 Mg/0.3 Ml Syringe) 30 mg SUBCUT DAILY EARNESTINE Glucose (Glucose Gel 15 Gm Gel..Gram.) 15 gm PO Q15M PRN; Protocol PRN Reason: per Hypoglycemia Standing Ord. Lactated Ringer's (Lr) 1,000 mls @ 100 mls/hr IVCONT .Q10H EARNESTINE Last Admin: 04/04/25 23:01 Dose: 100 mls/hr Piperacillin Sod/Tazobactam (Sod 3.375 gm/ Sodium Chloride) 50 mls @ 100 mls/hr IV Q6H [facility] Insulin Human Lispro (Insulin Lispro 100 Unit/Ml 3 Ml Vial) 0 unit SUBCUT Q6H EARNESTINE; Protocol Melatonin (Melatonin 3 Mg Tablet) 6 mg PO BEDTIME PRN PRN Reason: Insomnia Morphine Sulfate (Morphine Sulfate 4 Mg/Ml Cartridge) 2 mg IVPUSH RQ4H PRN; Protocol PRN Reason: Pain, Severe (Pain Scale 7-10) Ondansetron HCl (Ondansetron Hcl 4 Mg/2 Ml Vial) 4 mg IVPUSH Q8H PRN PRN Reason: Nausea and Vomiting Sodium Chloride (0.9 % Sodium Chloride Flush 3 Ml Syringe) 3 ml IVFLUSH QSHIFT [facility] Home Medications ?Medication ?Instructions ?Recorded ?Confirmed ?Last Taken ?Type nitroglycerin 0.4 mg sublingual 0.4 mg sublingual Q5M PRN Chest 02/14/20 01/26/25 Unknown History tablet Pain blood-glucose meter #1 ea 04/01/20 01/26/25 Unkn own History lancets 28 gauge #100 ea 04/01/20 01/26/25 Un known History glucose 4 gram chewable tablet 4 g PO ONCE PRN Hypogly cemia 07/26/20 01/26/25 Unknown History Physical Exam 2 Vital Signs and Narrative: Vital Signs: Last Vital Signs Temp 99.0 F 04/04/25 23:07 Pulse 112 H 04/04/25 23:07 Resp 20 04/04/25 23:07 BP 153/72 H 04/04/25 23:07 Pulse Ox 95 04/04/25 23:07 O2 Del Method Room Air 04/04/25 23:07 BMI result Body Mass Index 22.4 General: AOx3, no acute distress, seen with press writer Resp: CTA bilaterally CVS: S1, S2, RRR GI: +BS, tender epigastric region, +lugo's sign, no distention Skin: Warm, dry Neuro: Cranial nerves II-XII grossly intact bilaterally. Motor grossly intact bilaterally Extremities: No pitting edema Psych: Appropriate affect Const: General: No confusion Orientation/consciousness: No confusion Neuro: General: No confusion Results Labs 04/04/25 17:43 04/04/25 17:43 Labs: Laboratory Results - last 24 hr 04/04/25 04/04/25 04/04/25 17:43 19:19 21:28 MCV 81.9 MCH 26.3 L MCHC 32.1 RDW 15.6 Plt Count 86 L MPV 10.1 Immature Gran % (Auto) 0.7 H Neut % (Auto) 82.2 H Lymph % (Auto) 10.9 L [place] % (Auto) 4.4 Eos % (Auto) 1.2 Baso % (Auto) 0.6 Lymph # (Auto) 1.5 [place] # (Auto) 0.6 Eos # (Auto) 0.2 Baso # (Auto) 0.1 Abs Immat Gran (auto) 0.09 H Absolute Neuts (auto) 10.9 H Absolute Nucleated RBC 0.000 Nucleated RBC % (auto) 0.0 Anion Gap 17 Estim Creat Clear Calc 48.4 Estimated GFR > 60 Random Glucose 195 H Lactic Acid 4.3 H* Calcium 9.8 Total Bilirubin 1.0 AST 20 ALT 11 Alkaline Phosphatase 71 Troponin I High Sens < 2.7 < 2.7 Total Protein 7.4 Albumin 4.8 Lipase 44 Urine Color Yellow Urine Appearance Clear Urine pH 7.5 Ur Specific [place] 1.010 Urine Protein 30 (1+) H Urine Glucose (UA) 250 H Urine Ketones 15 Urine Blood Trace H Urine Nitrite Negative Ur Leukocyte Esterase Negative Urine RBC 3-5 H Urine WBC 0-5 Ur Squamous Epith Cells 0-2 Urine Bacteria None Seen Hyaline Casts 0-2 Assessment and Plan (1) Severe sepsis: Status: Acute (2) Choledocholithiasis with acute cholecystitis: Status: Acute (3) Acute cholangitis: Status: Acute Plan Patient is an 85-year-old [place]ic-speaking male with a past medical history significant for hypertension, hyperlipidemia, type 2 diabetes, insomnia, prostate cancer and CAD, admitted by general surgery for severe sepsis secondary to acute cholecystitis with choledocholithiasis and suspected cholangitis. Severe sepsis with choledocholithiasis with acute cholecystitis and suspected acute cholangitis - plan per General surgery - Zosyn - IV fluids - NPO - hold diuretics due to sepsis - follow CBC and CMP Hypertension - hold home BP meds for now, normotensive - hold spironolactone due to sepsis HLD - statin Type 2 diabetes - hold metformin and Jardiance - sliding scale insulin q.6h CAD - hold aspirin Insomnia - clonazepam Med rec pending Full code VTE prophy: [email or web address] Thank you for allowing me to participate in the pt's care. Will follow along. Please contact the medical team if any questions or concerns.
[2025-04-04 23:35] LABS: Reflex Lactate? Lactic Acid Added
[2025-04-04 23:44] VITALS: BP 155/65; PULSE 106; RESP 18; O2SAT 94
[2025-04-05] VITALS (7 sets, daily range): BP systolic 123–149; BP diastolic 53–70; PULSE 89–106; RESP 16–20; TEMP 36.4–37.1; O2SAT 92–99; BMI 21.9
[2025-04-05 00:27] LABS: Glucose, Whole Blood 177 mg/dL (60-115)
[2025-04-05 01:47] LABS: Reflex Lactate? Lactic Acid Added
[2025-04-05 03:43] LABS: Reflex Lactate? Lactic Acid Added
[2025-04-05 03:57] LABS: Hematocrit 31.9 % (42.0-52.0); Hemoglobin 10.1 g/dl (14.0-18.0); Imm Gran Abs Auto 0.08 X10*3/uL (0.00-0.03); Imm Gran Pct Auto 0.5 % (0.0-0.4); Lymphocytes Absolute Auto 0.8 X10*3/uL (1.2-4.9); MANUAL DIFF FLAG NO; Mean Corpuscular HGB Conc 31.7 g/dl (31.0-36.0); Mean Corpuscular Hemoglobin 26.0 pg (27.0-33.0); Mean Corpuscular Volume 82.0 fL (80.0-98.0); NRBC Abs Auto 0.000 X10*3/uL (0.0-0.012); NRBC Pct Auto 0.0 /100WBC (0.0-0.2); Platelet Count 72 X10*3/uL (160-400); Red Blood Count 3.89 X10*6/uL (4.60-5.80); White Blood Count 16.0 X10*3/uL (4.8-10.8)
[2025-04-05 04:13] LABS: Alanine Aminotransferase 35 U/L (0-40); Albumin Level 3.9 g/dL (3.5-5.0); Alkaline Phosphatase 64 U/L (39-117); Anion Gap 14 (12-20); Aspartate Amino Transferase 60 U/L (5-37); Blood Urea Nitrogen 13 mg/dL (9-16); Calcium 8.7 mg/dL (8.4-10.2); Carbon Dioxide 25 mmol/L (22-29); Chloride 106 mmol/L (96-108); Creatinine Clr Calc Pharmacy 52.9; Estimated Glomerular Filt Rate > 60; Potassium 3.7 mmol/L (3.3-5.1); Sodium 141 mmol/L (135-145); Total Protein 6.2 g/dL (6.5-8.0)
[2025-04-05 04:16] LABS: ~Lactic Acid-LAB USE ONLY 2.3 mmol/L (0.5-2.0)
[2025-04-05 05:55] LABS: Reflex Lactate? 2 Y
[2025-04-05 06:39] LABS: Glucose, Whole Blood 142 mg/dL (60-115)
--- NOTE | 2025-04-05 07:50 | PHA.MEDREC ---
Pharmacy Consult ? Medication Reconciliation Pharmacy has completed the medication reconciliation. Patient's daughter at bedside, spoke with her to confirm home medications. She was unsure about some and thinks he is not taking an iron supplement, but was able to confirm the rest. States he takes the Trulicity on Fridays and had it this past week.
[2025-04-05 08:02] LABS: Reflex Lactate? Lactic Acid Added
[2025-04-05] MEDS: Lactated Ringers 1,000 ML 100 ML IVCONT ×2 (08:38→18:35)
[2025-04-05 08:52] LABS: ~Lactic Acid-LAB USE ONLY 2.2 mmol/L (0.5-2.0)
--- NOTE | 2025-04-05 09:25 | PM.HPGS ---
History of Present Illness History of Present Illness Date of Service: 04/05/25 Chief complaint: abdo pain Narrative: Vaishnavi Kurtz is a 85 year old male who presents to the emergency room after eating sardines and rice last night and having abdominal pain more specifically right upper quadrant area and feeling nauseated. He has not really had any issues like this before. He was brought to the emergency room and was noted to be tender in the right upper quadrant. LFTs were relatively within normal limits but he was tender and ultrasound and CT scan carried out. Ultrasound showed maybe some changes associated with the gallbladder distended could be early cholecystitis. Common bile duct was not necessarily dilated here. CT scan of the abdomen and pelvis was carried out which shows the common bile duct distended to 1 cm and a 7 mm common bile duct stone noted in the distal duct.. Patient was admitted NPO IV fluid resuscitation and treated with IV antibiotics. LFTs were repeated and noted to be little more elevated. An MRCP was carried out while the patient we will remained NPO with IV fluid resuscitation and I the IV antibiotics. His lactic acidosis improved. The MRI showed has a he is doing on possibly 2-3 duct stone still a close to the ampulla. Patient resuscitated and feeling better. Medical team following along as he has diabetes and other medical issues and gastroenterology consult called in to evaluate the patient for the choledocholithiasis and ERCP. Patient came in septic question due to gallbladder versus choledocholithiasis and cholangitis. 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 Allergic rhinitis Microalbuminuria Insomnia History of Helicobacter infection GERD (gastroesophageal reflux disease) History of prostate cancer Coronary artery disease Vitamin D deficiency Hyperlipidemia LDL goal <100 Essential hypertension Type 2 diabetes mellitus with hyperglycemia Family History Family History Father Medical history unknown Mother Medical history unknown Sister Diabetes Daughter Breast cancer Surgical History Surgical History Stented coronary artery History of cardiac cath Hx of esophagogastroduodenoscopy Hx of prostate biopsy Hx of colonoscopy Social History Social History Household Members: None Housing: Apartment Housing Other:: [employer] Do you presently have visiting nurse or other home services: Yes Alcohol intake: never Patient Tobacco Use Status: Former Tobacco user Tobacco use type: Cigarette Smoked in Last 30 Days: No e-Cigarette/Vaping Use: Never Used Second Hand Smoke Exposure: Yes Use of substances other than those prescribed or required for medical reasons: No Advance Directives: No Advance Directives Information Provided: No service: No Current occupational status: retired Cognitive needs: Yes Hearing needs: No Vision needs: Yes Meds Allergies Allergy/AdvReac Type Severity Reaction Status Date / Time No Known Allergies (No Known Allergy Verified 04/04/25 17:33 Allergies*) Active Medications: Current Medications Acetaminophen (Acetaminophen 325 Mg Tablet) 650 mg PO Q6H PRN PRN Reason: Pain, Mild 1-3,fever,headache Dextrose (Dextrose 50 % 25 Gm/50 Ml Syringe) 25 gm IVPUSH Q15M PRN; Protocol PRN Reason: per Hypoglycemia Standing Ord. Enoxaparin Sodium (Enoxaparin Sodium 30 Mg/0.3 Ml Syringe) 30 mg SUBCUT DAILY [facility] On Hold: 04/05/25 09:00 Glucose (Glucose Gel 15 Gm Gel..Gram.) 15 gm PO Q15M PRN; Protocol PRN Reason: per Hypoglycemia Standing Ord. Hydromorphone HCl (Hydromorphone Hcl 1 Mg/Ml Syringe) 1 mg IVPUSH Q4H PRN; Protocol PRN Reason: Pain, Severe (Pain Scale 7-10) Hydromorphone HCl (Hydromorphone Hcl 1 Mg/Ml Syringe) 0.5 mg IVPUSH Q4H PRN; Protocol PRN Reason: Pain, Moderate(Pain Scale 4-6) Lactated Ringer's (Lr) 1,000 mls @ 100 mls/hr IVCONT .Q10H [facility] Last Admin: 04/05/25 08:38 Dose: 100 mls/hr Piperacillin Sod/Tazobactam (Sod 3.375 gm/ Sodium Chloride) 50 mls @ 100 mls/hr IV Q6H [facility] Last Admin: 04/05/25 08:44 Dose: 100 mls/hr Insulin Human Lispro (Insulin Lispro 100 Unit/Ml 3 Ml Vial) 0 unit SUBCUT Q6H [facility]; Protocol Last Admin: 04/05/25 06:40 Dose: Not Given Melatonin (Melatonin 3 Mg Tablet) 6 mg PO BEDTIME PRN PRN Reason: Insomnia Ondansetron HCl (Ondansetron Hcl 4 Mg/2 Ml Vial) 4 mg IVPUSH Q8H PRN PRN Reason: Nausea and Vomiting Sodium Chloride (0.9 % Sodium Chloride Flush 3 Ml Syringe) 3 ml IVFLUSH QSHIFT [facility] Last Admin: 04/05/25 08:38 Dose: Not Given Home Medications ?Medication ?Instructions ?Recorded ?Confirmed ?Last Taken ?Type nitroglycerin 0.4 mg sublingual 0.4 mg sublingual Q5M PRN Chest 02/14/20 04/05/25 04/04/25 History tablet Pain blood-glucose meter #1 ea 04/01/20 01/26/25 Unknown History lancets 28 gauge #100 ea 04/01/20 01/26/25 Unknown History glucose 4 gram chewable tablet 4 g PO ONCE PRN Hypoglycemia 07/26/20 04/05/25 04/04/25 History dulaglutide 3 mg/0.5 mL 3 mg subcut FR 04/05/25 04/05/25 04/03/25 [facility] Physical Exam Vital Signs: Vital Signs: Last Vital Signs Temp 98.4 F 04/05/25 03:02 Pulse 106 H 04/05/25 06:44 Resp 20 04/05/25 06:44 BP 124/55 L 04/05/25 06:44 Pulse Ox 97 04/05/25 06:44 O2 Del Method Room Air 04/05/25 06:44 BMI result Body Mass Index 22.4 Const: General: cooperative, healthy appearing, comfortable and no acute distress HEENT: Other: Nonicteric Resp: Auscultation: diminished lung sounds Cardio: Rate: regular rate Rhythm: regular rhythm GI: Other: Abdomen is soft but he is tender in the epigastric right upper quadrant with some mild guarding no peritoneal signs Results Results Labs: Short CBC 04/04/25 04/05/25 Range/Units 17:43 03:51 WBC 13.3 H 16.0 H (4.8-10.8) X10*3/uL Hgb 11.5 L 10.1 L (14.0-18.0) g/dl Hct 35.8 L 31.9 L (42.0-52.0) % Plt Count 86 L 72 L (160-400) X10*3/uL BMP 04/04/25 04/05/25 17:43 03:51 Sodium 143 141 Potassium 4.3 3.7 Chloride 104 106 Carbon Dioxide 26 25 BUN 18 H 13 Creatinine 0.93 0.85 Calcium 9.8 8.7 D Liver Function 04/04/25 04/05/25 Range/Units 17:43 03:51 Total Bilirubin 1.0 1.4 H (0.0-1.0) mg/dL AST 20 60 H (5-37) U/L ALT 11 35 (0-40) U/L Alkaline Phosphatase 71 64 (39-117) U/L Albumin 4.8 3.9 (3.5-5.0) g/dL Urine 04/04/25 Range/Units 19:19 Urine Color Yellow Urine Appearance Clear Urine pH 7.5 (5.0-9.0) Ur Specific Transfer 1.010 (1.005-1.025) Urine Protein 30 (1+) H (Neg-Trace) mg/dL Urine Glucose (UA) 250 H (Negative) mg/dL Abdomen CT scan report/results: report reviewed and image reviewed CT scan - pelvis: report reviewed and image reviewed Abdominal ultrasound report/results: report reviewed Additional studies: [address] [address] Magnetic Resonance Report Signed with Donn Patient: Vaishnavi Kurtz MR#: [id number] : 1940 Acct:[id number] Age/Sex: 85 / M ADM Date: 04/04/25 Loc: [facility]: Jeanne Loya MD Ordering Physician: Jeanne Loya MD Date of Service: 04/05/25 Procedure(s): MR MRCP Accession Number(s): [id number] cc: Nando Hodges PA-C; Jeanne Loya MD~ Reason for Exam: choledocholithiasis? by CT scan ADDENDUMThis document has been electronically signed by: Daniele Husain MD on 04/05/2025 13:17:44 ADDENDUM: This report was discussed with Rommel العلي RN on Apr 05, 2025 13:24:00 EST. This document has been electronically signed by: Marilee Sandoval on 04/05/2025 13:24:50 Addendum Dictated By: Daniele Husain MD Addendum Signed By: <Electronically signed by Daniele Husain MD in OV> 04/05/25 1325 Addendum Cosigned By: DD/ TD/TT: 04/05/25 CLINICAL HISTORY: choledocholithiasis? by CT scan . Pt was unable to follow breathing instruction. Best exam obtained MRCP without gadolinium Comparison: CT/REG/SR - CT ABDOMEN PELVIS W IV CON - 04/04/25 19:33 EST Findings: Trace bilateral pleural effusions are redemonstrated. There is reason striated dilation of the CBD measuring up to 1.3 cm distally with a 7 mm distal CBD stone and possible 2nd stone which appears to measure 6 mm at the level of the ampulla (series 4, image 17 and series 3 image 18). Mild intrahepatic ductal dilatation is present without intrahepatic stones identified. Additionally there is marked gallbladder wall thickening with surrounding edema and stones within the cystic duct measuring approximately 5 mm (series 6, image 22). Liver, spleen, pancreas and bilateral adrenal glands are within normal limits. Left parapelvic renal cyst again demonstrated, otherwise kidneys are within normal limits. Visualized bowel demonstrates a nonobstructive pattern. IMPRESSION: Choledocholithiasis with markedly dilated CBD measuring up to 1.3 cm with a distal CBD stone measuring 7 mm and probable additional stone at the ampulla measuring 6 mm. Cholecystitis with 5 mm cystic duct stone. This document has been electronically signed by: Daniele Husain MD on 04/05/2025 13:17:44 Dictated By: Daniele Husain MD Signed By: <Electronically signed by Daniele Husain MD in OV> 04/05/25 1318 DD/ 1317 TD/TT: 04/05/25 131 [employer]: [address] [address] Magnetic Resonance Report Signed with Addenda Patient: Vaishnavi Kurtz MR#: [id number] : 1940 Acct:[id number] Age/Sex: 85 / M ADM Date: 04/04/25 Loc: [place] [address]: Jeanne Loya MD Ordering Physician: Jeanne Loya MD Date of Service: 04/05/25 Procedure(s): MR MRCP Accession Number(s): [id number] cc: Nando Hodges PA-C; Jeanne Loya MD~ Reason for Exam: choledocholithiasis? by CT scan ADDENDUMThis document has been electronically signed by: Daniele Husain MD on 04/05/2025 13:17:44 ADDENDUM: This report was discussed with Rommel العلي RN on Apr 05, 2025 13:24:00 EST. This document has been electronically signed by: Marilee Sandoval on 04/05/2025 13:24:50 Addendum Dictated By: Daniele Husain MD Addendum Signed By: <Electronically signed by Daniele Husain MD in OV> 04/05/25 1325 Addendum Cosigned By: DD/ TD/TT: 04/05/25 CLINICAL HISTORY: choledocholithiasis? by CT scan . Pt was unable to follow breathing instruction. Best exam obtained MRCP without gadolinium Comparison: CT/REG/SR - CT ABDOMEN PELVIS W IV CON - 04/04/25 19:33 EST Findings: Trace bilateral pleural effusions are redemonstrated. There is reason striated dilation of the CBD measuring up to 1.3 cm distally with a 7 mm distal CBD stone and possible 2nd stone which appears to measure 6 mm at the level of the ampulla (series 4, image 17 and series 3 image 18). Mild intrahepatic ductal dilatation is present without intrahepatic stones identified. Additionally there is marked gallbladder wall thickening with surrounding edema and stones within the cystic duct measuring approximately 5 mm (series 6, image 22). Liver, spleen, pancreas and bilateral adrenal glands are within normal limits. Left parapelvic renal cyst again demonstrated, otherwise kidneys are within normal limits. Visualized bowel demonstrates a nonobstructive pattern. IMPRESSION: Choledocholithiasis with markedly dilated CBD measuring up to 1.3 cm with a distal CBD stone measuring 7 mm and probable additional stone at the ampulla measuring 6 mm. Cholecystitis with 5 mm cystic duct stone. This document has been electronically signed by: Daniele Husain MD on 04/05/2025 13:17:44 Dictated By: Daniele Husain MD Signed By: <Electronically signed by Daniele Husain MD in OV> 04/05/251317 DD/ 16 TD/TT: 04/05/251316 [employer]: Ultrasound Report Signed with Addenda Patient: Vaishnavi Kurtz MR#: [id number] : 1940 Acct:[id number] Age/Sex: 85 / M ADM Date: 04/04/25 Loc: .ED Attending Dr: Ordering Physician: Dino Dumas MD Date of Service: 04/04/25 Procedure(s): US abdomen limited Accession Number(s): [id number] cc: Dino Dumas MD; Nando Hodges PA-C~ Reason for Exam: RUQ pain ADDENDUMThis document has been electronically signed by: Zack Bhakat MD on 04/04/2025 19:44:27 ADDENDUM: This report was discussed with DR Dumas on Apr 04, 2025 19:45:00 EST. This document has been electronically signed by: Julia Puente on 04/04/2025 19:46:52 Addendum Dictated By: Zack Bhakta MD Addendum Signed By: <Electronically signed by Zack Bhakta MD in [place]> 04/04/251946 Addendum Cosigned By: DD/ TD/TT: 04/04/25 CLINICAL HISTORY: RUQ pain US abdomen limited Comparison: CT/REG/SR - CT ABDOMEN PELVIS WO IV CON - 12/20/22 18:37 EDT Findings: The visualized pancreas is normal. The aorta and inferior vena cava are normal caliber. The liver is normal in size and echotexture. There is no intrahepatic bile duct dilatation. The common duct is 6 mm in diameter. The gallbladder demonstrates a small amount of pericholecystic fluid, image number 39 of 63 series 1. Gallbladder wall 0.3 cm. There is no sonographic Shen sign. The main portal vein is antegrade. The right kidney is 10.3 cm in length. No ascites. IMPRESSION: Acute cholecystitis suspected. Consider CT of the abdomen and pelvis for confirmation. This document has been electronically signed by: Zack Bhakta MD on 04/04/2025 19:44:27 Dictated By: Zack Bhakta MD Signed By: <Electronically signed by Zack Bhakta MD in OV> 04/04/251944 DD/ 43 TD/TT: 04/04/251943 [employer]: Assessment and Plan (1) Choledocholithiasis with acute cholecystitis: Status: Acute Plan 85-year-old male with type 2 diabetes and hypertension with cholecystitis and choledocholithiasis. Patient came in septic has been resuscitated and doing better hemodynamically stable. Plan to carry out ERCP hopefully for these common bile duct stones and GI consult is being requested. In the meantime continue NPO IV fluid resuscitation and IV antibiotics. Appreciate the medical team. After clearing the common bile duct and as long as the patient is stable and doing well without any issues or complications specifically pancreatitis etc. and we will undergo laparoscopic cholecystectomy. Quality Stroke Does the patient have a stroke diagnosis?: No VTE Prior VTE?: No VTE Risk Level:: Surgical - low VTE Device Contraindication: N/A - Device Ordered VTE Drug Contraindication: N/A - Med Ordered Procedures Date of Service Date of Service: 04/05/25
--- NOTE | 2025-04-05 10:08 | PC.NURSE ---
PAtient was resting in bed when O2 sat went to 82% RA Repositioned patient and patient take few deep breaths O2 = 85%RA Applied 1L O2 NC patient O2 98% Denies SOB at this time
[2025-04-05 10:30] LABS: Reflex Lactate? 2 Y
[2025-04-05 11:02] LABS: ~Lactic Acid-LAB USE ONLY 1.5 mmol/L (0.5-2.0)
[2025-04-05 13:25] LABS: Glucose, Whole Blood 190 mg/dL (60-115)
--- NOTE | 2025-04-05 13:49 | HO.PM.IMPN ---
Subjective Subjective Date of Service: 04/05/25 Interval History: Patient seen and examined at bedside this morning, patient states that she is still experiencing abdominal pain, wishes to be given something stronger for pain medication. Currently on IV antibiotics. Review of Systems Review of Systems: Yes all other systems are reviewed and are negative Physical Exam Exam: Exam: General: AxOx3, No acute distress Head: AT/NC ENT: Moist mucous membranes Neck: supple CVS; RRR, S1 S2 normal Lungs: Clear bilateral breath sounds, no wheezes or crackles Abd: epigastric tenderness Ext: No edema and no calf tenderness MSK: moving all 4 limbs Skin: No cyanosis or edema Psych: Cooperative with exam Neurology: no focal deficit Vital Signs: Vital Signs: Last Vital Signs Temp 98.4 F 04/05/25 03:02 Pulse 106 H 04/05/25 06:44 Resp 20 04/05/25 06:44 BP 124/55 L 04/05/25 06:44 Pulse Ox 97 04/05/25 06:44 O2 Del Method Room Air 04/05/25 06:44 BMI result Body Mass Index 22.4 Objective Data Active Medications Acetaminophen (Acetaminophen 325 Mg Tablet) 650 mg PO Q6H PRN PRN Reason: Pain, Mild 1-3,fever,headache Clonazepam (Clonazepam 1 Mg Tablet) 1 mg PO BEDTIME [facility] Dextrose (Dextrose 50 % 25 Gm/50 Ml Syringe) 25 gm IVPUSH Q15M PRN; Protocol PRN Reason: per Hypoglycemia Standing Ord. Enoxaparin Sodium (Enoxaparin Sodium 30 Mg/0.3 Ml Syringe) 30 mg SUBCUT DAILY [facility] On Hold: 04/05/25 09:00 Glucose (Glucose Gel 15 Gm Gel..Gram.) 15 gm PO Q15M PRN; Protocol PRN Reason: per Hypoglycemia Standing Ord. Hydromorphone HCl (Hydromorphone Hcl 1 Mg/Ml Syringe) 1 mg IVPUSH Q4H PRN; Protocol PRN Reason: Pain, Severe (Pain Scale 7-10) Last Admin: 04/05/25 09:52 Dose: 1 mg Documented By: KAVON Hydromorphone HCl (Hydromorphone Hcl 1 Mg/Ml Syringe) 0.5 mg IVPUSH Q4H PRN; Protocol PRN Reason: Pain, Moderate(Pain Scale 4-6) Lactated Ringer's (Lr) 1,000 mls @ 100 mls/hr IVCONT .Q10H [facility] Last Admin: 04/05/25 08:38 Dose: 100 mls/hr Documented By: KAVON Piperacillin Sod/Tazobactam (Sod 3.375 gm/ Sodium Chloride) 50 mls @ 100 mls/hr IV Q6H [facility] Last Admin: 04/05/25 13:33 Dose: 100 mls/hr Documented By: KAVON Insulin Human Lispro (Insulin Lispro 100 Unit/Ml 3 Ml Vial) 0 unit SUBCUT Q6H [facility]; Protocol Last Admin: 04/05/25 13:31 Dose: 2 unit Documented By: KAVON Melatonin (Melatonin 3 Mg Tablet) 6 mg PO BEDTIME PRN PRN Reason: Insomnia Ondansetron HCl (Ondansetron Hcl 4 Mg/2 Ml Vial) 4 mg IVPUSH Q8H PRN PRN Reason: Nausea and Vomiting Pantoprazole Sodium (Pantoprazole Sodium 40 Mg/10 Ml Vial) 40 mg IVPUSH DAILY@0630 [facility] Sodium Chloride (0.9 % Sodium Chloride Flush 3 Ml Syringe) 3 ml IVFLUSH QSHIFT [facility] Last Admin: 04/05/25 08:38 Dose: Not Given Documented By: KAVON Non-Admin Reason: IV Running Vitamin D (Cholecalciferol (Vitamin D3) 25 Mcg Tablet) 25 mcg PO DAILY [facility] Labs 04/05/25 03:51 04/05/25 03:51 Labs: Laboratory Results - last 24 hr 04/04/25 04/04/25 04/04/25 17:43 19:19 21:28 MCV 81.9 MCH 26.3 L MCHC 32.1 RDW 15.6 Plt Count 86 L MPV 10.1 Immature Gran % (Auto) 0.7 H Neut % (Auto) 82.2 H Lymph % (Auto) 10.9 L [place] % (Auto) 4.4 Eos % (Auto) 1.2 Baso % (Auto) 0.6 Lymph # (Auto) 1.5 [place] # (Auto) 0.6 Eos # (Auto) 0.2 Baso # (Auto) 0.1 Abs Immat Gran (auto) 0.09 H Absolute Neuts (auto) 10.9 H Absolute Nucleated RBC 0.000 Nucleated RBC % (auto) 0.0 Anion Gap 17 Estim Creat Clear Calc 48.4 Estimated GFR > 60 POC Glucose Random Glucose 195 H Lactic Acid 4.3 H* Lactic Acid F/U @ 2Hr Lactic Acid F/U @ 4Hr Calcium 9.8 Total Bilirubin 1.0 AST 20 ALT 11 Alkaline Phosphatase 71 Troponin I High Sens < 2.7 < 2.7 Total Protein 7.4 Albumin 4.8 Lipase 44 Urine Color Yellow Urine Appearance Clear Urine pH 7.5 Ur Specific [place] 1.010 Urine Protein 30 (1+) H Urine Glucose (UA) 250 H Urine Ketones 15 Urine Blood Trace H Urine Nitrite Negative Ur Leukocyte Esterase Negative Urine RBC 3-5 H Urine WBC 0-5 Ur Squamous Epith Cells 0-2 Urine Bacteria None Seen Hyaline Casts 0-2 04/04/25 04/05/25 04/05/25 23:39 00:23 01:39 MCV MCH MCHC RDW Plt Count MPV Immature Gran % (Auto) Neut % (Auto) Lymph % (Auto) [place] % (Auto) Eos % (Auto) Baso % (Auto) Lymph # (Auto) [place] # (Auto) Eos # (Auto) Baso # (Auto) Abs Immat Gran (auto) Absolute Neuts (auto) Absolute Nucleated RBC Nucleated RBC % (auto) Anion Gap Estim Creat Clear Calc Estimated GFR POC Glucose 177 H Random Glucose Lactic Acid 4.3 H* 3.0 H* Lactic Acid F/U @ 2Hr Lactic Acid F/U @ 4Hr Calcium Total Bilirubin AST ALT Alkaline Phosphatase Troponin I High Sens Total Protein Albumin Lipase Urine Color Urine Appearance Urine pH Ur Specific [place] Urine Protein Urine Glucose (UA) Urine Ketones Urine Blood Urine Nitrite Ur Leukocyte Esterase Urine RBC Urine WBC Ur Squamous Epith Cells Urine Bacteria Hyaline Casts 04/05/25 04/05/25 04/05/25 03:51 05:47 06:36 MCV 82.0 MCH 26.0 L MCHC 31.7 RDW 15.8 Plt Count 72 L MPV 9.5 Immature Gran % (Auto) 0.5 H Neut % (Auto) 89.6 H Lymph % (Auto) 4.7 L [place] % (Auto) 4.9 Eos % (Auto) 0.0 Baso % (Auto) 0.3 Lymph # (Auto) 0.8 L [place] # (Auto) 0.8 Eos # (Auto) 0.0 Baso # (Auto) 0.1 Abs Immat Gran (auto) 0.08 H Absolute Neuts (auto) 14.4 H Absolute Nucleated RBC 0.000 Nucleated RBC % (auto) 0.0 Anion Gap 14 Estim Creat Clear Calc 52.9 Estimated GFR > 60 POC Glucose 142 H Random Glucose 119 H Lactic Acid 2.8 H* Lactic Acid F/U @ 2Hr 2.3 H* Lactic Acid F/U @ 4Hr Calcium 8.7 D Total Bilirubin 1.4 H AST 60 H ALT 35 Alkaline Phosphatase 64 Troponin I High Sens Total Protein 6.2 L Albumin 3.9 Lipase Urine Color Urine Appearance Urine pH Ur Specific [place] Urine Protein Urine Glucose (UA) Urine Ketones Urine Blood Urine Nitrite Ur Leukocyte Esterase Urine RBC Urine WBC Ur Squamous Epith Cells Urine Bacteria Hyaline Casts 04/05/25 04/05/25 04/05/25 08:26 10:41 13:21 MCV MCH MCHC RDW Plt Count MPV Immature Gran % (Auto) Neut % (Auto) Lymph % (Auto) [place] % (Auto) Eos % (Auto) Baso % (Auto) Lymph # (Auto) [place] # (Auto) Eos # (Auto) Baso # (Auto) Abs Immat Gran (auto) Absolute Neuts (auto) Absolute Nucleated RBC Nucleated RBC % (auto) Anion Gap Estim Creat Clear Calc Estimated GFR POC Glucose 190 H Random Glucose Lactic Acid Lactic Acid F/U @ 2Hr 2.2 H* Lactic Acid F/U @ 4Hr 1.5 Calcium Total Bilirubin AST ALT Alkaline Phosphatase Troponin I High Sens Total Protein Albumin Lipase Urine Color Urine Appearance Urine pH Ur Specific [place] Urine Protein Urine Glucose (UA) Urine Ketones Urine Blood Urine Nitrite Ur Leukocyte Esterase Urine RBC Urine WBC Ur Squamous Epith Cells Urine Bacteria Hyaline Casts Assessment and Plan (1) Type 2 diabetes mellitus with hyperglycemia: Status: Acute (2) Severe sepsis: Status: Acute Plan 85-year-old [place]-speaking male with a past medical history significant for hypertension, hyperlipidemia, type 2 diabetes, insomnia, prostate cancer and CAD, admitted by general surgery for severe sepsis secondary to acute cholecystitis with choledocholithiasis and suspected cholangitis. Severe sepsis, likely secondary to cholangitis Lactic acidosis, improving 4.3->2.2 Leukocytosis, worsening at this time 16,000 - imaging reviewed, awaiting MRCP - continue IV fluids - continue Zosyn - Multimodal pain management Hypertension - we will hold BP medications at this time, given patient's severe sepsis with lactic acidosis, we will restart when appropriate. HLD - at this time we will hold off on statin, given recent cholangitis, suspect liver enzymes we will slowly elevate. Type 2 diabetes - hold metformin and Jardiance - we will initiate sliding scale insulin q.6h CAD - hold aspirin Insomnia - clonazepam We will continue to follow at this time, thank you for this consult, rest of management per General surgery. Full code VTE prophy: [email or web address] Total time managing care of this patient today: 55 minutes. Quality Stroke Does the patient have a stroke diagnosis?: No VTE Prior VTE?: No VTE Risk Level:: Surgical - low VTE Device Contraindication: N/A - Device Ordered VTE Drug Contraindication: N/A - Med Ordered
--- NOTE | 2025-04-05 15:03 | MHC.CM.PN ---
IMM DELIVERED CM MET WITH PT/DAUGHTER VIA [employer]. PT LIVES ALONE AND USES A CANE FOR MOBILITY. PT HAS 25/HRS WEEK [employer] [facility] VIA [employer]. + [place] [facility] [place] HOME WITH RESUMPTION OF MARK[facility] [employer]K SPECIALIST HELP IS THE GOAL. PT DECLINES VNA, DOESN'T LIKE PEOPLE IN HIS HOME. FAMILY WILL TRANSPORT HOME. CM WILL CONTINUE TO FOLLOW FOR ANY CHANGE TO DC PLAN/NEEDS.
--- NOTE | 2025-04-05 16:14 | PM.EVENT ---
Event Note Date of Service: 04/05/25 Event Note: discussed with Dr Marte - pt has several stones noted in CBD - dialted to 1.3 cm stable now from vitals , npo ivf on iv zosyn will set up for ERCP tomorrow Lap sylvia to follow after at a to be determined time appreciate med team following. Time Spent With Patient Time: Total time managing care of this patient today ____ minutes.
[2025-04-05 16:28] LABS: Glucose, Whole Blood 169 mg/dL (60-115)
[2025-04-05 18:33] LABS: Glucose, Whole Blood 157 mg/dL (60-115)
--- NOTE | 2025-04-05 19:35 | PM.EVENT ---
Event Note Date of Service: 04/05/25 Event Note: GI consult received this pm Pt discussed with Dr Loya He will be seen tomorrow. Time Spent With Patient Time: Total time managing care of this patient today ____ minutes.
[2025-04-06 00:27] LABS: Glucose, Whole Blood 162 mg/dL (60-115)
[2025-04-06 04:00] VITALS: BP 133/66; PULSE 93; RESP 18; TEMP 37; O2SAT 98
[2025-04-06] MEDS: Lactated Ringers 1,000 ML 100 ML IVCONT ×2 (05:07→14:36)
[2025-04-06 06:18] VITALS: O2SAT 97
[2025-04-06 06:19] LABS: Glucose, Whole Blood 137 mg/dL (60-115)
[2025-04-06 06:22] LABS: Hematocrit 28.4 % (42.0-52.0); Hemoglobin 9.2 g/dl (14.0-18.0); Mean Corpuscular HGB Conc 32.4 g/dl (31.0-36.0); Mean Corpuscular Hemoglobin 26.0 pg (27.0-33.0); Mean Corpuscular Volume 80.2 fL (80.0-98.0); NRBC Abs Auto 0.000 X10*3/uL (0.0-0.012); NRBC Pct Auto 0.0 /100WBC (0.0-0.2); Red Blood Count 3.54 X10*6/uL (4.60-5.80); White Blood Count 18.7 X10*3/uL (4.8-10.8)
[2025-04-06 06:31] LABS: Alanine Aminotransferase 37 U/L (0-40); Albumin Level 3.5 g/dL (3.5-5.0); Alkaline Phosphatase 61 U/L (39-117); Anion Gap 14 (12-20); Aspartate Amino Transferase 36 U/L (5-37); Blood Urea Nitrogen 19 mg/dL (9-16); Calcium 8.6 mg/dL (8.4-10.2); Carbon Dioxide 25 mmol/L (22-29); Chloride 104 mmol/L (96-108); Creatinine Clr Calc Pharmacy 52.1; Estimated Glomerular Filt Rate > 60; Potassium 3.7 mmol/L (3.3-5.1); Sodium 139 mmol/L (135-145); Total Protein 5.8 g/dL (6.5-8.0)
[2025-04-06 06:35] LABS: Platelet Count 65 X10*3/uL (160-400)
[2025-04-06 06:47] LABS: Band Neutrophils Percent 12 % (3-5); Lymphocytes Absolute Manual 0.7 X10*3/uL (1.2-4.9); Lymphocytes Percent Manual 4 % (20-40); Metamyelocytes Absolute 0.2 X10*3/uL; Metamyelocytes Percent 1 %; Monocytes Absolute Manual 1.3 X10*3/uL (0.1-1.2); Monocytes Percent Manual 7 % (2-11); Neutrophils Absolute Manual 16.5 X10*3/uL (2.0-8.3); Neutrophils Percent Manual 76 % (45-73)
[2025-04-06 06:48] LABS: Burr Cells 3+ (>5) /OIF; Ovalocytes 1+ (5-14) /OIF; RBC Morphology NOTED
[2025-04-06 07:27] VITALS: BP 137/65; PULSE 82; RESP 16; TEMP 37.2; O2SAT 93
--- NOTE | 2025-04-06 07:57 | P.PNGS_ITS ---
Subjective Subjective Date of Service: 04/06/25 <Fidel Dodd PA-C - Last Filed: 04/06/25 08:07> 04/06/25 <Pravin Hair MD - Last Filed: 04/06/25 08:04> Interval history: reports no improvement. Pain continued in RUQ. Endorses nausea, no further episodes of vomiting. Denies fevers <Fidel Dodd PA-C - Last Filed: 04/06/25 08:07> Physical Exam 2 Vital Signs: Vital Signs: Last Vital Signs Temp 99.0 F 04/06/25 07:27 Pulse 82 04/06/25 07:27 Resp 16 04/06/25 07:27 BP 137/65 04/06/25 07:27 Pulse Ox 93 04/06/25 07:27 O2 Del Method Room Air 04/06/25 07:27 O2 Flow Rate 2.0 04/05/25 15:40 BMI result Body Mass Index 21.9 <Fidel Dodd PA-C - Last Filed: 04/06/25 08:07> Const: General: comfortable and no acute distress <Fidel Dodd PA-C - Last Filed: 04/06/25 08:07> Orientation/consciousness: patient oriented x3 <Fidel Dodd PA-C - Last Filed: 04/06/25 08:07> Resp: Effort & Inspection: normal respiratory effort and able to speak in complete sentences <Fidel Dodd PA-C - Last Filed: 04/06/25 08:07> GI: Inspection: No distended <Fidel Dodd PA-C - Last Filed: 04/06/25 08:07> Palpation (GI): Soft to palpation, Tenderness to palpation present (GI) in the RUQ and Guarding due to palpation present (GI) (voluntary RUQ) in the RUQ < Fidel Dodd PA-C - Last Filed: 04/06/25 08:07> Neuro: General: patient oriented x3 <ANA Lane Last Filed: 04/06/25 08:07> Objective Data Active Medications Acetaminophen (Acetaminophen 325 Mg Tablet) 650 mg PO Q6H PRN PRN Reason: Pain, Mild 1-3,fever,headache Clonazepam (Clonazepam 1 Mg Tablet) 1 mg PO BEDTIME [facility] Last Admin: 04/05/25 21:14 Dose: 1 mg Documented By: KOFI Dextrose (Dextrose 50 % 25 Gm/50 Ml Syringe) 25 gm IVPUSH Q15M PRN; Protocol PRN Reason: per Hypoglycemia Standing Ord. Enoxaparin Sodium (Enoxaparin Sodium 30 Mg/0.3 Ml Syringe) 30 mg SUBCUT DAILY [facility] On Hold: 04/05/25 09:00 Glucose (Glucose Gel 15 Gm Gel..Gram.) 15 gm PO Q15M PRN; Protocol PRN Reason: per Hypoglycemia Standing Ord. Hydromorphone HCl (Hydromorphone Hcl 1 Mg/Ml Syringe) 1 mg IVPUSH Q4H PRN; Protocol PRN Reason: Pain, Severe (Pain Scale 7-10) Last Admin: 04/05/25 14:52 Dose: 1 mg Documented By: KAVON Hydromorphone HCl (Hydromorphone Hcl 1 Mg/Ml Syringe) 0.5 mg IVPUSH Q4H PRN; Protocol PRN Reason: Pain, Moderate(Pain Scale 4-6) Last Admin: 04/05/25 19:47 Dose: 0.5 mg Documented By: KOFI Lactated Ringer's (Lr) 1,000 mls @ 100 mls/hr IVCONT .Q10H [facility] Last Admin: 04/06/25 05:07 Dose: 100 mls/hr Documented By: KOFI Piperacillin Sod/Tazobactam (Sod 3.375 gm/ Sodium Chloride) 50 mls @ 100 mls/hr IV Q6H [facility] Last Infusion: 04/06/25 02:59 Dose: Infused Documented By: KOFI Insulin Human Lispro (Insulin Lispro 100 Unit/Ml 3 Ml Vial) 0 unit SUBCUT Q6H [facility]; Protocol Last Admin: 04/06/25 06:19 Dose: Not Given Documented By: KOFI Non-Admin Reason: No Insulin Coverage Melatonin (Melatonin 3 Mg Tablet) 6 mg PO BEDTIME PRN PRN Reason: Insomnia Ondansetron HCl (Ondansetron Hcl 4 Mg/2 Ml Vial) 4 mg IVPUSH Q8H PRN PRN Reason: Nausea and Vomiting Pantoprazole Sodium (Pantoprazole Sodium 40 Mg/10 Ml Vial) 40 mg IVPUSH DAILY@0630 [facility] Last Admin: 04/06/25 06:12 Dose: 40 mg Documented By: KOFI Sodium Chloride (0.9 % Sodium Chloride Flush 3 Ml Syringe) 3 ml IVFLUSH QSHIFT [facility] Last Admin: 04/06/25 00:29 Dose: Not Given Documented By: KOFI Non-Admin Reason: IV Running Vitamin D (Cholecalciferol (Vitamin D3) 25 Mcg Tablet) 25 mcg PO DAILY [facility] <Fidel Dodd PA-C - Last Filed: 04/06/25 08:07> Labs CBC & Chem 7: 04/06/25 05:42 04/06/25 05:42 <Fidel Dodd PA-C - Last Filed: 04/06/25 08:07> Labs: Laboratory Results - last 24 hr 04/05/25 04/05/25 04/05/25 08:26 10:41 13:21 MCV MCH MCHC RDW Plt Count MPV Immature Gran % (Auto) Neut % (Auto) Lymph % (Auto) [place] % (Auto) Eos % (Auto) Baso % (Auto) Lymph # (Auto) [place] # (Auto) Eos # (Auto) Baso # (Auto) Abs Immat Gran (auto) Absolute Neuts (auto) Absolute Nucleated RBC Nucleated RBC % (auto) Neutrophils % (Manual) Band Neutrophils % Lymphocytes % (Manual) Monocytes % (Manual) Metamyelocytes % Abs Neuts (Manual) Lymphocytes # (Manual) Monocytes # (Manual) Metamyelocytes # Platelet Estimate Plt Morphology Comment RBC Morphology Ovalocytes Saran Cells Anion Gap Estim Creat Clear Calc Estimated GFR POC Glucose 190 H Random Glucose Lactic Acid F/U @ 2Hr 2.2 H* Lactic Acid F/U @ 4Hr 1.5 Calcium Total Bilirubin AST ALT Alkaline Phosphatase Total Protein Albumin 04/05/25 04/05/25 04/06/25 16:22 18:28 00:24 MCV MCH MCHC RDW Plt Count MPV Immature Gran % (Auto) Neut % (Auto) Lymph % (Auto) [place] % (Auto) Eos % (Auto) Baso % (Auto) Lymph # (Auto) [place] # (Auto) Eos # (Auto) Baso # (Auto) Abs Immat Gran (auto) Absolute Neuts (auto) Absolute Nucleated RBC Nucleated RBC % (auto) Neutrophils % (Manual) Band Neutrophils % Lymphocytes % (Manual) Monocytes % (Manual) Metamyelocytes % Abs Neuts (Manual) Lymphocytes # (Manual) Monocytes # (Manual) Metamyelocytes # Platelet Estimate Plt Morphology Comment RBC Morphology Ovalocytes [place] Cells Anion Gap Estim Creat Clear Calc Estimated GFR POC Glucose 169 H 157 H 162 H Random Glucose Lactic Acid F/U @ 2Hr Lactic Acid F/U @ 4Hr Calcium Total Bilirubin AST ALT Alkaline Phosphatase Total Protein Albumin 04/06/25 04/06/25 05:42 06:14 MCV 80.2 MCH 26.0 L MCHC 32.4 RDW 15.7 Plt Count 65 L MPV 10.7 Immature Gran % (Auto) Cancelled Neut % (Auto) Cancelled Lymph % (Auto) Cancelled [place] % (Auto) Cancelled Eos % (Auto) Cancelled Baso % (Auto) Cancelled Lymph # (Auto) Cancelled [place] # (Auto) Cancelled Eos # (Auto) Cancelled Baso # (Auto) Cancelled Abs Immat Gran (auto) Cancelled Absolute Neuts (auto) Cancelled Absolute Nucleated RBC 0.000 Nucleated RBC % (auto) 0.0 Neutrophils % (Manual) 76 H Band Neutrophils % 12 H Lymphocytes % (Manual) 4 L Monocytes % (Manual) 7 Metamyelocytes % 1 Abs Neuts (Manual) 16.5 H Lymphocytes # (Manual) 0.7 L Monocytes # (Manual) 1.3 H Metamyelocytes # 0.2 Platelet Estimate NORMAL Plt Morphology Comment NORMAL RBC Morphology NOTED Ovalocytes 1+ (5-14) Sar[place] Cells 3+ (>5) Anion Gap 14 Estim Creat Clear Calc 52.1 Estimated GFR > 60 POC Glucose 137 H Random Glucose 136 H Lactic Acid F/U @ 2Hr Lactic Acid F/U @ 4Hr Calcium 8.6 Total Bilirubin 1.5 H AST 36 ALT 37 Alkaline Phosphatase 61 Total Protein 5.8 L Albumin 3.5 <Fiedl Dodd PA-C - Last Filed: 04/06/25 08:07> Microbiology Microbiology Results: Microbiology 04/04/25 21:20 Blood Culture - Preliminary Blood - Venous No growth after 24 hours. 04/04/25 21:28 Blood Culture - Preliminary Blood - Venous No growth after 24 hours. <Fidel Dodd PA-C - Last Filed: 04/06/25 08:07> Procedures Date of Service Date of Service: 04/06/25 <Fidel Dodd PA-C - Last Filed: 04/06/25 08:07> 04/06/25 <Pravin Hair MD - Last Filed: 04/06/25 08:04> Progress Note: A&P Assessment and plan (1) Choledocholithiasis with acute cholecystitis: Status: Acute <Fidel Dodd PA-C - Last Filed: 04/06/25 08:07> Assessment and Plan: 85-year-old male with diabetes can hemorrhoid tension admitted for cholangitis with some tenderness on the right side bilirubin 1.5 CBD stones seen on MRI For ERCP today I explained to the patient and her daughter option of proceeding with cholecystectomy after CBD is cleared timing of surgery depending on overall clinical course; inpatient versus outpatient we will follow seen and examined independently <Pravin Hair MD - Last Filed: 04/06/25 08:04> Assessment and Plan: 85 year old male with a history of T2DM, HTN, admitted for choledocolithiasis, cholecystitis. Initially presenting septic, responding to IV fluids. GI consult appreciated, Dr Marte planning for ERCP today. Patient continues to have RUQ pain, nausea. No further vomiting. Abdomen soft, very tender in RUQ, voluntary guarding. WBC slightly increased this morning. Bilirubin stable, elevated. he is currently on IV zosyn, NPO, Will continue this for now. Trend labs daily. Possible cholecystectomy down the road. continue IV abx NPO ERCP this afternoon ambulation as tolerated. <Fidel Dodd PA-C - Last Filed: 04/06/25 08:07> Time Spent With Patient Time: Total time managing care of this patient today ____ minutes. <Fidel Dodd PA-C - Last Filed: 04/06/25 08:07> Quality Stroke Does the patient have a stroke diagnosis?: No <Fidel Dodd PA-C - Last Filed: 04/06/25 08:07> VTE Prior VTE?: No <Fidel Dodd PA-C - Last Filed: 04/06/25 08:07> VTE Risk Level:: Surgical - low <Fidel Dodd PA-C - Last Filed: 04/06/25 08:07> VTE Device Contraindication: N/A - Device Ordered <Fidel Dodd PA-C - Last Filed: 04/06/25 08:07> VTE Drug Contraindication: N/A - Med Ordered <Fidel Dodd PA-C - Last Filed: 04/06/25 08:07>
[2025-04-06] MEDS: 0.9 % Sodium Chloride Flush 3 ML SYRINGE IVFLUSH (08:39)
--- NOTE | 2025-04-06 09:46 | P.CNGI_ITS ---
History of Present Illness Data of Consult Service Date: 04/06/25 Primary Care Provider: Nando Hodges PA-C HPI Reason for consult: gallstones 85 year old male w/ hx of prostate ca, GERD, DM, HTN, who I am seeing for assessment for gallstones. Patient had 2 d hx of RUQ pain, severe 10/10 with nausea, and non blood emesis with fever without any releiving or exacerbating factors. He came to the ED and had imaging wtih cholecystitis, and stones seen in CBD but LFT minimally elevated. today he feels better, and denies fever or shakes. Appetite is poor. Denies jaundice, dark urine or pale stools. no melena or rectal bleeding. Imaging with MR and US with possibly 2-3 duct stone still a close to the ampulla and distended CBD. Review of Systems 2 Review of Systems: Constitutional : No Weight loss, + Fever, No Chills ENT/Mouth : No sore throat, No Rhinorrhea Eyes: No Swelling, No Redness Cardiovascular : No Chest Pain, No SOB, No Edema Respiratory : No Cough, No Sputum, No Wheezing Gastrointestinal : see HPI Genitourinary : NO Dysuria, No Urinary Frequency, No Hematuria, No Urgency Musculoskeletal : - joint pain, No Myalgias, No Joint Swelling Skin : No Skin Lesions, No rash Neuro : No Weakness, No Numbness, No Dizziness, No Headache Psych : No Anxiety/Panic, No Depression Heme/Lymph: No Bruising, No Lymphadenopathy Endocrine : No Polyuria, No Polydipsia All other systems reviewed and are negative. 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 Allergic rhinitis Microalbuminuria Insomnia History of Helicobacter infection GERD (gastroesophageal reflux disease) History of prostate cancer Coronary artery disease Vitamin D deficiency Hyperlipidemia LDL goal <100 Essential hypertension Type 2 diabetes mellitus with hyperglycemia Family History Family History Father Medical history unknown Mother Medical history unknown Sister Diabetes Daughter Breast cancer Surgical History Surgical History Stented coronary artery History of cardiac cath Hx of esophagogastroduodenoscopy Hx of prostate biopsy Hx of colonoscopy Social History Social History Household Members: None Housing: Apartment Housing Other:: [employer]ICE [employer]MIN Services Do you presently have visiting nurse or other home services: No Alcohol intake: never Patient Tobacco Use Status: Former Tobacco user Tobacco use type: Cigarette e-Cigarette/Vaping Use: Never Used Second Hand Smoke Exposure: Yes service: No Current occupational status: retired Cognitive needs: Yes Hearing needs: No Vision needs: Yes Meds Allergies Allergy/AdvReac Type Severity Reaction Status Date / Time No Known Allergies (No Known Allergy Verified 04/04/25 17:33 Allergies*) Active Medications: Current Medications Acetaminophen (Acetaminophen 325 Mg Tablet) 650 mg PO Q6H PRN PRN Reason: Pain, Mild 1-3,fever,headache Clonazepam (Clonazepam 1 Mg Tablet) 1 mg PO BEDTIME [facility] Last Admin: 04/05/25 21:14 Dose: 1 mg Dextrose (Dextrose 50 % 25 Gm/50 Ml Syringe) 25 gm IVPUSH Q15M PRN; Protocol PRN Reason: per Hypoglycemia Standing Ord. Enoxaparin Sodium (Enoxaparin Sodium 30 Mg/0.3 Ml Syringe) 30 mg SUBCUT DAILY [facility] On Hold: 04/05/25 09:00 Glucose (Glucose Gel 15 Gm Gel..Gram.) 15 gm PO Q15M PRN; Protocol PRN Reason: per Hypoglycemia Standing Ord. Hydromorphone HCl (Hydromorphone Hcl 1 Mg/Ml Syringe) 1 mg IVPUSH Q4H PRN; Protocol PRN Reason: Pain, Severe (Pain Scale 7-10) Last Admin: 04/05/25 14:52 Dose: 1 mg Hydromorphone HCl (Hydromorphone Hcl 1 Mg/Ml Syringe) 0.5 mg IVPUSH Q4H PRN; Protocol PRN Reason: Pain, Moderate(Pain Scale 4-6) Last Admin: 04/05/25 19:47 Dose: 0.5 mg Lactated Ringer's (Lr) 1,000 mls @ 100 mls/hr IVCONT .Q10H [facility] Last Admin: 04/06/25 05:07 Dose: 100 mls/hr Piperacillin Sod/Tazobactam (Sod 3.375 gm/ Sodium Chloride) 50 mls @ 100 mls/hr IV Q6H [facility] Last Infusion: 04/06/25 09:30 Dose: Infused Insulin Human Lispro (Insulin Lispro 100 Unit/Ml 3 Ml Vial) 0 unit SUBCUT Q6H [facility]; Protocol Last Admin: 04/06/25 06:19 Dose: Not Given Melatonin (Melatonin 3 Mg Tablet) 6 mg PO BEDTIME PRN PRN Reason: Insomnia Ondansetron HCl (Ondansetron Hcl 4 Mg/2 Ml Vial) 4 mg IVPUSH Q8H PRN PRN Reason: Nausea and Vomiting Pantoprazole Sodium (Pantoprazole Sodium 40 Mg/10 Ml Vial) 40 mg IVPUSH DAILY@0630 [facility] Last Admin: 04/06/25 06:12 Dose: 40 mg Sodium Chloride (0.9 % Sodium Chloride Flush 3 Ml Syringe) 3 ml IVFLUSH QSHIFT [facility] Last Admin: 04/06/25 08:39 Dose: 3 ml Vitamin D (Cholecalciferol (Vitamin D3) 25 Mcg Tablet) 25 mcg PO DAILY [facility] Last Admin: 04/06/25 08:36 Dose: 25 mcg Home Medications ?Medication ?Instructions ?Recorded ?Confirmed ?Last Taken ?Type nitroglycerin 0.4 mg sublingual 0.4 mg sublingual Q5M PRN Chest 02/14/20 04/05/25 04/04/25 History tablet Pain blood-glucose meter #1 ea 04/01/20 01/26/25 Unkn own History lancets 28 gauge #100 ea 04/01/20 01/26/25 Un known History glucose 4 gram chewable tablet 4 g PO ONCE PRN Hypogly cemia 07/26/20 04/05/25 04/04/25 History dulaglutide 3 mg/0.5 mL 3 mg subcut FR 04/05/2503/1504/03/25 History subcutaneous pen injector (Trulicity) Physical Exam 2 Exam: Exam: EXAM: GENERAL: The patient is well developed and nontoxic. VITAL SIGNS:see workflow HEENT: Nonicteric sclerae, PERRLA, EOMI. Oropharynx clear. Moist mucous membranes. Conjunctivae appear well perfused. No thyroid mass. CHEST: Chest wall is nontender. HEART: Regular rate and rhythm without murmurs. LUNGS: Clear to auscultation bilaterally. ABDOMEN: Soft, positive bowel sounds, tender ruq, no organomegaly.no flank tenderness SKIN: No rash, no excessive bruising, petechiae, or purpura. NEUROLOGIC: Cranial nerves II-XII intact without motor/sensory deficit. Psych: normal affect Vital Signs: Vital Signs: Last Vital Signs Temp 99.0 F 04/06/25 07:27 Pulse 82 04/06/25 07:27 Resp 16 04/06/25 07:27 BP 137/65 04/06/25 07:27 Pulse Ox 93 04/06/25 07:27 O2 Del Method Room Air 04/06/25 07:27 O2 Flow Rate 2.0 04/05/25 15:40 BMI result Body Mass Index 21.9 Results Labs 04/06/25 05:42 04/06/25 05:42 Labs: Short CBC 04/06/25 Range/Units 05:42 WBC 18.7 H (4.8-10.8) X10*3/uL Hgb 9.2 L (14.0-18.0) g/dl Hct 28.4 L (42.0-52.0) % Plt Count 65 L (160-400) X10*3/uL BMP 04/06/25 05:42 Sodium 139 Potassium 3.7 Chloride 104 Carbon Dioxide 25 BUN 19 H Creatinine 0.85 Calcium 8.6 Liver Function 04/06/25 Range/Units 05:42 Total Bilirubin 1.5 H (0.0-1.0) mg/dL AST 36 (5-37) U/L ALT 37 (0-40) U/L Alkaline Phosphatase 61 (39-117) U/L Albumin 3.5 (3.5-5.0) g/dL Microbiology Microbiology Results: Microbiology 04/04/25 21:20 Blood - Venous Blood Culture - Preliminary No growth after 24 hours. 04/04/25 21:28 Blood - Venous Blood Culture - Preliminary No growth after 24 hours. Imaging MRI - abdomen: Attestation: I personally reviewed and interpreted this imaging study as follows: (dilated cbd with filling defect in distal cbd) Assessment and Plan (1) Acute cholecystitis: Status: Acute (2) Choledocholithiasis with acute cholecystitis: Status: Acute Plan 1/ cholecystitis with choledocholithiasis. LFT are fairly normal with minimal elevation of bilirubin arguing against cholangitis. PLAN: 1/ Cont with fluids, and ABX 2/ Plan for ERCP tomorrow, Procedures Date of Service Date of Service: 04/06/25
[2025-04-06 12:15] LABS: Glucose, Whole Blood 123 mg/dL (60-115)
--- NOTE | 2025-04-06 14:26 | P.PNIM_ITS ---
Subjective Subjective Date of Service: 04/06/25 Interval History: Patient seen examined at bedside this morning, waiting to be taken to ERCP, this time states that he is experiencing epigastric pain, however is tolerable. Review of Systems Review of Systems: Yes all other systems are reviewed and are negative Physical Exam 2 Exam: Exam: General: AxOx3, No acute distress Head: AT/NC ENT: Moist mucous membranes Neck: supple CVS; RRR, S1 S2 normal Lungs: Clear bilateral breath sounds, no wheezes or crackles Abd: Soft, tender in epigastric area Ext: No edema and no calf tenderness MSK: moving all 4 limbs Skin: No cyanosis or edema Psych: Cooperative with exam Neurology: no focal deficit Vital Signs: Vital Signs: Last Vital Signs Temp 99.0 F 04/06/25 07:27 Pulse 82 04/06/25 07:27 Resp 16 04/06/25 07:27 BP 137/65 04/06/25 07:27 Pulse Ox 93 04/06/25 07:27 O2 Del Method Room Air 04/06/25 07:27 O2 Flow Rate 2.0 04/05/25 15:40 BMI result Body Mass Index 21.9 Objective Data Active Medications Acetaminophen (Acetaminophen 325 Mg Tablet) 650 mg PO Q6H PRN PRN Reason: Pain, Mild 1-3,fever,headache Clonazepam (Clonazepam 1 Mg Tablet) 1 mg PO BEDTIME [facility] Last Admin: 04/05/25 21:14 Dose: 1 mg Documented By: KOFI Dextrose (Dextrose 50 % 25 Gm/50 Ml Syringe) 25 gm IVPUSH Q15M PRN; Protocol PRN Reason: per Hypoglycemia Standing Ord. Enoxaparin Sodium (Enoxaparin Sodium 30 Mg/0.3 Ml Syringe) 30 mg SUBCUT DAILY [facility] On Hold: 04/05/25 09:00 Glucose (Glucose Gel 15 Gm Gel..Gram.) 15 gm PO Q15M PRN; Protocol PRN Reason: per Hypoglycemia Standing Ord. Hydromorphone HCl (Hydromorphone Hcl 1 Mg/Ml Syringe) 1 mg IVPUSH Q4H PRN; Protocol PRN Reason: Pain, Severe (Pain Scale 7-10) Last Admin: 04/06/25 12:32 Dose: 1 mg Documented By: AVELINA Hydromorphone HCl (Hydromorphone Hcl 1 Mg/Ml Syringe) 0.5 mg IVPUSH Q4H PRN; Protocol PRN Reason: Pain, Moderate(Pain Scale 4-6) Last Admin: 04/05/25 19:47 Dose: 0.5 mg Documented By: KOFI Lactated Ringer's (Lr) 1,000 mls @ 100 mls/hr IVCONT .Q10H [facility] Last Admin: 04/06/25 05:07 Dose: 100 mls/hr Documented By: KOFI Piperacillin Sod/Tazobactam (Sod 3.375 gm/ Sodium Chloride) 50 mls @ 100 mls/hr IV Q6H [facility] Last Infusion: 04/06/25 09:30 Dose: Infused Documented By: AVELINA Insulin Human Lispro (Insulin Lispro 100 Unit/Ml 3 Ml Vial) 0 unit SUBCUT Q6H [facility]; Protocol Last Admin: 04/06/25 12:22 Dose: Not Given Documented By: AVELINA Non-Admin Reason: No Insulin Coverage Melatonin (Melatonin 3 Mg Tablet) 6 mg PO BEDTIME PRN PRN Reason: Insomnia Ondansetron HCl (Ondansetron Hcl 4 Mg/2 Ml Vial) 4 mg IVPUSH Q8H PRN PRN Reason: Nausea and Vomiting Pantoprazole Sodium (Pantoprazole Sodium 40 Mg/10 Ml Vial) 40 mg IVPUSH DAILY@0630 [facility] Last Admin: 04/06/25 06:12 Dose: 40 mg Documented By: KOFI Sodium Chloride (0.9 % Sodium Chloride Flush 3 Ml Syringe) 3 ml IVFLUSH QSHIFT [facility] Last Admin: 04/06/25 08:39 Dose: 3 ml Documented By: AVELINA Vitamin D (Cholecalciferol (Vitamin D3) 25 Mcg Tablet) 25 mcg PO DAILY [facility] Last Admin: 04/06/25 08:36 Dose: 25 mcg Documented By: AVELINA Labs 04/06/25 05:42 04/06/25 05:42 Labs: Laboratory Results - last 24 hr 04/05/25 04/05/25 04/06/25 16:22 18:28 00:24 MCV MCH MCHC RDW Plt Count MPV Immature Gran % (Auto) Neut % (Auto) Lymph % (Auto) [place] % (Auto) Eos % (Auto) Baso % (Auto) Lymph # (Auto) [place] # (Auto) Eos # (Auto) Baso # (Auto) Abs Immat Gran (auto) Absolute Neuts (auto) Absolute Nucleated RBC Nucleated RBC % (auto) Neutrophils % (Manual) Band Neutrophils % Lymphocytes % (Manual) Monocytes % (Manual) Metamyelocytes % Abs Neuts (Manual) Lymphocytes # (Manual) Monocytes # (Manual) Metamyelocytes # Platelet Estimate Plt Morphology Comment RBC Morphology Ovalocytes [place] Cells Anion Gap Estim Creat Clear Calc Estimated GFR POC Glucose 169 H 157 H 162 H Random Glucose Calcium Total Bilirubin AST ALT Alkaline Phosphatase Total Protein Albumin 04/06/25 04/06/25 04/06/25 05:42 06:14 12:10 MCV 80.2 MCH 26.0 L MCHC 32.4 RDW 15.7 Plt Count 65 L MPV 10.7 Immature Gran % (Auto) Cancelled Neut % (Auto) Cancelled Lymph % (Auto) Cancelled [place] % (Auto) Cancelled Eos % (Auto) Cancelled Baso % (Auto) Cancelled Lymph # (Auto) Cancelled [place] # (Auto) Cancelled Eos # (Auto) Cancelled Baso # (Auto) Cancelled Abs Immat Gran (auto) Cancelled Absolute Neuts (auto) Cancelled Absolute Nucleated RBC 0.000 Nucleated RBC % (auto) 0.0 Neutrophils % (Manual) 76 H Band Neutrophils % 12 H Lymphocytes % (Manual) 4 L Monocytes % (Manual) 7 Metamyelocytes % 1 Abs Neuts (Manual) 16.5 H Lymphocytes # (Manual) 0.7 L Monocytes # (Manual) 1.3 H Metamyelocytes # 0.2 Platelet Estimate NORMAL Plt Morphology Comment NORMAL RBC Morphology NOTED Ovalocytes 1+ (5-14) [place] Cells 3+ (>5) Anion Gap 14 Estim Creat Clear Calc 52.1 Estimated GFR > 60 POC Glucose 137 H 123 H Random Glucose 136 H Calcium 8.6 Total Bilirubin 1.5 H AST 36 ALT 37 Alkaline Phosphatase 61 Total Protein 5.8 L Albumin 3.5 Microbiology Microbiology Results: Microbiology 04/04/25 21:20 Blood Culture - Preliminary Blood - Venous No growth after 24 hours. 04/04/25 21:28 Blood Culture - Preliminary Blood - Venous No growth after 24 hours. Assessment and Plan (1) Type 2 diabetes mellitus with hyperglycemia: Status: Acute (2) Severe sepsis: Status: Acute Plan 85-year-old Pashto-speaking male with a past medical history significant for hypertension, hyperlipidemia, type 2 diabetes, insomnia, prostate cancer and CAD, admitted by general surgery for severe sepsis secondary to acute cholecystitis with choledocholithiasis and suspected cholangitis. Severe sepsis, likely secondary to cholangitis Lactic acidosis Leukocytosis, worsening at this time 16,000->18,700 - imaging reviewed, awaiting MRCP - continue IV fluids - continue Zosyn - Multimodal pain management Hypertension - we will hold BP medications at this time, given patient's severe sepsis with lactic acidosis, we will restart when appropriate. HLD - at this time we will hold off on statin, given recent cholangitis, suspect liver enzymes we will slowly elevate. Type 2 diabetes - hold metformin and Jardiance - continue ISS CAD - hold aspirin Insomnia - clonazepam We will continue to follow at this time, thank you for this consult, rest of management per General surgery. Full code VTE prophy: per surgery recs Total time managing care of this patient today: 55 minutes. Quality Stroke Does the patient have a stroke diagnosis?: No VTE Prior VTE?: No VTE Risk Level:: Surgical - low VTE Device Contraindication: N/A - Device Ordered VTE Drug Contraindication: N/A - Med Ordered
--- NOTE | 2025-04-06 15:49 | MHC.CM.PN ---
PER MD ROUNDS, PROCEDURE WAS PLANNED FOR TODAY. DCP: [facility] TO TRANSPORT
[2025-04-06 16:05] VITALS: BP 141/63; PULSE 95; RESP 18; TEMP 36.7; O2SAT 94
[2025-04-06 19:28] VITALS: BP 151/69; PULSE 106; RESP 18; TEMP 37.6; O2SAT 96
[2025-04-06 19:44] LABS: Glucose, Whole Blood 314 mg/dL (60-115)
[2025-04-07] VITALS (10 sets, daily range): BP systolic 141–174; BP diastolic 59–88; PULSE 80–100; RESP 10–18; TEMP 36.2–37.4; O2SAT 94–99
[2025-04-07 00:01] LABS: Glucose, Whole Blood 133 mg/dL (60-115)
[2025-04-07] MEDS: Lactated Ringers 1,000 ML 100 ML IVCONT ×2 (01:21→11:39)
[2025-04-07 05:50] LABS: Glucose, Whole Blood 108 mg/dL (60-115)
--- NOTE | 2025-04-07 08:10 | P.PNGS_ITS ---
Subjective Subjective Date of Service: 04/07/25 <Fidel Dodd PA-C - Last Filed: 04/07/25 08:13> 04/07/25 <Pravin Hair MD - Last Filed: 04/07/25 12:21> Interval history: no new complaints. Continues to have same RUQ pain. Denies nausea, vomiting. <Fidel Dodd PA-C - Last Filed: 04/07/25 08:13> Physical Exam 2 Vital Signs: Vital Signs: Last Vital Signs Temp 98.6 F 04/07/25 07:21 Pulse 99 04/07/25 07:21 Resp 18 04/07/25 07:21 BP 160/88 H 04/07/25 07:21 Pulse Ox 94 04/07/25 07:21 O2 Del Method Room Air 04/07/25 07:21 O2 Flow Rate 2.0 04/05/25 15:40 BMI result Body Mass Index 21.9 <Fidel Dodd PA-C - Last Filed: 04/07/25 08:13> Const: General: comfortable and no acute distress <Fidel Dodd PA-C - Last Filed: 04/07/25 08:13> Orientation/consciousness: patient oriented x3 <Fidel Dodd PA-C - Last Filed: 04/07/25 08:13> Resp: Effort & Inspection: normal respiratory effort and able to speak in complete sentences <Fidel Dodd PA-C - Last Filed: 04/07/25 08:13> GI: Inspection: No distended <Fidel Dodd PA-C - Last Filed: 04/07/25 08:13> Palpation (GI): Soft to palpation, Tenderness to palpation present (GI) in the RUQ and no guarding <Fidel Dodd PA-C - Last Filed: 04/07/25 08:13> Neuro: General: patient oriented x3 <ANA Lane Last Filed: 04/07/25 08:13> Objective Data Active Medications Acetaminophen (Acetaminophen 325 Mg Tablet) 650 mg PO Q6H PRN PRN Reason: Pain, Mild 1-3,fever,headache Clonazepam (Clonazepam 1 Mg Tablet) 1 mg PO BEDTIME [facility] Last Admin: 04/06/25 21:04 Dose: 1 mg Documented By: KOFI Dextrose (Dextrose 50 % 25 Gm/50 Ml Syringe) 25 gm IVPUSH Q15M PRN; Protocol PRN Reason: per Hypoglycemia Standing Ord. Enoxaparin Sodium (Enoxaparin Sodium 30 Mg/0.3 Ml Syringe) 30 mg SUBCUT DAILY [facility] On Hold: 04/05/25 09:00 Glucose (Glucose Gel 15 Gm Gel..Gram.) 15 gm PO Q15M PRN; Protocol PRN Reason: per Hypoglycemia Standing Ord. Hydromorphone HCl (Hydromorphone Hcl 1 Mg/Ml Syringe) 1 mg IVPUSH Q4H PRN; Protocol PRN Reason: Pain, Severe (Pain Scale 7-10) Last Admin: 04/06/25 12:32 Dose: 1 mg Documented By: AVELINA Hydromorphone HCl (Hydromorphone Hcl 1 Mg/Ml Syringe) 0.5 mg IVPUSH Q4H PRN; Protocol PRN Reason: Pain, Moderate(Pain Scale 4-6) Last Admin: 04/05/25 19:47 Dose: 0.5 mg Documented By: KOFI Piperacillin Sod/Tazobactam (Sod 3.375 gm/ Sodium Chloride) 50 mls @ 100 mls/hr IV Q6H [facility] Last Infusion: 04/07/25 02:05 Dose: Infused Documented By: KOFI Lactated Ringer's (Lr) 1,000 mls @ 100 mls/hr IVCONT .Q10H [facility] Last Admin: 04/07/25 01:21 Dose: 100 mls/hr Documented By: KOFI Insulin Human Lispro (Insulin Lispro 100 Unit/Ml 3 Ml Vial) 0 unit SUBCUT Q6H [facility]; Protocol Last Admin: 04/07/25 05:55 Dose: Not Given Documented By: KOFI Non-Admin Reason: No Insulin Coverage Melatonin (Melatonin 3 Mg Tablet) 6 mg PO BEDTIME PRN PRN Reason: Insomnia Ondansetron HCl (Ondansetron Hcl 4 Mg/2 Ml Vial) 4 mg IVPUSH Q8H PRN PRN Reason: Nausea and Vomiting Pantoprazole Sodium (Pantoprazole Sodium 40 Mg/10 Ml Vial) 40 mg IVPUSH DAILY@0630 [facility] Last Admin: 04/07/25 06:05 Dose: 40 mg Documented By: KOFI Sodium Chloride (0.9 % Sodium Chloride Flush 3 Ml Syringe) 3 ml IVFLUSH QSHIFT [facility] Last Admin: 04/07/25 01:05 Dose: Not Given Documented By: KOFI Non-Admin Reason: IV Running Vitamin D (Cholecalciferol (Vitamin D3) 25 Mcg Tablet) 25 mcg PO DAILY [facility] Last Admin: 04/06/25 08:36 Dose: 25 mcg Documented By: AVELINA <Fidel Dodd PA-C - Last Filed: 04/07/25 08:13> Labs CBC & Chem 7: 04/07/25 08:44 04/07/25 08:44 <Fidel Dodd PA-C - Last Filed: 04/07/25 08:13> Labs: Laboratory Results - last 24 hr 04/06/25 04/06/25 04/06/25 12:10 19:35 23:56 POC Glucose 123 H 314 H 133 H 04/07/25 05:46 POC Glucose 108 <Fidel Dodd PA-C - Last Filed: 04/07/25 08:13> Microbiology Microbiology Results: Microbiology 04/04/25 21:20 Blood Culture - Preliminary Blood - Venous No growth after 48 hours. 04/04/25 21:28 Blood Culture - Preliminary Blood - Venous No growth after 48 hours. <Fidel Dodd PA-C - Last Filed: 04/07/25 08:13> Procedures Date of Service Date of Service: 04/07/25 <Fidel Dodd PA-C - Last Filed: 04/07/25 08:13> 04/07/25 <Pravin Hair MD - Last Filed: 04/07/25 12:21> Progress Note: A&P Assessment and plan (1) Choledocholithiasis with acute cholecystitis: Status: Acute <Fidel Dodd PA-C - Last Filed: 04/07/25 08:13> Assessment and Plan: Some right upper quadrant pain although he says this has severe Looks comfortable otherwise Abdomen is soft and benign No fever Mild tenderness in the right upper quadrant epigastric areas Bilirubin 1.7 For ERCP today Seen and examined independently <Pravin Hair MD - Last Filed: 04/07/25 12:21> Assessment and Plan: 85 year old male with a history of T2DM, HTN, admitted for choledocolithiasis, cholecystitis. Initially presenting septic, responding to IV fluids. Cotninues to have RUQ pain. No nausea, vomiting. Dr Bishop planning for ERCP this afternoon. Abdomen soft, tender in RUQ. Actually appears less tender today. AM labs pending. he is currently on IV zosyn, NPO, Will continue this for now. Trend labs daily. Possible cholecystectomy down the road, family may want to do this as outpt. continue IV abx NPO ERCP this afternoon ambulation as tolerated. <Fidel Dodd PA-C - Last Filed: 04/07/25 08:13> Time Spent With Patient Time: Total time managing care of this patient today ____ minutes. <Fidel Dodd PA-C - Last Filed: 04/07/25 08:13> Quality Stroke Does the patient have a stroke diagnosis?: No <Fidel Dodd PA-C - Last Filed: 04/07/25 08:13> VTE Prior VTE?: No <Fidel Dodd PA-C - Last Filed: 04/07/25 08:13> VTE Risk Level:: Surgical - low <Fidel Dodd PA-C - Last Filed: 04/07/25 08:13> VTE Device Contraindication: N/A - Device Ordered <Fidel Dodd PA-C - Last Filed: 04/07/25 08:13> VTE Drug Contraindication: N/A - Med Ordered <Fidel Dodd PA-C - Last Filed: 04/07/25 08:13>
--- NOTE | 2025-04-07 08:28 | HO.ANESPROP2 ---
Documented by User: Mari Young NP 04/07/25 08:53 HPI - Anesthesia Eval Consult details Narrative: 85 yr old male for ERCP CAD: [place] [facility] [facility] [place] who provides hx and translation pt told to follow up every 3 yrs. Notes from last visit state: Status post RCA stent in 2014; Echocardiogram from 2017 with normal LVEF, mild diastolic dysfunction but otherwise unremarkable; Stress perfusion imaging from 2017 with normal perfusion and normal gated LVEF. Denies CP or SOB with light activity. Anesthesia Pre-Procedure Meds Is the patient on any of the following meds?: GLP1/DPP4 (04/03/25) and SGLT2 Inhib (04/04/25) PMFSH Active Problems Active Problems: All Active Problems Acute cholangitis (Acute) Severe sepsis (Acute) Sepsis (Acute) Choledocholithiasis with acute cholecystitis (Acute) Acute cholecystitis (Acute) Gastroenteritis (Acute) Annual physical exam (Acute) History of prostate cancer (Acute) Anemia (Acute) Cough (Acute) Malignant neoplasm of prostate (Acute) Physical exam (Acute) Skin lesion (Acute) Pre-op evaluation (Acute) Weight loss, unintentional (Acute) Acute diarrhea (Acute) Right knee pain (Acute) Left knee pain (Acute) Elevated bilirubin (Acute) Chronic idiopathic constipation (Acute) Epigastric pain (Acute) Delayed gastric emptying (Acute) Atherosclerotic cardiovascular disease (Acute) Tremor (Acute) Hyperlipidemia LDL goal <70 (Acute) GERD (gastroesophageal reflux disease) (Acute) Type 2 diabetes mellitus with hyperglycemia (Acute) Essential hypertension (Acute) Allergic rhinitis (Acute) Stented coronary artery (Acute) Microalbuminuria (Acute) Insomnia (Acute) Past Medical History Medical History Malignant neoplasm of prostate Type 2 diabetes mellitus with unspecified complications 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 Allergic rhinitis Microalbuminuria Insomnia History of Helicobacter infection GERD (gastroesophageal reflux disease) History of prostate cancer Coronary artery disease Vitamin D deficiency Hyperlipidemia LDL goal <100 Essential hypertension Type 2 diabetes mellitus with hyperglycemia Functional capacity: independent ambulation Family History Family History Father Medical history unknown Mother Medical history unknown Sister Diabetes Daughter Breast cancer Family history of problems with anesthesia: No Surgical History Surgical History Stented coronary artery History of cardiac cath Hx of esophagogastroduodenoscopy Hx of prostate biopsy Hx of colonoscopy History of Problems with Anesthesia: No Social History Social History Household Members: None Housing: Apartment 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 Services Do you presently have visiting nurse or other home services: No Alcohol intake: never Patient Tobacco Use Status: Former Tobacco user Tobacco use type: Cigarette e-Cigarette/Vaping Use: Never Used Second Hand Smoke Exposure: Yes service: No Current occupational status: retired Cognitive needs: Yes Hearing needs: No Vision needs: Yes Meds Allergies Allergy/AdvReac Type Severity Reaction Status Date / Time No Known Allergies (No Known Allergy Verified 04/04/25 17:33 Allergies*) Active Medications: Current Medications Acetaminophen (Acetaminophen 325 Mg Tablet) 650 mg PO Q6H PRN PRN Reason: Pain, Mild 1-3,fever,headache Clonazepam (Clonazepam 1 Mg Tablet) 1 mg PO BEDTIME [facility] Last Admin: 04/06/25 21:04 Dose: 1 mg Dextrose (Dextrose 50 % 25 Gm/50 Ml Syringe) 25 gm IVPUSH Q15M PRN; Protocol PRN Reason: per Hypoglycemia Standing Ord. Enoxaparin Sodium (Enoxaparin Sodium 30 Mg/0.3 Ml Syringe) 30 mg SUBCUT DAILY [facility] On Hold: 04/05/25 09:00 Glucose (Glucose Gel 15 Gm Gel..Gram.) 15 gm PO Q15M PRN; Protocol PRN Reason: per Hypoglycemia Standing Ord. Hydromorphone HCl (Hydromorphone Hcl 1 Mg/Ml Syringe) 1 mg IVPUSH Q4H PRN; Protocol PRN Reason: Pain, Severe (Pain Scale 7-10) Last Admin: 04/06/25 12:32 Dose: 1 mg Hydromorphone HCl (Hydromorphone Hcl 1 Mg/Ml Syringe) 0.5 mg IVPUSH Q4H PRN; Protocol PRN Reason: Pain, Moderate(Pain Scale 4-6) Last Admin: 04/05/25 19:47 Dose: 0.5 mg Piperacillin Sod/Tazobactam (Sod 3.375 gm/ Sodium Chloride) 50 mls @ 100 mls/hr IV Q6H [facility] Last Infusion: 04/07/25 02:05 Dose: Infused Lactated Ringer's (Lr) 1,000 mls @ 100 mls/hr IVCONT .Q10H [facility] Last Admin: 04/07/25 01:21 Dose: 100 mls/hr Insulin Human Lispro (Insulin Lispro 100 Unit/Ml 3 Ml Vial) 0 unit SUBCUT Q6H [facility]; Protocol Last Admin: 04/07/25 05:55 Dose: Not Given Melatonin (Melatonin 3 Mg Tablet) 6 mg PO BEDTIME PRN PRN Reason: Insomnia Ondansetron HCl (Ondansetron Hcl 4 Mg/2 Ml Vial) 4 mg IVPUSH Q8H PRN PRN Reason: Nausea and Vomiting Pantoprazole Sodium (Pantoprazole Sodium 40 Mg/10 Ml Vial) 40 mg IVPUSH DAILY@0630 [facility] Last Admin: 04/07/25 06:05 Dose: 40 mg Sodium Chloride (0.9 % Sodium Chloride Flush 3 Ml Syringe) 3 ml IVFLUSH QSHIFT [facility] Last Admin: 04/07/25 01:05 Dose: Not Given Vitamin D (Cholecalciferol (Vitamin D3) 25 Mcg Tablet) 25 mcg PO DAILY [facility] Last Admin: 04/06/25 08:36 Dose: 25 mcg Home Medications ?Medication ?Instructions ?Recorded ?Confirmed ?Last Taken ?Type nitroglycerin 0.4 mg sublingual 0.4 mg sublingual Q5M PRN Chest 02/14/20 04/05/25 04/04/25 History tablet Pain blood-glucose meter #1 ea 04/01/20 01/26/25 Unknown History lancets 28 gauge #100 ea 04/01/20 01/26/25 Unknown History glucose 4 gram chewable tablet 4 g PO ONCE PRN Hypoglycemia 07/26/20 04/05/25 04/04/25 History dulaglutide 3 mg/0.5 mL 3 mg subcut FR 04/05/25 04/05/25 04/03/25 [facility] Ex[facility] Height,Weight and Vital Signs: Height 5 ft 3 in Weight 56 kg Last Vital Signs Temp 98.6 F 04/07/25 07:21 Pulse 99 04/07/25 07:21 Resp 18 04/07/25 07:21 BP 160/88 H 04/07/25 07:21 Pulse Ox 94 04/07/25 07:21 O2 Del Method Room Air 04/07/25 07:21 O2 Flow Rate 2.0 04/05/25 15:40 Pertinent Lab Results Pertinent Lab Results: Laboratory Tests 04/04/25 04/04/25 04/04/25 17:43 19:19 21:28 WBC 13.3 H RBC 4.37 L Hgb 11.5 L Hct 35.8 L MCV 81.9 MCH 26.3 L MCHC 32.1 RDW 15.6 Plt Count 86 L MPV 10.1 Immature Gran % (Auto) 0.7 H Neut % (Auto) 82.2 H Lymph % (Auto) 10.9 L [place] % (Auto) 4.4 Eos % (Auto) 1.2 Baso % (Auto) 0.6 Lymph # (Auto) 1.5 [place] # (Auto) 0.6 Eos # (Auto) 0.2 Baso # (Auto) 0.1 Abs Immat Gran (auto) 0.09 H Absolute Neuts (auto) 10.9 H Absolute Nucleated RBC 0.000 Nucleated RBC % (auto) 0.0 Neutrophils % (Manual) Band Neutrophils % Lymphocytes % (Manual) Monocytes % (Manual) Metamyelocytes % Abs Neuts (Manual) Lymphocytes # (Manual) Monocytes # (Manual) Metamyelocytes # Platelet Estimate Plt Morphology Comment RBC Morphology Ovalocytes [place] Cells Sodium 143 Potassium 4.3 Chloride 104 Carbon Dioxide 26 Anion Gap 17 BUN 18 H Creatinine 0.93 Estim Creat Clear Calc 48.4 Estimated GFR > 60 POC Glucose Random Glucose 195 H Lactic Acid 4.3 H* Lactic Acid F/U @ 2Hr Lactic Acid F/U @ 4Hr Calcium 9.8 Total Bilirubin 1.0 AST 20 ALT 11 Alkaline Phosphatase 71 Troponin I High Sens < 2.7 < 2.7 Total Protein 7.4 Albumin 4.8 Lipase 44 Urine Color Yellow Urine Appearance Clear Urine pH 7.5 Ur Specific [place] 1.010 Urine Protein 30 (1+) H Urine Glucose (UA) 250 H Urine Ketones 15 Urine Blood Trace H Urine Nitrite Negative Ur Leukocyte Esterase Negative Urine RBC 3-5 H Urine WBC 0-5 Ur Squamous Epith Cells 0-2 Urine Bacteria None Seen Hyaline Casts 0-2 04/04/25 04/05/25 04/05/25 23:39 00:23 01:39 WBC RBC Hgb Hct MCV MCH MCHC RDW Plt Count MPV Immature Gran % (Auto) Neut % (Auto) Lymph % (Auto) [place] % (Auto) Eos % (Auto) Baso % (Auto) Lymph # (Auto) [place] # (Auto) Eos # (Auto) Baso # (Auto) Abs Immat Gran (auto) Absolute Neuts (auto) Absolute Nucleated RBC Nucleated RBC % (auto) Neutrophils % (Manual) Band Neutrophils % Lymphocytes % (Manual) Monocytes % (Manual) Metamyelocytes % Abs Neuts (Manual) Lymphocytes # (Manual) Monocytes # (Manual) Metamyelocytes # Platelet Estimate Plt Morphology Comment RBC Morphology Ovalocytes [place] Cells Sodium Potassium Chloride Carbon Dioxide Anion Gap BUN Creatinine Estim Creat Clear Calc Estimated GFR POC Glucose 177 H Random Glucose Lactic Acid 4.3 H* 3.0 H* Lactic Acid F/U @ 2Hr Lactic Acid F/U @ 4Hr Calcium Total Bilirubin AST ALT Alkaline Phosphatase Troponin I High Sens Total Protein Albumin Lipase Urine Color Urine Appearance Urine pH Ur Specific [place] Urine Protein Urine Glucose (UA) Urine Ketones Urine Blood Urine Nitrite Ur Leukocyte Esterase Urine RBC Urine WBC Ur Squamous Epith Cells Urine Bacteria Hyaline Casts 04/05/25 04/05/25 04/05/25 03:51 05:47 06:36 WBC 16.0 H RBC 3.89 L Hgb 10.1 L Hct 31.9 L MCV 82.0 MCH 26.0 L MCHC 31.7 RDW 15.8 Plt Count 72 L MPV 9.5 Immature Gran % (Auto) 0.5 H Neut % (Auto) 89.6 H Lymph % (Auto) 4.7 L [place] % (Auto) 4.9 Eos % (Auto) 0.0 Baso % (Auto) 0.3 Lymph # (Auto) 0.8 L [place] # (Auto) 0.8 Eos # (Auto) 0.0 Baso # (Auto) 0.1 Abs Immat Gran (auto) 0.08 H Absolute Neuts (auto) 14.4 H Absolute Nucleated RBC 0.000 Nucleated RBC % (auto) 0.0 Neutrophils % (Manual) Band Neutrophils % Lymphocytes % (Manual) Monocytes % (Manual) Metamyelocytes % Abs Neuts (Manual) Lymphocytes # (Manual) Monocytes # (Manual) Metamyelocytes # Platelet Estimate Plt Morphology Comment RBC Morphology Ovalocytes [place] Cells Sodium 141 Potassium 3.7 Chloride 106 Carbon Dioxide 25 Anion Gap 14 BUN 13 Creatinine 0.85 Estim Creat Clear Calc 52.9 Estimated GFR > 60 POC Glucose 142 H Random Glucose 119 H Lactic Acid 2.8 H* Lactic Acid F/U @ 2Hr 2.3 H* Lactic Acid F/U @ 4Hr Calcium 8.7 D Total Bilirubin 1.4 H AST 60 H ALT 35 Alkaline Phosphatase 64 Troponin I High Sens Total Protein 6.2 L Albumin 3.9 Lipase Urine Color Urine Appearance Urine pH Ur Specific [place] Urine Protein Urine Glucose (UA) Urine Ketones Urine Blood Urine Nitrite Ur Leukocyte Esterase Urine RBC Urine WBC Ur Squamous Epith Cells Urine Bacteria Hyaline Casts 04/05/25 04/05/25 04/05/25 08:26 10:41 13:21 WBC RBC Hgb Hct MCV MCH MCHC RDW Plt Count MPV Immature Gran % (Auto) Neut % (Auto) Lymph % (Auto) [place] % (Auto) Eos % (Auto) Baso % (Auto) Lymph # (Auto) [place] # (Auto) Eos # (Auto) Baso # (Auto) Abs Immat Gran (auto) Absolute Neuts (auto) Absolute Nucleated RBC Nucleated RBC % (auto) Neutrophils % (Manual) Band Neutrophils % Lymphocytes % (Manual) Monocytes % (Manual) Metamyelocytes % Abs Neuts (Manual) Lymphocytes # (Manual) Monocytes # (Manual) Metamyelocytes # Platelet Estimate Plt Morphology Comment RBC Morphology Ovalocytes [place] Cells Sodium Potassium Chloride Carbon Dioxide Anion Gap BUN Creatinine Estim Creat Clear Calc Estimated GFR POC Glucose 190 H Random Glucose Lactic Acid Lactic Acid F/U @ 2Hr 2.2 H* Lactic Acid F/U @ 4Hr 1.5 Calcium Total Bilirubin AST ALT Alkaline Phosphatase Troponin I High Sens Total Protein Albumin Lipase Urine Color Urine Appearance Urine pH Ur Specific [place] Urine Protein Urine Glucose (UA) Urine Ketones Urine Blood Urine Nitrite Ur Leukocyte Esterase Urine RBC Urine WBC Ur Squamous Epith Cells Urine Bacteria Hyaline Casts 04/05/25 04/05/25 04/06/25 16:22 18:28 00:24 WBC RBC Hgb Hct MCV MCH MCHC RDW Plt Count MPV Immature Gran % (Auto) Neut % (Auto) Lymph % (Auto) [place] % (Auto) Eos % (Auto) Baso % (Auto) Lymph # (Auto) [place] # (Auto) Eos # (Auto) Baso # (Auto) Abs Immat Gran (auto) Absolute Neuts (auto) Absolute Nucleated RBC Nucleated RBC % (auto) Neutrophils % (Manual) Band Neutrophils % Lymphocytes % (Manual) Monocytes % (Manual) Metamyelocytes % Abs Neuts (Manual) Lymphocytes # (Manual) Monocytes # (Manual) Metamyelocytes # Platelet Estimate Plt Morphology Comment RBC Morphology Ovalocytes [place] Cells Sodium Potassium Chloride Carbon Dioxide Anion Gap BUN Creatinine Estim Creat Clear Calc Estimated GFR POC Glucose 169 H 157 H 162 H Random Glucose Lactic Acid Lactic Acid F/U @ 2Hr Lactic Acid F/U @ 4Hr Calcium Total Bilirubin AST ALT Alkaline Phosphatase Troponin I High Sens Total Protein Albumin Lipase Urine Color Urine Appearance Urine pH Ur Specific [place] Urine Protein Urine Glucose (UA) Urine Ketones Urine Blood Urine Nitrite Ur Leukocyte Esterase Urine RBC Urine WBC Ur Squamous Epith Cells Urine Bacteria Hyaline Casts 04/06/25 04/06/25 04/06/25 05:42 06:14 12:10 WBC 18.7 H RBC 3.54 L Hgb 9.2 L Hct 28.4 L MCV 80.2 MCH 26.0 L MCHC 32.4 RDW 15.7 Plt Count 65 L MPV 10.7 Immature Gran % (Auto) Cancelled Neut % (Auto) Cancelled Lymph % (Auto) Cancelled [place] % (Auto) Cancelled Eos % (Auto) Cancelled Baso % (Auto) Cancelled Lymph # (Auto) Cancelled [place] # (Auto) Cancelled Eos # (Auto) Cancelled Baso # (Auto) Cancelled Abs Immat Gran (auto) Cancelled Absolute Neuts (auto) Cancelled Absolute Nucleated RBC 0.000 Nucleated RBC % (auto) 0.0 Neutrophils % (Manual) 76 H Band Neutrophils % 12 H Lymphocytes % (Manual) 4 L Monocytes % (Manual) 7 Metamyelocytes % 1 Abs Neuts (Manual) 16.5 H Lymphocytes # (Manual) 0.7 L Monocytes # (Manual) 1.3 H Metamyelocytes # 0.2 Platelet Estimate NORMAL Plt Morphology Comment NORMAL RBC Morphology NOTED Ovalocytes 1+ (5-14) [place] Cells 3+ (>5) Sodium 139 Potassium 3.7 Chloride 104 Carbon Dioxide 25 Anion Gap 14 BUN 19 H Creatinine 0.85 Estim Creat Clear Calc 52.1 Estimated GFR > 60 POC Glucose 137 H 123 H Random Glucose 136 H Lactic Acid Lactic Acid F/U @ 2Hr Lactic Acid F/U @ 4Hr Calcium 8.6 Total Bilirubin 1.5 H AST 36 ALT 37 Alkaline Phosphatase 61 Troponin I High Sens Total Protein 5.8 L Albumin 3.5 Lipase Urine Color Urine Appearance Urine pH Ur Specific [place] Urine Protein Urine Glucose (UA) Urine Ketones Urine Blood Urine Nitrite Ur Leukocyte Esterase Urine RBC Urine WBC Ur Squamous Epith Cells Urine Bacteria Hyaline Casts 04/06/25 04/06/25 04/07/25 19:35 23:56 05:46 WBC RBC Hgb Hct MCV MCH MCHC RDW Plt Count MPV Immature Gran % (Auto) Neut % (Auto) Lymph % (Auto) [place] % (Auto) Eos % (Auto) Baso % (Auto) Lymph # (Auto) [place] # (Auto) Eos # (Auto) Baso # (Auto) Abs Immat Gran (auto) Absolute Neuts (auto) Absolute Nucleated RBC Nucleated RBC % (auto) Neutrophils % (Manual) Band Neutrophils % Lymphocytes % (Manual) Monocytes % (Manual) Metamyelocytes % Abs Neuts (Manual) Lymphocytes # (Manual) Monocytes # (Manual) Metamyelocytes # Platelet Estimate Plt Morphology Comment RBC Morphology Ovalocytes [place] Cells Sodium Potassium Chloride Carbon Dioxide Anion Gap BUN Creatinine Estim Creat Clear Calc Estimated GFR POC Glucose 314 H 133 H 108 Random Glucose Lactic Acid Lactic Acid F/U @ 2Hr Lactic Acid F/U @ 4Hr Calcium Total Bilirubin AST ALT Alkaline Phosphatase Troponin I High Sens Total Protein Albumin Lipase Urine Color Urine Appearance Urine pH Ur Specific [place] Urine Protein Urine Glucose (UA) Urine Ketones Urine Blood Urine Nitrite Ur Leukocyte Esterase Urine RBC Urine WBC Ur Squamous Epith Cells Urine Bacteria Hyaline Casts Narrative Narrative: EKG 04/06/25 Vent. Rate : 74 BPM Atrial Rate : 74 BPM P-R Int : 122 ms QRS Dur : 92 ms QT Int : 390 ms P-R-T Axes : 2 59 70 degrees QTcB Int : 432 ms Normal sinus rhythm Possible Anterior infarct , age undetermined Abnormal ECG When compared with ECG of 30-Oct-2023 16:31, Premature atrial complexes are no longer Present Airway Adult Head Mouth w/Numbe Teeth:  1. Loose Assessment and Plan Final Anesthetic Review Family History of Problems with Anesthesia: No History of Problems with Anesthesia: No Documented by User: Nj Rodríguez MD 04/07/25 13:34 [facility], [facility] Active Problems Active Problems: [place] Active Problems Acute cholangitis (Acute) Severe sepsis (Acute) Sepsis (Acute) Choledocholithiasis with acute cholecystitis (Acute) Acute cholecystitis (Acute) Gastroenteritis (Acute) Annual physical exam (Acute) History of prostate cancer (Acute) Anemia (Acute) Cough (Acute) Malignant neoplasm of prostate (Acute) Physical exam (Acute) Skin lesion (Acute) Pre-op evaluation (Acute) Weight loss, unintentional (Acute) Acute diarrhea (Acute) Right knee pain (Acute) Left knee pain (Acute) Elevated bilirubin (Acute) Chronic idiopathic constipation (Acute) Epigastric pain (Acute) Delayed gastric emptying (Acute) Atherosclerotic cardiovascular disease (Acute) Tremor (Acute) Hyperlipidemia LDL goal <70 (Acute) GERD (gastroesophageal reflux disease) (Acute) Type 2 diabetes mellitus with hyperglycemia (Acute) Essential hypertension (Acute) Allergic rhinitis (Acute) Stented coronary artery (Acute) Microalbuminuria (Acute) Insomnia (Acute) Past Medical History Medical History Malignant neoplasm of prostate Type 2 diabetes mellitus with unspecified complications 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 Allergic rhinitis Microalbuminuria Insomnia History of Helicobacter infection GERD (gastroesophageal reflux disease) History of prostate cancer Coronary artery disease Vitamin D deficiency Hyperlipidemia LDL goal <100 Essential hypertension Type 2 diabetes mellitus with hyperglycemia Family History Family History Father Medical history unknown Mother Medical history unknown Sister Diabetes Daughter Breast cancer Surgical History Surgical History Stented coronary artery History of cardiac cath Hx of esophagogastroduodenoscopy Hx of prostate biopsy Hx of colonoscopy Social History Social History Household Members: None Housing: Apartment 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 Services Do you presently have visiting nurse or other home services: No Alcohol intake: never Patient Tobacco Use Status: Former Tobacco user Tobacco use type: Cigarette e-Cigarette/Vaping Use: Never Used Second Hand Smoke Exposure: Yes service: No Current occupational status: retired Cognitive needs: Yes Hearing needs: No Vision needs: Yes Meds Allergies Allergy/AdvReac Type Severity Reaction Status Date / Time No Known Allergies (No Known Allergy Verified 04/04/25 17:33 Allergies*) Home Medications ?Medication ?Instructions ?Recorded ?Confirmed ?Last Taken ?Type nitroglycerin 0.4 mg sublingual 0.4 mg sublingual Q5M PRN Chest 02/14/20 04/05/25 04/04/25 History tablet Pain blood-glucose meter #1 ea 04/01/20 01/26/25 Unknown History lancets 28 gauge #100 ea 04/01/20 01/26/25 Unknown History glucose 4 gram chewable tablet 4 g PO ONCE PRN Hypoglycemia 07/26/20 04/05/25 04/04/25 History dulaglutide 3 mg/0.5 mL 3 mg subcut FR 04/05/25 04/05/25 04/03/25 History subcutaneous pen injector ([facility]) Exam Exam Date and Time: 04/07/2025 Airway Mallampati Class: II TM Dist: >3cm Neck ROM: Full Adult Head Mouth w/Numbe Teeth:  1. Loose Loose/Missing/Broken Teeth: Yes Heart: rrr Lungs: ctab vesicular Assessment and Plan Assessment Anesthesia Assessment: Anesthesia Plan Discussed and Chart Reviewed Final Anesthetic Review NPO: Yes ASA Class: III Final Preanesthetic Review: No Changes in Pt Med Stat, Meds/Allgs Chart Reviewed, Consent Obtained/Reviewed and Anes Risks/Benef Reviewed Patient Risk: Low Procedure Risk: Low Anesthetic Plan Anesthetic Plan: GA Disposition: Standard PACU
[2025-04-07 09:07] LABS: Hematocrit 29.2 % (42.0-52.0); Hemoglobin 9.6 g/dl (14.0-18.0); Mean Corpuscular HGB Conc 32.9 g/dl (31.0-36.0); Mean Corpuscular Hemoglobin 26.4 pg (27.0-33.0); Mean Corpuscular Volume 80.2 fL (80.0-98.0); NRBC Abs Auto 0.000 X10*3/uL (0.0-0.012); NRBC Pct Auto 0.0 /100WBC (0.0-0.2); Red Blood Count 3.64 X10*6/uL (4.60-5.80); White Blood Count 17.7 X10*3/uL (4.8-10.8)
[2025-04-07 09:08] LABS: Platelet Count 83 X10*3/uL (160-400)
[2025-04-07] MEDS: 0.9 % Sodium Chloride Flush 3 ML SYRINGE IVFLUSH ×3 (09:12→20:22)
[2025-04-07 09:37] LABS: Alanine Aminotransferase 22 U/L (0-40); Albumin Level 3.4 g/dL (3.5-5.0); Alkaline Phosphatase 80 U/L (39-117); Anion Gap 11 (12-20); Aspartate Amino Transferase 26 U/L (5-37); Blood Urea Nitrogen 14 mg/dL (9-16); Calcium 9.1 mg/dL (8.4-10.2); Carbon Dioxide 28 mmol/L (22-29); Chloride 102 mmol/L (96-108); Creatinine Clr Calc Pharmacy 52.7; Estimated Glomerular Filt Rate > 60; Potassium 3.4 mmol/L (3.3-5.1); Sodium 138 mmol/L (135-145); Total Protein 6.0 g/dL (6.5-8.0)
[2025-04-07 11:33] LABS: Glucose, Whole Blood 126 mg/dL (60-115)
--- NOTE | 2025-04-07 11:39 | HO.PM.IMPN ---
Subjective Subjective Date of Service: 04/07/25 Interval History: Patient seen examined at bedside this morning, awaiting for ERCP today, patient states that he is feeling slightly better. Review of Systems Review of Systems: Yes all other systems are reviewed and are negative Physical Exam Exam: Exam: General: AxOx3, No acute distress Head: AT/NC ENT: Moist mucous membranes Neck: supple CVS; RRR, S1 S2 normal Lungs: Clear bilateral breath sounds, no wheezes or crackles Abd: Soft, epigastric tenderness, improved Ext: No edema and no calf tenderness MSK: moving all 4 limbs Skin: No cyanosis or edema Psych: Cooperative with exam Neurology: no focal deficit Vital Signs: Vital Signs: Last Vital Signs Temp 98.6 F 04/07/25 07:21 Pulse 99 04/07/25 07:21 Resp 18 04/07/25 07:21 BP 160/88 H 04/07/25 07:21 Pulse Ox 94 04/07/25 07:21 O2 Del Method Room Air 04/07/25 07:21 O2 Flow Rate 2.0 04/05/25 15:40 BMI result Body Mass Index 21.9 Objective Data Active Medications Acetaminophen (Acetaminophen 325 Mg Tablet) 650 mg PO Q6H PRN PRN Reason: Pain, Mild 1-3,fever,headache Clonazepam (Clonazepam 1 Mg Tablet) 1 mg PO BEDTIME [facility] Last Admin: 04/06/25 21:04 Dose: 1 mg Documented By: KOFI Dextrose (Dextrose 50 % 25 Gm/50 Ml Syringe) 25 gm IVPUSH Q15M PRN; Protocol PRN Reason: per Hypoglycemia Standing Ord. Enoxaparin Sodium (Enoxaparin Sodium 30 Mg/0.3 Ml Syringe) 30 mg SUBCUT DAILY [facility] On Hold: 04/05/25 09:00 Glucose (Glucose Gel 15 Gm Gel..Gram.) 15 gm PO Q15M PRN; Protocol PRN Reason: per Hypoglycemia Standing Ord. Hydromorphone HCl (Hydromorphone Hcl 1 Mg/Ml Syringe) 1 mg IVPUSH Q4H PRN; Protocol PRN Reason: Pain, Severe (Pain Scale 7-10) Last Admin: 04/06/25 12:32 Dose: 1 mg Documented By: AVELINA Hydromorphone HCl (Hydromorphone Hcl 1 Mg/Ml Syringe) 0.5 mg IVPUSH Q4H PRN; Protocol PRN Reason: Pain, Moderate(Pain Scale 4-6) Last Admin: 04/07/25 09:11 Dose: 0.5 mg Documented By: ANEESH Piperacillin Sod/Tazobactam (Sod 3.375 gm/ Sodium Chloride) 50 mls @ 100 mls/hr IV Q6H [facility] Last Infusion: 04/07/25 09:42 Dose: Infused Documented By: ANEESH Lactated Ringer's (Lr) 1,000 mls @ 100 mls/hr IVCONT .Q10H [facility] Last Admin: 04/07/25 11:39 Dose: 100 mls/hr Documented By: ANEESH Insulin Human Lispro (Insulin Lispro 100 Unit/Ml 3 Ml Vial) 0 unit SUBCUT Q6H [facility]; Protocol Last Admin: 04/07/25 05:55 Dose: Not Given Documented By: KOFI Non-Admin Reason: No Insulin Coverage Melatonin (Melatonin 3 Mg Tablet) 6 mg PO BEDTIME PRN PRN Reason: Insomnia Ondansetron HCl (Ondansetron Hcl 4 Mg/2 Ml Vial) 4 mg IVPUSH Q8H PRN PRN Reason: Nausea and Vomiting Pantoprazole Sodium (Pantoprazole Sodium 40 Mg/10 Ml Vial) 40 mg IVPUSH DAILY@0630 [facility] Last Admin: 04/07/25 06:05 Dose: 40 mg Documented By: KOFI Sodium Chloride (0.9 % Sodium Chloride Flush 3 Ml Syringe) 3 ml IVFLUSH QSHIFT [facility] Last Admin: 04/07/25 09:12 Dose: 3 ml Documented By: ANEESH Vitamin D (Cholecalciferol (Vitamin D3) 25 Mcg Tablet) 25 mcg PO DAILY [facility] Last Admin: 04/07/25 08:56 Dose: Not Given Documented By: ANEESH Non-Admin Reason: NPO Labs 04/07/25 08:44 04/07/25 08:44 Labs: Laboratory Results - last 24 hr 04/06/25 04/06/25 04/06/25 12:10 19:35 23:56 MCV MCH MCHC RDW Plt Count MPV Absolute Nucleated RBC Nucleated RBC % (auto) Anion Gap Estim Creat Clear Calc Estimated GFR POC Glucose 123 H 314 H 133 H Random Glucose Calcium Total Bilirubin AST ALT Alkaline Phosphatase Total Protein Albumin 04/07/25 04/07/25 04/07/25 05:46 08:44 11: MCV 80.2 MCH 26.4 L MCHC 32.9 RDW 15.5 Plt Count 83 L D MPV 11.0 Absolute Nucleated RBC 0.000 Nucleated RBC % (auto) 0.0 Anion Gap 11 L Estim Creat Clear Calc 52.7 Estimated GFR > 60 POC Glucose 108 126 H Random Glucose 115 Calcium 9.1 Total Bilirubin 1.7 H AST 26 ALT 22 Alkaline Phosphatase 80 Total Protein 6.0 L Albumin 3.4 L Microbiology Microbiology Results: Microbiology 04/04/25 21:20 Blood Culture - Preliminary Blood - Venous No growth after 48 hours. 04/04/25 21:28 Blood Culture - Preliminary Blood - Venous No growth after 48 hours. Assessment and Plan (1) Type 2 diabetes mellitus with hyperglycemia: Status: Acute (2) Severe sepsis: Status: Acute Plan 85-year-old English-speaking male with a past medical history significant for hypertension, hyperlipidemia, type 2 diabetes, insomnia, prostate cancer and CAD, admitted by general surgery for severe sepsis secondary to acute cholecystitis with choledocholithiasis, with plans for ERCP on 04/07 Severe sepsis, likely secondary to cholecystitis Leukocytosis, slightly improving 16,000->18,700->17,700 - imaging reviewed, with plans for ERCP today - continue IV fluids - continue Zosyn - Multimodal pain management Hypertension - we will hold BP medications at this time, given patient's severe sepsis with lactic acidosis, we will restart when appropriate. HLD - at this time we will hold off on statin, given recent cholangitis, suspect liver enzymes we will slowly elevate. Type 2 diabetes - hold metformin and Jardiance - continue ISS CAD - hold aspirin Insomnia - clonazepam We will continue to follow at this time, thank you for this consult, rest of management per General surgery. Full code VTE prophy: per surgery recs Total time managing care of this patient today: 55 minutes. Quality Stroke Does the patient have a stroke diagnosis?: No VTE Prior VTE?: No VTE Risk Level:: Surgical - low VTE Device Contraindication: N/A - Device Ordered VTE Drug Contraindication: N/A - Med Ordered
--- NOTE | 2025-04-07 13:05 | P.PNGI_ITS ---
Subjective Subjective Date of Service: 04/07/25 Interval History: c/o ongoing RUQ pain no nausea or vomiting no fever Critical Care Time (minutes): 0 Physical Exam 2 Exam: Exam: EXAM: GENERAL: The patient is well developed and nontoxic. VITAL SIGNS:see workflow HEENT: Nonicteric sclerae, PERRLA, EOMI. Oropharynx clear. Moist mucous membranes. Conjunctivae appear well perfused. No thyroid mass. CHEST: Chest wall is nontender. HEART: Regular rate and rhythm without murmurs. LUNGS: Clear to auscultation bilaterally. ABDOMEN: Soft, positive bowel sounds, tender RUQ, no organomegaly.no flank tenderness SKIN: No rash, no excessive bruising, petechiae, or purpura. NEUROLOGIC: Cranial nerves II-XII intact without motor/sensory deficit. Psych: normal affect Vital Signs: Vital Signs: Last Vital Signs Temp 99.3 F 04/07/25 12:50 Pulse 93 04/07/25 12:50 Resp 16 04/07/25 12:50 BP 174/85 H 04/07/25 12:50 Pulse Ox 95 04/07/25 12:50 O2 Del Method Room Air 04/07/25 12:50 O2 Flow Rate 2.0 04/05/25 15:40 BMI result Body Mass Index 21.9 Objective Data Labs 04/07/25 08:44 04/07/25 08:44 Labs: Laboratory Results - last 24 hr 04/06/25 04/06/25 04/07/25 19:35 23:56 05:46 WBC RBC Hgb Hct MCV MCH MCHC RDW Plt Count MPV Absolute Nucleated RBC Nucleated RBC % (auto) Sodium Potassium Chloride Carbon Dioxide Anion Gap BUN Creatinine Estim Creat Clear Calc Estimated GFR POC Glucose 314 H 133 H 108 Random Glucose Calcium Total Bilirubin AST ALT Alkaline Phosphatase Total Protein Albumin 04/07/25 04/07/25 08:44 11:25 WBC 17.7 H RBC 3.64 L Hgb 9.6 L Hct 29.2 L MCV 80.2 MCH 26.4 L MCHC 32.9 RDW 15.5 Plt Count 83 L D MPV 11.0 Absolute Nucleated RBC 0.000 Nucleated RBC % (auto) 0.0 Sodium 138 Potassium 3.4 Chloride 102 Carbon Dioxide 28 Anion Gap 11 L BUN 14 Creatinine 0.84 Estim Creat Clear Calc 52.7 Estimated GFR > 60 POC Glucose 126 H Random Glucose 115 Calcium 9.1 Total Bilirubin 1.7 H AST 26 ALT 22 Alkaline Phosphatase 80 Total Protein 6.0 L Albumin 3.4 L Microbiology Microbiology Results: Microbiology 04/04/25 21:20 Blood - Venous Blood Culture - Preliminary No growth after 48 hours. 04/04/25 21:28 Blood - Venous Blood Culture - Preliminary No growth after 48 hours. Procedures Date of Service Date of Service: 04/07/25 Progress Note: A&P Assessment and plan (1) Choledocholithiasis with acute cholecystitis: Status: Acute Plan 1/ ERCP for further assessment, and stone removal Time Spent With Patient Time: Total time managing care of this patient today ____ minutes. Quality Stroke Does the patient have a stroke diagnosis?: No VTE Prior VTE?: No VTE Risk Level:: Surgical - low VTE Device Contraindication: N/A - Device Ordered VTE Drug Contraindication: N/A - Med Ordered
[2025-04-07] MEDS: Lactated Ringers 1,000 ML 50 ML IVCONT ×2 (13:21→20:31)
[2025-04-07 13:27] LABS: Glucose, Whole Blood 133 mg/dL (60-115)
--- NOTE | 2025-04-07 15:19 | W.PM.OPN ---
Operative Note Operative Note Date of Service: 04/07/25 Narrative: Description:?Endoscopic retrograde cholangiopancreatography (ERCP) PROCEDURE:?Endoscopic retrograde cholangiopancreatography with sphincterotomy and balloon sweep and basket, with cholangiogram. INDICATION FOR THE PROCEDURE:?Patient with a history of CBD stones and cholecystitis MEDICATIONS:?General anesthesia. The risks of the procedure were made aware to the patient and consisted of medication reaction, bleeding, perforation, aspiration, and post ERCP pancreatitis. DESCRIPTION OF PROCEDURE:?After informed consent and appropriate sedation, the duodenoscope was inserted into the oropharynx, down the esophagus, and into the stomach. The scope was then advanced through the pylorus to the ampulla. the ampulla was extremely atrophic and hard to identify but eventually with careful probing I was able to locate it. The CBD was selectively cannulated with wire guided approach and a cholangiogram was obtained. The cholangiogram was formally interpreted and documented, and confirmed placement with filling defect noted in mid CBD with a dilated duct to about 12-14 mm. A generous sphincterotomy was performed to facilitate stone removal, ductal clearance and enlarge the orifice beyond standard cannulation. After this a extraction balloon was swept several times up and down the duct with sludge like material noted. I also used a basket but no stone debris was noted. There was good drainage if bile noted. Completion balloon occluded cholangiography demonstrated no filling defects. Intraop cholangiogram reivew and interpretation by performing physician: Dilated CBD with filling defect in mid CBD consistent with choledocholithiasis. CBD measured about 12-14 mm. No stricture or leak seen. The gallbladder did not fill with contrast. FINDINGS: 1. sludge in cbd, 2. atrophic ampulla s/p sphincterotomy RECOMMENDATIONS: 1. clears today 2. if surgery tomorrow then NPO after midnight otherwise can eat tomorrow.
[2025-04-07 18:08] LABS: Glucose, Whole Blood 192 mg/dL (60-115)
[2025-04-07 21:18] LABS: Glucose, Whole Blood 161 mg/dL (60-115)
[2025-04-08 03:33] VITALS: BP 147/92; PULSE 83; RESP 16; TEMP 36.9; O2SAT 97
[2025-04-08 05:22] LABS: Glucose, Whole Blood 111 mg/dL (60-115)
[2025-04-08 07:41] VITALS: BP 146/69; PULSE 93; RESP 18; TEMP 36.2; O2SAT 98
--- NOTE | 2025-04-08 07:59 | P.PNGS_ITS ---
Subjective Subjective Date of Service: 04/08/25 Interval history: ERCP done yesterday CBD cleared Says he is comfortable Denies abdominal pain According to daughter, he slept well Physical Exam 2 Vital Signs: Vital Signs: Last Vital Signs Temp 97.2 F 04/08/25 07:41 Pulse 93 04/08/25 07:41 Resp 18 04/08/25 07:41 BP 146/69 H 04/08/25 07:41 Pulse Ox 98 04/08/25 07:41 O2 Del Method Room Air 04/08/25 07:41 O2 Flow Rate 2 04/08/25 03:33 BMI result Body Mass Index 21.9 Const: General: comfortable and no acute distress Resp: Effort & Inspection: normal respiratory effort Cardio: Rate: regular rate GI: Other: No Sehn's sign Palpation (GI): Soft to palpation, not firm, nontender and no guarding Objective Data Active Medications Acetaminophen (Acetaminophen 325 Mg Tablet) 650 mg PO Q6H PRN PRN Reason: Pain, Mild 1-3,fever,headache Clonazepam (Clonazepam 1 Mg Tablet) 1 mg PO BEDTIME [facility] Last Admin: 04/07/25 20:21 Dose: 1 mg Documented By: JOSE Dextrose (Dextrose 50 % 25 Gm/50 Ml Syringe) 25 gm IVPUSH Q15M PRN; Protocol PRN Reason: per Hypoglycemia Standing Ord. Enoxaparin Sodium (Enoxaparin Sodium 30 Mg/0.3 Ml Syringe) 30 mg SUBCUT DAILY [facility] Last Admin: 04/08/25 07:31 Dose: 30 mg Documented By: AINSLEY Glucose (Glucose Gel 15 Gm Gel..Gram.) 15 gm PO Q15M PRN; Protocol PRN Reason: per Hypoglycemia Standing Ord. Hydromorphone HCl (Hydromorphone Hcl 1 Mg/Ml Syringe) 1 mg IVPUSH Q4H PRN; Protocol PRN Reason: Pain, Severe (Pain Scale 7-10) Last Admin: 04/07/25 20:21 Dose: 1 mg Documented By: JOSE Hydromorphone HCl (Hydromorphone Hcl 1 Mg/Ml Syringe) 0.5 mg IVPUSH Q4H PRN; Protocol PRN Reason: Pain, Moderate(Pain Scale 4-6) Last Admin: 04/07/25 09:11 Dose: 0.5 mg Documented By: ANEESH Piperacillin Sod/Tazobactam (Sod 3.375 gm/ Sodium Chloride) 50 mls @ 100 mls/hr IV Q6H [facility] Last Admin: 04/08/25 07:32 Dose: 100 mls/hr Documented By: AINSLEY Lactated Ringer's (Lr) 1,000 mls @ 100 mls/hr IVCONT .Q10H [facility] Last Admin: 04/07/25 20:31 Dose: Not Given Documented By: JOSE Non-Admin Reason: Duplicate Order Comments: iv runnig Lactated Ringer's (Lr) 1,000 mls @ 50 mls/hr IVCONT .Q20H [facility] Last Admin: 04/07/25 20:31 Dose: 50 mls/hr Documented By: JOSE Insulin Human Lispro (Insulin Lispro 100 Unit/Ml 3 Ml Vial) 0 unit SUBCUT Q6H [facility]; Protocol Last Admin: 04/08/25 05:44 Dose: Not Given Documented By: JOSE Non-Admin Reason: No Insulin Coverage Melatonin (Melatonin 3 Mg Tablet) 6 mg PO BEDTIME PRN PRN Reason: Insomnia Naloxone HCl (Naloxone Hcl 0.4 Mg/Ml Vial) 0.04 mg IVPUSH Q5M PRN PRN Reason: Excessive sedation or RR < 8 Ondansetron HCl (Ondansetron Hcl 4 Mg/2 Ml Vial) 4 mg IVPUSH Q8H PRN PRN Reason: Nausea and Vomiting Pantoprazole Sodium (Pantoprazole Sodium 40 Mg/10 Ml Vial) 40 mg IVPUSH DAILY@0630 [facility] Last Admin: 04/08/25 06:07 Dose: 40 mg Documented By: JOSE Sodium Chloride (0.9 % Sodium Chloride Flush 3 Ml Syringe) 3 ml IVFLUSH QSHIFT [facility] Last Admin: 04/08/25 07:20 Dose: Not Given Documented By: AINSLEY Non-Admin Reason: IV Running Vitamin D (Cholecalciferol (Vitamin D3) 25 Mcg Tablet) 25 mcg PO DAILY [facility] Last Admin: 04/08/25 07:21 Dose: Not Given Documented By: AINSLEY Non-Admin Reason: NPO Labs 04/07/25 08:44 11/25/25 08:44 Labs: Laboratory Results - last 24 hr 04/07/25 04/07/25 04/07/25 08:44 11:25 13:23 MCV 80.2 MCH 26.4 L MCHC 32.9 RDW 15.5 Plt Count 83 L D MPV 11.0 Absolute Nucleated RBC 0.000 Nucleated RBC % (auto) 0.0 Hold Purple Top Anion Gap 11 L Estim Creat Clear Calc 52.7 Estimated GFR > 60 POC Glucose 126 H 133 H Random Glucose 115 Calcium 9.1 Total Bilirubin 1.7 H AST 26 ALT 22 Alkaline Phosphatase 80 Total Protein 6.0 L Albumin 3.4 L 04/07/25 04/07/25 04/08/25 18:03 20:45 05:17 MCV MCH MCHC RDW Plt Count MPV Absolute Nucleated RBC Nucleated RBC % (auto) Hold Purple Top Anion Gap Estim Creat Clear Calc Estimated GFR POC Glucose 192 H 161 H 111 Random Glucose Calcium Total Bilirubin AST ALT Alkaline Phosphatase Total Protein Albumin 04/08/25 07:36 MCV MCH MCHC RDW Plt Count MPV Absolute Nucleated RBC Nucleated RBC % (auto) Hold Purple Top SEE NOTE Anion Gap Estim Creat Clear Calc Estimated GFR POC Glucose Random Glucose Calcium Total Bilirubin AST ALT Alkaline Phosphatase Total Protein Albumin Procedures Date of Service Date of Service: 04/08/25 Progress Note: A&P Assessment and plan (1) Acute cholangitis: Status: Acute Assessment and Plan: ERCP done Currently tenderness, no Shen's sign No fever Discussed with daughter - they prefer to hold off on surgery for now in view of patient's age, comorbidities, overall frailty Trial of regular food today Asymptomatic with regards to gallstones Check LFTs today and possible DC home this afternoon Follow up in the office Family comfortable with the plan Time Spent With Patient Time: Total time managing care of this patient today ____ minutes. Quality Stroke Does the patient have a stroke diagnosis?: No VTE Prior VTE?: No VTE Risk Level:: Surgical - low VTE Device Contraindication: N/A - Device Ordered VTE Drug Contraindication: N/A - Med Ordered
[2025-04-08 08:13] LABS: Alanine Aminotransferase 140 U/L (0-40); Albumin Level 3.1 g/dL (3.5-5.0); Alkaline Phosphatase 266 U/L (39-117); Anion Gap 14 (12-20); Aspartate Amino Transferase 211 U/L (5-37); Blood Urea Nitrogen 12 mg/dL (9-16); Calcium 8.8 mg/dL (8.4-10.2); Carbon Dioxide 25 mmol/L (22-29); Chloride 104 mmol/L (96-108); Creatinine Clr Calc Pharmacy 55.4; Estimated Glomerular Filt Rate > 60; Potassium 3.1 mmol/L (3.3-5.1); Sodium 140 mmol/L (135-145); Total Protein 5.6 g/dL (6.5-8.0)
--- NOTE | 2025-04-08 08:56 | HO.POSTANES ---
Post Anesthesia Evaluation Post Anesthesia Evaluation Date of Service: 04/08/25 Vital Signs: Vital Signs Temp Pulse Resp BP Pulse Ox O2 Del Method O2 Flow Rate 04/08/25 07:41 97.2 F 93 18 146/69 H 98 Nasal Cannula 2 04/08/25 03:33 98.4 F 83 16 147/92 H 97 Nasal Cannula 2 Anesthesia: General Mental Status: Awake Pain Control: Satisfactory Nausea/Vomiting: None Hydration: Adequate Anesthesia-Related Issues: No Anes. Related Issues
[2025-04-08 11:41] LABS: Glucose, Whole Blood 152 mg/dL (60-115)
--- NOTE | 2025-04-08 12:23 | PM.EVENT ---
Event Note Date of Service: 04/08/25 Event Note: Repeat LFTs this morning shows bilirubin to be elevated Maybe secondary to edema around the sphincterotomy site post ERCP Patient denies significant complaints No abdominal pain or tenderness Looks well overall We will hold off on discharge day and repeat LFTs tomorrow I explained plan to patient's daughter Time Spent With Patient Time: Total time managing care of this patient today ____ minutes.
--- NOTE | 2025-04-08 14:40 | MHC.CM.PN ---
pt had an ercp will go to or today [facility] self care
[2025-04-08 15:40] VITALS: BP 157/72; PULSE 99; RESP 18; TEMP 37.1; O2SAT 93
[2025-04-08 17:20] LABS: Glucose, Whole Blood 272 mg/dL (60-115)
[2025-04-08] MEDS: Lactated Ringers 1,000 ML 50 ML IVCONT (17:27)
--- NOTE | 2025-04-08 18:07 | HO.PM.IMPN ---
Subjective Subjective Date of Service: 04/08/25 Interval History: Status post ERCP Mild elevated LFT Review of Systems Denies any new complaint, says eating Review of Systems: Yes all other systems are reviewed and are negative Physical Exam Exam: Exam: Appearance: Alert.? Oriented X3.? cvs: rrr, [id number] . res: clear to auscultation ,no rhonchii or wheezing abd: no rebound or guarding ,nt, bs present. ext pulses present , no cyanosis . neuro: axo3 , nonfocal. Vital Signs: Vital Signs: Last Vital Signs Temp 98.8 F 04/08/25 15:40 Pulse 99 04/08/25 15:40 Resp 18 04/08/25 15:40 BP 157/72 H 04/08/25 15:40 Pulse Ox 93 04/08/25 15:40 O2 Del Method Room Air 04/08/25 15:40 O2 Flow Rate 2 04/08/25 07:41 BMI result Body Mass Index 21.9 Objective Data Active Medications Acetaminophen (Acetaminophen 325 Mg Tablet) 650 mg PO Q6H PRN PRN Reason: Pain, Mild 1-3,fever,headache Clonazepam (Clonazepam 1 Mg Tablet) 1 mg PO BEDTIME [facility] Last Admin: 04/07/25 20:21 Dose: 1 mg Documented By: JOSE Dextrose (Dextrose 50 % 25 Gm/50 Ml Syringe) 25 gm IVPUSH Q15M PRN; Protocol PRN Reason: per Hypoglycemia Standing Ord. Enoxaparin Sodium (Enoxaparin Sodium 30 Mg/0.3 Ml Syringe) 30 mg SUBCUT DAILY [facility] Last Admin: 04/08/25 07:31 Dose: 30 mg Documented By: AINSLEY Glucose (Glucose Gel 15 Gm Gel..Gram.) 15 gm PO Q15M PRN; Protocol PRN Reason: per Hypoglycemia Standing Ord. Hydromorphone HCl (Hydromorphone Hcl 1 Mg/Ml Syringe) 1 mg IVPUSH Q4H PRN; Protocol PRN Reason: Pain, Severe (Pain Scale 7-10) Last Admin: 04/07/25 20:21 Dose: 1 mg Documented By: JOSE Hydromorphone HCl (Hydromorphone Hcl 1 Mg/Ml Syringe) 0.5 mg IVPUSH Q4H PRN; Protocol PRN Reason: Pain, Moderate(Pain Scale 4-6) Last Admin: 04/08/25 08:02 Dose: 0.5 mg Documented By: AINSLEY Piperacillin Sod/Tazobactam (Sod 3.375 gm/ Sodium Chloride) 50 mls @ 100 mls/hr IV Q6H [facility] Last Infusion: 04/08/25 15:30 Dose: Infused Documented By: AINSLEY Lactated Ringer's (Lr) 1,000 mls @ 50 mls/hr IVCONT .Q20H [facility] Last Admin: 04/08/25 17:27 Dose: 50 mls/hr Documented By: AINSLEY Insulin Human Lispro (Insulin Lispro 100 Unit/Ml 3 Ml Vial) 0 unit SUBCUT Q6H [facility]; Protocol Last Admin: 04/08/25 17:28 Dose: 6 unit Documented By: AINSLEY Melatonin (Melatonin 3 Mg Tablet) 6 mg PO BEDTIME PRN PRN Reason: Insomnia Naloxone HCl (Naloxone Hcl 0.4 Mg/Ml Vial) 0.04 mg IVPUSH Q5M PRN PRN Reason: Excessive sedation or RR < 8 Ondansetron HCl (Ondansetron Hcl 4 Mg/2 Ml Vial) 4 mg IVPUSH Q8H PRN PRN Reason: Nausea and Vomiting Pantoprazole Sodium (Pantoprazole Sodium 40 Mg/10 Ml Vial) 40 mg IVPUSH DAILY@0630 [facility] Last Admin: 04/08/25 06:07 Dose: 40 mg Documented By: JOSE Sodium Chloride (0.9 % Sodium Chloride Flush 3 Ml Syringe) 3 ml IVFLUSH QSHIFT [facility] Last Admin: 04/08/25 14:19 Dose: Not Given Documented By: AINSLEY Non-Admin Reason: IV Running Vitamin D (Cholecalciferol (Vitamin D3) 25 Mcg Tablet) 25 mcg PO DAILY [facility] Last Admin: 04/08/25 07:21 Dose: Not Given Documented By: AINSLEY Non-Admin Reason: NPO Labs 04/07/25 08:44 04/08/25 07:36 Labs: Laboratory Results - last 24 hr 04/07/25 04/07/25 04/08/25 18:03 20:45 05:17 Hold Purple Top Anion Gap Estim Creat Clear Calc Estimated GFR POC Glucose 192 H 161 H 111 Random Glucose Calcium Total Bilirubin Direct Bilirubin AST ALT Alkaline Phosphatase Total Protein Albumin 04/08/25 04/08/25 04/08/25 07:36 11:35 17:13 Hold Purple Top SEE NOTE Anion Gap 14 Estim Creat Clear Calc 55.4 Estimated GFR > 60 POC Glucose 152 H 272 H Random Glucose 109 Calcium 8.8 Total Bilirubin 2.7 H Direct Bilirubin 1.6 H AST 211 H ALT 140 H Alkaline Phosphatase 266 H Total Protein 5.6 L Albumin 3.1 L Assessment and Plan (1) Choledocholithiasis with acute cholecystitis: Status: Acute Plan 85-year-old [place]-speaking male with a past medical history significant for hypertension, hyperlipidemia, type 2 diabetes, insomnia, prostate cancer and CAD, admitted by general surgery for severe sepsis secondary to acute cholecystitis with choledocholithiasis, with plans for ERCP on 04/07 Severe sepsis, likely secondary to cholecystitis Leukocytosis, slightly improving 16,000->18,700->17,700 blood cultures negative @48hrs s/p ERCP :1. sludge in cbd, 2. atrophic ampulla s/p sphincterotomy plan: Zosyn,pain management , patient is eating Hypertension start coreg and slowly introduce home bp meds . HLD hold off on statin, given recent cholangitis-s/p ercp:suspect liver enzymes we will slowly elevate. moniter lft's closely Type 2 diabetes - hold metformin and Jardiance - continue ISS CAD - hold aspirin Insomnia - clonazepam We will continue to follow at this time, thank you for this consult, rest of management per General surgery. Quality Stroke Does the patient have a stroke diagnosis?: No VTE Prior VTE?: No VTE Risk Level:: Surgical - low VTE Device Contraindication: N/A - Device Ordered VTE Drug Contraindication: N/A - Med Ordered
[2025-04-08 19:20] VITALS: BP 141/63; PULSE 104; RESP 18; TEMP 38.8; O2SAT 92
[2025-04-08] MEDS: 0.9 % Sodium Chloride Flush 3 ML SYRINGE IVFLUSH (19:36)
[2025-04-08 20:11] LABS: Glucose, Whole Blood 162 mg/dL (60-115)
[2025-04-08 20:38] VITALS: TEMP 37.3
[2025-04-09 00:40] LABS: Glucose, Whole Blood 79 mg/dL (60-115)
[2025-04-09 03:27] VITALS: BP 150/67; PULSE 92; RESP 15; TEMP 38.5; O2SAT 92
[2025-04-09 04:46] VITALS: TEMP 37.4
[2025-04-09 07:41] VITALS: BP 141/65; PULSE 74; RESP 16; TEMP 36.6; O2SAT 94
[2025-04-09 07:53] LABS: Glucose, Whole Blood 102 mg/dL (60-115)
[2025-04-09] MEDS: Potassium Chloride ER 20 MEQ TAB.ER.PRT PO (08:23)
[2025-04-09 09:19] LABS: Hematocrit 27.3 % (42.0-52.0); Hemoglobin 8.9 g/dl (14.0-18.0); Mean Corpuscular HGB Conc 32.6 g/dl (31.0-36.0); Mean Corpuscular Hemoglobin 26.1 pg (27.0-33.0); Mean Corpuscular Volume 80.1 fL (80.0-98.0); NRBC Abs Auto 0.000 X10*3/uL (0.0-0.012); NRBC Pct Auto 0.0 /100WBC (0.0-0.2); Red Blood Count 3.41 X10*6/uL (4.60-5.80); White Blood Count 15.5 X10*3/uL (4.8-10.8)
[2025-04-09 09:23] LABS: Platelet Count 76 X10*3/uL (160-400)
--- NOTE | 2025-04-09 09:29 | PM.PNGS ---
Subjective Subjective Date of Service: 04/09/25 Interval history: Patient had fevers throughout the night up to 101.9. He denied chills or sweats. Abdominal pain is improved. Physical Exam Vital Signs: Vital Signs: Last Vital Signs Temp 97.8 F 04/09/25 07:41 Pulse 74 04/09/25 07:41 Resp 16 04/09/25 07:41 BP 141/65 H 04/09/25 07:41 Pulse Ox 94 04/09/25 07:41 O2 Del Method Room Air 04/09/25 07:41 O2 Flow Rate 2 04/08/25 07:41 BMI result Body Mass Index 21.9 Const: General: comfortable and no acute distress Nutritional Appearance: well nourished Orientation/consciousness: patient oriented x3 Resp: Effort & Inspection: normal respiratory effort, no audible wheezes, no cough and no respiratory distress Cardio: Rate: regular rate GI: Palpation (GI): Soft to palpation, not firm, nontender and no guarding Percussion: Yes normal to percussion Neuro: General: patient oriented x3 Objective Data Active Medications Acetaminophen (Acetaminophen 325 Mg Tablet) 650 mg PO Q6H PRN PRN Reason: Pain, Mild 1-3,fever,headache Last Admin: 04/09/25 03:31 Dose: 650 mg Documented By: JOSE Amlodipine Besylate (Amlodipine Besylate 5 Mg Tablet) 5 mg PO DAILY [facility]; Protocol Last Admin: 04/09/25 08:23 Dose: 5 mg Documented By: AINSLEY Carvedilol (Carvedilol 12.5 Mg Tablet) 12.5 mg PO BID [facility]; Protocol Last Admin: 04/09/25 08:23 Dose: 12.5 mg Documented By: AINSLEY Clonazepam (Clonazepam 1 Mg Tablet) 1 mg PO BEDTIME [facility] Last Admin: 04/08/25 19:35 Dose: 1 mg Documented By: JOSE Dextrose (Dextrose 50 % 25 Gm/50 Ml Syringe) 25 gm IVPUSH Q15M PRN; Protocol PRN Reason: per Hypoglycemia Standing Ord. Enoxaparin Sodium (Enoxaparin Sodium 30 Mg/0.3 Ml Syringe) 30 mg SUBCUT DAILY [facility] Last Admin: 04/09/25 08:23 Dose: 30 mg Documented By: AINSLEY Glucose (Glucose Gel 15 Gm Gel..Gram.) 15 gm PO Q15M PRN; Protocol PRN Reason: per Hypoglycemia Standing Ord. Hydrochlorothiazide (Hydrochlorothiazide 12.5 Mg Tablet) 12.5 mg PO DAILY [facility] Last Admin: 04/09/25 08:23 Dose: 12.5 mg Documented By: AINSLEY Hydromorphone HCl (Hydromorphone Hcl 1 Mg/Ml Syringe) 1 mg IVPUSH Q4H PRN; Protocol PRN Reason: Pain, Severe (Pain Scale 7-10) Last Admin: 04/07/25 20:21 Dose: 1 mg Documented By: JOSE Hydromorphone HCl (Hydromorphone Hcl 1 Mg/Ml Syringe) 0.5 mg IVPUSH Q4H PRN; Protocol PRN Reason: Pain, Moderate(Pain Scale 4-6) Last Admin: 04/08/25 08:02 Dose: 0.5 mg Documented By: AINSLEY Piperacillin Sod/Tazobactam (Sod 3.375 gm/ Sodium Chloride) 50 mls @ 100 mls/hr IV Q6H [facility] Last Infusion: 04/09/25 09:03 Dose: Infused Documented By: AINSLEY Insulin Human Lispro (Insulin Lispro 100 Unit/Ml 3 Ml Vial) 0 unit SUBCUT QIDACHS [facility]; Protocol Last Admin: 04/09/25 08:12 Dose: Not Given Documented By: AINSLEY Non-Admin Reason: No Insulin Coverage Losartan Potassium (Losartan Potassium 50 Mg Tablet) 100 mg PO DAILY [facility] Last Admin: 04/09/25 08:23 Dose: 100 mg Documented By: AINSLEY Melatonin (Melatonin 3 Mg Tablet) 6 mg PO BEDTIME PRN PRN Reason: Insomnia Naloxone HCl (Naloxone Hcl 0.4 Mg/Ml Vial) 0.04 mg IVPUSH Q5M PRN PRN Reason: Excessive sedation or RR < 8 Ondansetron HCl (Ondansetron Hcl 4 Mg/2 Ml Vial) 4 mg IVPUSH Q8H PRN PRN Reason: Nausea and Vomiting Sodium Chloride (0.9 % Sodium Chloride Flush 3 Ml Syringe) 3 ml IVFLUSH QSHIFT [facility] Last Admin: 04/09/25 08:29 Dose: Not Given Documented By: AINSLEY Non-Admin Reason: IV Running Vitamin D (Cholecalciferol (Vitamin D3) 25 Mcg Tablet) 25 mcg PO DAILY [facility] Last Admin: 04/09/25 08:23 Dose: 25 mcg Documented By: AINSLEY Labs 04/09/25 09:02 04/08/25 07:36 Labs: Laboratory Results - last 24 hr 04/08/25 04/08/25 04/08/25 11:35 17:13 20:05 MCV MCH MCHC RDW Plt Count MPV Absolute Nucleated RBC Nucleated RBC % (auto) POC Glucose 152 H 272 H 162 H 04/09/25 04/09/25 04/09/25 00:35 07:48 09:02 MCV 80.1 MCH 26.1 L MCHC 32.6 RDW 15.7 Plt Count 76 L MPV 10.2 Absolute Nucleated RBC 0.000 Nucleated RBC % (auto) 0.0 POC Glucose 79 102 Procedures Date of Service Date of Service: 04/09/25 Progress Note: A&P Assessment and plan (1) Choledocholithiasis with acute cholecystitis: Status: Acute (2) Acute cholangitis: Status: Acute Assessment and Plan: 85-year-old male patient with cholangitis, choledocholithiasis status post ERCP. Patient had elevation of LFTs yesterday therefore discharge was held. Plan is to hold off on gallbladder surgery given patient's frail health. He did have fevers during the night and repeat laboratories are pending. We will continue Zosyn. Hold discharge for today. Time Spent With Patient Time: Total time managing care of this patient today ____ minutes. Quality Stroke Does the patient have a stroke diagnosis?: No VTE Prior VTE?: No VTE Risk Level:: Surgical - low VTE Device Contraindication: N/A - Device Ordered VTE Drug Contraindication: N/A - Med Ordered
[2025-04-09 09:38] LABS: Alanine Aminotransferase 86 U/L (0-40); Albumin Level 3.1 g/dL (3.5-5.0); Alkaline Phosphatase 277 U/L (39-117); Aspartate Amino Transferase 78 U/L (5-37); Total Protein 5.9 g/dL (6.5-8.0)
[2025-04-09 09:59] LABS: Chlamydia pneumoniae PCR Not Detected (Not Detect.); Coronavirus 229E PCR Not Detected (Not Detect.); Coronavirus HKU1 PCR Not Detected (Not Detect.); Coronavirus NL63 PCR Not Detected (Not Detect.); Coronavirus OC43 PCR Not Detected (Not Detect.); RSV PCR Not Detected (Not Detect.); Rhino/Enterovirus PCR Detected (Not Detect.)
[2025-04-09 10:12] LABS: Anion Gap 15 (12-20); Blood Urea Nitrogen 12 mg/dL (9-16); Calcium 9.0 mg/dL (8.4-10.2); Carbon Dioxide 24 mmol/L (22-29); Chloride 105 mmol/L (96-108); Creatinine Clr Calc Pharmacy 49.2; Estimated Glomerular Filt Rate > 60; Potassium 2.9 mmol/L (3.3-5.1); Sodium 141 mmol/L (135-145)
[2025-04-09 10:16] LABS: Influenza A H1 PCR Not Detected (Not Detect.); Influenza A H1-2009 PCR Not Detected (Not Detect.); Influenza A H3 PCR Not Detected (Not Detect.); SARS-CoV-2 PCR Not Detected (Not Detect.)
[2025-04-09] MEDS: Potassium Chloride ER 20 MEQ TAB.ER.PRT 40 MEQ PO (10:31)
[2025-04-09 11:32] LABS: Glucose, Whole Blood 163 mg/dL (60-115)
[2025-04-09 11:44] LABS: Magnesium 1.6 mg/dL (1.6-2.6)
--- NOTE | 2025-04-09 11:44 | HO.PM.IMPN ---
Subjective Subjective Date of Service: 04/09/25 Interval History: fevers ,cough ,congestion Review of Systems Denies any new complaints accept above. Review of Systems: Yes all other systems are reviewed and are negative Physical Exam Exam: Exam: Appearance: Alert.? Oriented X3.? cvs: [id number], [id number] . res: air netry fair ,slightly diminshed at right base . abd: no rebound or guarding ,nt, bs present. ext pulses present , no cyanosis . neuro: axo3 , nonfocal. Vital Signs: Vital Signs: Last Vital Signs Temp 97.8 F 04/09/25 07:41 Pulse 74 04/09/25 07:41 Resp 16 04/09/25 07:41 BP 141/65 H 04/09/25 07:41 Pulse Ox 94 04/09/25 07:41 O2 Del Method Room Air 04/09/25 07:41 O2 Flow Rate 2 04/08/25 07:41 BMI result Body Mass Index 21.9 Objective Data Active Medications Acetaminophen (Acetaminophen 325 Mg Tablet) 650 mg PO Q6H PRN PRN Reason: Pain, Mild 1-3,fever,headache Last Admin: 04/09/25 03:31 Dose: 650 mg Documented By: JOSE Amlodipine Besylate (Amlodipine Besylate 5 Mg Tablet) 5 mg PO DAILY [facility]; Protocol Last Admin: 04/09/25 08:23 Dose: 5 mg Documented By: AINSLEY Carvedilol (Carvedilol 12.5 Mg Tablet) 12.5 mg PO BID [facility]; Protocol Last Admin: 04/09/25 08:23 Dose: 12.5 mg Documented By: AINSLEY Clonazepam (Clonazepam 1 Mg Tablet) 1 mg PO BEDTIME [facility] Last Admin: 04/08/25 19:35 Dose: 1 mg Documented By: JOSE Dextrose (Dextrose 50 % 25 Gm/50 Ml Syringe) 25 gm IVPUSH Q15M PRN; Protocol PRN Reason: per Hypoglycemia Standing Ord. Enoxaparin Sodium (Enoxaparin Sodium 30 Mg/0.3 Ml Syringe) 30 mg SUBCUT DAILY [facility] Last Admin: 04/09/25 08:23 Dose: 30 mg Documented By: AINSLEY Glucose (Glucose Gel 15 Gm Gel..Gram.) 15 gm PO Q15M PRN; Protocol PRN Reason: per Hypoglycemia Standing Ord. Hydrochlorothiazide (Hydrochlorothiazide 12.5 Mg Tablet) 12.5 mg PO DAILY [facility] Last Admin: 04/09/25 08:23 Dose: 12.5 mg Documented By: AINSLEY Hydromorphone HCl (Hydromorphone Hcl 1 Mg/Ml Syringe) 1 mg IVPUSH Q4H PRN; Protocol PRN Reason: Pain, Severe (Pain Scale 7-10) Last Admin: 04/07/25 20:21 Dose: 1 mg Documented By: JOSE Hydromorphone HCl (Hydromorphone Hcl 1 Mg/Ml Syringe) 0.5 mg IVPUSH Q4H PRN; Protocol PRN Reason: Pain, Moderate(Pain Scale 4-6) Last Admin: 04/08/25 08:02 Dose: 0.5 mg Documented By: AINSLEY Piperacillin Sod/Tazobactam (Sod 3.375 gm/ Sodium Chloride) 50 mls @ 100 mls/hr IV Q6H [facility] Last Infusion: 04/09/25 09:03 Dose: Infused Documented By: AINSLEY Insulin Human Lispro (Insulin Lispro 100 Unit/Ml 3 Ml Vial) 0 unit SUBCUT QIDACHS [facility]; Protocol Last Admin: 04/09/25 11:37 Dose: 2 unit Documented By: AINSLEY Losartan Potassium (Losartan Potassium 50 Mg Tablet) 100 mg PO DAILY [facility] Last Admin: 04/09/25 08:23 Dose: 100 mg Documented By: AINSLEY Melatonin (Melatonin 3 Mg Tablet) 6 mg PO BEDTIME PRN PRN Reason: Insomnia Naloxone HCl (Naloxone Hcl 0.4 Mg/Ml Vial) 0.04 mg IVPUSH Q5M PRN PRN Reason: Excessive sedation or RR < 8 Ondansetron HCl (Ondansetron Hcl 4 Mg/2 Ml Vial) 4 mg IVPUSH Q8H PRN PRN Reason: Nausea and Vomiting Sodium Chloride (0.9 % Sodium Chloride Flush 3 Ml Syringe) 3 ml IVFLUSH QSHIFT [facility] Last Admin: 04/09/25 08:29 Dose: Not Given Documented By: AINSLEY Non-Admin Reason: IV Running Vitamin D (Cholecalciferol (Vitamin D3) 25 Mcg Tablet) 25 mcg PO DAILY [facility] Last Admin: 04/09/25 08:23 Dose: 25 mcg Documented By: AINSLEY Labs 04/09/25 09:02 04/09/25 09:02 Labs: Laboratory Results - last 24 hr 04/08/25 04/08/25 04/09/25 17:13 20:05 00:35 MCV MCH MCHC RDW Plt Count MPV Absolute Nucleated RBC Nucleated RBC % (auto) Anion Gap Estim Creat Clear Calc Estimated GFR POC Glucose 272 H 162 H 79 Random Glucose Calcium Magnesium Total Bilirubin Direct Bilirubin AST ALT Alkaline Phosphatase Total Protein Albumin Respiratory Panel Sylvester Adenovirus (Rapid PCR) B.pert (TEM-PCR) B.parapertussis DNA PCR C. pneumoniae DNA (PCR) Coronavirus OC43 (PCR) Coronavirus HKU1 (PCR) Coronavirus 229E (PCR) Coronavirus NL63 (PCR) Human Metapneumovir PCR Influenza A (RT-PCR) Influenza A (H1) PCR Influ A (H1/09) PCR Influenza A (H3) PCR Influenza B (RT-PCR) M. pneumoniae (PCR) Parainfluenza 1 (PCR) Parainfluenza 2 (PCR) Parainfluenza 3 (PCR) Parainfluenza 4 (PCR) RSV (PCR) Entero/Rhino (PCR) SARS-CoV-2 RNA (RT-PCR) 04/09/25 04/09/25 04/09/25 07:48 08:43 09:02 MCV 80.1 MCH 26.1 L MCHC 32.6 RDW 15.7 Plt Count 76 L MPV 10.2 Absolute Nucleated RBC 0.000 Nucleated RBC % (auto) 0.0 Anion Gap 15 Estim Creat Clear Calc 49.2 Estimated GFR > 60 POC Glucose 102 Random Glucose 150 H Calcium 9.0 Magnesium 1.6 Total Bilirubin 1.7 H Direct Bilirubin 0.8 H AST 78 H ALT 86 H Alkaline Phosphatase 277 H Total Protein 5.9 L Albumin 3.1 L Respiratory Panel Sylvester See Note Adenovirus (Rapid PCR) Not Detected B.pert (TEM-PCR) Not Detected B.parapertussis DNA PCR Not Detected C. pneumoniae DNA (PCR) Not Detected Coronavirus OC43 (PCR) Not Detected Coronavirus HKU1 (PCR) Not Detected Coronavirus 229E (PCR) Not Detected Coronavirus NL63 (PCR) Not Detected Human Metapneumovir PCR Not Detected Influenza A (RT-PCR) Not Detected Influenza A (H1) PCR Not Detected Influ A (H1/09) PCR Not Detected Influenza A (H3) PCR Not Detected Influenza B (RT-PCR) Not Detected M. pneumoniae (PCR) Not Detected Parainfluenza 1 (PCR) Not Detected Parainfluenza 2 (PCR) Not Detected Parainfluenza 3 (PCR) Not Detected Parainfluenza 4 (PCR) Not Detected RSV (PCR) Not Detected Entero/Rhino (PCR) Detected A SARS-CoV-2 RNA (RT-PCR) Not Detected 04/09/25 11:25 MCV MCH MCHC RDW Plt Count MPV Absolute Nucleated RBC Nucleated RBC % (auto) Anion Gap Estim Creat Clear Calc Estimated GFR POC Glucose 163 H Random Glucose Calcium Magnesium Total Bilirubin Direct Bilirubin AST ALT Alkaline Phosphatase Total Protein Albumin Respiratory Panel Sylvester Adenovirus (Rapid PCR) B.pert (TEM-PCR) B.parapertussis DNA PCR C. pneumoniae DNA (PCR) Coronavirus OC43 (PCR) Coronavirus HKU1 (PCR) Coronavirus 229E (PCR) Coronavirus NL63 (PCR) Human Metapneumovir PCR Influenza A (RT-PCR) Influenza A (H1) PCR Influ A (H1/09) PCR Influenza A (H3) PCR Influenza B (RT-PCR) M. pneumoniae (PCR) Parainfluenza 1 (PCR) Parainfluenza 2 (PCR) Parainfluenza 3 (PCR) Parainfluenza 4 (PCR) RSV (PCR) Entero/Rhino (PCR) SARS-CoV-2 RNA (RT-PCR) Assessment and Plan (1) Choledocholithiasis with acute cholecystitis: Status: Acute Plan 85-year-old Lithuanian-speaking male with a past medical history significant for hypertension, hyperlipidemia, type 2 diabetes, insomnia, prostate cancer and CAD, admitted by general surgery for severe sepsis secondary to acute cholecystitis with choledocholithiasis, with plans for ERCP on 04/07 Severe sepsis, likely secondary to cholecystitis Leukocytosis improving blood cultures negative @48hrs s/p ERCP :1. sludge in cbd, 2. atrophic ampulla s/p sphincterotomy plan: Zosyn,pain management , patient is eating fevers /cough /congestion:likely viral cxr:Atelectasis/infiltrate of the right lung base. RPP-positive for entro/rhino virus. plan: already on supportive care with a cough medication, loratadine, antibiotics . Hypertension start coreg and slowly introduce home bp meds . HLD hold off on statin, given recent cholangitis-s/p ercp: LFTs also improving moniter lft's closely Type 2 diabetes - hold metformin and Jardiance - continue ISS CAD - hold aspirin Insomnia - clonazepam We will continue to follow at this time, thank you for this consult, rest of management per General surgery. Quality Stroke Does the patient have a stroke diagnosis?: No VTE Prior VTE?: No VTE Risk Level:: Surgical - low VTE Device Contraindication: N/A - Device Ordered VTE Drug Contraindication: N/A - Med Ordered
[2025-04-09 15:25] VITALS: BP 167/79; PULSE 90; RESP 18; TEMP 37.5; O2SAT 94
[2025-04-09 16:10] LABS: Glucose, Whole Blood 170 mg/dL (60-115)
[2025-04-09 19:50] VITALS: BP 144/65; PULSE 92; RESP 16; TEMP 38.1; O2SAT 94
[2025-04-09] MEDS: guaiFENesin 200 MG/10 ML 10 ML LIQUID PO (20:02)
[2025-04-09] MEDS: 0.9 % Sodium Chloride Flush 3 ML SYRINGE IVFLUSH (20:03)
[2025-04-09 20:28] LABS: Glucose, Whole Blood 230 mg/dL (60-115)
[2025-04-10 03:48] VITALS: BP 171/69; PULSE 93; RESP 16; TEMP 38.2; O2SAT 94
[2025-04-10 06:43] LABS: MANUAL DIFF FLAG NO
[2025-04-10 06:57] LABS: Hematocrit 28.5 % (42.0-52.0); Hemoglobin 9.3 g/dl (14.0-18.0); Imm Gran Abs Auto 0.72 X10*3/uL (0.00-0.03); Imm Gran Pct Auto 4.9 % (0.0-0.4); Lymphocytes Absolute Auto 1.0 X10*3/uL (1.2-4.9); Mean Corpuscular HGB Conc 32.6 g/dl (31.0-36.0); Mean Corpuscular Hemoglobin 25.8 pg (27.0-33.0); Mean Corpuscular Volume 79.2 fL (80.0-98.0); NRBC Abs Auto 0.000 X10*3/uL (0.0-0.012); NRBC Pct Auto 0.0 /100WBC (0.0-0.2); Platelet Count 120 X10*3/uL (160-400); Red Blood Count 3.60 X10*6/uL (4.60-5.80); White Blood Count 14.7 X10*3/uL (4.8-10.8)
[2025-04-10 07:21] LABS: Alanine Aminotransferase 65 U/L (0-40); Albumin Level 3.3 g/dL (3.5-5.0); Alkaline Phosphatase 314 U/L (39-117); Anion Gap 15 (12-20); Aspartate Amino Transferase 49 U/L (5-37); Blood Urea Nitrogen 13 mg/dL (9-16); Calcium 9.4 mg/dL (8.4-10.2); Carbon Dioxide 25 mmol/L (22-29); Chloride 103 mmol/L (96-108); Creatinine Clr Calc Pharmacy 50.3; Estimated Glomerular Filt Rate > 60; Potassium 3.3 mmol/L (3.3-5.1); Sodium 140 mmol/L (135-145); Total Protein 6.3 g/dL (6.5-8.0)
[2025-04-10 07:24] VITALS: BP 152/70; PULSE 91; RESP 16; TEMP 36.9; O2SAT 92
--- NOTE | 2025-04-10 07:32 | HO.PM.IMPN ---
Subjective Subjective Date of Service: 04/10/25 Interval History: fuo Review of Systems Review of Systems: Yes all other systems are reviewed and are negative Physical Exam Exam: Exam: Appearance: Alert.? Oriented X3.? cvs: [id number], [id number] . res: air netry fair ,slightly diminshed at right base . abd: no rebound or guarding ,nt, bs present. ext pulses present , no cyanosis . neuro: axo3 , nonfocal. Vital Signs: Vital Signs: Last Vital Signs Temp 98.4 F 04/10/25 07:24 Pulse 91 04/10/25 07:24 Resp 16 04/10/25 07:24 BP 152/70 H 04/10/25 07:24 Pulse Ox 92 04/10/25 07:24 O2 Del Method Room Air 04/10/25 07:24 O2 Flow Rate 2 04/08/25 07:41 BMI result Body Mass Index 21.9 Objective Data Active Medications Acetaminophen (Acetaminophen 325 Mg Tablet) 650 mg PO Q6H PRN PRN Reason: Pain, Mild 1-3,fever,headache Last Admin: 04/09/25 20:00 Dose: 650 mg Documented By: MAVIS Amlodipine Besylate (Amlodipine Besylate 5 Mg Tablet) 5 mg PO DAILY [facility]; Protocol Last Admin: 04/09/25 08:23 Dose: 5 mg Documented By: AINSLEY Carvedilol (Carvedilol 12.5 Mg Tablet) 12.5 mg PO BID [facility]; Protocol Last Admin: 04/09/25 20:00 Dose: 12.5 mg Documented By: MAVIS Clonazepam (Clonazepam 1 Mg Tablet) 1 mg PO BEDTIME [facility] Last Admin: 04/09/25 20:02 Dose: 1 mg Documented By: MAVIS Dextrose (Dextrose 50 % 25 Gm/50 Ml Syringe) 25 gm IVPUSH Q15M PRN; Protocol PRN Reason: per Hypoglycemia Standing Ord. Enoxaparin Sodium (Enoxaparin Sodium 30 Mg/0.3 Ml Syringe) 30 mg SUBCUT DAILY [facility] Last Admin: 04/09/25 08:23 Dose: 30 mg Documented By: AINSLEY Glucose (Glucose Gel 15 Gm Gel..Gram.) 15 gm PO Q15M PRN; Protocol PRN Reason: per Hypoglycemia Standing Ord. Guaifenesin (Guaifenesin 200 Mg/10 Ml 10 Ml Liquid) 10 ml PO Q4H PRN PRN Reason: Cough Last Admin: 04/09/25 20:02 Dose: 10 ml Documented By: MAVIS Comments: requested for cough Hydrochlorothiazide (Hydrochlorothiazide 12.5 Mg Tablet) 12.5 mg PO DAILY [facility] Last Admin: 04/09/25 08:23 Dose: 12.5 mg Documented By: AINSLEY Hydromorphone HCl (Hydromorphone Hcl 1 Mg/Ml Syringe) 1 mg IVPUSH Q4H PRN; Protocol PRN Reason: Pain, Severe (Pain Scale 7-10) Last Admin: 04/07/25 20:21 Dose: 1 mg Documented By: JOSE Hydromorphone HCl (Hydromorphone Hcl 1 Mg/Ml Syringe) 0.5 mg IVPUSH Q4H PRN; Protocol PRN Reason: Pain, Moderate(Pain Scale 4-6) Last Admin: 04/08/25 08:02 Dose: 0.5 mg Documented By: AINSLEY Piperacillin Sod/Tazobactam (Sod 3.375 gm/ Sodium Chloride) 50 mls @ 100 mls/hr IV Q6H [facility] Last Infusion: 04/10/25 02:50 Dose: Infused Documented By: MAVIS Insulin Human Lispro (Insulin Lispro 100 Unit/Ml 3 Ml Vial) 0 unit SUBCUT QIDACHS [facility]; Protocol Last Admin: 04/09/25 20:43 Dose: 4 unit Documented By: MAVIS Loratadine (Loratadine 10 Mg Tablet) 10 mg PO DAILY [facility] Last Admin: 04/09/25 12:34 Dose: 10 mg Documented By: AINSLEY Losartan Potassium (Losartan Potassium 50 Mg Tablet) 100 mg PO DAILY [facility] Last Admin: 04/09/25 08:23 Dose: 100 mg Documented By: AINSLEY Magnesium Oxide (Magnesium Oxide 400 Mg Tablet) 400 mg PO BIDPC [facility] Last Admin: 04/09/25 16:50 Dose: 400 mg Documented By: AINSLEY Melatonin (Melatonin 3 Mg Tablet) 6 mg PO BEDTIME PRN PRN Reason: Insomnia Naloxone HCl (Naloxone Hcl 0.4 Mg/Ml Vial) 0.04 mg IVPUSH Q5M PRN PRN Reason: Excessive sedation or RR < 8 Ondansetron HCl (Ondansetron Hcl 4 Mg/2 Ml Vial) 4 mg IVPUSH Q8H PRN PRN Reason: Nausea and Vomiting Sodium Chloride (0.9 % Sodium Chloride Flush 3 Ml Syringe) 3 ml IVFLUSH QSHIFT [facility] Last Admin: 04/09/25 20:03 Dose: 3 ml Documented By: MAVIS Vitamin D (Cholecalciferol (Vitamin D3) 25 Mcg Tablet) 25 mcg PO DAILY [facility] Last Admin: 04/09/25 08:23 Dose: 25 mcg Documented By: AINSLEY Labs 04/10/25 06:07 04/10/25 06:07 Labs: Laboratory Results - last 24 hr 04/09/25 04/09/25 04/09/25 07:48 08:43 09:02 MCV 80.1 MCH 26.1 L MCHC 32.6 RDW 15.7 Plt Count 76 L MPV 10.2 Immature Gran % (Auto) Neut % (Auto) Lymph % (Auto) Rankin % (Auto) Eos % (Auto) Baso % (Auto) Lymph # (Auto) Rankin # (Auto) Eos # (Auto) Baso # (Auto) Abs Immat Gran (auto) Absolute Neuts (auto) Absolute Nucleated RBC 0.000 Nucleated RBC % (auto) 0.0 Anion Gap 15 Estim Creat Clear Calc 49.2 Estimated GFR > 60 POC Glucose 102 Random Glucose 150 H Calcium 9.0 Magnesium 1.6 Total Bilirubin 1.7 H Direct Bilirubin 0.8 H AST 78 H ALT 86 H Alkaline Phosphatase 277 H Total Protein 5.9 L Albumin 3.1 L Respiratory Panel Sylvester See Note Adenovirus (Rapid PCR) Not Detected B.pert (TEM-PCR) Not Detected B.parapertussis DNA PCR Not Detected C. pneumoniae DNA (PCR) Not Detected Coronavirus OC43 (PCR) Not Detected Coronavirus HKU1 (PCR) Not Detected Coronavirus 229E (PCR) Not Detected Coronavirus NL63 (PCR) Not Detected Human Metapneumovir PCR Not Detected Influenza A (RT-PCR) Not Detected Influenza A (H1) PCR Not Detected Influ A (H1/09) PCR Not Detected Influenza A (H3) PCR Not Detected Influenza B (RT-PCR) Not Detected M. pneumoniae (PCR) Not Detected Parainfluenza 1 (PCR) Not Detected Parainfluenza 2 (PCR) Not Detected Parainfluenza 3 (PCR) Not Detected Parainfluenza 4 (PCR) Not Detected RSV (PCR) Not Detected Entero/Rhino (PCR) Detected A SARS-CoV-2 RNA (RT-PCR) Not Detected 04/09/25 04/09/25 04/09/25 11: 16:06 20:20 MCV MCH MCHC RDW Plt Count MPV Immature Gran % (Auto) Neut % (Auto) Lymph % (Auto) Rankin % (Auto) Eos % (Auto) Baso % (Auto) Lymph # (Auto) Rankin # (Auto) Eos # (Auto) Baso # (Auto) Abs Immat Gran (auto) Absolute Neuts (auto) Absolute Nucleated RBC Nucleated RBC % (auto) Anion Gap Estim Creat Clear Calc Estimated GFR POC Glucose 163 H 170 H 230 H Random Glucose Calcium Magnesium Total Bilirubin Direct Bilirubin AST ALT Alkaline Phosphatase Total Protein Albumin Respiratory Panel Sylvester Adenovirus (Rapid PCR) B.pert (TEM-PCR) B.parapertussis DNA PCR C. pneumoniae DNA (PCR) Coronavirus OC43 (PCR) Coronavirus HKU1 (PCR) Coronavirus 229E (PCR) Coronavirus NL63 (PCR) Human Metapneumovir PCR Influenza A (RT-PCR) Influenza A (H1) PCR Influ A (H1/09) PCR Influenza A (H3) PCR Influenza B (RT-PCR) M. pneumoniae (PCR) Parainfluenza 1 (PCR) Parainfluenza 2 (PCR) Parainfluenza 3 (PCR) Parainfluenza 4 (PCR) RSV (PCR) Entero/Rhino (PCR) SARS-CoV-2 RNA (RT-PCR) 04/10/25 06:07 MCV 79.2 L MCH 25.8 L MCHC 32.6 RDW 15.4 Plt Count 120 L D MPV 10.4 Immature Gran % (Auto) 4.9 H Neut % (Auto) 81.7 H Lymph % (Auto) 6.5 L Rankin % (Auto) 6.1 Eos % (Auto) 0.3 Baso % (Auto) 0.5 Lymph # (Auto) 1.0 L Rankin # (Auto) 0.9 Eos # (Auto) 0.1 Baso # (Auto) 0.1 Abs Immat Gran (auto) 0.72 H Absolute Neuts (auto) 12.0 H Absolute Nucleated RBC 0.000 Nucleated RBC % (auto) 0.0 Anion Gap 15 Estim Creat Clear Calc 50.3 Estimated GFR > 60 POC Glucose Random Glucose 118 H Calcium 9.4 Magnesium Total Bilirubin 1.2 H Direct Bilirubin 0.6 H AST 49 H ALT 65 H Alkaline Phosphatase 314 H Total Protein 6.3 L Albumin 3.3 L Respiratory Panel Sylvester Adenovirus (Rapid PCR) B.pert (TEM-PCR) B.parapertussis DNA PCR C. pneumoniae DNA (PCR) Coronavirus OC43 (PCR) Coronavirus HKU1 (PCR) Coronavirus 229E (PCR) Coronavirus NL63 (PCR) Human Metapneumovir PCR Influenza A (RT-PCR) Influenza A (H1) PCR Influ A (H1) PCR Influenza A (H3) PCR Influenza B (RT-PCR) M. pneumoniae (PCR) Parainfluenza 1 (PCR) Parainfluenza 2 (PCR) Parainfluenza 3 (PCR) Parainfluenza 4 (PCR) RSV (PCR) Entero/Rhino (PCR) SARS-CoV-2 RNA (RT-PCR) Microbiology Microbiology Results: Microbiology 04/04/25 21:20 Blood Culture - Final Blood - Venous No growth after 5 days. 04/04/25 21:28 Blood Culture - Final Blood - Venous No growth after 5 days. Assessment and Plan (1) Choledocholithiasis with acute cholecystitis: Status: Acute Plan 85-year-old Montenegrin-speaking male with a past medical history significant for hypertension, hyperlipidemia, type 2 diabetes, insomnia, prostate cancer and CAD, admitted by general surgery for severe sepsis secondary to acute cholecystitis with choledocholithiasis, with plans for ERCP on 04/07 Severe sepsis, likely secondary to cholecystitis Leukocytosis improving blood cultures negative @48hrs s/p ERCP :1. sludge in cbd, 2. atrophic ampulla s/p sphincterotomy plan: Zosyn,pain management , patient is eating fevers intermittent /cough /congestion:likely viral cxr:Atelectasis/infiltrate of the right lung base. RPP-positive for entro/rhino virus. plan: already on supportive care with a cough medication, loratadine, antibiotics . Hypertension start coreg and slowly introduce home bp meds . HLD hold off on statin, given recent cholangitis-s/p ercp: LFTs also improving moniter lft's closely Type 2 diabetes - hold metformin and Jardiance - continue ISS CAD - hold aspirin Insomnia - clonazepam We will continue to follow at this time, thank you for this consult, rest of management per General surgery. Quality Stroke Does the patient have a stroke diagnosis?: No VTE Prior VTE?: No VTE Risk Level:: Surgical - low VTE Device Contraindication: N/A - Device Ordered VTE Drug Contraindication: N/A - Med Ordered
[2025-04-10 07:45] LABS: Glucose, Whole Blood 129 mg/dL (60-115)
[2025-04-10] MEDS: 0.9 % Sodium Chloride Flush 3 ML SYRINGE IVFLUSH ×2 (08:15→21:09)
--- NOTE | 2025-04-10 09:19 | PM.GIPN ---
Subjective Subjective Date of Service: 04/10/25 Interval History: LFt improving did have rhinovirus but feeling less congested now eating food ok no melena or rectal bleeding Critical Care Time (minutes): 0 Physical Exam Exam: Exam: EXAM: GENERAL: The patient is well developed and nontoxic. VITAL SIGNS:see workflow HEENT: Nonicteric sclerae, PERRLA, EOMI. Oropharynx clear. Moist mucous membranes. Conjunctivae appear well perfused. No thyroid mass. CHEST: Chest wall is nontender. HEART: Regular rate and rhythm without murmurs. LUNGS: Clear to auscultation bilaterally. ABDOMEN: Soft, positive bowel sounds, nontender, no organomegaly.no flank tenderness SKIN: No rash, no excessive bruising, petechiae, or purpura. NEUROLOGIC: Cranial nerves II-XII intact without motor/sensory deficit. Psych: normal affect Vital Signs: Vital Signs: Last Vital Signs Temp 98.4 F 04/10/25 07:24 Pulse 91 04/10/25 07:24 Resp 16 04/10/25 07:24 BP 152/70 H 04/10/25 07:24 Pulse Ox 92 04/10/25 07:24 O2 Del Method Room Air 04/10/25 07:24 O2 Flow Rate 2 04/08/25 07:41 BMI result Body Mass Index 21.9 Objective Data Labs 04/10/25 06:07 04/10/25 06:07 Labs: Laboratory Results - last 24 hr 04/09/25 04/09/25 04/09/25 08:43 09:02 11:25 WBC 15.5 H RBC 3.41 L Hgb 8.9 L Hct 27.3 L MCV 80.1 MCH 26.1 L MCHC 32.6 RDW 15.7 Plt Count 76 L MPV 10.2 Immature Gran % (Auto) Neut % (Auto) Lymph % (Auto) [place] % (Auto) Eos % (Auto) Baso % (Auto) Lymph # (Auto) [place] # (Auto) Eos # (Auto) Baso # (Auto) Abs Immat Gran (auto) Absolute Neuts (auto) Absolute Nucleated RBC 0.000 Nucleated RBC % (auto) 0.0 Sodium 141 Potassium 2.9 L* Chloride 105 Carbon Dioxide 24 Anion Gap 15 BUN 12 Creatinine 0.90 Estim Creat Clear Calc 49.2 Estimated GFR > 60 POC Glucose 163 H Random Glucose 150 H Calcium 9.0 Magnesium 1.6 Total Bilirubin 1.7 H Direct Bilirubin 0.8 H AST 78 H ALT 86 H Alkaline Phosphatase 277 H Total Protein 5.9 L Albumin 3.1 L Respiratory Panel Sylvester See Note Adenovirus (Rapid PCR) Not Detected B.pert (TEM-PCR) Not Detected B.parapertussis DNA PCR Not Detected C. pneumoniae DNA (PCR) Not Detected Coronavirus OC43 (PCR) Not Detected Coronavirus HKU1 (PCR) Not Detected Coronavirus 229E (PCR) Not Detected Coronavirus NL63 (PCR) Not Detected Human Metapneumovir PCR Not Detected Influenza A (RT-PCR) Not Detected Influenza A (H1) PCR Not Detected Influ A (H1/09) PCR Not Detected Influenza A (H3) PCR Not Detected Influenza B (RT-PCR) Not Detected M. pneumoniae (PCR) Not Detected Parainfluenza 1 (PCR) Not Detected Parainfluenza 2 (PCR) Not Detected Parainfluenza 3 (PCR) Not Detected Parainfluenza 4 (PCR) Not Detected RSV (PCR) Not Detected Entero/Rhino (PCR) Detected A SARS-CoV-2 RNA (RT-PCR) Not Detected 04/09/25 04/09/25 04/10/25 16:06 20:20 06:07 WBC 14.7 H RBC 3.60 L Hgb 9.3 L Hct 28.5 L MCV 79.2 L MCH 25.8 L MCHC 32.6 RDW 15.4 Plt Count 120 L D MPV 10.4 Immature Gran % (Auto) 4.9 H Neut % (Auto) 81.7 H Lymph % (Auto) 6.5 L [place] % (Auto) 6.1 Eos % (Auto) 0.3 Baso % (Auto) 0.5 Lymph # (Auto) 1.0 L [place] # (Auto) 0.9 Eos # (Auto) 0.1 Baso # (Auto) 0.1 Abs Immat Gran (auto) 0.72 H Absolute Neuts (auto) 12.0 H Absolute Nucleated RBC 0.000 Nucleated RBC % (auto) 0.0 Sodium 140 Potassium 3.3 Chloride 103 Carbon Dioxide 25 Anion Gap 15 BUN 13 Creatinine 0.88 Estim Creat Clear Calc 50.3 Estimated GFR > 60 POC Glucose 170 H 230 H Random Glucose 118 H Calcium 9.4 Magnesium Total Bilirubin 1.2 H Direct Bilirubin 0.6 H AST 49 H ALT 65 H Alkaline Phosphatase 314 H Total Protein 6.3 L Albumin 3.3 L Respiratory Panel Sylvester Adenovirus (Rapid PCR) B.pert (TEM-PCR) B.parapertussis DNA PCR C. pneumoniae DNA (PCR) Coronavirus OC43 (PCR) Coronavirus HKU1 (PCR) Coronavirus 229E (PCR) Coronavirus NL63 (PCR) Human Metapneumovir PCR Influenza A (RT-PCR) Influenza A (H1) PCR Influ A () PCR Influenza A (H3) PCR Influenza B (RT-PCR) M. pneumoniae (PCR) Parainfluenza 1 (PCR) Parainfluenza 2 (PCR) Parainfluenza 3 (PCR) Parainfluenza 4 (PCR) RSV (PCR) Entero/Rhino (PCR) SARS-CoV-2 RNA (RT-PCR) 04/10/25 07:27 WBC RBC Hgb Hct MCV MCH MCHC RDW Plt Count MPV Immature Gran % (Auto) Neut % (Auto) Lymph % (Auto) [place] % (Auto) Eos % (Auto) Baso % (Auto) Lymph # (Auto) [place] # (Auto) Eos # (Auto) Baso # (Auto) Abs Immat Gran (auto) Absolute Neuts (auto) Absolute Nucleated RBC Nucleated RBC % (auto) Sodium Potassium Chloride Carbon Dioxide Anion Gap BUN Creatinine Estim Creat Clear Calc Estimated GFR POC Glucose 129 H Random Glucose Calcium Magnesium Total Bilirubin Direct Bilirubin AST ALT Alkaline Phosphatase Total Protein Albumin Respiratory Panel Sylvester Adenovirus (Rapid PCR) B.pert (TEM-PCR) B.parapertussis DNA PCR C. pneumoniae DNA (PCR) Coronavirus OC43 (PCR) Coronavirus HKU1 (PCR) Coronavirus 229E (PCR) Coronavirus NL63 (PCR) Human Metapneumovir PCR Influenza A (RT-PCR) Influenza A (H1) PCR Influ A () PCR Influenza A (H3) PCR Influenza B (RT-PCR) M. pneumoniae (PCR) Parainfluenza 1 (PCR) Parainfluenza 2 (PCR) Parainfluenza 3 (PCR) Parainfluenza 4 (PCR) RSV (PCR) Entero/Rhino (PCR) SARS-CoV-2 RNA (RT-PCR) Microbiology Microbiology Results: Microbiology 04/04/25 21:20 Blood - Venous Blood Culture - Final No growth after 5 days. 04/04/25 21:28 Blood - Venous Blood Culture - Final No growth after 5 days. Procedures Date of Service Date of Service: 04/10/25 Progress Note: A&P Assessment and plan (1) Choledocholithiasis with acute cholecystitis: Status: Acute Plan 1/ Much improved tolerating PO, consult surgery for plan on CCY Time Spent With Patient Time: Total time managing care of this patient today ____ minutes. Quality Stroke Does the patient have a stroke diagnosis?: No VTE Prior VTE?: No VTE Risk Level:: Surgical - low VTE Device Contraindication: N/A - Device Ordered VTE Drug Contraindication: N/A - Med Ordered
--- NOTE | 2025-04-10 09:24 | P.PNGS_ITS ---
Subjective Subjective Date of Service: 04/10/25 Interval history: Some low-grade temperatures overnight but better Denies abdominal pain Tolerating diet well Physical Exam 2 Vital Signs: Vital Signs: Last Vital Signs Temp 98.4 F 04/10/25 07:24 Pulse 91 04/10/25 07:24 Resp 16 04/10/25 07:24 BP 152/70 H 04/10/25 07:24 Pulse Ox 92 04/10/25 07:24 O2 Del Method Room Air 04/10/25 07:24 O2 Flow Rate 2 04/08/25 07:41 BMI result Body Mass Index 21.9 Const: General: comfortable and no acute distress Resp: Effort & Inspection: normal respiratory effort GI: Palpation (GI): Soft to palpation, not firm, nontender and no guarding Objective Data Active Medications Acetaminophen (Acetaminophen 325 Mg Tablet) 650 mg PO Q6H PRN PRN Reason: Pain, Mild 1-3,fever,headache Last Admin: 04/09/25 20:00 Dose: 650 mg Documented By: MAVIS Amlodipine Besylate (Amlodipine Besylate 5 Mg Tablet) 5 mg PO DAILY COUNTS INCLUDE 234 BEDS AT THE [facility]; Protocol Last Admin: 04/10/25 08:15 Dose: 5 mg Documented By: DARLENE Carvedilol (Carvedilol 12.5 Mg Tablet) 12.5 mg PO BID COUNTS INCLUDE 234 BEDS AT THE [facility]; Protocol Last Admin: 04/10/25 08:15 Dose: 12.5 mg Documented By: DARLENE Clonazepam (Clonazepam 1 Mg Tablet) 1 mg PO BEDTIME COUNTS INCLUDE 234 BEDS AT THE [facility] Last Admin: 04/09/25 20:02 Dose: 1 mg Documented By: MAVIS Dextrose (Dextrose 50 % 25 Gm/50 Ml Syringe) 25 gm IVPUSH Q15M PRN; Protocol PRN Reason: per Hypoglycemia Standing Ord. Enoxaparin Sodium (Enoxaparin Sodium 30 Mg/0.3 Ml Syringe) 30 mg SUBCUT DAILY COUNTS INCLUDE 234 BEDS AT THE [facility] Last Admin: 04/10/25 08:14 Dose: 30 mg Documented By: DARLENE Glucose (Glucose Gel 15 Gm Gel..Gram.) 15 gm PO Q15M PRN; Protocol PRN Reason: per Hypoglycemia Standing Ord. Guaifenesin (Guaifenesin 200 Mg/10 Ml 10 Ml Liquid) 10 ml PO Q4H PRN PRN Reason: Cough Last Admin: 04/09/25 20:02 Dose: 10 ml Documented By: MAVIS Comments: requested for cough Hydrochlorothiazide (Hydrochlorothiazide 12.5 Mg Tablet) 12.5 mg PO DAILY COUNTS INCLUDE 234 BEDS AT THE [facility] Last Admin: 04/10/25 08:15 Dose: 12.5 mg Documented By: DARLENE Hydromorphone HCl (Hydromorphone Hcl 1 Mg/Ml Syringe) 0.5 mg IVPUSH Q4H PRN; Protocol PRN Reason: Pain, Moderate(Pain Scale 4-6) Last Admin: 04/08/25 08:02 Dose: 0.5 mg Documented By: AINSLEY Piperacillin Sod/Tazobactam (Sod 3.375 gm/ Sodium Chloride) 50 mls @ 100 mls/hr IV Q6H COUNTS INCLUDE 234 BEDS AT THE [facility] Last Infusion: 04/10/25 09:04 Dose: Infused Documented By: DARLENE Insulin Human Lispro (Insulin Lispro 100 Unit/Ml 3 Ml Vial) 0 unit SUBCUT QIDACHS COUNTS INCLUDE 234 BEDS AT THE [facility]; Protocol Last Admin: 04/10/25 07:52 Dose: Not Given Documented By: DARLENE Non-Admin Reason: No Insulin Coverage Loratadine (Loratadine 10 Mg Tablet) 10 mg PO DAILY COUNTS INCLUDE 234 BEDS AT THE [facility] Last Admin: 04/10/25 08:15 Dose: 10 mg Documented By: DARLENE Losartan Potassium (Losartan Potassium 50 Mg Tablet) 100 mg PO DAILY COUNTS INCLUDE 234 BEDS AT THE [facility] Last Admin: 04/10/25 08:15 Dose: 100 mg Documented By: DARLENE Magnesium Oxide (Magnesium Oxide 400 Mg Tablet) 400 mg PO BIDPC COUNTS INCLUDE 234 BEDS AT THE [facility] Last Admin: 04/10/25 08:15 Dose: 400 mg Documented By: DARLENE Melatonin (Melatonin 3 Mg Tablet) 6 mg PO BEDTIME PRN PRN Reason: Insomnia Naloxone HCl (Naloxone Hcl 0.4 Mg/Ml Vial) 0.04 mg IVPUSH Q5M PRN PRN Reason: Excessive sedation or RR < 8 Ondansetron HCl (Ondansetron Hcl 4 Mg/2 Ml Vial) 4 mg IVPUSH Q8H PRN PRN Reason: Nausea and Vomiting Sodium Chloride (0.9 % Sodium Chloride Flush 3 Ml Syringe) 3 ml IVFLUSH QSHIFT COUNTS INCLUDE 234 BEDS AT THE [facility] Last Admin: 04/10/25 08:15 Dose: 3 ml Documented By: DARLENE Vitamin D (Cholecalciferol (Vitamin D3) 25 Mcg Tablet) 25 mcg PO DAILY [facility] Last Admin: 04/10/25 08:15 Dose: 25 mcg Documented By: DARLENE Labs 04/10/25 06:07 04/10/25 06:07 Labs: Laboratory Results - last 24 hr 04/09/25 04/09/25 04/09/25 08:43 09:02 11:25 MCV MCH MCHC RDW Plt Count MPV Immature Gran % (Auto) Neut % (Auto) Lymph % (Auto) [place] % (Auto) Eos % (Auto) Baso % (Auto) Lymph # (Auto) [place] # (Auto) Eos # (Auto) Baso # (Auto) Abs Immat Gran (auto) Absolute Neuts (auto) Absolute Nucleated RBC Nucleated RBC % (auto) Anion Gap 15 Estim Creat Clear Calc 49.2 Estimated GFR > 60 POC Glucose 163 H Random Glucose 150 H Calcium 9.0 Magnesium 1.6 Total Bilirubin 1.7 H Direct Bilirubin 0.8 H AST 78 H ALT 86 H Alkaline Phosphatase 277 H Total Protein 5.9 L Albumin 3.1 L Respiratory Panel Sylvester See Note Adenovirus (Rapid PCR) Not Detected B.pert (TEM-PCR) Not Detected B.parapertussis DNA PCR Not Detected C. pneumoniae DNA (PCR) Not Detected Coronavirus OC43 (PCR) Not Detected Coronavirus HKU1 (PCR) Not Detected Coronavirus 229E (PCR) Not Detected Coronavirus NL63 (PCR) Not Detected Human Metapneumovir PCR Not Detected Influenza A (RT-PCR) Not Detected Influenza A (H1) PCR Not Detected Influ A (H1/09) PCR Not Detected Influenza A (H3) PCR Not Detected Influenza B (RT-PCR) Not Detected M. pneumoniae (PCR) Not Detected Parainfluenza 1 (PCR) Not Detected Parainfluenza 2 (PCR) Not Detected Parainfluenza 3 (PCR) Not Detected Parainfluenza 4 (PCR) Not Detected RSV (PCR) Not Detected Entero/Rhino (PCR) Detected A SARS-CoV-2 RNA (RT-PCR) Not Detected 04/09/25 04/09/25 04/10/25 16:06 20:20 06:07 MCV 79.2 L MCH 25.8 L MCHC 32.6 RDW 15.4 Plt Count 120 L D MPV 10.4 Immature Gran % (Auto) 4.9 H Neut % (Auto) 81.7 H Lymph % (Auto) 6.5 L [place] % (Auto) 6.1 Eos % (Auto) 0.3 Baso % (Auto) 0.5 Lymph # (Auto) 1.0 L [place] # (Auto) 0.9 Eos # (Auto) 0.1 Baso # (Auto) 0.1 Abs Immat Gran (auto) 0.72 H Absolute Neuts (auto) 12.0 H Absolute Nucleated RBC 0.000 Nucleated RBC % (auto) 0.0 Anion Gap 15 Estim Creat Clear Calc 50.3 Estimated GFR > 60 POC Glucose 170 H 230 H Random Glucose 118 H Calcium 9.4 Magnesium Total Bilirubin 1.2 H Direct Bilirubin 0.6 H AST 49 H ALT 65 H Alkaline Phosphatase 314 H Total Protein 6.3 L Albumin 3.3 L Respiratory Panel Sylvester Adenovirus (Rapid PCR) B.pert (TEM-PCR) B.parapertussis DNA PCR C. pneumoniae DNA (PCR) Coronavirus OC43 (PCR) Coronavirus HKU1 (PCR) Coronavirus 229E (PCR) Coronavirus NL63 (PCR) Human Metapneumovir PCR Influenza A (RT-PCR) Influenza A (H1) PCR Influ A (H1/09) PCR Influenza A (H3) PCR Influenza B (RT-PCR) M. pneumoniae (PCR) Parainfluenza 1 (PCR) Parainfluenza 2 (PCR) Parainfluenza 3 (PCR) Parainfluenza 4 (PCR) RSV (PCR) Entero/Rhino (PCR) SARS-CoV-2 RNA (RT-PCR) 04/10/25 07:27 MCV MCH MCHC RDW Plt Count MPV Immature Gran % (Auto) Neut % (Auto) Lymph % (Auto) [place] % (Auto) Eos % (Auto) Baso % (Auto) Lymph # (Auto) [place] # (Auto) Eos # (Auto) Baso # (Auto) Abs Immat Gran (auto) Absolute Neuts (auto) Absolute Nucleated RBC Nucleated RBC % (auto) Anion Gap Estim Creat Clear Calc Estimated GFR POC Glucose 129 H Random Glucose Calcium Magnesium Total Bilirubin Direct Bilirubin AST ALT Alkaline Phosphatase Total Protein Albumin Respiratory Panel Sylvester Adenovirus (Rapid PCR) B.pert (TEM-PCR) B.parapertussis DNA PCR C. pneumoniae DNA (PCR) Coronavirus OC43 (PCR) Coronavirus HKU1 (PCR) Coronavirus 229E (PCR) Coronavirus NL63 (PCR) Human Metapneumovir PCR Influenza A (RT-PCR) Influenza A (H1) PCR Influ A (H1/09) PCR Influenza A (H3) PCR Influenza B (RT-PCR) M. pneumoniae (PCR) Parainfluenza 1 (PCR) Parainfluenza 2 (PCR) Parainfluenza 3 (PCR) Parainfluenza 4 (PCR) RSV (PCR) Entero/Rhino (PCR) SARS-CoV-2 RNA (RT-PCR) Microbiology Microbiology Results: Microbiology 04/04/25 21:20 Blood Culture - Final Blood - Venous No growth after 5 days. 04/04/25 21:28 Blood Culture - Final Blood - Venous No growth after 5 days. Procedures Date of Service Date of Service: 04/10/25 Progress Note: A&P Assessment and plan (1) Elevated bilirubin: Status: Acute Assessment and Plan: Bilirubin now much improved Had fevers - tested positive for enterovirus/rhinovirus Abdomen otherwise soft and benign and nontender Looks well overall Tolerating diet well Possible DC home later today or tomorrow depending on fever pattern Appreciate hospitalist follow up Time Spent With Patient Time: Total time managing care of this patient today ____ minutes. Quality Stroke Does the patient have a stroke diagnosis?: No VTE Prior VTE?: No VTE Risk Level:: Surgical - low VTE Device Contraindication: N/A - Device Ordered VTE Drug Contraindication: N/A - Med Ordered
[2025-04-10 11:31] LABS: Glucose, Whole Blood 194 mg/dL (60-115)
[2025-04-10 15:52] VITALS: BP 153/74; PULSE 91; RESP 18; TEMP 37.2; O2SAT 93
--- NOTE | 2025-04-10 16:05 | MHC.CM.PN ---
PT NOT MEDICALLY CLEARED, PER MD NOTE, LOW GRADE FEVERS OVERNIGHT CM FOLLOWING
[2025-04-10 16:18] LABS: Glucose, Whole Blood 236 mg/dL (60-115)
[2025-04-10 19:39] VITALS: BP 151/71; PULSE 95; RESP 18; TEMP 36.6; O2SAT 94
[2025-04-10 20:29] LABS: Glucose, Whole Blood 185 mg/dL (60-115)
[2025-04-10 21:02] VITALS: BP 164/73; PULSE 94
[2025-04-11 03:35] VITALS: BP 150/70; PULSE 94; RESP 18; TEMP 36.9; O2SAT 94
--- NOTE | 2025-04-11 07:35 | HO.PM.IMPN ---
Subjective Subjective Date of Service: 04/11/25 Interval History: fever Review of Systems improved Review of Systems: Yes all other systems are reviewed and are negative Physical Exam Exam: Exam: Appearance: Alert.? Oriented X3.? cvs: rrr, [id number] . res: air netry fair ,slightly diminshed at right base . abd: no rebound or guarding ,nt, bs present. ext pulses present , no cyanosis . neuro: axo3 , nonfocal. Vital Signs: Vital Signs: Last Vital Signs Temp 98.4 F 04/11/25 03:35 Pulse 94 04/11/25 03:35 Resp 18 04/11/25 03:35 BP 150/70 H 04/11/25 03:35 Pulse Ox 94 04/11/25 03:35 O2 Del Method Room Air 04/11/25 03:35 O2 Flow Rate 2 04/08/25 07:41 BMI result Body Mass Index 21.9 Objective Data Active Medications Acetaminophen (Acetaminophen 325 Mg Tablet) 650 mg PO Q6H PRN PRN Reason: Pain, Mild 1-3,fever,headache Last Admin: 04/10/25 15:55 Dose: 650 mg Documented By: DARLENE Amlodipine Besylate (Amlodipine Besylate 5 Mg Tablet) 5 mg PO DAILY [facility]; Protocol Last Admin: 04/10/25 08:15 Dose: 5 mg Documented By: DARLENE Carvedilol (Carvedilol 12.5 Mg Tablet) 12.5 mg PO BID [facility]; Protocol Last Admin: 04/10/25 21:02 Dose: 12.5 mg Documented By: JULI Dextrose (Dextrose 50 % 25 Gm/50 Ml Syringe) 25 gm IVPUSH Q15M PRN; Protocol PRN Reason: per Hypoglycemia Standing Ord. Enoxaparin Sodium (Enoxaparin Sodium 30 Mg/0.3 Ml Syringe) 30 mg SUBCUT DAILY [facility] Last Admin: 04/10/25 08:14 Dose: 30 mg Documented By: DARLENE Glucose (Glucose Gel 15 Gm Gel..Gram.) 15 gm PO Q15M PRN; Protocol PRN Reason: per Hypoglycemia Standing Ord. Guaifenesin (Guaifenesin 200 Mg/10 Ml 10 Ml Liquid) 10 ml PO Q4H PRN PRN Reason: Cough Last Admin: 04/09/25 20:02 Dose: 10 ml Documented By: MAVIS Comments: requested for cough Hydrochlorothiazide (Hydrochlorothiazide 12.5 Mg Tablet) 12.5 mg PO DAILY [facility] Last Admin: 04/10/25 08:15 Dose: 12.5 mg Documented By: DARLENE Hydromorphone HCl (Hydromorphone Hcl 1 Mg/Ml Syringe) 0.5 mg IVPUSH Q4H PRN; Protocol PRN Reason: Pain, Moderate(Pain Scale 4-6) Last Admin: 04/08/25 08:02 Dose: 0.5 mg Documented By: AINSLEY Piperacillin Sod/Tazobactam (Sod 3.375 gm/ Sodium Chloride) 50 mls @ 100 mls/hr IV Q6H [facility] Last Infusion: 04/11/25 02:29 Dose: Infused Documented By: JULI Insulin Human Lispro (Insulin Lispro 100 Unit/Ml 3 Ml Vial) 0 unit SUBCUT QIDACHS [facility]; Protocol Last Admin: 04/10/25 21:01 Dose: 2 unit Documented By: JULI Loratadine (Loratadine 10 Mg Tablet) 10 mg PO DAILY [facility] Last Admin: 04/10/25 08:15 Dose: 10 mg Documented By: DARLENE Losartan Potassium (Losartan Potassium 50 Mg Tablet) 100 mg PO DAILY [facility] Last Admin: 04/10/25 08:15 Dose: 100 mg Documented By: DARLENE Magnesium Oxide (Magnesium Oxide 400 Mg Tablet) 400 mg PO BIDPC [facility] Last Admin: 04/10/25 17:02 Dose: 400 mg Documented By: DARLENE Melatonin (Melatonin 3 Mg Tablet) 6 mg PO BEDTIME PRN PRN Reason: Insomnia Naloxone HCl (Naloxone Hcl 0.4 Mg/Ml Vial) 0.04 mg IVPUSH Q5M PRN PRN Reason: Excessive sedation or RR < 8 Ondansetron HCl (Ondansetron Hcl 4 Mg/2 Ml Vial) 4 mg IVPUSH Q8H PRN PRN Reason: Nausea and Vomiting Sodium Chloride (0.9 % Sodium Chloride Flush 3 Ml Syringe) 3 ml IVFLUSH QSHIFT [facility] Last Admin: 04/10/25 21:09 Dose: 3 ml Documented By: JULI Vitamin D (Cholecalciferol (Vitamin D3) 25 Mcg Tablet) 25 mcg PO DAILY [facility] Last Admin: 04/10/25 08:15 Dose: 25 mcg Documented By: DARLENE Labs 04/10/25 06:07 04/10/25 06:07 Labs: Laboratory Results - last 24 hr 04/10/25 04/10/25 04/10/25 07:27 11:23 16:05 POC Glucose 129 H 194 H 236 H 04/10/25 19:52 POC Glucose 185 H Assessment and Plan (1) Choledocholithiasis with acute cholecystitis: Status: Acute (2) Elevated bilirubin: Status: Acute (3) Acute cholecystitis: Status: Acute Plan 85-year-old Tristanian-speaking male with a past medical history significant for hypertension, hyperlipidemia, type 2 diabetes, insomnia, prostate cancer and CAD, admitted by general surgery for severe sepsis secondary to acute cholecystitis with choledocholithiasis, with plans for ERCP on 04/07 Severe sepsis, likely secondary to cholecystitis Leukocytosis improving blood cultures negative @48hrs s/p ERCP :1. sludge in cbd, 2. atrophic ampulla s/p sphincterotomy plan: Zosyn,pain management , patient is eating fevers intermittent /cough /congestion:likely viral cxr:Atelectasis/infiltrate of the right lung base. RPP-positive for entro/rhino virus. fevers resolved. plan: already on supportive care with a cough medication, loratadine, antibiotics . Hypertension:continue coreg and slowly introduce home bp meds . HLD consider off on statin for 1 week, given recent cholangitis-s/p ercp: LFTs also improving consider moniter lft's closely outpatient in week before starting statin. Type 2 diabetes metformin and Jardiance upon discharge. - continue ISS CAD - aspirin Insomnia - clonazepam will sign off ,call us for any questions Quality Stroke Does the patient have a stroke diagnosis?: No VTE Prior VTE?: No VTE Risk Level:: Surgical - low VTE Device Contraindication: N/A - Device Ordered VTE Drug Contraindication: N/A - Med Ordered
[2025-04-11 08:00] VITALS: BP 175/81; PULSE 100; RESP 18; TEMP 37.4; O2SAT 92
[2025-04-11 08:00] LABS: Glucose, Whole Blood 134 mg/dL (60-115)
[2025-04-11 09:38] VITALS: BP 134/72
[2025-04-11] MEDS: 0.9 % Sodium Chloride Flush 3 ML SYRINGE IVFLUSH (09:50)
--- NOTE | 2025-04-11 09:51 | P.PNGS_ITS ---
Subjective Subjective Date of Service: 04/11/25 Interval history: Has had no fever for over 24 hours Feels well Denies any abdominal pain Respiratory symptoms seems resolved As per daughter, he has been doing well with good oral intake Physical Exam 2 Vital Signs: Vital Signs: Last Vital Signs Temp 99.3 F 04/11/25 08:00 Pulse 100 04/11/25 08:00 Resp 18 04/11/25 08:00 BP 134/72 04/11/25 09:38 Pulse Ox 92 04/11/25 08:00 O2 Del Method Room Air 04/11/25 08:00 O2 Flow Rate 2 04/08/25 07:41 BMI result Body Mass Index 21.9 Const: General: comfortable and no acute distress Resp: Effort & Inspection: normal respiratory effort Cardio: Rate: regular rate GI: Palpation (GI): Soft to palpation, not firm, nontender and no guarding Objective Data Active Medications Acetaminophen (Acetaminophen 325 Mg Tablet) 650 mg PO Q6H PRN PRN Reason: Pain, Mild 1-3,fever,headache Last Admin: 04/10/25 15:55 Dose: 650 mg Documented By: DARLENE Amlodipine Besylate (Amlodipine Besylate 5 Mg Tablet) 5 mg PO DAILY [facility]; Protocol Last Admin: 04/10/25 08:15 Dose: 5 mg Documented By: DARLENE Carvedilol (Carvedilol 12.5 Mg Tablet) 12.5 mg PO BID [facility]; Protocol Last Admin: 04/10/25 21:02 Dose: 12.5 mg Documented By: JULI Dextrose (Dextrose 50 % 25 Gm/50 Ml Syringe) 25 gm IVPUSH Q15M PRN; Protocol PRN Reason: per Hypoglycemia Standing Ord. Enoxaparin Sodium (Enoxaparin Sodium 30 Mg/0.3 Ml Syringe) 30 mg SUBCUT DAILY [facility] Last Admin: 04/10/25 08:14 Dose: 30 mg Documented By: DARLENE Glucose (Glucose Gel 15 Gm Gel..Gram.) 15 gm PO Q15M PRN; Protocol PRN Reason: per Hypoglycemia Standing Ord. Guaifenesin (Guaifenesin 200 Mg/10 Ml 10 Ml Liquid) 10 ml PO Q4H PRN PRN Reason: Cough Last Admin: 04/09/25 20:02 Dose: 10 ml Documented By: MAVIS Comments: requested for cough Hydrochlorothiazide (Hydrochlorothiazide 12.5 Mg Tablet) 12.5 mg PO DAILY [facility] Last Admin: 04/10/25 08:15 Dose: 12.5 mg Documented By: DARLENE Hydromorphone HCl (Hydromorphone Hcl 1 Mg/Ml Syringe) 0.5 mg IVPUSH Q4H PRN; Protocol PRN Reason: Pain, Moderate(Pain Scale 4-6) Last Admin: 04/08/25 08:02 Dose: 0.5 mg Documented By: AINSLEY Piperacillin Sod/Tazobactam (Sod 3.375 gm/ Sodium Chloride) 50 mls @ 100 mls/hr IV Q6H [facility] Last Infusion: 04/11/25 02:29 Dose: Infused Documented By: JULI Insulin Human Lispro (Insulin Lispro 100 Unit/Ml 3 Ml Vial) 0 unit SUBCUT QIDACHS [facility]; Protocol Last Admin: 04/11/25 08:26 Dose: Not Given Documented By: ROXANNA Non-Admin Reason: No Insulin Coverage Loratadine (Loratadine 10 Mg Tablet) 10 mg PO DAILY [facility] Last Admin: 04/10/25 08:15 Dose: 10 mg Documented By: DARLENE Losartan Potassium (Losartan Potassium 50 Mg Tablet) 100 mg PO DAILY [facility] Last Admin: 04/10/25 08:15 Dose: 100 mg Documented By: DARLENE Magnesium Oxide (Magnesium Oxide 400 Mg Tablet) 400 mg PO BIDPC [facility] Last Admin: 04/10/25 17:02 Dose: 400 mg Documented By: DARLENE Melatonin (Melatonin 3 Mg Tablet) 6 mg PO BEDTIME PRN PRN Reason: Insomnia Naloxone HCl (Naloxone Hcl 0.4 Mg/Ml Vial) 0.04 mg IVPUSH Q5M PRN PRN Reason: Excessive sedation or RR < 8 Ondansetron HCl (Ondansetron Hcl 4 Mg/2 Ml Vial) 4 mg IVPUSH Q8H PRN PRN Reason: Nausea and Vomiting Sodium Chloride (0.9 % Sodium Chloride Flush 3 Ml Syringe) 3 ml IVFLUSH QSHIFT [facility] Last Admin: 04/10/25 21:09 Dose: 3 ml Documented By: JULI Vitamin D (Cholecalciferol (Vitamin D3) 25 Mcg Tablet) 25 mcg PO DAILY [facility] Last Admin: 04/10/25 08:15 Dose: 25 mcg Documented By: DARLENE Labs 04/10/25 06:07 04/10/25 06:07 Labs: Laboratory Results - last 24 hr 04/10/25 04/10/25 04/10/25 11:23 16:05 19:52 POC Glucose 194 H 236 H 185 H 04/11/25 07:54 POC Glucose 134 H Procedures Date of Service Date of Service: 04/11/25 Progress Note: A&P Assessment and plan (1) Choledocholithiasis: Status: Acute Assessment and Plan: Had ERCP and stent placement Bilirubin now much improved Abdomen is soft and benign Asymptomatic with no right upper quadrant pain, no tenderness, no Shen's sign He has been afebrile for more than 24 hours Had respiratory this has with a cough and has a positive for entero/rhino virus Cough has resolved Discussed with daughter - she says patient appears to be ready to be discharged He looks well overall so we will discharge today on oral antibiotics Instructed to follow up with primary care physician and me in the office Time Spent With Patient Time: Total time managing care of this patient today ____ minutes. Quality Stroke Does the patient have a stroke diagnosis?: No VTE Prior VTE?: No VTE Risk Level:: Surgical - low VTE Device Contraindication: N/A - Device Ordered VTE Drug Contraindication: N/A - Med Ordered
--- NOTE | 2025-04-11 10:28 | MHC.CM.PN ---
PT CLEARED TO DC HOME TODAY WITH [employer]UMPTION OF [employer] FAMILY TO TRANSPORT
--- NOTE | 2025-04-11 12:01 | P.DS_ITS ---
DS: Providers Provider Date of Service: 04/11/25 Date of admission: 04/04/25 22:29 Date of discharge: 04/11/25 Primary care physician: Nando Hodges PA-C Attending physician on admission: Jeanne Loya Consults: 04/04/25 22:28 Consult to Hospitalist Routine Comment: Consulting Provider: [facility] [place] [facility] [place] Reason For Exam: med management 04/05/25 13:54 Consult to Gastroenterology Stat Consulting Provider: Bryan Marte Reason for consultation: choledocholithiasis Has provider been notified: No Attending physician on discharge: Pravin Hair DS: Diagnosis Discharge Diagnosis (1) Choledocholithiasis: Status: Acute DS: Summary Hospital Course Hospital Course: HPI AT ADMISSION: Vaishnavi Kurtz is a 85 year old male who presents to the emergency room after eating sardines and rice last night and having abdominal pain more specifically right upper quadrant area and feeling nauseated. He has not really had any issues like this before. He was brought to the emergency room and was noted to be tender in the right upper quadrant. LFTs were relatively within normal limits but he was tender and ultrasound and CT scan carried out. Ultrasound showed maybe some changes associated with the gallbladder distended could be early cholecystitis. Common bile duct was not necessarily dilated here. CT scan of the abdomen and pelvis was carried out which shows the common bile duct distended to 1 cm and a 7 mm common bile duct stone noted in the distal duct.. Patient was admitted NPO IV fluid resuscita tion and treated with IV antibiotics. LFTs were repeated and noted to be little more elevated. An MRCP was carried out while the patient we will remained NPO with IV fluid resuscitation and I the IV antibiotics. His lactic acidosis improved. The MRI showed has a he is doing on possibly 2-3 duct stone still a close to the ampulla. Patient resuscitated and feeling better. Medical team following along as he has diabetes and other medical issues and gastroenterology consult called in to evaluate the patient for the choledocholithiasis and ERCP. Patient came in septic question due to gallbladder versus choledocholithiasis and cholangitis. HOSPITAL COURSE: He was admitted to the surgical service for further traetment. GI consult was placed for possibel ERCP. Hospitalist consult was requested for management of medical cmorbidities. He was kept NPO, started on IVF and IV zosyn. He underwent on Endoscopic retrograde cholangiopancreatography with sphincterotomy and balloon sweep and basket, with cholangiogram on 04/07/[address] Bishop. He had improvement in his abdominal symptoms following the procedure. Family wanted to hold off on cholecystectomy following given his frail health. He was continued on IV zosyn for nonoperative treatment of the acute cholecystitis. His diet was slowly advanced. His LFTs downtrended. He did become febrile and developed intermittent cough /congestion. CXR was performed which showed atelectasis/infiltrate of the right lung base, thought likely to be viral. Respiratory panel was positive for entro/rhino virus. His fever curve improved and his respiratory symptoms improved with supportive measures. On the day of discharge, he was tolerating a solid diet without abdominal pain, nausea/vomiting. His cough was improved. He was hemodynamically stable and afebrile >24h. He felt ready for discharge. He was discharged to home on 04/11/15 in stable condition on a course of oral augmentin. He is to follow up in the office in 1-2 weeks. LFTs were to be repeated in 1 week outpatient prior to starting statin. Status at Discharge Functional status at discharge: independent ambulation Time Attestation Discharge Coordination Time (in mins): 35 Quality: Safe Use of Opioids Does Pt have an Active Cancer Diagnosis on the Problem List?: No Quality: Stroke Does the patient have a stroke diagnosis?: No Physical Exam Vital Signs: Vital Signs: Last Vital Signs Temp 99.3 F 04/11/25 08:00 Pulse 100 04/11/25 08:00 Resp 18 04/11/25 08:00 BP 134/72 04/11/25 09:38 Pulse Ox 92 04/11/25 08:00 O2 Del Method Room Air 04/11/25 08:00 O2 Flow Rate 2 04/08/25 07:41 BMI result Body Mass Index 21.9 Const: General: comfortable, no acute distress and alert Resp: Effort & Inspection: normal respiratory effort GI: Other: Soft to palpation, not firm, nontender and no guarding Discharge Plan Discharge Anticipated Discharge Date/Time: 04/11/25 09:54 Patient Disposition: Home, Self-Care Discharge Diagnosis: CBD stones Referrals: Nando Hodges PA-C [Primary Care Provider, Internal Medicine] - 1 Week Pravin Hair MD [Physician, General Surgery] - 2 Weeks Discharge Medications: New tramadol 50 mg tablet 50 mg PO Q6H PRN (Reason: pain) Qty: 20 0RF amoxicillin-pot clavulanate 875-125 mg tablet 1 tab PO BID Qty: 10 0RF Continued spironolactone 25 mg tablet 25 mg PO DAILY 90 Days Qty: 90 1RF Jardiance 25 mg tablet 25 mg PO DAILY 90 Days Qty: 90 1RF carvedilol 12.5 mg tablet 12.5 mg PO BID 90 Days Qty: 180 1RF metformin 1,000 mg tablet 1,000 mg PO BID 90 Days Qty: 180 1RF lansoprazole 30 mg capsule,delayed release(DR/EC) 30 mg PO DAILY 90 Days Qty: 90 1RF losartan-hydrochlorothiazide 100-12.5 mg tablet 1 tab PO DAILY Qty: 90 1RF amlodipine 5 mg tablet 5 mg PO DAILY 30 Days Qty: 90 1RF Trulicity 3 mg/0.5 mL pen injector 3 mg subcut FR aspirin [Enteric Coated Aspirin] 81 mg tablet,delayed release (DR/EC) 81 mg PO DAILY 90 Days Qty: 90 0RF (DME) lancets 28 gauge misc See Rx Instructions topical BID Qty: 100 Rx Instructions: As directed (DME) blood-glucose meter Kit See Rx Instructions .ROUTE .MEDSUPPLY Qty: 1 Rx Instructions: As directed glucose 4 gram tablet,chewable 4 g PO ONCE PRN (Reason: Hypoglycemia) nitroglycerin 0.4 mg tablet, sublingual 0.4 mg sublingual Q5M PRN (Reason: Chest Pain) Rx Instructions: do not exceed 3 doses per episode (DME) blood pressure monitor [Blood Pressure Kit] Kit See Rx Instructions .ROUTE .MEDSUPPLY Qty: 1 0RF Rx Instructions: As directed (DME) FreeStyle Dorinda 3 Plus Sensor Device See Rx Instructions .Route Qty: 2 3RF Rx Instructions: As directed cholecalciferol (vitamin D3) 25 mcg (1,000 unit) capsule 25 mcg PO DAILY 90 Days Qty: 90 1RF (DME) FreeStyle Dorinda 3 Sully Misc See Rx Instructions .Route Qty: 1 0RF Rx Instructions: As directed Held atorvastatin 40 mg tablet 40 mg PO BEDTIME 90 Days Qty: 90 1RF Hold Instructions: Resume on 04/17/25. No Action temazepam 30 mg capsule 30 mg PO BEDTIME 10 Days Qty: 10 0RF Discharge Orders: Discharge Order (Routine); Ordered 04/11/25 Ordered By: Pravin Hair Diet: Low fat, low cholesterol Activity on Discharge: As tolerated Stand Alone Forms: Patient Portal Discharge page Print Language: Uzbek Other Ambulatory Orders: Liver Panel (Routine) Timeframe: 1 Week Facility: [facility] - Location: Laboratory Ordered By: Faustino Mckinney Activity Restrictions/Additional Instructions: Call the office for follow-up in 2 weeks - with Dr. Hair Call Your Doctor If: -Your temperature exceeds 101.5? F -You experience excessive pain or swelling -You have an unexpected reaction to medication -You have excessive bleeding -You experience continued vomiting/nausea Care Plan Goals: Returned to baseline health Health Concerns: Has gallstone Diabetic Plan of Treatment: hold statin for 1 week and consider repating lft's in 1week before starting statin. Home on oral antibiotics Follow up in the office Assessment: Doing well and seemed to be asymptomatic Patient Instructions: Amoxicillin/Clavulanate Potassium (By mouth), ERCP (Endoscopic Retrograde Cholangiopancreatography) (DC) Discharge Date/Time: 04/11/25 11:42
== END 2025-04-11 11:42 | disposition home or self-care (01) | DRG 872 ==
LOC: HO.ED 21:48 → HO.EDOVER 22:57 → HO.S3 04-05 14:31
PROVIDERS: Internal Medicine; Internal Medicine Gastroenterology; Surgery; Admitting Provider Surgery; Emergency Provider Emergency Medicine; PCP Physician Assistant; Visit Provider Surgery
PROC: 0F798ZZ Dilation of Common Bile Duct, Via Natural or Artificial Opening Endoscopic (ICD-10-PCS; CPT 43260; principal; 2025-04-07 13:00)
DX: A41.9 Sepsis, unspecified organism (principal); K80.42 Calculus of bile duct with acute cholecystitis without obstruction; J98.11 Atelectasis; I25.10 Atherosclerotic heart disease of native coronary artery without angina pectoris; I10 Essential (primary) hypertension; E78.5 Hyperlipidemia, unspecified; E11.42 Type 2 diabetes mellitus with diabetic polyneuropathy; E87.6 Hypokalemia; Z20.822 Contact with and (suspected) exposure to COVID-19; Z95.5 Presence of coronary angioplasty implant and graft; B97.10 Unspecified enterovirus as the cause of diseases classified elsewhere; B97.89 Other viral agents as the cause of diseases classified elsewhere; R65.20 Severe sepsis without septic shock; G47.00 Insomnia, unspecified; Z79.82 Long term (current) use of aspirin; Z79.84 Long term (current) use of oral hypoglycemic drugs; Z79.85 Long-term (current) use of injectable non-insulin antidiabetic drugs; Z79.899 Other long term (current) drug therapy
CPT/HCPCS: 36415; 71045; 74177; 74181; 76705; 80048; 80053; 80076; 81001; 82248; 82947; 83605; 83690; 83735; 84484; 85007; 85025; 85027; 87040; 87633; 93005; 99285; J0131; J1171; J1610; J1650; J2003; J2270; J2371; J2405; J2470; J2543; J2704; J3010; J7120; Q9967

== ENCOUNTER → 2025-04-04 17:30 | Outpatient (BNV) | payer OTHER, SELFPAY | PROVIDERS: Admitting Provider Surgery; Emergency Provider Emergency Medicine; PCP Physician Assistant; Visit Provider Internal Medicine | DX: R94.31 Abnormal electrocardiogram [ECG] [EKG] (principal); R10.13 Epigastric pain | CPT/HCPCS: 93010 ==

== ENCOUNTER → 2025-04-04 17:32 | Outpatient (BNV) | payer OTHER, SELFPAY | PROVIDERS: Emergency Provider Emergency Medicine; PCP Physician Assistant; Visit Provider Radiology Diagnostic Radiology | DX: K80.50 Calculus of bile duct without cholangitis or cholecystitis without obstruction (principal); K40.90 Unilateral inguinal hernia, without obstruction or gangrene, not specified as recurrent; N28.1 Cyst of kidney, acquired; R10.11 Right upper quadrant pain; R10.13 Epigastric pain | CPT/HCPCS: 71045; 74177; 76705 ==

== ENCOUNTER 2025-04-04 22:29 | Outpatient (BNV) | payer OTHER, SELFPAY | END 2025-04-09 08:40 | PROVIDERS: Admitting Provider Surgery; Emergency Provider Emergency Medicine; PCP Physician Assistant; Visit Provider Nuclear Medicine | DX: R05.9 Cough, unspecified (principal) | CPT/HCPCS: 71045 ==

== ENCOUNTER 2025-04-04 22:29 | Outpatient (BNV) | payer OTHER, SELFPAY | END 2025-04-05 09:03 | PROVIDERS: Admitting Provider Surgery; Emergency Provider Emergency Medicine; PCP Physician Assistant; Visit Provider Radiology Vascular & Interventional Radiology | DX: K80.50 Calculus of bile duct without cholangitis or cholecystitis without obstruction (principal); K80.63 Calculus of gallbladder and bile duct with acute cholecystitis with obstruction | CPT/HCPCS: 74181 ==

== ENCOUNTER → 2025-04-04 22:29 | Outpatient (BNV) | payer OTHER, SELFPAY | PROVIDERS: Admitting Provider Surgery; Emergency Provider Emergency Medicine; PCP Physician Assistant; Visit Provider Physician Assistant | DX: E11.65 Type 2 diabetes mellitus with hyperglycemia (principal); A41.9 Sepsis, unspecified organism; R65.20 Severe sepsis without septic shock; K80.42 Calculus of bile duct with acute cholecystitis without obstruction | CPT/HCPCS: 99223; 99233 ==

== ENCOUNTER → 2025-04-04 22:29 | Outpatient (BNV) | payer OTHER, SELFPAY | PROVIDERS: Admitting Provider Surgery; Emergency Provider Emergency Medicine; PCP Physician Assistant; Visit Provider Internal Medicine Gastroenterology | DX: K80.42 Calculus of bile duct with acute cholecystitis without obstruction (principal) | CPT/HCPCS: 99223 ==

== ENCOUNTER → 2025-04-04 22:29 | Outpatient (BNV) | payer OTHER, SELFPAY | PROVIDERS: Admitting Provider Surgery; Emergency Provider Emergency Medicine; PCP Physician Assistant; Visit Provider Surgery | DX: R17 Unspecified jaundice (principal) | CPT/HCPCS: 99223; 99232; 99233; 99499 ==

== ENCOUNTER 2025-04-16 09:34 | Outpatient (REF) | payer OTHER, SELFPAY ==
[2025-04-16 10:36] LABS: Hematocrit 31.7 % (42.0-52.0); Hemoglobin 9.7 g/dl (14.0-18.0); Mean Corpuscular HGB Conc 30.6 g/dl (31.0-36.0); Mean Corpuscular Hemoglobin 25.3 pg (27.0-33.0); Mean Corpuscular Volume 82.8 fL (80.0-98.0); NRBC Abs Auto 0.000 X10*3/uL (0.0-0.012); NRBC Pct Auto 0.0 /100WBC (0.0-0.2); Red Blood Count 3.83 X10*6/uL (4.60-5.80); White Blood Count 11.1 X10*3/uL (4.8-10.8)
[2025-04-16 10:50] LABS: Alanine Aminotransferase 31 U/L (0-40); Albumin Level 3.9 g/dL (3.5-5.0); Alkaline Phosphatase 227 U/L (39-117); Anion Gap 12 (12-20); Aspartate Amino Transferase 22 U/L (5-37); Blood Urea Nitrogen 20 mg/dL (9-16); Calcium 9.4 mg/dL (8.4-10.2); Carbon Dioxide 28 mmol/L (22-29); Chloride 107 mmol/L (96-108); Estimated Glomerular Filt Rate > 60; Iron 69 mcg/dL (45-160); Percent Iron Saturation 28 % (15-50); Potassium 4.1 mmol/L (3.3-5.1); Sodium 143 mmol/L (135-145); Total Iron Binding Capacity 250 mcg/dL (228-428); Total Protein 7.2 g/dL (6.5-8.0); Unsaturated Iron Binding 181 ug/dL
[2025-04-16 11:03] LABS: Platelet Count 379 X10*3/uL (160-400)
[2025-04-16 11:15] LABS: Prostate Specific Antigen 0.34 ng/mL (<0.05-4.0)
== END 2025-04-16 09:35 | disposition home or self-care (01) ==
LOC: HO.10HDL 09:34
PROVIDERS: Urology; Visit Provider Physician Assistant
DX: D50.9 Iron deficiency anemia, unspecified (principal); R17 Unspecified jaundice; K81.0 Acute cholecystitis; Z85.46 Personal history of malignant neoplasm of prostate; Z12.5 Encounter for screening for malignant neoplasm of prostate
CPT/HCPCS: 36415; 80053; 82248; 83540; 84153; 85027

== ENCOUNTER 2025-04-20 10:46 | Outpatient (AMB) | payer OTHER, SELFPAY ==
--- NOTE | 2025-04-20 11:10 | MHC.PC.OV ---
Vital Signs 04/20/25 11:11 Height 5 ft 3 in Weight 117 lb 8 oz BMI 20.8 BP 132/60 Blood Pressure Location Lt brachial Position Sitting Pulse 63 Pulse Source Pulse Oximeter Temp 97.3 F Temp Source Temporal Artery Scan Pulse Oximetry (%) 99 Oxygen Delivery Method Room Air Intake Visit Reasons: f/u DMII Intake Note: Patient is here to follow up on DMII. Busser Required: Yes Busser Language: [place] Operator Name: Frieda (daughter) Information Interpreted: non-clinical & clinical (Pt decline still runner service prefer daughter to translate) Custom Bike Builder: Present Accompanied by: Daughter Allergies No Known Allergies (No Known Allergies*) Allergy (Verified 04/20/25 11:27) Medication List - Last Reconciled 04/20/25 by Nando Hodges PA-C amlodipine 5 mg PO DAILY 30 days aspirin (Enteric Coated Aspirin) 81 mg PO DAILY 3 months atorvastatin 40 mg PO BEDTIME 90 days Held on 04/11/25. Instructions: Resume on 04/17/25. blood pressure monitor (Blood Pressure Kit) As directed blood-glucose meter As directed blood-glucose sensor (FreeStyle Dorinda 3 Plus Sensor device) As directed blood-glucose,air conditioning mechanic industrial,cont (FreeStyle Dorinda 3 [place]) As directed carvedilol 12.5 mg PO BID 90 days cholecalciferol (vitamin D3) 25 mcg PO DAILY 3 months dulaglutide (Trulicity) 3 mg subcut FR glucose 4 grams PO ONCE PRN lancets As directed lansoprazole 30 mg PO DAILY 90 days losartan-hydrochlorothiazide 100-12.5 mg 1 tab PO DAILY metformin 1,000 mg PO BID 90 days nitroglycerin 0.4 mg sublingual Q5M PRN spironolactone 25 mg PO DAILY 90 days temazepam 30 mg PO BEDTIME 10 days tramadol 50 mg PO Q6H PRN Tobacco use date assessed: 01/26/25 Fall risk assessment: No Falls in past year Last assessed Fall Risk: 04/20/25 Dental Screening Dental Screen Date: 11/17/24 HPI f/u DMII HPI Details Patient is an 85-year-old male here today for follow-up visit He is Upper Sorbian-speaking only. Patient has a past medical history significant for hypertension, hyperlipidemia, type 2 diabetes, coronary artery disease. Recent hospitalization--> Patient recently admitted to [facility] for an acute abdominal pain. Ultrasound and CT of abdomen suggestive of acute early cystitis. Patient did not undergo a cholecystectomy due to his frail health. He was found to have an infiltrate on chest x-ray and viral testing did show positive for rhino virus. He ultimately underwent an ERCP with stent placement and did well. Most recent liver enzymes stabilized. Does have an upcoming appointment with general surgeon for further evaluation. Anemia: Have no longstanding anemia of chronic disease though most recent labs showing worsening hemoglobin and low MCV. .. Hypertension: Patient's blood pressure today acceptable. He continues on amlodipine, spironolactone , losartan hydrochlorothiazide and carvedilol with good effect on his blood pressure. .. Insomnia: Was previously on temazepam though did not have insurance coverage for this medication. Insomnia is managed with clonazepam at this time.. .. Type 2 diabetes: Seems to have been suboptimally controlled. Today's A1c improved at 7.9. Continues on metformin 1000 b.i.d.. Has lost significant amount of weight since being sick with his gallbladder issue and pneumonia PLAN: Will reduce his dose of Trulicity to 0.75 .. Coronary artery disease: Did have coronary artery stents placed many years ago, most recent lipid panel showing excellent control of his total cholesterol and LDL. 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 Allergic rhinitis Microalbuminuria Insomnia History of Helicobacter infection GERD (gastroesophageal reflux disease) History of prostate cancer Coronary artery disease Vitamin D deficiency Hyperlipidemia LDL goal <100 Essential hypertension Type 2 diabetes mellitus with hyperglycemia Surgical History Stented coronary artery History of cardiac cath Hx of esophagogastroduodenoscopy Hx of prostate biopsy Hx of colonoscopy Family History Father Medical history unknown Mother Medical history unknown Sister Diabetes Daughter Breast cancer Social History Household Members: None Housing: Apartment 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 Services Do you presently have visiting nurse or other home services: No Alcohol intake: never Comment: family in room Patient Tobacco Use Status: Former Tobacco user Tobacco use type: Cigarette e-Cigarette/Vaping Use: Never Used Second Hand Smoke Exposure: Yes service: No Current occupational status: retired Cognitive needs: Yes Hearing needs: No Vision needs: Yes Questionnaire Thrive Questionnaire Date Thrive assessed: 04/05/25 I am a: Patient What is your living situation today?: I have a steady place to live Within the past 12 months, did the food you bought not last and you didn't have the money to get more?: Never true Within the past 12 months, did you worry whether your food would run out before you got money to buy more?: Sometimes True Do you have trouble paying for medicines?: No Do you have trouble getting transportation to medical appointments?: No Do you have trouble paying your heating and electricity bill?: No Do you have trouble taking care of your child, family member or friend?: No Do you have trouble with day-to-day activities such as bathing, preparing meals, shopping, managing finances, etc.?: No Are you currently unemployed and looking for a job?: No Are you interested in more education?: No Please select the resources that you would like help with: None Currently or been in a relationship where the following occur: No concerns reported THRIVE Score: 1 KULWINDER-7 AMB Questionnaire KULWINDER-7 Date KULWINDER - 7 assessed: 11/17/24 Source: Developed by Drs. Sammy Ellis, Pippa Orellana, Bebeto Gagnon and colleagues, with an educational vipin from [employer]. Review of Systems Const Denies headache(s) Eyes Denies loss of vision ENT Denies vertigo, Denies dizziness, Denies headache(s) and Denies sore throat Card Denies chest pain, Denies leg edema and Denies lightheadedness Resp Denies cough, Denies hemoptysis and Denies wheezing GI Reports abdominal pain, Denies melena, Denies constipation, Denies diarrhea and Denies vomiting Denies dysuria, Denies urinary frequency and Denies urinary urgency Musc Denies arthralgias, Denies joint swelling, Denies numbness and Denies tingling Neuro Denies Abnormal speech present, Denies behavioral changes, Denies vertigo, Denies dizziness, Denies headache(s), Denies loss of vision, Denies memory loss, Denies numbness and Denies tingling Psych Denies anxiety, Denies behavioral changes, Denies depression, Denies memory loss and Denies panic attacks Casey/Lymph Denies easy bleeding and Denies easy bruising Aller/Immun Denies wheezing Physical exam (Primary Care) Vital Signs: Last Vital Signs Temp 97.3 F 04/20/25 11:11 Pulse 63 04/20/25 11:11 BP 132/60 04/20/25 11:11 Pulse Ox 99 04/20/25 11:11 Oxygen Delivery Method Room Air 04/20/25 11:11 BMI result Body Mass Index 20.8 Tobacco/Smoking Status: Tobacco use Status Tobacco use date assessed 01/26/25 04/20/25 11:19 Patient Tobacco Use Status Former Tobacco user 04/20/25 11:19 Tobacco use type Cigarette 04/20/25 11:19 e-Cigarette/Vaping Use Never Used 04/20/25 11:19 Thrive Assessment: Date of Thrive Assessment Date Thrive assessed 04/05/25 04/20/25 11:19 Currently or been in a relationship where the following occur: No concerns reported Const Other: THIN AND FRAIL-APPEARING General: no acute distress, alert and awake Nutritional Appearance: well nourished Orientation/consciousness: oriented to person, oriented to place and oriented to time HENMT Ears: TM's normal bilaterally General nose exam: Normal nasal mucous membranes and turbinates present Eyes Conjunctivae: conjunctivae normal Sclerae: sclerae normal Pupils: Equal, round and reactive pupils present Neck Neck: Yes no lymphadenopathy and Yes no JVD Thyroid: Thyroid normal Carotids: no bruits Resp Effort & Inspection: normal respiratory effort and not tachypneic Auscultation: no crackles, no rales, no rhonchi and no wheezes Cardio Rate: regular rate Rhythm: regular rhythm Heart sounds: no murmurs and normal S1 and S2 GI Palpation (GI): Soft to palpation, nontender, no hepatomegaly and no splenomegaly Auscultation: normal bowel sounds Skin General skin exam: no rashes or lesions noted and dry skin Neuro General: oriented to person, oriented to place and oriented to time Cranial nerves: Yes Equal, round and reactive pupils present Speech: No Abnormal speech present Gait exam (Neuro): Normal gait present Motor exam (neuro): no tremor noted Extrem Right upper extremity: full ROM Left upper extremity: full ROM Right lower extremity: full ROM; no edema Left lower extremity: full ROM; no edema Psych Mental Status: mental status grossly normal Speech and movement: Normal speech and movement present Affect: normal affect Attitude: cooperative Thought process: Normal thought process present Results AMB Hemoglobin A1c AMB Hemoglobin A1c 7.8 % Last Edit by KANE Lagos on 04/20/25 11:23 Results Reviewed Results Reviewed: Laboratory Last Values Hgb A1c (Clinic) 7.8 % (4.0-6.0) H 04/20/25 11:09 Coding Level of Care Code Est Pt Level 4 (00807) Diagnoses Type 2 diabetes mellitus with hyperglycemia, unspecified whether group home insulin use E11.65 Diabetes mellitus marine meteorologist insulin use: unspecified marine meteorologist insulin use status Hyperlipidemia LDL goal <70 E78.5 Essential hypertension I10 Stented coronary artery Z95.5 Primary insomnia F51.01 Insomnia type: primary Iron deficiency anemia, unspecified iron deficiency anemia type D50.9 Anemia type: iron deficiency Iron deficiency anemia type: unspecified iron deficiency Choledocholithiasis K80.50 Assessment & Plan Assessment & Plan (1) Type 2 diabetes mellitus with hyperglycemia: Code(s): E11.65 - Type 2 diabetes mellitus with hyperglycemia Category: Medical Qualifiers: Diabetes mellitus marine meteorologist insulin use: unspecified group home insulin use status Qualified Code(s): E11.65 - Type 2 diabetes mellitus with hyperglycemia Plan: For management of type 2 diabetes and poor appetite, the dose of Trulicity will be decreased from 3 mg to 0.75 mg weekly. This change is being made with the hope of improving his appetite, as the current dose may be too high given his age and weight loss. He will continue taking metformin. The goal for his A1c will be less than 8 due to age and comorbidities. (2) Hyperlipidemia LDL goal <70: Code(s): E78.5 - Hyperlipidemia, unspecified Category: Medical Plan: Patient most recent fasting lipid panel showing excellent control of his total cholesterol and LDL. Does have a history of coronary artery disease. Goal LDL is to be optimally below 70. (3) Essential hypertension: Code(s): I10 - Essential (primary) hypertension Category: Medical Plan: Patient's blood pressure acceptable today in office. Continues to follow Nephrology , most recent urinalysis showing high-protein. Advised to stay well hydrated. Due to elevated blood pressure will change his losartan to combo agent losartan hydrochlorothiazide. Goal blood pressure to be below 140/90 (4) Stented coronary artery: Code(s): Z95.5 - Presence of coronary angioplasty implant and graft Category: Surgical Plan: Patient has no reports chest discomfort or shortness of breath. As above goal LDL to remain below 70. (5) Insomnia: Code(s): G47.00 - Insomnia, unspecified Category: Medical Qualifiers: Insomnia type: primary Qualified Code(s): F51.01 - Primary insomnia Plan: Patient continues on temazepam nightly with good effect. (6) Anemia: Code(s): D64.9 - Anemia, unspecified Category: Medical Qualifiers: Anemia type: iron deficiency Iron deficiency anemia type: unspecified iron deficiency Qualified Code(s): D50.9 - Iron deficiency anemia, unspecified Plan: Family does report that patient has been complaining of fatigue.. Patient was found to have low MCV and hemoglobin of 9.7. No overt signs of bleeding noted. Advised on continue iron supplementation. Regarding his nutrition and low blood levels, it is recommended to supplement his diet with protein shakes, especially if he skips a meal, to see if his blood counts improve with better nutrition. (7) Choledocholithiasis: Code(s): K80.50 - Calculus of bile duct without cholangitis or cholecystitis without obstruction Category: Medical Plan: As per HPI The patient needs to make a decision about undergoing a cholecystectomy for his gallbladder disease. He was counseled on the risks of the gallbladder getting infected versus the risks of undergoing anesthesia for the surgery. Orders: Orders AMB Hemoglobin A1c Today E11.65 - Type 2 diabetes mellitus with hyperglycemia Microalbumin, Random (w Creat) Today I10 - Essential (primary) hypertension Lipid Panel Today E78.5 - Hyperlipidemia, unspecified Comprehensive [place]. Panel Fast Today E78.5 - Hyperlipidemia, unspecified Complete Blood Count no Diff Today E78.5 - Hyperlipidemia, unspecified Medications: New dulaglutide (Trulicity) 0.75 mg (0.5 mL) subcut QWEEK 2 mL 4RF 4 weeks E11.65 - Type 2 diabetes mellitus with hyperglycemia Changed From temazepam 30 mg PO BEDTIME 10 days 10 caps 0RF sleep F51.01 - Primary insomnia To temazepam 30 mg PO BEDTIME 30 caps 3RF sleep 30 days F51.01 - Primary insomnia
[2025-04-20 11:11] VITALS: BP 132/60; PULSE 63; TEMP 36.3; O2SAT 99; BMI 20.8
== END 2025-04-20 11:41 | disposition home or self-care (01) ==
LOC: HO.HMCH 10:47
PROVIDERS: PCP Internal Medicine; Visit Provider Physician Assistant
DX: E11.65 Type 2 diabetes mellitus with hyperglycemia (principal); E78.5 Hyperlipidemia, unspecified; I10 Essential (primary) hypertension; Z95.5 Presence of coronary angioplasty implant and graft; F51.01 Primary insomnia; D50.9 Iron deficiency anemia, unspecified; K80.50 Calculus of bile duct without cholangitis or cholecystitis without obstruction

== ENCOUNTER → 2025-04-20 10:46 | Outpatient (BNVA) | payer OTHER, SELFPAY | PROVIDERS: PCP Internal Medicine; Visit Provider Physician Assistant | DX: E11.65 Type 2 diabetes mellitus with hyperglycemia (principal); E78.5 Hyperlipidemia, unspecified; I10 Essential (primary) hypertension; F51.01 Primary insomnia; D50.9 Iron deficiency anemia, unspecified; K80.50 Calculus of bile duct without cholangitis or cholecystitis without obstruction; Z95.5 Presence of coronary angioplasty implant and graft | CPT/HCPCS: 83036; 99212 ==